=== PATIENT | male | born 1935 | race Caucasian/White ===

== ENCOUNTER 2019-12-15 10:36 | Outpatient (CLI) | payer MEDICARE, OTHER, SELFPAY ==
--- NOTE | 2019-12-18 11:32 | WPDHOLTEREM ---
Holter/Event Monitor Holter/Event Monitor Date of procedure: 12/15/19 Procedure Type: 24 hour holter monitor Indications: Bradycardia Conclusion: 1. 24 hour holter monitor on 12/15/19. 2. Underlying rhythm is sinus rhythm. HR range 74-104 bpm; average HR 86 bpm. 3. There are 25 premature supraventricular complexes. No supraventricular tachycardia. 4. There are 544 premature ventricular complexes and 2 ventricular couplets. No ventricular tachycardia. 5. No sinoatrial or atrioventricular blocks. No significant pauses greater than 2 seconds. 6. No symptoms available for correlation.
== END 2019-12-15 10:37 | disposition home or self-care (01) ==
LOC: ANHCARD 10:40
PROVIDERS: PCP Internal Medicine; Visit Provider Internal Medicine
DX: R00.1 Bradycardia, unspecified (principal)
CPT/HCPCS: 93225; 93226

== ENCOUNTER 2020-02-17 11:56 | Outpatient (CLI) | payer MEDICARE, OTHER, SELFPAY ==
[2020-02-17 12:19] LABS: Basophils Percent Auto 0.4 % (0.2-1.2); Eosinophils Absolute Auto 0.1 K/mm3 (0-0.3); Eosinophils Percent Auto 2.6 % (0-4.4); Hematocrit 31.5 % (42.0-52.0); Hemoglobin 10.4 g/dL (14.0-18.0); Immature Granulocyte Absolute 0.02 K/mm3 (0.00-0.031); Immature Granulocyte Percent A 0.4 % (0-0.5); Immature Reticulocyte Fraction 9.8 % (3.0-15.9); Lymphocytes Absolute Auto 0.79 K/mm3 (0.9-3.2); Mean Corpuscular Volume 96.9 fl (80-100); Mean Platelet Volume 9.3 fl (7.4-10.4); Monocytes Absolute Auto 0.5 K/mm3 (0.1-0.6); Monocytes Percent Auto 10.3 % (2.6-8.5); Neutrophils Absolute Auto 3.2 K/mm3 (1.3-6.7); Neutrophils Percent Auto 69.3 % (45.5-73.1); Platelet Count Result 216 k/mm3 (150-375); Red Blood Count 3.25 M/mm3 (4.6-6.20); Red Cell Distribution Width 13.3 % (11.5-14.5); Reticulocyte Hemoglobin Conten 37.8 pg (28.2-35.7); Reticulocyte Percent 1.25 % (0.7-4.3); Reticulocytes Absolute 0.04 B/L (32.2-175.7); White Blood Count 4.7 K/mm3 (4.5-10.0)
[2020-02-17 16:46] LABS: Iron 61 ug/dL (49-181)
[2020-02-17 16:49] LABS: Alanine Aminotransferase 25 U/L (4-50); Albumin Level 4.5 g/dL (3.5-5.1); Alkaline Phosphatase 76 U/L (38-126); Anion Gap 12 mmol/L (8-16); Aspartate Amino Transferase 23 U/L (17-59); Bilirubin,Total 0.4 mg/dL (0.2-1.3); Blood Urea Nitrogen 29 mg/dL (9-20); Calcium 9.5 mg/dL (8.4-10.2); Carbon Dioxide 23 mmol/L (22-30); Chloride 108 mmol/L (98-107); Estimated Glomerular Filt Rate 53; Glucose 105 mg/dL (75-110); Potassium 5.1 mmol/L (3.4-5.0); Sodium 143 mmol/L (137-145)
[2020-02-17 16:55] LABS: Percent Iron Saturation 18 % (20-50)
[2020-02-17 17:55] LABS: Folic Acid > 20.0 ng/mL (2.76->20)
[2020-02-20 09:33] LABS: Methylmalonic Acid 195 nmol/L (87-318)
[2020-02-22 16:32] LABS: Soluble Transferrin Receptor 1.16 mg/L (0.76-1.76)
== END 2020-02-17 11:57 | disposition home or self-care (01) ==
PROVIDERS: PCP Internal Medicine; Visit Provider Internal Medicine Hematology & Oncology
DX: D64.9 Anemia, unspecified (principal)
CPT/HCPCS: 36415; 80053; 82607; 82728; 82746; 83540; 83550; 83921; 84238; 85025; 85046

== ENCOUNTER 2020-06-19 08:47 | Outpatient (CLI) | payer MEDICARE, OTHER, SELFPAY ==
[2020-06-19 09:09] LABS: Basophils Percent Auto 0.6 % (0.2-1.2); Eosinophils Absolute Auto 0.1 K/mm3 (0-0.3); Eosinophils Percent Auto 2.5 % (0-4.4); Hematocrit 31.4 % (42.0-52.0); Hemoglobin 10.1 g/dL (14.0-18.0); Immature Granulocyte Absolute 0.01 K/mm3 (0.00-0.031); Immature Granulocyte Percent A 0.3 % (0-0.5); Lymphocytes Absolute Auto 0.83 K/mm3 (0.9-3.2); Lymphocytes Percent Auto 23.1 % (18.3-44.2); Mean Corpuscular HGB Conc 32.2 g/dl (32-36); Mean Corpuscular Hemoglobin 31.5 pg (26-34); Mean Corpuscular Volume 97.8 fl (80-100); Mean Platelet Volume 9.3 fl (7.4-10.4); Monocytes Absolute Auto 0.3 K/mm3 (0.1-0.6); Monocytes Percent Auto 8.4 % (2.6-8.5); Neutrophils Absolute Auto 2.3 K/mm3 (1.3-6.7); Neutrophils Percent Auto 65.1 % (45.5-73.1); Platelet Count Result 218 k/mm3 (150-375); Red Blood Count 3.21 M/mm3 (4.6-6.20); Red Cell Distribution Width 13.7 % (11.5-14.5); White Blood Count 3.6 K/mm3 (4.5-10.0)
[2020-06-19 12:39] LABS: Iron 65 ug/dL (49-181)
[2020-06-19 12:43] LABS: Anion Gap 12 mmol/L (8-16); Blood Urea Nitrogen 24 mg/dL (9-20); Calcium 9.5 mg/dL (8.4-10.2); Carbon Dioxide 22 mmol/L (22-30); Chloride 108 mmol/L (98-107); Estimated Glomerular Filt Rate > 60; Glucose 96 mg/dL (75-110); Potassium 4.8 mmol/L (3.4-5.0); Sodium 142 mmol/L (137-145)
[2020-06-19 12:49] LABS: Percent Iron Saturation 19 % (20-50)
== END 2020-06-19 08:48 | disposition home or self-care (01) ==
LOC: ANHLAB 08:51
PROVIDERS: PCP Internal Medicine; Visit Provider Internal Medicine Hematology & Oncology
DX: D64.9 Anemia, unspecified (principal)
CPT/HCPCS: 36415; 80048; 82728; 83540; 83550; 85025

== ENCOUNTER 2020-09-19 08:56 | Outpatient (CLI) | payer MEDICARE, OTHER, SELFPAY | END 2020-09-19 08:57 | disposition home or self-care (01) | LOC: ANHAUDIO 08:58 | PROVIDERS: PCP Internal Medicine; Visit Provider Nurse Practitioner | DX: H90.3 Sensorineural hearing loss, bilateral (principal) | CPT/HCPCS: 92557; 92567 ==

== ENCOUNTER 2020-10-25 09:47 | Outpatient (CLI) | payer MEDICARE, OTHER, SELFPAY ==
[2020-10-25 10:11] LABS: Basophils Percent Auto 0.3 % (0.2-1.2); Eosinophils Absolute Auto 0.1 K/mm3 (0-0.3); Hematocrit 28.8 % (42.0-52.0); Hemoglobin 9.3 g/dL (14.0-18.0); Immature Granulocyte Absolute 0.02 K/mm3 (0.00-0.031); Immature Granulocyte Percent A 0.5 % (0-0.5); Lymphocytes Absolute Auto 0.66 K/mm3 (0.9-3.2); Lymphocytes Percent Auto 17.9 % (18.3-44.2); Mean Corpuscular HGB Conc 32.3 g/dl (32-36); Mean Corpuscular Hemoglobin 31.2 pg (26-34); Mean Corpuscular Volume 96.6 fl (80-100); Mean Platelet Volume 9.2 fl (7.4-10.4); Monocytes Absolute Auto 0.4 K/mm3 (0.1-0.6); Neutrophils Absolute Auto 2.5 K/mm3 (1.3-6.7); Neutrophils Percent Auto 68.3 % (45.5-73.1); Platelet Count Result 200 k/mm3 (150-375); Red Blood Count 2.98 M/mm3 (4.6-6.20); White Blood Count 3.7 K/mm3 (4.5-10.0)
[2020-10-25 13:39] LABS: Alanine Aminotransferase 16 U/L (4-50); Albumin Level 4.2 g/dL (3.5-5.1); Alkaline Phosphatase 74 U/L (38-126); Anion Gap 10 mmol/L (8-16); Aspartate Amino Transferase 17 U/L (17-59); Bilirubin,Total 0.3 mg/dL (0.2-1.3); Blood Urea Nitrogen 23 mg/dL (9-20); Calcium 9.4 mg/dL (8.4-10.2); Carbon Dioxide 22 mmol/L (22-30); Chloride 108 mmol/L (98-107); Estimated Glomerular Filt Rate 58; Glucose 230 mg/dL (75-110); Sodium 140 mmol/L (137-145)
== END 2020-10-25 09:48 | disposition home or self-care (01) ==
LOC: ANHLAB 09:50
PROVIDERS: PCP Internal Medicine; Visit Provider Internal Medicine Hematology & Oncology
DX: D64.9 Anemia, unspecified (principal)
CPT/HCPCS: 36415; 80053; 82728; 85025

== ENCOUNTER 2020-11-08 14:30 | Outpatient (RCR) | payer MEDICARE, OTHER, SELFPAY | END 2020-11-08 23:59 | disposition home or self-care (01) | LOC: ANHAUDIO 14:30 | PROVIDERS: PCP Internal Medicine; Visit Provider Internal Medicine | DX: Z46.1 Encounter for fitting and adjustment of hearing aid (principal) | CPT/HCPCS: 99199; V5261; V5264 ==

== ENCOUNTER 2021-02-21 09:31 | Outpatient (CLI) | payer MEDICARE, OTHER, SELFPAY ==
--- NOTE | ~2021-02-21 | NM_ITS ---
EXAMINATION: NM pascual stress w perfusion DATE: 02/21/2021 12:47 INDICATION: Atherosclerotic coronary artery calcifications on prior CT. TECHNIQUE: Rest images were obtained following intravenous administration of 9 mCi Tc99m tetrofosmin (Myoview). The patient was infused intravenously with Lexiscan (Regadenoson). Then, 28.3 mCi Tc99m te trofosmin (Myoview) was administered intravenously, and stress images were obtained in supine positio n. Additional post stress images were obtained in the prone position to ameliorate diaphragmatic atte nuation artifact. Data was reconstructed into short axis and horizontal and vertical long axis SPECT images. Gated SPECT images were also obtained. COMPARISON: 10/28/2006 FINDINGS: There is no definite reversible or fixed perfusion abnormality to suggest ischemia or infar ction. There is normal left ventricular chamber size, wall motion and ejection fraction. Left ventr icular ejection fraction measures >70%. IMPRESSION: 1. Normal myocardial perfusion at rest and during stress. 2. Left ventricular ejection fraction measuring >70%. Reviewed, dictated and finalized at location A.
--- NOTE | 2021-02-21 10:23 | EST_ITS ---
Patient Info Name: Shahzad Couch Age: 86 years : 1935 Gender: Male Ht: 67 in Wt: 180 lbs BSA: 1.98 m2 HR: 68 bpm BP: 151 / 90 mmHg Heart Rhythm: Sinus Rhythm Exam Date: 02/21/2021 11:01 AM Exam Location: [facility] Stress Patient Status: Outpatient Admit Date: 02/21/2021 Staff Ordering Physician: Diogo Myers APRN Attending Provider: Diogo Myers APRN Exercise Technologist: Celia Chavez CT Exercise Physician: Fady Patel DO Exam Type: CA stress pascual w NM Study Info Indications R06.00 - Dyspnea, unspecified A regadenoson stress test was performed. Summary 1. 1. Negative lexiscan stress test for ischemic ST changes by ECG criteria. 2. 2. Stable hemodynamics throughout the test. 3. 3. Nuclear scan to follow and will be reported separately. Please correlate with it. 4. 4. Patient informed of the above results. Protocol: Lexiscan Stress ECG Details Stage: REST Duration (min): 0 min : 44 sec HR (bpm): 82 SBP (mmHg): --- DBP (mmHg): --- Stage: STAGE 1 Duration (min): 1 min : 0 sec HR (bpm): 96 SBP (mmHg): 157 DBP (mmHg): 59 Stage: RECOVERY Duration (min): 1 min : 0 sec HR (bpm): 103 SBP (mmHg): 157 DBP (mmHg): 59 Stage: RECOVERY Duration (min): 2 min : 0 sec HR (bpm): 101 SBP (mmHg): 147 DBP (mmHg): 49 Stage: RECOVERY Duration (min): 2 min : 52 sec HR (bpm): 97 SBP (mmHg): 144 DBP (mmHg): 46 Rest HR: 82 bpm Peak HR: 103 bpm Rest Sys BP: 130 mmHg Peak Sys BP: 157 mmHg Max Pred HR: 135 bpm % Max Pred HR: 76 % Target HR: 115 bpm Max RPP: 16,171 bpm*mmHg Termination Reason: Completed protocol Cardiac Symptoms: Dizziness, sob, stomach discomfort Total Time: 1 min : 0 sec Rest [place] BP: 80 mmHg Peak [place] BP: 59 mmHg Total Dose: 0.4 mg Resting ECG Sinus rhythm, RBBB. Stress ECG No ST changes. Arrhythmias None. Report Signatures
== END 2021-02-21 09:32 | disposition home or self-care (01) ==
LOC: ANHCARD 09:35
PROVIDERS: PCP Internal Medicine; Visit Provider Nurse Practitioner
DX: R06.00 Dyspnea, unspecified (principal); I10 Essential (primary) hypertension; K76.0 Fatty (change of) liver, not elsewhere classified
CPT/HCPCS: 78452; 93017; A9502; J2785

== ENCOUNTER 2021-02-27 12:36 | Outpatient (CLI) | payer MEDICARE, SELFPAY ==
--- NOTE | 2021-02-28 13:34 | WPDPFTINT ---
PFT Procedure Performed PFT Procedure Performed Plethysmography (Lung Vol) Diffusing Cap (DLCO) Flow Vol Loop Spirometry w/o Bronchodil PFT Interpretation Lung volumes were measured with the body plethysmography method. The lung volumes are unremarkable. Spirometry shows normal expiratory flow rates and a normal FEV1 to FVC ratio of 65%. There was no post bronchodilator study. Lung diffusion capacity is mildly reduced at 62% predicted. The flow volume loop is unremarkable. Impression: Spirometry lung volumes within normal range. Mild reduction in lung diffusion capacity.
== END 2021-02-27 12:37 | disposition home or self-care (01) ==
LOC: ANHPFT 12:38
PROVIDERS: PCP Internal Medicine; Visit Provider Nurse Practitioner
DX: R06.00 Dyspnea, unspecified (principal)
CPT/HCPCS: 94375; 94726; 94729

== ENCOUNTER 2021-06-21 08:00 | Outpatient (RCR) | payer MEDICARE, SELFPAY | END 2021-06-21 23:59 | disposition home or self-care (01) | LOC: ANHAUDIO 08:00 | PROVIDERS: PCP Internal Medicine; Visit Provider Internal Medicine | DX: Z46.1 Encounter for fitting and adjustment of hearing aid (principal) | CPT/HCPCS: 99199 ==

== ENCOUNTER 2021-07-09 13:17 | Outpatient (CLI) | payer MEDICARE, OTHER, SELFPAY ==
--- NOTE | ~2021-07-09 | CT_ITS ---
EXAMINATION: CT diagnostic chest wo con DATE: 07/09/2021 14:41 INDICATION: Shortness of breath unspecified TECHNIQUE: Computed tomography (CT) of the chest was performed without intravenous contrast. The dose -length product (DLP) was 347.11 mGy-cm. 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 COMPARISON: 01/01/2018 FINDINGS: There is moderate emphysema. The lungs are free of acute opacities. There is no pleural eff usion or pneumothorax. Calcified pulmonary nodules and calcified mediastinal lymph nodes are consiste nt with old granulomatous disease. The heart size is normal. A mildly enlarged right paratracheal lym ph node is likely reactive. Calcified coronary artery atherosclerosis is noted. Punctate calcificatio ns in otherwise normal appearing liver and spleen likely represent healed granulomatous disease. Ther e is mild thoracic spondylosis. IMPRESSION: 1. Moderate emphysema. Reviewed, dictated and finalized at location B. IMPRESSION: 1. Moderate emphysema.
--- NOTE | 2021-07-09 13:25 | ECHO_ITS ---
Patient Info Name: Shahzad Couch Age: 86 years : 1935 Gender: Male Ht: 68 in Wt: 182 lbs BSA: 2.01 m2 HR: 82 bpm BP: 136 / 64 mmHg Heart Rhythm: Sinus Rhythm Technical Quality: Good Exam Date: 07/09/2021 2:07 PM Exam Location: [facility] Pulmonary Patient Status: Outpatient Admit Date: 07/09/2021 Staff Ordering Physician: Aung Winslow MD [employer]: Viviana Jung RDCS Attending Provider: Aung Winslow MD Referring Physician: Nayla MATTHEWS; Exam Type: CA echo doppler color flow Study Info Indications - shortness of breath Complete two-dimensional, color flow and Doppler transthoracic echocardiogram is performed. Summary 1. Complete two-dimensional, color flow and Doppler transthoracic echocardiogram is performed. 2. Left ventricular chamber dimension is normal. 3. Left ventricular systolic function is normal, estimated at 65-70%. 4. There is mild aortic valve sclerosis. Left Ventricle Left ventricular chamber dimension is normal. Left ventricular systolic function is normal, estimated at 65-70%. The left ventricular diastolic function is grade I diastolic dysfunction. Right Ventricle Right ventricular chamber dimension is normal. Left Atria Left atrial chamber dimension is normal. Right Atria Right atrial chamber dimension is normal. Aortic Valve The aortic valve is trileaflet. There is mild aortic valve sclerosis. Pulmonic Valve The pulmonic valve is normal. Mitral Valve The mitral valve has normal leaflets. There is trace mitral valve regurgitation. Tricuspid Valve The tricuspid valve leaflets are normal. Pericardium/Pleural The pericardium appears normal. Aorta The aortic root size at the sinus of Valsalva is normal. Left Ventricular Outflow Tract Name Value Normal LVOT 2D LVOT Diameter 2.0 cm LVOT Doppler LVOT Peak Gradient 7 mmHg LVOT Mean Gradient 4 mmHg LVOT VTI 26 cm LVOT VTI/AV VTI Ratio 0.6 LVOT Stroke Volume 81 ml LVOT CO 18.2 l/min LVOT CI 9.1 l/min/m2 Pulmonic Valve Name Value Normal PV Doppler PV Peak Gradient 7 mmHg Mitral Valve Name Value Normal MV Doppler MV [place] 394 cm/s2 MV PHT 67 ms MV Area (PHT) 3.3 cm2 4.0-5.0 MV Diastolic Function
== END 2021-07-09 13:18 | disposition home or self-care (01) ==
PROVIDERS: PCP Internal Medicine; Visit Provider Internal Medicine Pulmonary Disease
DX: R06.00 Dyspnea, unspecified (principal); R06.02 Shortness of breath; J43.9 Emphysema, unspecified
CPT/HCPCS: 71250; 93306

== ENCOUNTER 2021-08-28 07:22 | Outpatient (RCR) | payer MEDICARE, OTHER, SELFPAY | END 2021-08-28 23:59 | disposition home or self-care (01) | LOC: ANHAUDIO 07:22 | PROVIDERS: PCP Internal Medicine; Visit Provider Internal Medicine | DX: Z46.1 Encounter for fitting and adjustment of hearing aid (principal) | CPT/HCPCS: 99199 ==

== ENCOUNTER 2022-10-03 13:40 | Outpatient (CLI) | payer MEDICARE, SELFPAY ==
--- NOTE | 2022-10-08 07:27 | P.PCNPFT_ITS ---
PFT Procedure Performed PFT Procedure Performed Plethysmography (Lung Vol) Diffusing Cap (DLCO) Flow Vol Loop Spirometry w/o Bronchodil PFT Interpretation DOS: 10/03/2022 REQUESTING: Tevin Velez MD REASON FOR TESTING: Dyspnea PULMONARY FUNCTION TESTS Results are reliable and reproducible. Spirometry: FEV1 is 2.12 L, 87% predicted, normal. FVC is 3.28 L, 99% predicted, normal. FEV1/FVC is 65%, within the normal limits. FEF 25-75% is 1.14L, 67% predicted, normal. No bronchodilator was administered Lung volumes: total lung capacity 6.20 L, 96%, normal. Residual volume is 2.84 L, 109% predicted, normal. RV/TLC is 46%, upper range of normal. Airway resistance is 2.08, 146%, increased. Diffusion: DLCO 11.7, 55%, decreased. DLCO /VA is 2.32, 64%, below the lower limits of normal. Flow volume loop: Normal. IMPRESSION: Normal spirometry, normal lung volumes, and moderate diffusion impairment that does not correct for alveolar volume. Main finding is isolated decrease in DLCO. This can be seen in Early interstitial lung disease, anemia, pulmonary vascular disease such as chronic pulmonary emboli, pulmonary hypertension and pulmonary vascular involvement with rheumatic diseases. There are other causes such as an increased carboxyhemoglobin due to cigarette smok ing. Compared to a prior study 02/27/2021, the values are similar and some are improved. The FEV1 measurement was 1.89 and now it is 2.12 L. Previously the 1.89 L was 110% but due to new reference ranges the current FEV1 2.12 L is 87%. The absolute amount has actually improved. This is also true for the FVC, the current FVC is 3.28 L, 99%, previously was 2.92 L, 128%. The ratio is 65%, stab le. Total lung capacity was 5.51 L, 114%, in the normal range. Now the total lung capacity is 6.20 L, 96%. The total lung capacity has actually improved. I residual volume is the same, 2.84 L compared to 2.46 L. Current DLCO is 11.7, 55%, very similar to the prior DLCO 12.4, 62%. Vicky Bautista MD
--- NOTE | 2022-10-17 09:10 | WPDPFTINT ---
PFT Interpretation DOS: 10/03/2022 REQUESTING: Tevin Velez MD REASON FOR TESTING: Dyspnea NOTE: This is a re-interpretation. The initial reading was based on incorrect normal values. The prior PFT on 02/27/2021 was also interpreted on the wrong set of normal values. This was due to incorrect gender entered in the computer for calculations. PULMONARY FUNCTION TESTS Results are reliable and reproducible. Spirometry: FEV1 is 2.12 L, 87% predicted. This is normal. FVC is 3.28 L, 99% predicted, normal. FEV1/FVC ratio is 65%, normal. No bronchodilator was administered. Lung volumes: The total lung capacity is 6.20 L, 96%, normal. Residual volume is 2.84 L, 109% predicted, normal. RV/TLC ratio is 46%, within the normal range. Diffusion: DLCO is 11.7, 55% predicted, below normal. DLCO /VA is 2.32, 64%, below normal. Flow volume loop: There is mild coving of the expiratory limb. IMPRESSION: This study shows normal spirometry, normal lung volumes, and a moderate diffusion impairment which does not correct for alveolar volume. No bronchodilator was given. In the proper clinical setting this may be consistent with emphysema. Clinical correlation recommended Compared to a prior study on 02/27/2021 now with correct normal standards, FEV1 was 1.89 L, 76%, in the normal range. FVC was 2.92 L, 87%, normal. FEV1/ FVC ratio is 65%, normal. Total lung capacity was 5.51 L, 85%, normal. Residual volume was 2.46 L, 95%, normal. RV / TLC is 45%, normal. DLCO was 12.4, 58%,. The DLCO/ VA is 2.56, 70%, in the normal range. The absolute FEV1 is now 230 mL higher, FVC is now 360 mL higher, same FEV1/FVC ratio, total lung capacity 690 mL higher, residual volume is the same, diffusion is similar. On the older study DLCO/VA corrected into the normal range. Currently corrected DLCO/VA is still below normal. Vicky Bautista MD
== END 2022-10-03 13:41 | disposition home or self-care (01) ==
PROVIDERS: PCP Family Medicine; Visit Provider Family Medicine
DX: R06.00 Dyspnea, unspecified (principal)
CPT/HCPCS: 94375; 94726; 94729

== ENCOUNTER 2023-09-16 11:03 | Outpatient (CLI) | payer MEDICARE, SELFPAY ==
--- NOTE | ~2023-09-16 | US_ITS ---
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 TECHNIQUE: Multiple grayscale and Doppler ultrasound images of the kidneys were obtained. COMPARISON: CT cap 01/01/2018 FINDINGS: The right kidney measures 12.5 x 4.9 x 3.7 cm. The left kidney measures 12.7 x 5.6 x 4.1 cm. The kidn eys demonstrate increased parenchymal echogenicity. 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 There is no hydronephrosis. The bladder is incompletely distended. Moderate bladder wall thickening. Enlarg ed prostate. IMPRESSION: Sonographic findings suggestive of medical renal disease. 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 Bladder wall thickening may be secondary to incomplete distention, cystitis, or chronic outlet obstr uction secondary to prostatomegaly. Reviewed, dictated and finalized at [facility]. IMPRESSION: Sonographic findings suggestive of medical renal disease. Collecting system dup lication on the right. Bladder wall thickening may be secondary to incomplete d istention, cystitis, or chronic outlet obstruction secondary to prostatomegaly.
== END 2023-09-16 11:04 | disposition home or self-care (01) ==
PROVIDERS: PCP Family Medicine; Visit Provider Internal Medicine Nephrology
DX: E11.22 Type 2 diabetes mellitus with diabetic chronic kidney disease (principal); I12.9 Hypertensive chronic kidney disease with stage 1 through stage 4 chronic kidney disease, or unspecified chronic kidney disease; N18.32 Chronic kidney disease, stage 3b; R94.4 Abnormal results of kidney function studies
CPT/HCPCS: 76775

== ENCOUNTER 2023-12-09 11:58 | Outpatient (CLI) | payer MEDICARE, SELFPAY ==
[2023-12-09 12:25] LABS: Eosinophils Absolute Auto 0.2 K/mm3 (0-0.3); Eosinophils Percent Auto 5.8 % (0-4.4); Hematocrit 26.6 % (42.0-52.0); Hemoglobin 8.5 g/dL (14.0-18.0); Immature Granulocyte Absolute 0.03 K/mm3 (0.00-0.031); Immature Granulocyte Percent A 0.8 % (0-0.5); Lymphocytes Absolute Auto 0.67 K/mm3 (0.9-3.2); Lymphocytes Percent Auto 17.5 % (18.3-44.2); Mean Corpuscular Hemoglobin 31.7 pg (26-34); Mean Corpuscular Volume 99.3 fl (80-100); Mean Platelet Volume 9.6 fl (7.4-10.4); Monocytes Absolute Auto 0.3 K/mm3 (0.1-0.6); Monocytes Percent Auto 7.1 % (2.6-8.5); Neutrophils Absolute Auto 2.6 K/mm3 (1.3-6.7); Neutrophils Percent Auto 68.8 % (45.5-73.1); Platelet Count Result 192 k/mm3 (150-375); Red Blood Count 2.68 M/mm3 (4.6-6.20); Red Cell Distribution Width 14.3 % (11.5-14.5); White Blood Count 3.8 K/mm3 (4.5-10.0)
[2023-12-09 14:11] LABS: Iron 49 ug/dL (49-181)
[2023-12-09 14:12] LABS: Anion Gap 12 mmol/L (4-12); Blood Urea Nitrogen 43 mg/dL (9-20); Calcium 8.6 mg/dL (8.4-10.2); Carbon Dioxide 22 mmol/L (22-30); Chloride 105 mmol/L (98-107); Estimated Glomerular Filt Rate 22; Glucose 160 mg/dL (65-110); Sodium 139 mmol/L (137-145)
[2023-12-09 14:20] LABS: Percent Iron Saturation 18 % (20-50)
== END 2023-12-09 11:59 | disposition home or self-care (01) ==
LOC: ANHLAB 12:00
PROVIDERS: Nurse Practitioner Family; PCP Family Medicine; Visit Provider Internal Medicine Hematology & Oncology
DX: D64.9 Anemia, unspecified (principal)
CPT/HCPCS: 36415; 80048; 82607; 82728; 83540; 83550; 85025

== ENCOUNTER 2024-01-22 08:08 | Outpatient (CLI) | payer MEDICARE, SELFPAY ==
--- NOTE | ~2024-01-22 | NM_ITS ---
EXAMINATION: NM pascual stress w perfusion DATE: 01/22/2024 12:00 INDICATION: Dyspnea TECHNIQUE: Rest images were obtained following intravenous administration of 11.78 mCi Tc99m tetrofos min (Myoview). The patient was infused intravenously with Lexiscan (Regadenoson). Then, 30.9 mCi Tc99 m tetrofosmin (Myoview) was administered intravenously, and stress images were obtained initially in the supine position with repeat post stress images obtained in the prone position. Data was reconstru cted into short axis and horizontal and vertical long axis SPECT images. Gated SPECT images were also obtained. COMPARISON: None. FINDINGS: There is some diaphragmatic attenuation artifact along the inferior wall on the rest and po st stress images which normalizes on the post stress images obtained in the prone position. There is no definite reversible or fixed perfusion abnormality to suggest ischemia or infarction. There is no rmal left ventricular chamber size, wall motion and ejection fraction. Left ventricular ejection fra ction measures >70%. IMPRESSION: 1. Normal myocardial perfusion at rest and during stress. 2. Left ventricular ejection fraction measuring >70%. Reviewed, dictated and finalized at location A.
--- NOTE | 2024-01-22 08:37 | EST_ITS ---
Patient Info Name: Shahzad Couch Age: 88 years : 1935 Gender: Male Ht: 67 in Wt: 175 lbs BSA: 1.95 m2 HR: 85 bpm BP: 149 / 58 mmHg Heart Rhythm: Sinus Rhythm Exam Date: 01/22/2024 10:56 AM Exam Location: Echo Lab Patient Status: Outpatient Admit Date: 01/22/2024 Staff Ordering Physician: Fady Patel DO Attending Provider: Fady Patel DO Exercise Technologist: Celia Chavez CT Exercise Physician: Fady Patel DO Exam Type: CA stress pascual w NM Study Info Indications R06.09 - Other forms of dyspnea A regadenoson stress test was performed. Summary 1. 1. Abnormal lexiscan stress test for ischemic ST changes by ECG criteria. 2. 2. Baseline hypertension. 3. 3. Nuclear scan to follow and will be reported separately. Please correlate with it. 4. 4. Patient informed of the above results. Protocol: Lexiscan Stress ECG Details Stage: REST Duration (min): 5 min : 46 sec HR (bpm): 85 SBP (mmHg): 149 DBP (mmHg): 58 Stage: STAGE 1 Duration (min): 1 min : 0 sec HR (bpm): 95 SBP (mmHg): 155 DBP (mmHg): 40 Stage: RECOVERY Duration (min): 1 min : 0 sec HR (bpm): 98 SBP (mmHg): 155 DBP (mmHg): 40 Stage: RECOVERY Duration (min): 2 min : 0 sec HR (bpm): 95 SBP (mmHg): 155 DBP (mmHg): 40 Stage: RECOVERY Duration (min): 3 min : 0 sec HR (bpm): 93 SBP (mmHg): 130 DBP (mmHg): 40 Stage: RECOVERY Duration (min): 4 min : 0 sec HR (bpm): 91 SBP (mmHg): 130 DBP (mmHg): 40 Stage: RECOVERY Duration (min): 4 min : 48 sec HR (bpm): 89 SBP (mmHg): 140 DBP (mmHg): 42 Rest HR: 85 bpm Peak HR: 98 bpm Rest Sys BP: 149 mmHg Peak Sys BP: 155 mmHg Max Pred HR: 133 bpm % Max Pred HR: 74 % Target HR: 113 bpm Max RPP: 15,190 bpm*mmHg Termination Reason: Completed protocol Cardiac Symptoms: Shortness of breath, Dizziness Total Time: 1 min : 0 sec Rest [place] BP: 58 mmHg Peak [place] BP: 40 mmHg Total Dose: 0.4 mg Aminophylline Dose: 100 mg Resting ECG Sinus rhythm. Stress ECG [address] depression in inferior leads. Due to symptom of dizziness and sob, Aminophylline 100 mg IV was given several minutes after the test. Arrhythmias None. Report Signatures
--- NOTE | 2024-01-22 08:37 | ECHO_ITS ---
Patient Info Name: Shahzad Couch Age: 88 years : 1935 Gender: Male Ht: 67 in Wt: 180 lbs BSA: 1.98 m2 HR: 95 bpm BP: 129 / 54 mmHg Technical Quality: Good Exam Date: 01/22/2024 12:03 PM Exam Location: Echo Lab Patient Status: Outpatient Admit Date: 01/22/2024 Staff Ordering Physician: Fady Patel DO [employer]ner: Marie Villareal RDCS Attending Provider: Fady Patel DO Referring Physician: Jorge SHEPARD; Exam Type: CA echo doppler color flow Study Info Indications R06.00 - Dyspnea, unspecified Complete two-dimensional, color flow and Doppler transthoracic echocardiogram is performed. Strain analysis performed. Summary 1. Complete two-dimensional, color flow and Doppler transthoracic echocardiogram is performed. 2. Left ventricular chamber dimension is normal. 3. Left ventricular systolic function is normal, estimated at 65-70%. 4. The left ventricular diastolic function is grade I diastolic dysfunction. 5. E/e' 16 is elevated. 6. Global longitudinal strain is normal at -18.0%. 7. Left atrial chamber dimension is mildly enlarged. 8. There is moderate aortic valve sclerosis. 9. There is mild aortic valve stenosis with a peak velocity of 258 cm/s, mean gradient of 16 mmHg, and aortic valve area of 1.7 cm2. 10. There is mild mitral valve regurgitation. 11. No pulmonary hypertension, estimated pulmonary arterial systolic pressure is 36 mmHg. Left Ventricle E/e' 16 is elevated. Global longitudinal strain is normal at -18.0%. Left ventricular chamber dimension is normal. Left ventricular systolic function is normal, estimated at 65-70%. The left ventricular diastolic function is grade I diastolic dysfunction. Right Ventricle Right ventricular systolic function is normal and with normal TAPSE 2.4 cm. Right ventricular chamber dimension is normal. Left Atria Left atrial chamber dimension is mildly enlarged. Right Atria Right atrial chamber dimension is normal. Aortic Valve The aortic valve is trileaflet. There is moderate aortic valve sclerosis. There is mild aortic valve stenosis with a peak velocity of 258 cm/s, mean gradient of 16 mmHg, and aortic valve area of 1.7 cm2. There is no aortic valve regurgitation. Pulmonic Valve There is no pulmonic regurgitation. Mitral Valve There is no mitral valve stenosis. There is mild mitral valve regurgitation. Tricuspid Valve There is no tricuspid valve regurgitation. No pulmonary hypertension, estimated pulmonary arterial systolic pressure is 36 mmHg. Pericardium/Pleural There is no pericardial effusion. Inferior Vena Cava Normal inferior vena cava with >50% collapse upon inspiration consistent with normal right atrial pressure, 5 mmHg. Aorta The aortic root size at the sinus of Valsalva is normal. Left Ventricular Outflow Tract Name Value Normal LVOT 2D LVOT Diameter 2.0 cm LVOT Doppler LVOT Peak Gradient 6 mmHg LVOT Mean Gradient 3 mmHg LVOT VTI 26 cm LVOT VTI/AV VTI Ratio 0.5 LVOT Stroke Volume 85 ml LVOT CO 6.1 l/min LVOT CI
== END 2024-01-22 08:09 | disposition home or self-care (01) ==
LOC: ANHCARD 08:10
PROVIDERS: PCP Family Medicine; Visit Provider Internal Medicine Cardiovascular Disease
DX: R06.00 Dyspnea, unspecified (principal); I35.0 Nonrheumatic aortic (valve) stenosis; I34.0 Nonrheumatic mitral (valve) insufficiency
CPT/HCPCS: 78452; 93017; 93306; A9502; J0280; J2785

== ENCOUNTER 2024-02-11 20:02 | Inpatient (IN) | payer MEDICARE, SELFPAY ==
--- NOTE | ~2024-02-11 | XR_ITS ---
EXAMINATION: XR chest 1V portable DATE: 02/11/2024 20:26 INDICATION: Weakness TECHNIQUE: frontal view of the chest was obtained. COMPARISON: Chest CT dated 07/09/2021 FINDINGS: Diffuse increased interstitial pattern throughout both lungs with bilateral perihilar predominant leonila undglass opacities and a few peripheral [place] B-lines at the lateral right lower lung zone consisten t with mild to moderate pulmonary edema. No pleural effusion or pneumothorax. Calcified nodule right midlung and calcified mediastinal lymph nodes consistent with old granulomatous disease. Heart size i s normal. IMPRESSION: 1. Mild to moderate pulmonary edema. Reviewed, dictated and finalized at location A.
--- NOTE | ~2024-02-11 | US_ITS ---
EXAMINATION: US renal BI DATE: 02/12/2024 10:01 INDICATION: Acute on chronic kidney disease. TECHNIQUE: Multiple ultrasound grayscale images of the kidneys were obtained. COMPARISON: CT abdomen and pelvis 02/11/2024 FINDINGS: The right kidney measures 14.0 x 5.8 x 4.9 cm. The left kidney measures 12.9 x 5.7 x 4.1 cm. The kidn eys demonstrate normal parenchymal echogenicity. There is no hydronephrosis. The bladder is decompres sed by a Jones catheter. IMPRESSION: 1. Normal kidneys. No hydronephrosis. Reviewed, dictated and finalized at location A.
--- NOTE | ~2024-02-11 | XR_ITS ---
EXAMINATION: XR chest 1V portable DATE: 02/13/2024 11:09 INDICATION: Hypoxia. TECHNIQUE: A single frontal view of the chest was obtained. COMPARISON: Chest single view 02/11/2024, chest CT 02/11/2024 FINDINGS: [place] B-lines are noted. There are lucencies in the lungs, consistent with emphysema. Ther e are airspace opacities in all lung zones bilaterally with a perihilar predominance. No pleural effu sofi or pneumothorax. The heart size is normal. Calcified mediastinal lymph nodes are consistent with old granulomatous disease. IMPRESSION: 1. Worsened diffuse lung disease, likely moderate pulmonary edema. 2. Emphysema. Reviewed, dictated and finalized at location A.
--- NOTE | ~2024-02-11 | CT_ITS ---
EXAMINATION: CT chest abdomen pelvis wo con DATE: 02/11/2024 22:02 INDICATION: Infection TECHNIQUE: Computed tomography (CT) of the chest, abdomen, and pelvis was performed without intraveno us contrast. Automated exposure control and iterative reconstruction technique were employed. The dos e-length product was 926.02 mGy-cm. COMPARISON: None FINDINGS: CHEST: Moderate emphysema with superimposed groundglass opacities with dependent and perihilar predominance relatively sparing the subpleural lung. There is also some scattered smooth septal line thickening. G iven the appearance and distribution would favor moderate pulmonary edema over pneumonia. There are v vasile small bilateral pleural effusions at the posterior sulci. Heart size is normal. Atherosclerotic c oronary artery calcifications. No pericardial effusion. Thoracic aorta is normal in caliber. Calcifie d right paratracheal lymph nodes consistent with old granulomatous disease. No pathologically enlarge d thoracic lymphadenopathy. Severe lower cervical and mild thoracic spondylosis. ABDOMEN/PELVIS: There are few small hepatic and splenic calcifications consistent with old granulomatous disease. Dec ompressed gallbladder, pancreas and bilateral adrenal glands are normal. 2 mm nonobstructing stone at a lower pole calyx of the right kidney. No other urolithiasis or hydronephrosis on either the left o r right. 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 Dani dder is normal. Prostatomegaly measuring 6.2 x 5.6 cm. Moderate-sized bilateral fat-containing inguin al hernias. There is mild scattered diverticulosis without adjacent inflammatory stranding to suggest diverticulitis. No bowel obstruction. Normal appendix. No free intraperitoneal gas or fluid. Moderat e to severe lumbar spondylosis. IMPRESSION: 1. Diffuse bilateral groundglass opacities and smooth septal line thickening and favor moderate pulmo nary edema over pneumonia with very small bilateral pleural effusions. 2. Moderate emphysema. 3. 2 mm nonobstructing right renal stone. 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 5. Mild diverticulosis without evident diverticulitis. 6. Prominent prostatomegaly. 7. Moderate-sized bilateral fat-containing inguinal hernias. Reviewed, dictated and finalized at location A. IMPRESSION: 1. Diffuse bilateral groundglass opacities and smooth septal line thickening an d favor moderate pulmonary edema over pneumonia with very small bilateral pleur al effusions. 2. Moderate emphysema. 3. 2 mm nonobstructing right renal stone. 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 5. Mild diverticulosis without evident diverticulitis. 6. Prominent prostatomegaly. 7. Moderate-sized bilateral fat-containing inguinal hernias.
--- NOTE | ~2024-02-11 | XR_ITS ---
EXAMINATION: XR chest 1V portable DATE: 02/14/2024 06:00 INDICATION: Vasculitis. Pneumonia. TECHNIQUE: A single frontal view of the chest was obtained. COMPARISON: Chest single view 02/13/2024, chest CT 02/11/2024 FINDINGS: There are lucencies in the lungs, consistent with emphysema. There is a diffuse interstitia l pattern in the lungs. There are airspace opacities in all lung zones with a perihilar and lower star g predominance. No pleural effusion or pneumothorax. The heart size is normal. Calcified mediastinal lymph nodes are consistent with old granulomatous disease. IMPRESSION: 1. Diffuse lung disease with mild improvement on the left, likely moderate pulmonary edema without or with superimposed pneumonia. 2. Emphysema. Reviewed, dictated and finalized at location A. IMPRESSION: 1. Diffuse lung disease with mild improvement on the left, likely moderate pulm onary edema without or with superimposed pneumonia. 2. Emphysema.
[2024-02-11 20:13] VITALS: BP 151/45; PULSE 88; RESP 19; TEMP 38.4; O2SAT 92
[2024-02-11 21:13] LABS: Basophils Percent Auto 0.1 % (0.2-1.2); Eosinophils Absolute Auto 0.1 K/mm3 (0-0.3); Eosinophils Percent Auto 0.9 % (0-4.4); Immature Granulocyte Absolute 0.14 K/mm3 (0.00-0.031); Immature Granulocyte Percent A 1.3 % (0-0.5); Lymphocytes Absolute Auto 0.63 K/mm3 (0.9-3.2); Mean Corpuscular HGB Conc 31.1 g/dl (32-36); Mean Corpuscular Hemoglobin 30.8 pg (26-34); Mean Corpuscular Volume 98.8 fl (80-100); Mean Platelet Volume 10.7 fl (7.4-10.4); Monocytes Absolute Auto 0.6 K/mm3 (0.1-0.6); Monocytes Percent Auto 5.8 % (2.6-8.5); Neutrophils Absolute Auto 9.1 K/mm3 (1.3-6.7); Neutrophils Percent Auto 85.9 % (45.5-73.1); Platelet Count Result 237 k/mm3 (150-375); Red Blood Count 1.69 M/mm3 (4.6-6.20); Red Cell Distribution Width 16.5 % (11.5-14.5); White Blood Count 10.6 K/mm3 (4.5-10.0)
[2024-02-11 21:23] LABS: INR 1.1; Prothrombin Time 14.7 Seconds (11.1-14.7)
[2024-02-11 21:24] LABS: Alanine Aminotransferase 23 U/L (6-50); Albumin Level 3.1 g/dL (3.5-5.1); Alkaline Phosphatase 74 U/L (38-126); Anion Gap 7 mmol/L (4-12); Aspartate Amino Transferase 18 U/L (17-59); Bilirubin,Total 0.3 mg/dL (0.2-1.3); Blood Urea Nitrogen 61 mg/dL (9-20); Calcium 8.4 mg/dL (8.4-10.2); Carbon Dioxide 21 mmol/L (22-30); Chloride 106 mmol/L (98-107); Estimated CRCL calculation 13 ml/min; Estimated Glomerular Filt Rate 17; Glucose 199 mg/dL (65-110); Magnesium 1.7 mg/dL (1.6-2.3); Partial Thromboplastin Time 37.7 Seconds (22.3-36.8); Potassium 5.7 mmol/L (3.4-5.0); Sodium 134 mmol/L (137-145)
[2024-02-11 21:25] LABS: Lactic Acid Reflex 1.5 mmol/L (0.7-2.0)
[2024-02-11] MEDS: ACETAMINOPHEN 325 MG TABLET 650 MG PO (21:27)
[2024-02-11 21:32] LABS: Hematocrit 16.7 % (42.0-52.0); Hemoglobin 5.2 g/dL (14.0-18.0)
--- NOTE | 2024-02-11 21:37 | ED.GENADULT ---
HPI - General Adult General Chief complaint: Weakness Stated complaint: Weakness Time Seen by Provider: 02/11/24 20:02 History of Present Illness HPI narrative: Patient is an 88-year-old male who presents to the emergency department this evening from home due to generalized weakness. was though info called EMS and she states that patient has been feeling generally weak home for the past few days but today he was sitting on the toilet and told her that he was too weak to get off and felt as though he was going to pass out. also states that his stools have been black and tarry for the past few days. Patient does not take any blood thinners other than aspirin. denies any recent falls or trauma. Patient is hard of hearing and a poor historian, the majority of the history of present illness is obtained from and son present at bedside. Patient is currently denying any symptoms stating that he just wants to be left alone so he can sleep. Related Data Home Medications Medication Instructions Recorded Confirmed pen needle, diabetic 32 gauge x #100 ea 03/24/19 02/04/24/ (NovoTwist) latanoprost 0.005 % eye drops 1 drop ophthalmic (eye) QPM 12/07/19 02/04/24 vit C 250 mg-E 90 mg-zinc 40 1 tablet PO ONCE 04/08/23 02/04/24 mg-copper 1 [id number] chew tablet (PreserVision AREDS-2) timolol maleate 0.5 % eye drops 1 drp EACH EYE BID 12/02/23 02/04/24 Allergies Allergy/AdvReac Type Severity Reaction Status Date / Time No Known Allergies Allergy Verified 02/11/24 20:20 Review of Systems Review of Systems: All systems are reviewed and are negative unless stated otherwise in the HPI. [facility] Past Medical History Medical History Anemia due to stage 3 chronic kidney disease Anemia, unspecified BMI 28.0-28.9,adult Essential (primary) hypertension Fatty liver Gastro-esophageal reflux disease without esophagitis Glaucoma Hearing loss Mixed hyperlipidemia Pulmonary emphysema determined by X-ray Type 2 diabetes mellitus with other diabetic kidney complication Surgical History Surgical History H/O eye surgery H/O eye surgery Hx of detached retina repair Family History Family History Mother Family history of heart disease in male family member before age 55 Heart disease Father , 96 y/o Diabetes mellitus Neuropathy Sibling Parkinson disease Social History Social History Smoking packs per day: 0.5 Smoking cigarettes per day: 10.0 Years smoked: 25 Smoking pack-years: 12.50 Smoking status: Former smoker Tobacco type: cigarettes Second hand tobacco smoke exposure: No Smoking end date: 01/29/92 Alcohol intake: never Substance use: never Substance use type: does not use Do You Feel Safe in your Home?: Yes Lack of Transportation: No Lack of Food: Never True Current Housing: I Have Housing Concerned About Future Housing: No Difficulty Paying Gas/Electric Bills: No Difficulty Paying for Meds: No Currently Unemployed: No Education: High School Diploma/GED Difficulty w/ Childcare or Family Care: No Living arrangements: with family 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 HEENT: PERRL, no rhinorrhea, no post nasal drip, oropharynx clear. Cardiovascular: Regular rate and rhythm, no murmurs, rubs or gallops, no peripheral edema. Respiratory: Clear to auscultation bilaterally, no tachypnea, no wheezing, no rhonchi, no rubs, no respiratory distress. Abdomen: Soft, nontender, nondistended, no rebound, no guarding, no peritoneal signs. Rectal: Exam performed worse presence of female nurse boom tender revealing good rectal tone, fecal occult blood test positive, stools are melanotic, black and tarry. Musculoskeletal: No joint swelling or deformity, normal muscle tone. Skin: No rashes or petechia, no signs of infection. Neurological: Alert and oriented to person, place, and time. Follows all commands. No focal deficits, speech is clear and fluent. Course Vital Signs Vital signs: Vital Signs Temperature 101.2 F H 02/11/24 20:13 Pulse Rate 88 02/11/24 20:13 Respiratory Rate 19 02/11/24 20:13 Blood Pressure 151/45 H 02/11/24 20:13 Pulse Oximetry 92 02/11/24 20:13 Oxygen Delivery Nasal Cannula 02/11/24 20:13 Oxygen Flow Rate 2 02/11/24 20:13 Temperature 101.2 F H 02/11/24 20:13 Pulse Rate 78 02/11/24 22:27 Respiratory Rate 16 02/11/24 22:27 Blood Pressure 118/74 02/11/24 22:27 Pulse Oximetry 93 02/11/24 22:27 Oxygen Delivery Nasal Cannula 02/11/24 20:13 Oxygen Flow Rate 2 02/11/24 20:13 Medical Decision Making MDM Narrative Medical decision making narrative: The patient was evaluated by myself in the emergency department. History is obtained from patient and who is an independent historian and physical exam was performed. External medical records were reviewed at this time. IV was established and pertinent tests were ordered. Patient was administered 650 mg of oral Tylenol for a fever of 101.2 degrees F. Laboratory results obtained revealing a hemoglobin of 5.2 with last documented hemoglobin from beginning of December of 8.6. At this, transfusion of 2 units of packed RBC was initiated after both verbal and written consent was obtained from the patient. Kidney function revealed a potassium of 5.7, BUN of 61, creatinine 3.5 and a GFR of 17. Patient's baseline creatinine usually ranges around 2. ProBNP 3060. Patient denies any history of CHF, patient did have a recent echocardiogram performed earlier this month revealing a good ejection fraction of 60%. Jones catheter was placed and urinalysis revealed no evidence of a UTI. Imaging studies obtained included CT chest abdomen and pelvis without IV contrast which was independently interpreted by me revealin. Diffuse bilateral groundglass opacities and smooth septal line thickening and favor moderate pulmonary edema over pneumonia with very small bilateral pleural effusions. 2. Moderate emphysema. 3. 2 mm nonobstructing right renal stone. 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 5. Mild diverticulosis without evident diverticulitis. 6. Prominent prostatomegaly. 7. Moderate-sized bilateral fat-containing inguinal hernias. At this time, patient was started on IV as a thorough mycin and Rocephin to cover him for community-acquired pneumonia. Family members were updated regarding patient's blood work and imaging results. Case was discussed with the on-call GI physician Dr. Kennedy who agreed to evaluate the patient. Nephrology consultation was also placed with patient's office machine service supervisor Dr. Washington for his acute kidney injury likely pre renal azotemia. Case was discussed with the on-call hospitalist Dr. Carlisle who accepted admission to our intermediate care unit. Differential diagnosis considerations include sepsis, UTI, pneumonia, dehydration, blood loss anemia, iron deficiency anemia. Comorbidities impacting this visit include history of iron deficiency anemia. I have evaluated and discussed social determinants of health with the patient that could potentially impact subsequent diagnosis and treatment plans. On repeat assessment of the patient, reevaluation revealed that the patient is doing well and is in no acute distress. Patient symptoms have improved since he arrived to our emergency department. Repeat vital signs were all reviewed and noted to be stable. Differential diagnosis and treatment plan were discussed with the patient at bedside. Patient agrees with discussion and after shared medical decision making agrees with admission. All questions were answered to the patient's satisfaction. Critical care time of 47 minutes, exclusive of separately performed procedures, necessary for treating or preventing eminent or life-threatening deterioration of patient's condition of acute severe anemia requiring IV transfusion of multiple units of packed RBC, focused on patient care provided personally by me and time spent during initial evaluation, physical examination, ordering and performing treatments and interventions, ordering and reviewing laboratory studies, ordering and reviewing radiographic studies, re-evaluation of the patient's condition, evaluation of the patient's response to treatment, and discussion of patient case with multiple consultants. Vital Signs Vital Signs: Vital Signs Temperature 101.2 F H 02/11/24 20:13 Pulse Rate 88 02/11/24 20:13 Respiratory Rate 19 02/11/24 20:13 Blood Pressure 151/45 H 02/11/24 20:13 Pulse Oximetry 92 02/11/24 20:13 Oxygen Delivery Nasal Cannula 02/11/24 20:13 Oxygen Flow Rate 2 02/11/24 20:13 Temperature 101.2 F H 02/11/24 20:13 Pulse Rate 78 02/11/24 22:27 Respiratory Rate 16 02/11/24 22:27 Blood Pressure 118/74 02/11/24 22:27 Pulse Oximetry 93 02/11/24 22:27 Oxygen Delivery Nasal Cannula 02/11/24 20:13 Oxygen Flow Rate 2 02/11/24 20:13 Lab Data 02/11/24 20:58 02/11/24 20:58 Labs: Lab Results 02/11/24 02/11/24 Range/Units 20:58 23:01 WBC 10.6 H (4.5-10.0) K/mm3 RBC 1.69 L (4.6-6.20) M/mm3 Hgb 5.2 L* D (14.0-18.0) g/dL Hct 16.7 L* (42.0-52.0) % MCV 98.8 (80-100) fl MCH 30.8 (26-34) pg MCHC 31.1 L (32-36) g/dl RDW 16.5 H (11.5-14.5) % Plt Count 237 (150-375) k/mm3 MPV 10.7 H (7.4-10.4) fl Immature Gran % (Auto) 1.3 H (0-0.5) % Neut % (Auto) 85.9 H (45.5-73.1) % Lymph % (Auto) 6.0 L (18.3-44.2) % Story % (Auto) 5.8 (2.6-8.5) % Eos % (Auto) 0.9 (0-4.4) % Baso % (Auto) 0.1 L (0.2-1.2) % Lymph # (Auto) 0.63 L (0.9-3.2) K/mm3 Story # (Auto) 0.6 (0.1-0.6) K/mm3 Eos # (Auto) 0.1 (0-0.3) K/mm3 Baso # (Auto) 0.0 (0.0-0.1) K/mm3 Abs Immat Gran (auto) 0.14 H (0.00-0.031) K/mm3 Absolute Neuts (auto) 9.1 H (1.3-6.7) K/mm3 Absolute Nucleated RBC 0.000 (0.0-0.012) K/mm3 Nucleated RBC % 0.0 (0.0-0.2) % PT 14.7 (11.1-14.7) Seconds INR 1.1 APTT 37.7 H (22.3-36.8) Seconds Sodium 134 L (137-145) mmol/L Potassium 5.7 H (3.4-5.0) mmol/L Chloride 106 (98-107) mmol/L Carbon Dioxide 21 L (22-30) mmol/L Anion Gap 7 (4-12) mmol/L BUN 61 H D (9-20) mg/dL Creatinine 3.50 H (0.7-1.3) mg/dL Estim Creat Clear Calc 13 ml/min Estimated GFR 17 L (59 - ) Glucose 199 H (65-110) mg/dL Lactic Acid 1.5 (0.7-2.0) mmol/L Calcium 8.4 (8.4-10.2) mg/dL Magnesium 1.7 (1.6-2.3) mg/dL Total Bilirubin 0.3 (0.2-1.3) mg/dL AST 18 (17-59) U/L ALT 23 (6-50) U/L Alkaline Phosphatase 74 (38-126) U/L NT-Pro-B Natriuret Pep 3060 H (19.9-100) pg/mL Total Protein 7.0 (6.3-8.2) g/dL Albumin 3.1 L (3.5-5.1) g/dL Urine Color Yellow (Yellow) Urine Appearance Clear (Clear) Urine pH 5.0 (5.0-9.0) Ur Specific [place] 1.015 (1.001-1.035) Urine Protein Trace (Negative) mg/dL Urine Glucose (UA) Negative (Negative) mg/dL Urine Ketones Negative (Negative) mg/dL Ur Blood (Man) Negative (Negative) Urine Nitrate Negative (Negative) Urine Bilirubin Negative (Negative) Urine Urobilinogen 0.2 (<2.0) mg/dL Add Ur Microanalysis Reviewed Leukocyte Esterase Rfl Negative (Negative) CRISTEL/UL Urine RBC 11-20 H (0-2) /hpf Urine WBC 0-5 (0-3) /hpf Ur Squamous Epith Cells None seen (Few) /hpf Urine Bacteria None seen /hpf Urine Casts 0-2 Influenza A (RT-PCR) Negative (Negative) Influenza B (RT-PCR) Negative (Negative) SARS-CoV-2 RNA (RT-PCR) Negative (Negative) Blood Type B Negative Antibody Screen Negative Crossmatch See Detail Critical Care Time Critical Care Time Total Critical Care Time: 47 (Please refer to [facility] for attestation) Discharge Plan Discharge Clinical Impression: Anemia, Sepsis, GI (gastrointestinal bleed), Pulmonary edema, Pneumonia Patient Disposition: Still a Patient Condition: Improved Prescriptions: No Action latanoprost 0.005 % drops 1 drop EACH EYE QPM (DME) NovoTwist 32 gauge x 1/5 needle See Rx Instructions .ROUTE .MEDSUPPLY Qty: 100 Rx Instructions: As directed PreserVision AREDS-2 250-90-40-1 mg tablet,chewable 1 tablet PO ONCE timolol maleate 0.5 % drops 1 drp EACH EYE BID amlodipine 2.5 mg tablet 2.5 mg PO DAILY Qty: 90 0RF Breztri Aerosphere 160-9-4.8 mcg/actuation HFA aerosol inhaler 2 inh inhalation BID Qty: 10.7 3RF albuterol sulfate 90 mcg/actuation HFA aerosol inhaler 2 inh inhalation Q4H PRN (Reason: shortness of breath or wheezing) Qty: 8.5 2RF prednisone 20 mg tablet 40 mg PO DAILY Qty: 10 0RF azithromycin 250 mg tablet See Rx Instructions PO .COMPLEX Qty: 6 0RF Rx Instructions: For 250 mg dose pack: take 500 mg today (day 1), then 250 mg for 4 days (days 2-5) PO (DME) pen needle, diabetic [BD Rita 2nd Gen Pen Needle] 32 gauge x 5/32 needle See Rx Instructions .Route Qty: 100 11RF Rx Instructions: As directed (DME) insulin syringe-needle U-100 [Advocate Syringes] 0.3 mL 31 gauge x 5/16 syringe See Rx Instructions .Route Qty: 100 3RF Rx Instructions: Use as direct with insulin (DME) blood-glucose meter [Accu-Chek Guide Glucose Meter] Misc See Rx Instructions .Route Qty: 1 0RF Rx Instructions: to check glucose 3 time daily (DME) lancets [Accu-Chek Softclix Lancets] Misc See Rx Instructions .Route Qty: 200 1RF Rx Instructions: check glucose 3 times a day doxazosin 8 mg tablet 8 mg PO DAILY Qty: 100 1RF hydralazine 100 mg tablet 100 mg PO TID Qty: 270 1RF losartan 50 mg tablet 50 mg PO DAILY Qty: 30 5RF (DME) Accu-Chek Guide test strips Strip See Rx Instructions .ROUTE .COMPLEX Qty: 100 0RF Dose Instruction: USE 1 STRIP TO CHECK GLUCOSE THREE TIMES DAILY Rx Instructions: USE 1 STRIP TO CHECK GLUCOSE THREE TIMES DAILY atorvastatin 40 mg tablet See Rx Instructions .ROUTE .COMPLEX Qty: 90 1RF Dose Instruction: TAKE 1 TABLET BY MOUTH EVERY DAY Rx Instructions: TAKE 1 TABLET BY MOUTH EVERY DAY omeprazole 40 mg capsule,delayed release(DR/EC) 40 mg PO DAILY Qty: 30 3RF Rx Instructions: take 1 capsule q.a.m. on empty stomach and wait 15 minutes to eat insulin detemir U-100 100 unit/mL solution 70 unit subcut BID Qty: 10 3RF Follow-up/Referrals: Tevin Velez MD [Primary Care Provider] - Time of Disposition: 23:41
[2024-02-11 21:49] LABS: Influenza A QL RT-PCR Negative (Negative); Influenza B QL RT-PCR Negative (Negative); SARS-CoV-2 RNA PCR Negative (Negative)
[2024-02-11 21:52] LABS: NT Pro B Type Natriuretic Pept 3060 pg/mL (19.9-100)
[2024-02-11 22:27] VITALS: BP 118/74; PULSE 78; RESP 16; O2SAT 93
--- NOTE | 2024-02-11 22:39 | PC.NURSE ---
Pt educated that MD would like a urine sample. Pt states he already urinated in his depend. Pt educated to press his call light the next time he needs to urinate.
[2024-02-11 23:21] LABS: Add Urine Microscopic? YES; Appearance Urine Clear (Clear); Bacteria Urine None Seen /hpf; Bilirubin Urine Negative (Negative); Blood Urine Negative (Negative); Color Urine Yellow (Yellow); Glucose Urine UA Negative (Negative); Ketones Urine Negative (Negative); Leukocyte Esterase Ur Negative LEU/UL (Negative); Need Manual Microscopic Reviewed; Nitrate Urine Negative (Negative); Non Pathogenic Casts 0-2; Protein Urine Trace mg/dL (Negative); Specific Grav Ur 1.015 (1.001-1.035); Squamous Epithelial Cell Urine None Seen /hpf (Few); Urobilinogen Urine 0.2 mg/dL (<2.0); WBC Urine 0-5 /hpf (0-3)
--- NOTE | 2024-02-11 23:21 | P.HP_ITS ---
H&P: HPI History of Present Illness Date/Time: 02/11/24 23:21 Chief Complaint: MELENA Narrative: THIS IS AN 88-YEAR-OLD MALE WITH PAST MEDICAL HISTORY SIGNIFICANT FOR CHRONIC KIDNEY DISEASE, ANEMIA CHRONIC DISEASE, INSULIN-DEPENDENT DIABETES MELLITUS, HYPERTENSION, GERD, COPD/EMPHYSEMA. PATIENT WAS BROUGHT TO THE EMERGENCY ROOM VIA EMS AFTER PATIENT WAS UNABLE TO GET UP FROM THE TOILET. ACCORDING TO HISTORY PATIENT HAS BEEN HAVING MELENA AT THE TIME OF MY VISIT PATIENT WAS UNABLE TO GIVE MUCH MEANINGFUL CONTRIBUTORY DETAILS TO HISTORY OF PRESENT ILLNESS. PRELIMINARY WORKUP WAS SIGNIFICANT FOR HEMOGLOBIN OF 5.2 HEMATOCRIT 16 CREATININE 3.5 BUN 60. A CHEST X-RAY SHOWED LUNG INFILTRATES. PATIENT HAS BEEN ADMITTED FOR FURTHER EVALUATION MANAGEMENT AND TREATMENT. EXAMINATION: XR chest 1V portable DATE: 02/11/2024 20:26 INDICATION: Weakness TECHNIQUE: frontal view of the chest was obtained. COMPARISON: Chest CT dated 07/09/2021 FINDINGS: Diffuse increased interstitial pattern throughout both lungs with bilateral perihilar predominant groundglass opacities and a few peripheral [place] B-lines at the lateral right lower lung zone consistent with mild to moderate pulmonary edema. No pleural effusion or pneumothorax. Calcified nodule right midlung and calcified mediastinal lymph nodes consistent with old granulomatous disease. Heart size is normal. IMPRESSION: 1. Mild to moderate pulmonary edema. EXAMINATION: CT chest abdomen pelvis wo con DATE: 02/11/2024 22:02 INDICATION: Infection TECHNIQUE: Computed tomography (CT) of the chest, abdomen, and pelvis was performed without intravenous contrast. Automated exposure control and iterative reconstruction technique were employed. The dose-length product was 926.02 mGy- cm. COMPARISON: None FINDINGS: CHEST: Moderate emphysema with superimposed groundglass opacities with dependent and perihilar predominance relatively sparing the subpleural lung. There is also some scattered smooth septal line thickening. Given the appearance and distribution would favor moderate pulmonary edema over pneumonia. There are very small bilateral pleural effusions at the posterior sulci. Heart size is normal. Atherosclerotic coronary artery calcifications. No pericardial effusion. Thoracic aorta is normal in caliber. Calcified right paratracheal lymph nodes consistent with old granulomatous disease. No pathologically enlarged thoracic lymphadenopathy. Severe lower cervical and mild thoracic spondylosis. ABDOMEN/PELVIS: There are few small hepatic and splenic calcifications consistent with old granulomatous disease. Decompressed gallbladder, pancreas and bilateral adrenal glands are normal. 2 mm nonobstructing stone at a lower pole calyx of the right kidney. No other urolithiasis or hydronephrosis on either the left or right. 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 Bladder is normal. Prostatomegaly measuring 6.2 x 5.6 cm. Moderate- sized bilateral fat-containing inguinal hernias. There is mild scattered diverticulosis without adjacent inflammatory stranding to suggest diverticulitis. No bowel obstruction. Normal appendix. No free intraperitoneal gas or fluid. Moderate to severe lumbar spondylosis. IMPRESSION: 1. Diffuse bilateral groundglass opacities and smooth septal line thickening and favor moderate pulmonary edema over pneumonia with very small bilateral pleural effusions. 2. Moderate emphysema. 3. 2 mm nonobstructing right renal stone. 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 5. Mild diverticulosis without evident diverticulitis. 6. Prominent prostatomegaly. 7. Moderate-sized bilateral fat-containing inguinal hernias. Review of Systems 2 Review of Systems: MELENA, GENERALIZED WEAKNESS PMFSH Past Medical History Medical History Anemia due to stage 3 chronic kidney disease Anemia, unspecified BMI 28.0-28.9,adult Essential (primary) hypertension Fatty liver Gastro-esophageal reflux disease without esophagitis Glaucoma Hearing loss Mixed hyperlipidemia Pulmonary emphysema determined by X-ray Type 2 diabetes mellitus with other diabetic kidney complication Surgical History Surgical History H/O eye surgery H/O eye surgery Hx of detached retina repair Family History Family History Mother Family history of heart disease in male family member before age 55 Heart disease Father , 96 y/o Diabetes mellitus Neuropathy Sibling Parkinson disease Social History Social History Smoking packs per day: 0.5 Smoking cigarettes per day: 10.0 Years smoked: 25 Smoking pack-years: 12.50 Smoking status: Former smoker Second hand tobacco smoke exposure: No Alcohol intake: never Substance use: never Substance use type: does not use Do You Feel Safe in your Home?: Yes Lack of Transportation: No Lack of Food: Never True Current Housing: I Have Housing Concerned About Future Housing: No Difficulty Paying Gas/Electric Bills: No Difficulty Paying for Meds: No Currently Unemployed: No Education: High School Diploma/GED Difficulty w/ Childcare or Family Care: No Living arrangements: with family 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 Gender identity (if verbalized by the patient): Male Spiritual care concerns: No Meds Home Medications and Allergies Home Medications Medication Instructions Recorded Confirmed Type pen needle, diabetic 32 gauge x #100 ea 03/24/19 02/12/24 History 1/ (NovoTwist) latanoprost 0.005 % eye drops 1 drop ophthalmic (eye) QPM 12/07/19 02/12/24 History pen needle, diabetic 32 gauge x #100 ea 05/02/23 02/12/24 Rx 5/32 (BD Rita 2nd Gen Pen Needle) insulin syringe-needle U-100 0.3 #100 ea 05/12/23 02/12/24 Rx mL 31 gauge x 5/16 ([facility] Syringes) blood-glucose meter (Accu-Chek #1 ea 08/07/23 02/12/24 Rx Guide Glucose Meter) lancets (Accu-Chek Softclix #200 ea 08/07/23 02/12/24 Rx Lancets) doxazosin 8 mg tablet 8 mg PO DAILY #100 tabs 08/29/23 02/12/24 Rx losartan 50 mg tablet 50 mg PO DAILY #30 tabs 10/03/23 02/12/24 Rx blood sugar diagnostic (Accu-Chek #100 ea 10/07/23 02/12/24 Rx Guide test strips) amlodipine 2.5 mg tablet 2.5 mg PO DAILY #90 tabs 12/02/23 02/12/24 Rx timolol maleate 0.5 % eye drops 1 drp EACH EYE BID 12/02/23 02/12/24 History omeprazole 40 mg capsule,delayed 40 mg PO DAILY #30 caps 12/15/23 02/12/24 Rx release albuterol sulfate 90 mcg/actuation 2 inh inhalation Q4H PRN shortness 02/04/24 02/12/24 Rx aerosol inhaler of breath or wheezing #8.5 grams atorvastatin 40 mg tablet 40 mg PO DAILY 02/12/24 02/12/24 History fluticasone 250 mcg-salmeterol 50 2 inh inhalation BID 02/12/24 02/12/24 History mcg/dose blistr powdr for inhalation (Wixela Inhub) hydralazine 100 mg tablet 100 mg PO BID 02/12/24 02/12/24 History insulin detemir U-100 100 unit/mL 70 unit subcut DAILY 02/12/24 02/12/24 History subcutaneous solution insulin detemir U-100 100 unit/mL 30 unit subcut HS 02/12/24 02/12/24 History subcutaneous solution (Levemir U-100 Insulin) Allergies Allergy/AdvReac Type Severity Reaction Status Date / Time No Known Allergies Allergy Verified 02/11/24 20:20 Vital Signs Vital Signs - 24 hr 02/11/24 20:13 02/11/24 22:27 Temperature 101.2 F H Pulse Rate 88 78 Respiratory Rate 19 16 Blood Pressure 151/45 H 118/74 Pulse Oximetry 92 93 Oxygen Delivery Nasal Cannula Oxygen Flow Rate 2 Exam Narrative: LAYING IN BED Const: General: comfortable, no acute distress, well developed, ill appearing acutely, patient obtunded and average body habitus Nutritional Appearance: average body habitus Orientation/consciousness: oriented to person, oriented to place, patient obtunded and lethargic HENMT: Head: normal to inspection, normocephalic and atraumatic Ears: hearing grossly normal bilaterally Face/Nose/Sinus: normal facial exam Face and sinus: normal facial exam Eyes: General: appearance normal, both eyes and all related structures Pupils: Equal, round and reactive pupils present EOM: EOMs intact bilaterally Neck: Neck: full ROM, no lymphadenopathy and no JVD Thyroid: thyroid normal Lymphatic: no lymphadenopathy noted Resp: Effort & Inspection: normal respiratory effort and able to speak in complete sentences Auscultation: crackles, rales and diminished lung sounds Cardio: Jugular venous distension: no JVD Rate: regular rate Rhythm: regular rhythm Heart sounds: S1 normal heart sound present and S2 normal heart sound present GI: Inspection: normal to inspection GI Palp: Yes Soft to palpation and Yes No hepatosplenomegaly present : General: Yes deferred Skin: Rashes: no rashes Wounds: no wounds Neuro: General: oriented to person, oriented to place and CN's II-XI intact bilaterally Cranial nerves: Yes CN's II-XII intact bilaterally and Yes Equal, round and reactive pupils present Cognition (Neuro): abnormal cognition ( OBTUNDATION/LETHARGY) Speech: normal speech Gait exam (Neuro): Unable to assess gait Motor exam (neuro): 5/5 motor strength present throughout Extrem: General: normal to inspection, full ROM, no joint enlargement and no pedal edema H&P: Results Labs Labs: Short CBC 02/11/24 Range/Units 20:58 WBC 10.6 H (4.5-10.0) K/mm3 Hgb 5.2 L* D (14.0-18.0) g/dL Hct 16.7 L* (42.0-52.0) % Plt Count 237 (150-375) k/mm3 BMP 02/11/24 20:58 Sodium 134 L Potassium 5.7 H Chloride 106 Carbon Dioxide 21 L BUN 61 H D Creatinine 3.50 H Glucose 199 H Calcium 8.4 Liver Function 02/11/24 Range/Units 20:58 Total Bilirubin 0.3 (0.2-1.3) mg/dL AST 18 (17-59) U/L ALT 23 (6-50) U/L Alkaline Phosphatase 74 (38-126) U/L Albumin 3.1 L (3.5-5.1) g/dL Assessment and Plan Assessment and plan (1) Acute blood loss anemia: Code(s): D62 - Acute posthemorrhagic anemia Status: Acute Assessment and Plan: ADMIT TO IMU TRANSFUSE NEEDED GI CONSULT PPI (2) Acute kidney injury superimposed on CKD: Code(s): N17.9 - Acute kidney failure, unspecified; N18.9 - Chronic kidney disease, unspecified Status: Acute Assessment and Plan: LIKELY TO BE PRE RENAL AZOTEMIA SUPERIMPOSED ON CHRONIC KIDNEY DISEASE HOLDING LOSARTAN CONTINUE TO MONITOR BUN AND CREATININE NEPHROLOGY CONSULT RENAL ULTRASOUND IN [place] (3) COPD with emphysema: Code(s): J43.9 - Emphysema, unspecified Status: Acute Assessment and Plan: BREATHING TREATMENTS (4) Lung infiltrate: Code(s): R91.8 - Other nonspecific abnormal finding of lung field Status: Acute Assessment and Plan: PATIENT STARTED ON ZITHROMAX AND ROCEPHIN CULTURES IN PROGRESS (5) Gastro-esophageal reflux disease without esophagitis: Code(s): K21.9 - Gastro-esophageal reflux disease without esophagitis Status: Acute Assessment and Plan: PPI (6) Weakness: Code(s): R53.1 - Weakness Status: Acute Assessment and Plan: LIKELY SECONDARY TO CHRONIC ILLNESS AND ACUTE BLOOD LOSS ANEMIA (7) GI (gastrointestinal bleed): Code(s): K92.2 - Gastrointestinal hemorrhage, unspecified Status: Acute Assessment and Plan: NPO PPI (8) Anemia in chronic kidney disease (CKD): Code(s): N18.9 - Chronic kidney disease, unspecified; D63.1 - Anemia in chronic kidney disease Status: Acute Assessment and Plan: DEFERRED TO NEPHROLOGY Hospitalist MIPS Advance Care Plan I have confirmed that the patient's Advanced Care Plan is present, code status is documented, or surrogate decision maker is listed in patient medical record.: Yes Medication Reconciliation I have utilized all available resources to obtain, update and review the patients current medications (includes all prescriptions, OTC, herbals, cannabis, and nutritional supplements).: Yes
[2024-02-11] MEDS: SODIUM CHLORIDE 0.9% IV 250 ML 30 ML IV CONT (23:40)
[2024-02-11] MEDS: TUBING, BLOOD PLUM PUMP TUBING 1 EACH XX (23:40)
[2024-02-11 23:47] VITALS: BP 129/51; PULSE 75; RESP 19; TEMP 36.6; O2SAT 95
[2024-02-12] VITALS (24 sets, daily range): BP systolic 116–168; BP diastolic 43–61; PULSE 70–90; RESP 16–20; TEMP 36.6–37.4; O2SAT 92–100; BMI 25.5
--- NOTE | 2024-02-12 00:15 | ADMGEN ---
This patient, Shahzad Couch, was admitted to IMU Room 204-01. Patient/family oriented to hospital policies and general routines including ID bracelet, bed and alarms, visiting hours, pain management, procedures, bathroom and other care routines, personal items, smoking policy, room service/diet, and visiting hours. Information on how to activate the Rapid Response Team has been discussed. Patient/Family are encouraged to report perceived risks to care and to ask questions if they do not understand what they are told or what they should do.
[2024-02-12 00:41] LABS: Glucose Point of Care 223 mg/dl (65-105)
[2024-02-12] MEDS: AZITHROMYCIN 500 MG/NS 250 ML 500 MG/250 ML BAG 250 MG IVPB (01:43)
[2024-02-12 03:58] LABS: Creatinine Urine 95.6 mg/dL; Total Protein Urine Random 27 mg/dL; Urea Random Urine 703 MG/DL
[2024-02-12 04:04] LABS: Sodium Urine Random 65 meq/L
[2024-02-12] MEDS: PANTOPRAZOLE SODIUM IV 40 MG VIAL IV PUSH ×3 (04:04→21:28)
[2024-02-12 04:06] LABS: Eosinophil Urine None Seen % (None Seen); Urine Eos QC 2nd Tech Confirmed
[2024-02-12 04:59] LABS: Basophils Percent Auto 0.1 % (0.2-1.2); Eosinophils Absolute Auto 0.1 K/mm3 (0-0.3); Eosinophils Percent Auto 1.3 % (0-4.4); Hematocrit 22.8 % (42.0-52.0); Hemoglobin 7.5 g/dL (14.0-18.0); Immature Granulocyte Absolute 0.11 K/mm3 (0.00-0.031); Immature Granulocyte Percent A 1.6 % (0-0.5); Lymphocytes Absolute Auto 1.18 K/mm3 (0.9-3.2); Lymphocytes Percent Auto 16.8 % (18.3-44.2); Mean Corpuscular HGB Conc 32.9 g/dl (32-36); Mean Corpuscular Hemoglobin 31.5 pg (26-34); Mean Corpuscular Volume 95.8 fl (80-100); Mean Platelet Volume 9.6 fl (7.4-10.4); Monocytes Absolute Auto 0.4 K/mm3 (0.1-0.6); Monocytes Percent Auto 5.8 % (2.6-8.5); Neutrophils Absolute Auto 5.2 K/mm3 (1.3-6.7); Neutrophils Percent Auto 74.4 % (45.5-73.1); Platelet Count Result 220 k/mm3 (150-375); Red Blood Count 2.38 M/mm3 (4.6-6.20); Red Cell Distribution Width 15.9 % (11.5-14.5)
[2024-02-12 05:01] LABS: Lactic Acid Reflex 1.3 mmol/L (0.7-2.0)
[2024-02-12 05:05] LABS: Alanine Aminotransferase 20 U/L (6-50); Alkaline Phosphatase 64 U/L (38-126); Anion Gap 7 mmol/L (4-12); Aspartate Amino Transferase 16 U/L (17-59); Bilirubin,Total 0.4 mg/dL (0.2-1.3); Blood Urea Nitrogen 58 mg/dL (9-20); Calcium 8.3 mg/dL (8.4-10.2); Carbon Dioxide 22 mmol/L (22-30); Chloride 107 mmol/L (98-107); Estimated CRCL calculation 13 ml/min; Estimated Glomerular Filt Rate 17; Glucose 190 mg/dL (65-110); Magnesium 1.8 mg/dL (1.6-2.3); Phosphorus 4.2 mg/dL (2.5-4.5); Potassium 5.7 mmol/L (3.4-5.0); Sodium 136 mmol/L (137-145)
[2024-02-12 05:14] LABS: Iron 25 ug/dL (49-181)
[2024-02-12 05:23] LABS: Percent Iron Saturation 12 % (20-50)
[2024-02-12] MEDS: FLUTICASONE/SALMETEROL 115-21 MCG INHALER 1 PUFF 2 PUFF INHALATION ×2 (07:25→20:20)
[2024-02-12 10:02] LABS: Glucose Point of Care 155 mg/dl (65-105)
--- NOTE | 2024-02-12 10:18 | PM.IMPN ---
Progress Note: A&P Assessment and Plan (1) Acute blood loss anemia: Code(s): D62 - Acute posthemorrhagic anemia Status: Acute Assessment and Plan: ADMIT TO IMU TRANSFUSED 2 units of PRDB GI CONSULT PPI (2) Acute kidney injury superimposed on CKD: Code(s): N17.9 - Acute kidney failure, unspecified; N18.9 - Chronic kidney disease, unspecified Status: Acute Assessment and Plan: LIKELY TO BE PRE RENAL AZOTEMIA SUPERIMPOSED ON CHRONIC KIDNEY DISEASE HOLDING LOSARTAN CONTINUE TO MONITOR BUN AND CREATININE NEPHROLOGY CONSULT RENAL ULTRASOUND IN [place] (3) COPD with emphysema: Code(s): J43.9 - Emphysema, unspecified Status: Acute Assessment and Plan: BREATHING TREATMENTS (4) Lung infiltrate: Code(s): R91.8 - Other nonspecific abnormal finding of lung field Status: Acute Assessment and Plan: PATIENT STARTED ON ZITHROMAX AND ROCEPHIN CULTURES IN PROGRESS (5) Gastro-esophageal reflux disease without esophagitis: Code(s): K21.9 - Gastro-esophageal reflux disease without esophagitis Status: Acute Assessment and Plan: PPI (6) Weakness: Code(s): R53.1 - Weakness Status: Acute Assessment and Plan: LIKELY SECONDARY TO CHRONIC ILLNESS AND ACUTE BLOOD LOSS ANEMIA (7) GI (gastrointestinal bleed): Code(s): K92.2 - Gastrointestinal hemorrhage, unspecified Status: Acute Assessment and Plan: diabetic diet for now, NPO at midnight 02/11 PPI (8) Anemia in chronic kidney disease (CKD): Code(s): N18.9 - Chronic kidney disease, unspecified; D63.1 - Anemia in chronic kidney disease Status: Acute Assessment and Plan: DEFERRED TO NEPHROLOGY (9) Type 2 diabetes mellitus with other diabetic kidney complication: Code(s): E11.29 - Type 2 diabetes mellitus with other diabetic kidney complication Status: Acute Assessment and Plan: - home regimen levimir 70 units am, 70 pm- but frequent hypoglycemia- so pt decrease pm dose on his own to 40- even with decreased regime-fasting BS was often in 50's - will order hga1c - stop home regimen and add 20 units of lantus and SS will need to adjust diabetic regimen - ideally start GLP1 -with a intermediate goal to decrease and stop insulin to avoid hypoglycemia (10) Hyperkalemia: Code(s): E87.5 - Hyperkalemia Status: Acute Assessment and Plan: -amp of d50, 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 PATIENT WAS BROUGHT TO THE EMERGENCY ROOM VIA EMS AFTER PATIENT WAS UNABLE TO GET UP FROM THE TOILET. ACCORDING TO HISTORY PATIENT HAS BEEN HAVING MELENA AT THE TIME OF MY VISIT PATIENT WAS UNABLE TO GIVE MUCH MEANINGFUL CONTRIBUTORY DETAILS TO HISTORY OF PRESENT ILLNESS. PRELIMINARY WORKUP WAS SIGNIFICANT FOR HEMOGLOBIN OF 5.2 HEMATOCRIT 16 CREATININE 3.5 BUN 60. A CHEST X-RAY SHOWED LUNG INFILTRATES. PATIENT HAS BEEN ADMITTED FOR FURTHER EVALUATION MANAGEMENT AND TREATMENT. 02/11- pt is seen and examined today. Receiving two units of RPBC. GI and nephrology consulted. EGD in am-02/12. Review of Systems Review of Systems: MELENA, GENERALIZED WEAKNESS Exam Narrative: resting in bed with eyes closed Const: General: comfortable, no acute distress, well developed, ill appearing acutely, lethargic, patient obtunded and average body habitus Nutritional Appearance: average body habitus Orientation/consciousness: oriented to person and oriented to place HENMT: Head: normal to inspection, normocephalic and atraumatic Ears: hearing grossly normal bilaterally Face/Nose/Sinus: normal facial exam Face and sinus: normal facial exam Eyes: General: appearance normal, both eyes and all related structures Pupils: Equal, round and reactive pupils present EOM: EOMs intact bilaterally Neck: Neck: full ROM, no lymphadenopathy and no JVD Thyroid: thyroid normal Lymphatic: no lymphadenopathy noted Resp: Effort & Inspection: normal respiratory effort and able to speak in complete sentences Cardio: Jugular venous distension: no JVD Rate: regular rate Rhythm: regular rhythm Heart sounds: S1 normal heart sound present and S2 normal heart sound present GI: Inspection: normal to inspection : General: Yes deferred Skin: Rashes: no rashes Wounds: no wounds Neuro: General: oriented to person, oriented to place, CN's II-XI intact bilaterally, patient obtunded and Unable to assess gait Cranial nerves: Yes CN's II-XII intact bilaterally and Yes Equal, round and reactive pupils present Cognition (Neuro): abnormal cognition ( OBTUNDATION/LETHARGY) Speech: normal speech Gait exam (Neuro): Unable to assess gait Motor exam (neuro): 5/5 motor strength present throughout Extrem: General: normal to inspection, full ROM, no joint enlargement and no pedal edema Objective Data Vital Signs Vital Signs: Vital Signs - 24 hr 02/11/24 20:13 02/11/24 22:27 02/11/24 23:47 Temperature 101.2 F H 97.9 F Pulse Rate 88 78 75 Respiratory Rate 19 16 19 Blood Pressure 151/45 H 118/74 129/51 L Pulse Oximetry 92 93 95 Oxygen Delivery Nasal Cannula Oxygen Flow Rate 2 02/12/24 00:02 02/12/24 00:15 02/12/24 01:01 Temperature 97.8 F 98.3 F 98.3 F Pulse Rate 74 74 72 Respiratory Rate 17 16 18 Blood Pressure 121/47 L 141/44 H 126/43 L Pulse Oximetry 95 97 96 Oxygen Delivery Oxygen Flow Rate 02/12/24 01:02 02/12/24 01:59 02/12/24 02:06 Temperature 98.3 F 98.3 F Pulse Rate 72 72 74 Respiratory Rate 18 18 Blood Pressure 126/43 L 120/58 L Pulse Oximetry 96 95 Oxygen Delivery Oxygen Flow Rate 02/12/24 02:21 02/12/24 03:21 02/12/24 03:32 Temperature 98.0 F 98.1 F 98.1 F Pulse Rate 74 72 72 Respiratory Rate 17 17 17 Blood Pressure 116/61 134/53 L 134/53 L Pulse Oximetry 97 100 100 Oxygen Delivery Oxygen Flow Rate 02/12/24 04:00 02/12/24 04:00 02/12/24 06:00 Temperature Pulse Rate 71 72 70 Respiratory Rate 18 Blood Pressure Pulse Oximetry 95 Oxygen Delivery Nasal Cannula Oxygen Flow Rate 2 02/12/24 07:25 02/12/24 08:03 Temperature 98.4 F Pulse Rate 71 Respiratory Rate 18 Blood Pressure 143/55 H Pulse Oximetry 94 93 Oxygen Delivery Nasal Cannula Oxygen Flow Rate 2 Intake/Output Intake/Output: Intake & Output 02/09/24 02/10/24 02/11/24 02/12/24 23:59 23:59 23:59 23:59 Intake Total 0 1150 Output Total 700 Balance 0 450 Meds/Results Medications: Active Medications Generic Name Dose Route Start Last Admin Trade Name Freq PRN Reason Stop Dose Admin Albuterol 2 puff 02/12/24 03:08 Albuterol Sulfate (*Sp) Aerosol 1 Puff INHALATION Q4HRT PRN shortness of breath or wheezing Doxazosin Mesylate 8 mg 02/12/24 09:00 Doxazosin Mesylate 4 Mg Tablet PO DAILY [facility] Ceftriaxone Sodium 2 gm in 100 mls @ 200 mls/hr 02/13/24 00:00 Rocephin 2 Gm/Ns 100 Ml IVPB Q24H ALEKSANDR Azithromycin 500 mg in 250 mls @ 250 mls/hr 02/13/24 02:00 Zithromax IVPB Q24H [facility] Insulin Glargine 30 units 02/12/24 21:00 Insulin Glargine (*Bkc) 100 Units/Ml SUB-Q 03/13/24 20:59 HS [facility] Insulin Glargine 70 units 02/12/24 09:00 Insulin Glargine (*Bkc) 100 Units/Ml SUB-Q 03/13/24 08:59 DAILY [facility] Latanoprost 1 drop 02/12/24 18:00 Latanoprost 0.005% Op Soln 2.5 Ml Btl EACH EYE QPM [facility] Pantoprazole Sodium 40 mg 02/12/24 09:00 02/12/24 10:11 Pantoprazole Sodium Iv 40 Mg Vial IV PUSH 40 mg Q12HR ALEKSANDR Administration Fluticasone/Salmeterol 2 puff 02/12/24 08:00 02/12/24 07:25 Fluticasone/Salmeterol 115-21 Mcg Inhaler 1 Puff INHALATION 2 puff Q12HRT [facility] Administration Timolol Maleate 1 drop 02/12/24 09:00 Timolol Maleate 0.5% Op Soln 5 Ml Bottle EACH EYE DAILY [facility] Radiology Results: ITS Impressions Chest X-Ray 02/11/24 20:35 IMPRESSION: 1. Mild to moderate pulmonary edema. Chest/Abdomen/Pelvis CT 02/11/24 22:06 IMPRESSION: 1. Diffuse bilateral groundglass opacities and smooth septal line thickening and favor moderate pulmonary edema over pneumonia with very small bilateral pleural effusions. 2. Moderate emphysema. 3. 2 mm nonobstructing right renal stone. 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 5. Mild diverticulosis without evident diverticulitis. 6. Prominent prostatomegaly. 7. Moderate-sized bilateral fat-containing inguinal hernias. Renal Ultrasound 02/12/24 10:14 IMPRESSION: 1. Normal kidneys. No hydronephrosis. Labs Labs: Laboratory Results - last 24 hr 02/11/24 02/11/24 02/12/24 20:58 23:01 00:39 WBC 10.6 H RBC 1.69 L Hgb 5.2 L* D Hct 16.7 L* MCV 98.8 MCH 30.8 MCHC 31.1 L RDW 16.5 H Plt Count 237 MPV 10.7 H Immature Gran % (Auto) 1.3 H Neut % (Auto) 85.9 H Lymph % (Auto) 6.0 L [place] % (Auto) 5.8 Eos % (Auto) 0.9 Baso % (Auto) 0.1 L Lymph # (Auto) 0.63 L [place] # (Auto) 0.6 Eos # (Auto) 0.1 Baso # (Auto) 0.0 Abs Immat Gran (auto) 0.14 H Absolute Neuts (auto) 9.1 H Absolute Nucleated RBC 0.000 Nucleated RBC % 0.0 PT 14.7 INR 1.1 APTT 37.7 H Sodium 134 L Potassium 5.7 H Chloride 106 Carbon Dioxide 21 L Anion Gap 7 BUN 61 H D Creatinine 3.50 H Estim Creat Clear Calc 13 Estimated GFR 17 L Glucose 199 H POC Capillary Glucose 223 H Lactic Acid 1.5 Calcium 8.4 Phosphorus Magnesium 1.7 Iron TIBC % Saturation Total Bilirubin 0.3 AST 18 ALT 23 Alkaline Phosphatase 74 NT-Pro-B Natriuret Pep 3060 H Total Protein 7.0 Albumin 3.1 L Vitamin B12 Urine Color Yellow Urine Appearance Clear Urine pH 5.0 Ur Specific [place] 1.015 Urine Protein Trace Urine Glucose (UA) Negative Urine Ketones Negative Ur Blood (Man) Negative Urine Nitrate Negative Urine Bilirubin Negative Urine Urobilinogen 0.2 Add Ur Microanalysis Reviewed Leukocyte Esterase Rfl Negative Urine RBC 11-20 H Urine WBC 0-5 Ur Squamous Epith Cells None seen Urine Bacteria None seen Urine Casts 0-2 Urine Eosinophils U Random Total Protein Ur Random Sodium Ur Random Urea Urine Creatinine Protein/Creat Ratio 2 Influenza A (RT-PCR) Negative Influenza B (RT-PCR) Negative SARS-CoV-2 RNA (RT-PCR) Negative Blood Type B Negative Antibody Screen Negative Crossmatch See Detail 02/12/24 02/12/24 02/12/24 03:38 03:38 03:38 WBC RBC Hgb Hct MCV MCH MCHC RDW Plt Count MPV Immature Gran % (Auto) Neut % (Auto) Lymph % (Auto) Daw[place] % (Auto) Eos % (Auto) Baso % (Auto) Lymph # (Auto) [place] # (Auto) Eos # (Auto) Baso # (Auto) Abs Immat Gran (auto) Absolute Neuts (auto) Absolute Nucleated RBC Nucleated RBC % PT INR APTT Sodium Potassium Chloride Carbon Dioxide Anion Gap BUN Creatinine Estim Creat Clear Calc Estimated GFR Glucose POC Capillary Glucose Lactic Acid Calcium Phosphorus Magnesium Iron TIBC % Saturation Total Bilirubin AST ALT Alkaline Phosphatase NT-Pro-B Natriuret Pep Total Protein Albumin Vitamin B12 Urine Color Urine Appearance Urine pH Ur Specific [place] Urine Protein Urine Glucose (UA) Urine Ketones Ur Blood (Man) Urine Nitrate Urine Bilirubin Urine Urobilinogen Add Ur Microanalysis Leukocyte Esterase Rfl Urine RBC Urine WBC Ur Squamous Epith Cells Urine Bacteria Urine Casts Urine Eosinophils None seen U Random Total Protein 27 Cancelled Ur Random Sodium 65 Ur Random Urea 703 Urine Creatinine 95.6 Cancelled Protein/Creat Ratio 2 Cancelled Influenza A (RT-PCR) Influenza B (RT-PCR) SARS-CoV-2 RNA (RT-PCR) Blood Type Antibody Screen Crossmatch 02/12/24 02/12/24 02/12/24 04:38 04:39 09:59 WBC 7.0 RBC 2.38 L Hgb 7.5 L Hct 22.8 L MCV 95.8 MCH 31.5 MCHC 32.9 RDW 15.9 H Plt Count 220 MPV 9.6 Immature Gran % (Auto) 1.6 H Neut % (Auto) 74.4 H Lymph % (Auto) 16.8 L Daw[place] % (Auto) 5.8 Eos % (Auto) 1.3 Baso % (Auto) 0.1 L Lymph # (Auto) 1.18 [place] # (Auto) 0.4 Eos # (Auto) 0.1 Baso # (Auto) 0.0 Abs Immat Gran (auto) 0.11 H Absolute Neuts (auto) 5.2 Absolute Nucleated RBC 0.000 Nucleated RBC % 0.0 PT INR APTT Sodium 136 L Potassium 5.7 H Chloride 107 Carbon Dioxide 22 Anion Gap 7 BUN 58 H Creatinine 3.50 H Estim Creat Clear Calc 13 Estimated GFR 17 L Glucose 190 H POC Capillary Glucose 155 H Lactic Acid 1.3 Calcium 8.3 L Phosphorus 4.2 Magnesium 1.8 Iron 25 L TIBC 214 L % Saturation 12 L Total Bilirubin 0.4 AST 16 L ALT 20 Alkaline Phosphatase 64 NT-Pro-B Natriuret Pep Total Protein 6.0 L Albumin 3.0 L Vitamin B12 837.0 Urine Color Urine Appearance Urine pH Ur Specific [place] Urine Protein Urine Glucose (UA) Urine Ketones Ur Blood (Man) Urine Nitrate Urine Bilirubin Urine Urobilinogen Add Ur Microanalysis Leukocyte Esterase Rfl Urine RBC Urine WBC Ur Squamous Epith Cells Urine Bacteria Urine Casts Urine Eosinophils U Random Total Protein Ur Random Sodium Ur Random Urea Urine Creatinine Protein/Creat Ratio 2 Influenza A (RT-PCR) Influenza B (RT-PCR) SARS-CoV-2 RNA (RT-PCR) Blood Type Antibody Screen Crossmatch Quality VTE Prophylaxis VTE prophylaxis: mechanical ordered
[2024-02-12] MEDS: DOXAZOSIN MESYLATE 4 MG TABLET 8 MG PO (10:31)
[2024-02-12] MEDS: TIMOLOL MALEATE 0.5% OP SOLN 5 ML BOTTLE 1 DROP EACH EYE (10:32)
[2024-02-12 11:08] LABS: Hemoglobin A1C 5.9 % (<5.7)
--- NOTE | 2024-02-12 11:22 | ECG_ITS ---
Test Date: 2024-02-12 13:04:05 Measurements Intervals [place] Rate: 84 P: 54 MD: 155 QRS: 59 QRSD: 129 T: 43 QT: 372 QTc: 441 Interpretive Statements SINUS RHYTHM WITH OCCASIONAL SUPRAVENTRICULAR PREMATURE COMPLEXES POSSIBLE RIGHT VENTRICULAR CONDUCTION DELAY [RSR (QR) IN V1/V2] MODERATE ST DEPRESSION [0.05+ mV ST DEPRESSION] No previous ECG available for comparison Electronically Signed On 02-12-2024 15:31:25 CDT by Josefa Heath M.D.
[2024-02-12 11:37] LABS: Glucose Point of Care 153 mg/dl (65-105)
[2024-02-12] MEDS: INSULIN HUMAN REGULAR (*BKC) 100 UNITS/ML 10 UNITS IV PUSH (11:55)
[2024-02-12] MEDS: DEXTROSE 50% 25 GM/50 ML SYRINGE IV PUSH (11:55)
--- NOTE | 2024-02-12 13:56 | P.CONNP_ITS ---
Assessment and Plan Assessment and plan (1) SANGITA (acute kidney injury): Code(s): N17.9 - Acute kidney failure, unspecified Status: Acute Assessment and Plan: * as noted by admission labs * several issues likely playing a role: * severe anemia * losartan use * possible pneumonia/infection * element of disease progression(?) * holding losartan * follow volume status given need for PRBC transfusions * check urine studies and renal ultrasound * follow repeat labs and UOP (2) Stage 3b chronic kidney disease: Code(s): N18.32 - Chronic kidney disease, stage 3b Status: Chronic Assessment and Plan: * baseline creatinine was running 1.5 - 2.0mg/dl * however, in November/December 2023, creatinine was up to 2.3 - 2.7mg/dl * outpatient evaluation noted: * normal renal ultrasound * minimal proteinuria (165mg) * positive BRANDON with normal complements and indeterminate dsDNA-Ab * positive P-ANCA (suggestive of vasculitis, specifically microscopic polyangiitis) * abnormal SPEP [ oorly defined band (possible M-spike) migrating in the gamma region] and * serum immunofixation with IgG kappa monoclonal band present * urine immunofixation negative * UA without blood * renal biopsy was a consideration at that time but decision was to recheck serologies again since kidney function was stable at that time (3) Melena: Code(s): K92.1 - Melena Status: Acute Assessment and Plan: * GI consulted * on IV PPI * PRBC transfusion per protocol * follow trend of H/H (4) Acute on chronic anemia: Code(s): D64.9 - Anemia, unspecified Status: Acute Assessment and Plan: * chronic issues at baseline * follows with Hem/Onc as an outpatient * complicated by #3 * follow H/H (5) Essential (primary) hypertension: Code(s): I10 - Essential (primary) hypertension Status: Chronic Assessment and Plan: * reasonable control at this time * follow trend of hemodynamics (6) Type 2 diabetes mellitus with other diabetic kidney complication: Code(s): E11.29 - Type 2 diabetes mellitus with other diabetic kidney complication Status: Chronic Assessment and Plan: * follow accu-cheks * glycemic control per hospitalists Long extensive discussion (greater than 20 minutes) with the patient as well as his and son at bedside regarding his worsening renal dysfunction/ failure likely in the context of severe anemia and the need for packed blood cell transfusion as well as likely further intervention by gastroenterology to determine the etiology of his suspected GI blood loss. The hope is that with stabilization and improvement in his anemia his renal function should hopefully improve. I will continue to follow the patient with you while he remains hospitalized and make further recommendations as deemed necessary. Thank you for allowing me to participate in the care of this patient. History of Present Illness Reason for Consult Consult date: 02/12/24 Reason for consult: acute renal failure (on chronic kidney disease) Chief Complaint Chief complaint: Anemia, Possible GI bleed, SANGITA, Pulm edema History of Present Illness Narrative: The patient is an 88-year-old male with a past medical history as outlined below who presented to [facility] Emergency Room yesterday evening for further evaluation of generalized weakness. Apparently, the patient has been getting more weaker and fatigued and the past several days although he reports he has chronic fatigue even at baseline. Apparently, on the day of admission, he was seen on the toilet and informed his that he was just too weak to even get off and felt as though he was going to pass out. Furthermore, on further questioning, the patient states that his stools have been very black and tarry for the past few days as well. He denies any blood thinners other than aspirin at this time. His reports no recent falls or trauma. Unfortunately, while the patient was in the ER, it was very difficult to get a full and complete history from him as he just want to be left alone so he could sleep and a great majority of the information that was obtained is from review of the electronic medical record as well as the patient's . Given these constellation of symptoms as mentioned, the presented to the emergency room for further assessment. Workup and evaluation emergency room demonstrated the patient to be hemodynamically stable but febrile with a temperature of 101.2? routine blood tests were significant for severe anemia with a hemoglobin of 5.2 and a chemistry that demonstrated evidence of acute kidney injury/ acute renal failure on top of his baseline chronic kidney disease with a BUN of 61 and a creatinine of 3.5 mg/dL in association with mild hyperkalemia with a potassium of 5.7. His proBNP was also elevated but he denies a history of congestive heart failure. Urinalysis did not demonstrate any evidence of urinary tract infection. Given his severe anemia and constellation with his acute kidney injury, he subsequent underwent a CT scan of the chest abdomen pelvis which demonstrated diffuse bilateral ground-glass opacities which favor moderate pulmonary edema over p neumonia with very small bilateral pleural effusions, moderate emphysema, a nonobstructing right kidney stone, mild diverticulosis, prominent prostatomegaly, and moderate-sized bilateral fat containing inguinal hernias. He was subsequently found to be hemoccult positive by ER physician. He was typ ed and crossed for a packed red cell transfusion and after appropriate cultures were obtained, was given antibiotics for his presumed pneumonia as well. He was subsequently admitted to the hospital for further evaluation and therapy. Since his admission, he tolerated his packed red blood cell transfusions with an appropriate increase mentation in his hemoglobin and hematocrit but his renal function has not really significantly improved since his admission. He is noted to have mild hyperkalemia and has already status post medical management for this issue. He has been seen by Gastroenterology with the tentative plan for an EGD tomorrow. Renal consultation was requested due to his acute kidney injury/ acute renal failure on top of his baseline chronic kidney disease. The patient is somewhat familiar to me as he recently established care with me in the office for management of his chronic kidney disease. Outpatient evaluation of his renal insufficiency demonstrated a normal renal ultrasound, mild proteinuria, and a serological profile that was significant for positive BRANDON (with normal complements and indeterminate dsDNA-Ab) along with a positive P-ANCA (suggestive of vasculitis, specifically microscopic polyangiitis) along with an abnormal SPEP [ poorly defined band (possible M-spike) migrating in the gamma region]. Other risk factor for his CKD include diabetes, hypertension, vascular disease and age. His creatinine at that time was running ~ 1.5 - 2.0mg/dl in the last year or so. Given these abnormal serologies, I had discussed with the patient the possibility of doing a kidney biopsy but since he did not any microscopic or gross hematuria or significant proteinuria, as well as the fact the patient was not keen on this procedure, the tentative plan was to repeat blood work including the serologies and to assess the trend of his kidney function prior to making a final determination if a renal biopsy should be done. As noted by labs on admission, his kidney function has deteriorated in comparison to labs 3 months ago but the presumption of a possible GI bleed and severe anemia may be more to blame for this rise in his creatinine than some other pathological disease. In spite of his worsening renal dysfunction, he continues to make reasonable urine output and his volume status appears to be relatively stable although recent imaging does show evidence of moderate pulmonary edema and small bilateral pleural effusions arguing a degree of volume overload. Currently, at the time my evaluation, he does not appear to be any acute distress. Review of Systems Review of Systems: As per HPI. [facility] Past Medical History Medical History (Updated 02/13/24 @ 15:59 by Caity Washington MD) Acute on chronic anemia Anemia due to stage 3 chronic kidney disease Anemia, unspecified BMI 28.0-28.9,adult Essential (primary) hypertension Fatty liver Gastro-esophageal reflux disease without esophagitis Glaucoma Hearing loss Melena Mixed hyperlipidemia Pulmonary emphysema determined by X-ray Type 2 diabetes mellitus with other diabetic kidney complication Surgical History Surgical History H/O eye surgery H/O eye surgery Hx of detached retina repair Family History Family History Mother Family history of heart disease in male family member before age 55 Heart disease Father , 96 y/o Diabetes mellitus Neuropathy Sibling Parkinson disease Social History Social History Smoking packs per day: 0.5 Smoking cigarettes per day: 10.0 Years smoked: 25 Smoking pack-years: 12.50 Smoking status: Former smoker Second hand tobacco smoke exposure: No Alcohol intake: never Substance use: never Substance use type: does not use Do You Feel Safe in your Home?: Yes Lack of Transportation: No Lack of Food: Never True Current Housing: I Have Housing Concerned About Future Housing: No Difficulty Paying Gas/Electric Bills: No Difficulty Paying for Meds: No Currently Unemployed: No Education: High School Diploma/GED Difficulty w/ Childcare or Family Care: No Living arrangements: with family 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 Gender identity (if verbalized by the patient): Male Spiritual care concerns: No Meds Home Medications and Allergies Home Medications Medication Instructions Recorded Confirmed Type pen needle, diabetic 32 gauge x #100 ea 03/24/19 02/12/24 History 1/5 (NovoTwist) latanoprost 0.005 % eye drops 1 drop ophthalmic (eye) QPM 12/07/19 02/12/24 History pen needle, diabetic 32 gauge x #100 ea 05/02/23 02/12/24 Rx 5/32 (BD Rita 2nd Gen Pen Needle) insulin syringe-needle U-100 0.3 #100 ea 05/12/23 02/12/24 Rx mL 31 gauge x 5/16 (Advocate Syringes) blood-glucose meter (Accu-Chek #1 ea 08/07/23 02/12/24 Rx Guide Glucose Meter) lancets (Accu-Chek Softclix #200 ea 08/07/23 02/12/24 Rx Lancets) doxazosin 8 mg tablet 8 mg PO DAILY #100 tabs 08/29/23 02/12/24 Rx losartan 50 mg tablet 50 mg PO DAILY #30 tabs 10/03/23 02/12/24 Rx blood sugar diagnostic (Accu-Chek #100 ea 10/07/23 02/12/24 Rx Guide test strips) amlodipine 2.5 mg tablet 2.5 mg PO DAILY #90 tabs 12/02/23 02/12/24 Rx timolol maleate 0.5 % eye drops 1 drp EACH EYE QAM 12/02/23 02/12/24 History omeprazole 40 mg capsule,delayed 40 mg PO DAILY #30 caps 12/15/23 02/12/24 Rx release albuterol sulfate 90 mcg/actuation 2 inh inhalation Q4H PRN shortness 02/04/24 02/12/24 Rx aerosol inhaler of breath or wheezing #8.5 grams atorvastatin 40 mg tablet 40 mg PO DAILY 02/12/24 02/12/24 History fluticasone 250 mcg-salmeterol 50 2 inh inhalation BID 02/12/24 02/12/24 History mcg/dose blistr powdr for inhalation (Wixela Inhub) hydralazine 100 mg tablet 100 mg PO BID 02/12/24 02/12/24 History insulin detemir U-100 100 unit/mL 70 unit subcut DAILY 02/12/24 02/12/24 History subcutaneous solution insulin detemir U-100 100 unit/mL 30 unit subcut HS 02/12/24 02/12/24 History subcutaneous solution (Levemir U-100 Insulin) Allergies Allergy/AdvReac Type Severity Reaction Status Date / Time No Known Allergies Allergy Verified 02/11/24 20:20 Vital Signs Vital Signs Temp Pulse Resp BP Pulse Ox O2 Del Method O2 Flow Rate 02/12/24 12:00 90 02/12/24 11:27 98.5 F 83 20 157/53 H 95 02/12/24 08:03 98.4 F 71 18 143/55 H 93 02/12/24 07:25 94 Nasal Cannula 2 02/12/24 06:00 70 02/12/24 04:00 72 02/12/24 04:00 71 18 95 Nasal Cannula 2 02/12/24 03:32 98.1 F 72 17 134/53 L 100 02/12/24 03:21 98.1 F 72 17 134/53 L 100 02/12/24 02:21 98.0 F 74 17 116/61 97 02/12/24 02:06 98.3 F 74 18 120/58 L 95 02/12/24 01:59 72 02/12/24 01:02 98.3 F 72 18 126/43 L 96 02/12/24 01:01 98.3 F 72 18 126/43 L 96 02/12/24 00:15 98.3 F 74 16 141/44 H 97 02/12/24 00:02 97.8 F 74 17 121/47 L 95 02/11/24 23:47 97.9 F 75 19 129/51 L 95 02/11/24 22:27 78 16 118/74 93 02/11/24 20:13 101.2 F H 88 19 151/45 H 92 Nasal Cannula 2 Exam Narrative: GENERAL APPEARANCE: well developed well nourished male in no acute distress HEENT: normocephalic, atraumatic, normal conjunctiva and sclera, nares patient NECK: no lymphadenopathy, thyromegaly, or JVD MOUTH: normal lips, teeth, and gums CARDIOVASCULAR: RRR, normal S1 and S2, no rub RESPIRATORY: clear to auscultation bilaterally ABDOMEN: soft, nontender, nondistended, positive bowel sounds present EXTREMITIES: no evidence of cyanosis, clubbing, or edema NEUROLOGICAL: alert and oriented x 3; CN II - XII intact bilaterally; no focal deficits noted Results Lab Results 02/13/24 04:34 02/13/24 10:18 Lab results: Most recent lab results Calcium 8.3 mg/dL (8.4-10.2) L 02/12/24 04:38 Phosphorus 4.2 mg/dL (2.5-4.5) 02/12/24 04:38 Magnesium 1.8 mg/dL (1.6-2.3) 02/12/24 04:38 Urine Creatinine 95.6 mg/dL 02/12/24 03:38 Urine Creatinine Cancelled 02/12/24 03:38
--- NOTE | 2024-02-12 14:05 | P.CONGI_ITS ---
Assessment and Plan Assessment and plan (1) Melena: Code(s): K92.1 - Melena Status: Acute Assessment and Plan: iv protonix monitor for more signs of bleeding egd in am (2) Acute on chronic anemia: Code(s): D64.9 - Anemia, unspecified Status: Acute Assessment and Plan: s/p transfusion he is seeing hem-onc as outpatient keep hgb >7 iv protonix ? 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 seeing radiological metallurgist (4) Type 2 diabetes mellitus with other diabetic kidney complication: Code(s): E11.29 - Type 2 diabetes mellitus with other diabetic kidney complication Status: Acute (5) Essential (primary) hypertension: Code(s): I10 - Essential (primary) hypertension Status: Acute (6) GI (gastrointestinal bleed): Code(s): K92.2 - Gastrointestinal hemorrhage, unspecified Status: Acute GI Consult Note Consult date/time: 02/12/24 14:05 Reason for consult: melena HPI: Shahzad Couch is a 88 year old male with h/o CKD stage IV creatinine 2.3, chronic anemia hgb 10 but 2 months ago 8.5 (he is seeing preassembler and inspector), DM, HTN. He is not best historian. He came here after generalized weakness, also noted dark tarry stool. Hgb here down to 5.2, creat 3.5. He was given blood transfusion, started on iv protonix. He is hemodynamically stable. He does not remember recent EGD, no use of nsaid's Review of Systems Constitutional: Constitutional: Reports fatigue and Reports lethargy Eyes: Eyes: Denies blurry vision ENT: Comments: hard of hearing Cardiovascular: Cardiovascular: Denies chest pain Respiratory: Respiratory: Reports dyspnea on exertion Gastrointestinal: Gastrointestinal: Reports melena Genitourinary: Genitourinary: Denies flank pain Musculoskeletal: Musculoskeletal: Denies neck pain Integumentary/Breasts: Skin/Breast: Denies rash Neurologic: Denies Abnormal speech present Psychiatric: Psychiatric: Denies behavioral changes [facility] Past Medical History Medical History (Updated 02/12/24 @ 14:13 by Isrrael Alejo MD) Acute on chronic anemia Anemia due to stage 3 chronic kidney disease Anemia, unspecified BMI 28.0-28.9,adult Essential (primary) hypertension Fatty liver Gastro-esophageal reflux disease without esophagitis Glaucoma Hearing loss Melena Mixed hyperlipidemia Pulmonary emphysema determined by X-ray Type 2 diabetes mellitus with other diabetic kidney complication Surgical History Surgical History H/O eye surgery H/O eye surgery Hx of detached retina repair Family History Family History Mother Family history of heart disease in male family member before age 55 Heart disease Father , 96 y/o Diabetes mellitus Neuropathy Sibling Parkinson disease Social History Social History Smoking packs per day: 0.5 Smoking cigarettes per day: 10.0 Years smoked: 25 Smoking pack-years: 12.50 Smoking status: Former smoker Second hand tobacco smoke exposure: No Alcohol intake: never Substance use: never Substance use type: does not use Do You Feel Safe in your Home?: Yes Lack of Transportation: No Lack of Food: Never True Current Housing: I Have Housing Concerned About Future Housing: No Difficulty Paying Gas/Electric Bills: No Difficulty Paying for Meds: No Currently Unemployed: No Education: High School Diploma/GED Difficulty w/ Childcare or Family Care: No Living arrangements: with family 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 Gender identity (if verbalized by the patient): Male Spiritual care concerns: No Meds Home Medications and Allergies Home Medications Medication Instructions Recorded Confirmed Type pen needle, diabetic 32 gauge x #100 ea 03/24/19 02/12/24 History 1/5 (NovoTwist) latanoprost 0.005 % eye drops 1 drop ophthalmic (eye) QPM 12/07/19 02/12/24 History pen needle, diabetic 32 gauge x #100 ea 05/02/23 02/12/24 Rx /32 (BD Rita 2nd Gen Pen Needle) insulin syringe-needle U-100 0.3 #100 ea 05/12/23 02/12/24 Rx mL 31 gauge x 5/16 (Advocate Syringes) blood-glucose meter (Accu-Chek #1 ea 08/07/23 02/12/24 Rx Guide Glucose Meter) lancets (Accu-Chek Softclix #200 ea 08/07/23 02/12/24 Rx Lancets) doxazosin 8 mg tablet 8 mg PO DAILY #100 tabs 08/29/23 02/12/24 Rx losartan 50 mg tablet 50 mg PO DAILY #30 tabs 10/03/23 02/12/24 Rx blood sugar diagnostic (Accu-Chek #100 ea 10/07/23 02/12/24 Rx Guide test strips) amlodipine 2.5 mg tablet 2.5 mg PO DAILY #90 tabs 12/02/23 02/12/24 Rx timolol maleate 0.5 % eye drops 1 drp EACH EYE QAM 12/02/23 02/12/24 History omeprazole 40 mg capsule,delayed 40 mg PO DAILY #30 caps 12/15/23 02/12/24 Rx release albuterol sulfate 90 mcg/actuation 2 inh inhalation Q4H PRN shortness 02/04/24 02/12/24 Rx aerosol inhaler of breath or wheezing #8.5 grams atorvastatin 40 mg tablet 40 mg PO DAILY 02/12/24 02/12/24 History fluticasone 250 mcg-salmeterol 50 2 inh inhalation BID 02/12/24 02/12/24 History mcg/dose blistr powdr for inhalation (Wixela Inhub) hydralazine 100 mg tablet 100 mg PO BID 02/12/24 02/12/24 History insulin detemir U-100 100 unit/mL 70 unit subcut DAILY 02/12/24 02/12/24 History subcutaneous solution insulin detemir U-100 100 unit/mL 30 unit subcut HS 02/12/24 02/12/24 History subcutaneous solution (Levemir U-100 Insulin) Allergies Allergy/AdvReac Type Severity Reaction Status Date / Time No Known Allergies Allergy Verified 02/11/24 20:20 Vital Signs Vital Signs - 24 hr 02/11/24 20:13 02/11/24 22:27 02/11/24 23:47 Temperature 101.2 F H 97.9 F Pulse Rate 88 78 75 Respiratory Rate 19 16 19 Blood Pressure 151/45 H 118/74 129/51 L Pulse Oximetry 92 93 95 Oxygen Delivery Nasal Cannula Oxygen Flow Rate 2 02/12/24 00:02 02/12/24 00:15 02/12/24 01:01 Temperature 97.8 F 98.3 F 98.3 F Pulse Rate 74 74 72 Respiratory Rate 17 16 18 Blood Pressure 121/47 L 141/44 H 126/43 L Pulse Oximetry 95 97 96 Oxygen Delivery Oxygen Flow Rate 02/12/24 01:02 02/12/24 01:59 02/12/24 02:06 Temperature 98.3 F 98.3 F Pulse Rate 72 72 74 Respiratory Rate 18 18 Blood Pressure 126/43 L 120/58 L Pulse Oximetry 96 95 Oxygen Delivery Oxygen Flow Rate 02/12/24 02:21 02/12/24 03:21 02/12/24 03:32 Temperature 98.0 F 98.1 F 98.1 F Pulse Rate 74 72 72 Respiratory Rate 17 17 17 Blood Pressure 116/61 134/53 L 134/53 L Pulse Oximetry 97 100 100 Oxygen Delivery Oxygen Flow Rate 02/12/24 04:00 02/12/24 04:00 02/12/24 06:00 Temperature Pulse Rate 71 72 70 Respiratory Rate 18 Blood Pressure Pulse Oximetry 95 Oxygen Delivery Nasal Cannula Oxygen Flow Rate 2 02/12/24 07:25 02/12/24 08:03 02/12/24 11:27 Temperature 98.4 F 98.5 F Pulse Rate 71 83 Respiratory Rate 18 20 Blood Pressure 143/55 H 157/53 H Pulse Oximetry 94 93 95 Oxygen Delivery Nasal Cannula Oxygen Flow Rate 2 Exam Const: General: comfortable and no acute distress HENMT: Face/Nose/Sinus: Normal nares present Eyes: General: appearance normal, both eyes and all related structures Neck: Neck: no JVD Resp: Auscultation: clear to auscultation bilaterally Cardio: Rate: regular rate Rhythm: regular rhythm GI: Inspection: non-distended GI Palp: Yes Soft to palpation and No Tende rness to palpation present (GI) Auscultation: normal bowel sounds Skin: General skin exam: normal color Neuro: General: gait normal Speech: normal speech Extrem: General: normal to inspection Psych: Mental Status: mental status grossly normal Results Labs 02/12/24 04:38 02/12/24 04:38 Labs: Short CBC 02/11/24 02/12/24 Range/Units 20:58 04:38 WBC 10.6 H 7.0 (4.5-10.0) K/mm3 Hgb 5.2 L* D 7.5 L (14.0-18.0) g/dL Hct 16.7 L* 22.8 L (42.0-52.0) % Plt Count 237 220 (150-375) k/mm3 BMP 02/11/24 02/12/24 20:58 04:38 Sodium 134 L 136 L Potassium 5.7 H 5.7 H Chloride 106 107 Carbon Dioxide 21 L 22 BUN 61 H D 58 H Creatinine 3.50 H 3.50 H Glucose 199 H 190 H Calcium 8.4 8.3 L Liver Function 02/11/24 02/12/24 Range/Units 20:58 04:38 Total Bilirubin 0.3 0.4 (0.2-1.3) mg/dL AST 18 16 L (17-59) U/L ALT 23 20 (6-50) U/L Alkaline Phosphatase 74 64 (38-126) U/L Albumin 3.1 L 3.0 L (3.5-5.1) g/dL Urine 02/11/24 Range/Units 23:01 Urine Color Yellow (Yellow) Urine Appearance Clear (Clear) Urine pH 5.0 (5.0-9.0) Ur Specific Lynn 1.015 (1.001-1.035) Urine Protein Trace (Negative) mg/dL Urine Glucose (UA) Negative (Negative) mg/dL
[2024-02-12] MEDS: LACTATED RINGERS 1,000 ML 150 ML IV CONT (15:19)
[2024-02-12 15:57] LABS: Hematocrit 24.5 % (42.0-52.0); Hemoglobin 8.1 g/dL (14.0-18.0)
[2024-02-12 16:29] LABS: Glucose Point of Care 142 mg/dl (65-105)
[2024-02-12] MEDS: LATANOPROST 0.005% OP SOLN 2.5 ML BTL 1 DROP EACH EYE (18:26)
[2024-02-12 19:58] LABS: Glucose Point of Care 157 mg/dl (65-105)
[2024-02-12] MEDS: ALBUTEROL SULFATE (*SP) AEROSOL 1 PUFF 2 PUFF INHALATION (21:54)
[2024-02-13] VITALS (27 sets, daily range): BP systolic 131–153; BP diastolic 46–56; PULSE 74–87; RESP 18–24; TEMP 36.3–38; O2SAT 91–96
[2024-02-13] MEDS: cefTRIAXone 2 GM/NS 100 ML 2 GM/100 ML BAG IVPB (00:14)
[2024-02-13] MEDS: AZITHROMYCIN 500 MG/NS 250 ML 500 MG/250 ML BAG 250 MG IVPB (01:14)
[2024-02-13 05:05] LABS: Hematocrit 22.6 % (42.0-52.0); Hemoglobin 7.4 g/dL (14.0-18.0); Mean Corpuscular HGB Conc 32.7 g/dl (32-36); Mean Corpuscular Hemoglobin 31.9 pg (26-34); Mean Corpuscular Volume 97.4 fl (80-100); Mean Platelet Volume 9.4 fl (7.4-10.4); Platelet Count Result 217 k/mm3 (150-375); Red Blood Count 2.32 M/mm3 (4.6-6.20); Red Cell Distribution Width 15.9 % (11.5-14.5); White Blood Count 8.1 K/mm3 (4.5-10.0)
[2024-02-13 05:20] LABS: Anion Gap 9 mmol/L (4-12); Blood Urea Nitrogen 50 mg/dL (9-20); Calcium 8.2 mg/dL (8.4-10.2); Carbon Dioxide 22 mmol/L (22-30); Chloride 106 mmol/L (98-107); Estimated CRCL calculation 13 ml/min; Estimated Glomerular Filt Rate 18; Glucose 129 mg/dL (65-110); Potassium 5.7 mmol/L (3.4-5.0); Sodium 137 mmol/L (137-145)
[2024-02-13] MEDS: ALBUTEROL SULFATE NEB 2.5 MG/3 ML INH INHALATION (06:29)
[2024-02-13] MEDS: DEXTROSE 50% 25 GM/50 ML SYRINGE IV PUSH (06:40)
[2024-02-13] MEDS: INSULIN HUMAN REGULAR (*BKC) 100 UNITS/ML 10 UNITS IV PUSH (06:43)
[2024-02-13 06:53] LABS: Glucose Point of Care 134 mg/dl (65-105)
[2024-02-13] MEDS: FLUTICASONE/SALMETEROL 115-21 MCG INHALER 1 PUFF 2 PUFF INHALATION (06:59)
[2024-02-13 08:11] LABS: Glucose Point of Care 156 mg/dl (65-105)
--- NOTE | 2024-02-13 08:28 | PC.NURSE ---
Spoke with Pastora,bellows charger assembler nurse in GI lab, [place] to give kayexalate before EGD procedure at 1130
[2024-02-13] MEDS: DOXAZOSIN MESYLATE 4 MG TABLET 8 MG PO (08:31)
[2024-02-13] MEDS: PANTOPRAZOLE SODIUM IV 40 MG VIAL IV PUSH ×2 (08:31→20:16)
[2024-02-13] MEDS: SODIUM POLYSTYRENE SULFONONATE 15 GM/60 ML BTL PO (08:31)
[2024-02-13] MEDS: TIMOLOL MALEATE 0.5% OP SOLN 5 ML BOTTLE 1 DROP EACH EYE (08:32)
--- NOTE | 2024-02-13 08:33 | P.PNIM_ITS ---
Progress Note: A&P Assessment and Plan (1) Acute blood loss anemia: Code(s): D62 - Acute posthemorrhagic anemia Status: Acute Assessment and Plan: ADMIT TO IMU TRANSFUSED 2 units of PRDB-02/11 GI CONSULT PPI -02/12 egd postponed due to increased oxygen requirements -on 5 l now - monitor labs, monitor for any signs of bleeding (2) Acute kidney injury superimposed on CKD: Code(s): N17.9 - Acute kidney failure, unspecified; N18.9 - Chronic kidney disease, unspecified Status: Acute Assessment and Plan: LIKELY TO BE PRE RENAL AZOTEMIA SUPERIMPOSED ON CHRONIC KIDNEY DISEASE HOLDING LOSARTAN CONTINUE TO MONITOR BUN AND CREATININE NEPHROLOGY CONSULT RENAL [place]ASOUND [place] - nephrology consulted- appreciate recommendations (3) COPD with emphysema: Code(s): J43.9 - Emphysema, unspecified Status: Acute Assessment and Plan: BREATHING TREATMENTS (4) Lung infiltrate: Code(s): R91.8 - Other nonspecific abnormal finding of lung field Status: Acute Assessment and Plan: PATIENT STARTED ON ZITHROMAX AND ROCEPHIN CULTURES IN PROGRESS 02/12 increased oxygen requirements-5l per nc- colonoscopy is postponed will repeat chest xray will discuss with nephrology if lasix would be prudent vs consulting pulm. (5) Gastro-esophageal reflux disease without esophagitis: Code(s): K21.9 - Gastro-esophageal reflux disease without esophagitis Status: Acute Assessment and Plan: PPI (6) Weakness: Code(s): R53.1 - Weakness Status: Acute Assessment and Plan: LIKELY SECONDARY TO CHRONIC ILLNESS AND ACUTE BLOOD LOSS ANEMIA (7) GI (gastrointestinal bleed): Code(s): K92.2 - Gastrointestinal hemorrhage, unspecified Status: Acute Assessment and Plan: diabetic diet for now, NPO at midnight 02/11 PPI (8) Anemia in chronic kidney disease (CKD): Code(s): N18.9 - Chronic kidney disease, unspecified; D63.1 - Anemia in chronic kidney d isease Status: Acute Assessment and Plan: DEFERRED TO NEPHROLOGY (9) Type 2 diabetes mellitus with other diabetic kidney complication: Code(s): E11.29 - Type 2 diabetes mellitus with other diabetic kidney complication Status: Acute Assessment and Plan: - home regimen levimir 70 units am, 70 pm- but frequent hypoglycemia- so pt decrease pm dose on his own to 40- even with decreased regime-fasting BS was often in 50's - will order hga1c - stop home regimen and add 20 units of lantus and SS will need to adjust diabetic regimen - ideally start GLP1 -with a rat exterminator goal to decrease and stop insulin to avoid hypoglycemia (10) Hyperkalemia: Code(s): E87.5 - Hyperkalemia Status: Acute Assessment and Plan: -amp of d50, followed 10 units of regular insulin phototypesetting equipment monitor -nephrology consulted- appreciate recommendations - 02/12 K still mildly elevated- will add kayexelate -repeat k level- colonoscopy postpone for now-so ok to give PO Subjective Date/time seen: 02/13/24 08:33 Interval history: MELENA Narrative retrieved from H/P: THIS IS AN 88-YEAR-OLD MALE WITH PAST MEDICAL HISTORY SIGNIFICANT FOR CHRONIC KIDNEY DISEASE, ANEMIA CHRONIC DISEASE, INSULIN-DEPENDENT DIABETES MELLITUS, HYPERTENSION, GERD, COPD/EMPHYSEMA. PATIENT WAS BROUGHT TO THE EMERGENCY ROOM VIA EMS AFTER PATIENT WAS UNABLE TO GET UP FROM THE TOILET. ACCORDING TO HISTORY PATIENT HAS BEEN HAVING MELENA AT THE TIME OF MY VISIT PATIENT WAS UNABLE TO GIVE MUCH MEANINGFUL CONTRIBUTORY DETAILS TO HISTORY OF PRESENT ILLNESS. PRELIMINARY WORKUP WAS SIGNIFICANT FOR HEMOGLOBIN OF 5.2 HEMATOCRIT 16 CREATININE 3.5 BUN 60. A CHEST X-RAY SHOWED LUNG INFILTRATES. PATIENT HAS BEEN ADMITTED FOR FURTHER EVALUATION MANAGEMENT AND TREATMENT. 02/11 - pt is seen and examined today. Receiving two units of RPBC. GI and nephrology consulted. EGD in am-02/12. 02/12 - egd today. no acute events overnight. hg 7.4 this am. Vs reviewed- stable. Review of Systems Review of Systems: MELENA, GENERALIZED WEAKNESS Exam Narrative: resting in bed with eyes closed Const: General: comfortable, no acute distress, well developed, ill appearing acutely, lethargic, patient obtunded and average body habitus Nutritional [place]: average body habitus Orientation/consciousness: oriented to person, oriented to place, patient obtunded and lethargic HENMT: Head: normal to inspection, normocephalic and atraumatic Ears: hearing grossly normal bilaterally Face/Nose/Sinus: normal facial exam Face and sinus: normal facial exam Eyes: General: appearance normal, both eyes and all related structures Pupils: Equal, round and reactive pupils present EOM: EOMs intact bilaterally Neck: Neck: full ROM, no lymphadenopathy and no JVD Thyroid: thyroid normal Lymphatic: no lymphadenopathy noted Resp: Effort & Inspection: normal respiratory effort and able to speak in complete sentences Auscultation: crackles, rales and diminished lung sounds Cardio: Jugular venous distension: no JVD Rate: regular rate Rhythm: regular rhythm Heart sounds: S1 normal heart sound present and S2 normal heart sound present GI: Inspection: normal to inspection : General: Yes deferred Skin: Rashes: no rashes Wounds: no wounds Neuro: General: oriented to person, oriented to place, CN's II-XI intact bilaterally, patient obtunded and Unable to assess gait Cranial nerves: Yes CN's II-XII intact bilaterally and Yes Equal, round and reactive pupils present Cognition (Neuro): abnormal cognition ( OBTUNDATION/LETHARGY) Speech: normal speech Gait exam (Neuro): Unable to assess gait Motor exam (neuro): 5/5 motor strength present throughout Extrem: General: normal to inspection, full ROM, no joint enlargement and no pedal edema Objective Data Vital Signs Vital Signs: Vital Signs - 24 hr 02/12/24 11:27 02/12/24 10:00 02/12/24 12:00 Temperature 98.5 F Pulse Rate 83 75 90 Respiratory Rate 20 Blood Pressure 157/53 H Pulse Oximetry 95 Oxygen Delivery Oxygen Flow Rate 02/12/24 14:00 02/12/24 16:03 02/12/24 16:00 Temperature 99.3 F Pulse Rate 89 86 88 Respiratory Rate 20 Blood Pressure 168/49 H Pulse Oximetry 95 Oxygen Delivery Oxygen Flow Rate 02/12/24 18:00 02/12/24 20:22 02/12/24 20:00 Temperature Pulse Rate 87 Respiratory Rate Blood Pressure Pulse Oximetry 94 92 Oxygen Delivery Nasal Cannula Nasal Cannula Oxygen Flow Rate 2 4 02/12/24 20:00 02/13/24 00:08 02/13/24 00:00 Temperature 99.1 F 100.4 F H Pulse Rate 82 75 Respiratory Rate 20 20 Blood Pressure 153/47 H 131/48 L Pulse Oximetry 92 93 93 Oxygen Delivery Nasal Cannula Oxygen Flow Rate 4 02/12/24 20:00 02/12/24 22:00 02/13/24 00:00 Temperature Pulse Rate 77 74 74 Respiratory Rate Blood Pressure Pulse Oximetry Oxygen Delivery Oxygen Flow Rate 02/13/24 02:00 02/13/24 04:25 02/13/24 04:00 Temperature 98.2 F Pulse Rate 85 78 74 Respiratory Rate 20 Blood Pressure 146/49 H Pulse Oximetry 94 Oxygen Delivery Oxygen Flow Rate 02/13/24 04:00 02/13/24 06:00 02/13/24 06:38 Temperature Pulse Rate 74 79 Respiratory Rate 18 Blood Pressure Pulse Oximetry 94 Oxygen Delivery Nasal Cannula Oxygen Flow Rate 4 02/13/24 07:01 02/13/24 07:01 02/13/24 07:46 Temperature 98.5 F Pulse Rate 82 82 81 Respiratory Rate 18 18 20 Blood Pressure 139/46 L Pulse Oximetry 92 92 Oxygen Delivery Nasal Cannula Oxygen Flow Rate 4 Intake/Output Intake/Output: Intake & Output 02/10/24 02/11/24 02/12/24 02/13/24 23:59 23:59 23:59 23:59 Intake Total 0 2362.5 350 Output Total 1850 2075 Balance 0 512.5 -1725 Meds/Results Medications: Active Medications Generic Name Dose Route Start Last Admin Trade Name Freq PRN Reason Stop Dose Admin Albuterol 2 puff 02/12/24 03:08 02/12/24 21:54 Albuterol Sulfate (*Sp) Aerosol 1 Puff INHALATION 2 puff Q4HRT PRN Administration shortness of breath or wheezing Dextrose 12.5 gm 02/12/24 10:46 Dextrose 50% 25 Gm/50 Ml Syringe IV PUSH PRN PRN Hypoglycemia Protocol Doxazosin Mesylate 8 mg 02/12/24 09:00 02/13/24 08:31 Doxazosin Mesylate 4 Mg Tablet PO 8 mg DAILY ALEKSANDR Administration Glucagon 1 mg 02/12/24 10:46 Glucagon For Inj 1 Mg Vial IM PRN PRN Hypoglycemia Protocol Glucose 15 gm 02/12/24 10:46 Glucose Oral Gel 15 Gm Of Glucse In 37.5 Gm Tube PO PRN PRN Hypoglycemia Protocol Ceftriaxone Sodium 2 gm in 100 mls @ 200 mls/hr 02/13/24 00:00 02/13/24 00:44 Rocephin 2 Gm/Ns 100 Ml IVPB Infused Q24H ALEKSANDR Infusion Azithromycin 500 mg in 250 mls @ 250 mls/hr 02/13/24 02:00 02/13/24 02:14 Zithromax IVPB Infused Q24H ALEKSANDR Infusion Dextrose 1,000 mls @ 100 mls/hr 02/12/24 10:46 Dextrose 5% 1,000 Ml IVPB PRN PRN Hypoglycemia Protocol Lactated Ringer's 1,000 mls @ 150 mls/hr 02/12/24 14:55 02/13/24 08:11 Lr - Lactated Ringers Iv IV CONT Not Given .Q6H40M [facility] Insulin Aspart 4 - 8 units 02/12/24 12:00 02/13/24 08:03 Insulin Aspart (*Bkc) 100 Units/Ml SUB-Q Not Given TIDWM [facility] Protocol Insulin Aspart 2 - 4 units 02/12/24 21:00 02/12/24 20:59 Insulin Aspart (*Bkc) 100 Units/Ml SUB-Q Not Given HS [facility] Protocol Insulin Glargine 20 units 02/12/24 21:00 02/12/24 20:59 Insulin Glargine (*Bkc) 100 Units/Ml SUB-Q Not Given HS [facility] Latanoprost 1 drop 02/12/24 18:00 02/12/24 18:26 Latanoprost 0.005% Op Soln 2.5 Ml Btl EACH EYE 1 drop QPM ALEKSANDR Administration Pantoprazole Sodium 40 mg 02/12/24 09:00 02/13/24 08:31 Pantoprazole Sodium Iv 40 Mg Vial IV PUSH 40 mg Q12HR ALEKSANDR Administration Fluticasone/Salmeterol 2 puff 02/12/24 08:00 02/13/24 06:59 Fluticasone/Salmeterol 115-21 Mcg Inhaler 1 Puff INHALATION 2 puff Q12HRT ALEKSANDR Administration Timolol Maleate 1 drop 02/12/24 09:00 02/13/24 08:32 Timolol Maleate 0.5% Op Soln 5 Ml Bottle EACH EYE 1 drop DAILY ALEKSANDR Administration Radiology Results: ITS Impressions Chest X-Ray 02/11/24 20:35 IMPRESSION: 1. Mild to moderate pulmonary edema. Chest/Abdomen/Pelvis CT 02/11/24 22:06 IMPRESSION: 1. Diffuse bilateral groundglass opacities and smooth septal line thickening and favor moderate pulmonary edema over pneumonia with very small bilateral pleural effusions. 2. Moderate emphysema. 3. 2 mm nonobstructing right renal stone. 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 5. Mild diverticulosis without evident diverticulitis. 6. Prominent prostatomegaly. 7. Moderate-sized bilateral fat-containing inguinal hernias. Renal Ultrasound 02/12/24 10:14 IMPRESSION: 1. Normal kidneys. No hydronephrosis. Labs Labs: Laboratory Results - last 24 hr 02/12/24 02/12/24 02/12/24 04:33 09:59 11:28 WBC RBC Hgb Hct MCV MCH MCHC RDW Plt Count MPV Sodium Potassium Chloride Carbon Dioxide Anion Gap BUN Creatinine Estim Creat Clear Calc Estimated GFR Glucose POC Capillary Glucose 155 H 153 H Hemoglobin A1c 5.9 H Calcium 02/12/24 02/12/24 02/12/24 15:52 16:01 19:56 WBC RBC Hgb 8.1 L Hct 24.5 L MCV MCH MCHC RDW Plt Count MPV Sodium Potassium Chloride Carbon Dioxide Anion Gap BUN Creatinine Estim Creat Clear Calc Estimated GFR Glucose POC Capillary Glucose 142 H 157 H Hemoglobin A1c Calcium 02/13/24 02/13/24 02/13/24 04:34 06:42 07:45 WBC 8.1 RBC 2.32 L Hgb 7.4 L Hct 22.6 L MCV 97.4 MCH 31.9 MCHC 32.7 RDW 15.9 H Plt Count 217 MPV 9.4 Sodium 137 Potassium 5.7 H Chloride 106 Carbon Dioxide 22 Anion Gap 9 BUN 50 H Creatinine 3.30 H Estim Creat Clear Calc 13 Estimated GFR 18 L Glucose 129 H POC Capillary Glucose 134 H 156 H Hemoglobin A1c Calcium 8.2 L Quality VTE Prophylaxis VTE prophylaxis: mechanical ordered
--- NOTE | 2024-02-13 10:19 | P.PNNP_ITS ---
Progress Note: A&P Assessment and Plan (1) SANGITA (acute kidney injury): Code(s): N17.9 - Acute kidney failure, unspecified Status: Acute Assessment and Plan: * as noted by admission labs * no real significant change noted * several issues likely playing a role: * severe anemia * losartan use * possible pneumonia/infection * pulmonary vasculitis(?) * element of disease progression(?) * holding losartan * follow volume status given need for PRBC transfusions * noted increase in oxygen requirements * evaluation to date noted: * normal renal ultrasound * UA with some RBC * urine eosinophils negative * urine electrolytes non-prerenal * 282mg of proteinuria * given previous serological data (see #2) and hemoptysis, will repeat testing * consider pulse dose steroids?? (however, unclear if infection is completely ruled out) * may need to consider renal biopsy - see #2 (but I doubt he is stable for this type of procedure at the current time) * follow repeat labs and UOP (2) Stage 3b chronic kidney disease: Code(s): N18.32 - Chronic kidney disease, stage 3b Status: Chronic Assessment and Plan: * baseline creatinine was running 1.5 - 2.0mg/dl * however, in November/December 2023, creatinine was up to 2.3 - 2.7mg/dl * outpatient evaluation noted: * normal renal ultrasound * minimal proteinuria (165mg) * positive BRANDON with normal complements and indeterminate dsDNA-Ab * positive P-ANCA (suggestive of vasculitis, specifically microscopic polyangiitis) * abnormal SPEP [ poorly defined band (possible M-spike) migrating in the gamma region] * serum immunofixation with IgG kappa monoclonal band present * urine immunofixation negative * UA without blood * his hemoptysis in the context of previous above testing results is concerning .... * renal biopsy was a consideration at that time but decision was to recheck serologies again since kidney function was stable (and patient was not keen on this procedure) * may have to reconsider this intervention if/when his condition stabilizes * will recheck serologies * check inflammatory markers (3) Melena: Code(s): K92.1 - Melena Status: Acute Assessment and Plan: * GI recommendations noted * possible EGD today * on IV PPI * PRBC transfusion per protocol * follow trend of H/H (4) Hyperkalemia: Code(s): E87.5 - Hyperkalemia Status: Acute Assessment and Plan: * possibly due to ARB use prior to admission * possible hemolysis of blood in stomach/gut * SANGITA/ARF likely playing a role as well * medical management as needed (5) Hypoxia: Code(s): R09.02 - Hypoxemia Status: Acute Assessment and Plan: * increasing oxygen requirement noted since this AM * previous imaging with evidence of pulmonary edema. small effusions, and emphysema * check CXR * consider IV diuresis (6) Acute on chronic anemia: Code(s): D64.9 - Anemia, unspecified Status: Acute Assessment and Plan: * chronic issues at baseline * follows with Hem/Onc as an outpatient * complicated by #3 * start LEONEL while hospitalized * follow H/H (7) Essential (primary) hypertension: Code(s): I10 - Essential (primary) hypertension Status: Chronic Assessment and Plan: * reasonable control at this time * follow trend of hemodynamics (8) Type 2 diabetes mellitus with other diabetic kidney complication: Code(s): E11.29 - Type 2 diabetes mellitus with other diabetic kidney complication Status: Chronic Assessment and Plan: * follow accu-cheks * glycemic control per hospitalists Will continue to follow. Subjective Date/time seen: 02/13/24 10:19 Interval history: Follow-up for acute kidney injury/acute renal failure on chronic kidney disease. H/H better s/p PRBC transfusion yesterday; tentatively on schedule for EGD later this morning; renal function/creatinine about the same since admission but with good urine output noted but K+ was mildly elevated this AM but s/p medical management; increased oxygen requirement noted this morning as well what seems like hemoptysis. Exam Narrative: General: mildly ill appearing Caucaisan male in NAD Heart: normal S1 and S2; no rub Lungs: Coarse breath sounds; decreased at bases Abdomen: soft, nontender, nondistended, positive bowel sounds Extremities: no cyanosis or clubbing; trace edema Skin: warm and dry Objective Data Vital Signs Vital Signs: Vital Signs Temp Pulse Resp BP Pulse Ox O2 Del Method O2 Flow Rate 02/13/24 10:00 87 02/13/24 09:02 79 92 Nasal Cannula 5 02/13/24 08:00 76 02/13/24 07:46 98.5 F 81 20 139/46 L 92 02/13/24 07:01 82 18 02/13/24 07:01 82 18 92 Nasal Cannula 4 02/13/24 06:38 79 18 02/13/24 06:00 74 02/13/24 04:00 94 Nasal Cannula 4 02/13/24 04:00 74 02/13/24 04:25 98.2 F 78 20 146/49 H 94 02/13/24 02:00 85 02/13/24 00:00 74 02/12/24 22:00 74 02/12/24 20:00 77 02/13/24 00:00 93 Nasal Cannula 4 02/13/24 00:08 100.4 F H 75 20 131/48 L 93 02/12/24 20:00 99.1 F 82 20 153/47 H 92 02/12/24 20:00 92 Nasal Cannula 4 02/12/24 20:22 94 Nasal Cannula 2 02/12/24 18:00 87 02/12/24 16:00 88 02/12/24 16:03 99.3 F 86 20 168/49 H 95 02/12/24 14:00 89 02/12/24 12:00 90 Intake/Output Intake/Output: Intake & Output 02/10/24 02/11/24 02/12/24 02/13/24 23:59 23:59 23:59 23:59 Intake Total 0 2362.5 350 Output Total 1850 2075 Balance 0 512.5 -1725 Meds/Results Medications: Active Medications Generic Name Dose Route Start Last Admin Trade Name Freq PRN Reason Stop Dose Admin Albuterol 2 puff 02/12/24 03:08 02/12/24 21:54 Albuterol Sulfate (*Sp) Aerosol 1 Puff INHALATION 2 puff Q4HRT PRN Administration shortness of breath or wheezing Bumetanide 1.5 mg 02/13/24 11:51 Bumetanide Inj 1 Mg/4 Ml Vial IV PUSH 02/13/24 11:52 ONCE ONE Dextrose 12.5 gm 02/12/24 10:46 Dextrose 50% 25 Gm/50 Ml Syringe IV PUSH PRN PRN Hypoglycemia Protocol Doxazosin Mesylate 8 mg 02/12/24 09:00 02/13/24 08:31 Doxazosin Mesylate 4 Mg Tablet PO 8 mg DAILY ALEKSANDR Administration Glucagon 1 mg 02/12/24 10:46 Glucagon For Inj 1 Mg Vial IM PRN PRN Hypoglycemia Protocol Glucose 15 gm 02/12/24 10:46 Glucose Oral Gel 15 Gm Of Glucse In 37.5 Gm Tube PO PRN PRN Hypoglycemia Protocol Ceftriaxone Sodium 2 gm in 100 mls @ 200 mls/hr 02/13/24 00:00 02/13/24 00:44 Rocephin 2 Gm/Ns 100 Ml IVPB Infused Q24H ALEKSANDR Infusion Azithromycin 500 mg in 250 mls @ 250 mls/hr 02/13/24 02:00 02/13/24 02:14 Zithromax IVPB Infused Q24H ALEKSANDR Infusion Dextrose 1,000 mls @ 100 mls/hr 02/12/24 10:46 Dextrose 5% 1,000 Ml IVPB PRN PRN Hypoglycemia Protocol Insulin Aspart 4 - 8 units 02/12/24 12:00 02/13/24 11:31 Insulin Aspart (*Bkc) 100 Units/Ml SUB-Q Not Given TIDWM ALEKSANDR Protocol Insulin Aspart 2 - 4 units 02/12/24 21:00 02/12/24 20:59 Insulin Aspart (*Bkc) 100 Units/Ml SUB-Q Not Given HS ALEKSANDR Protocol Insulin Glargine 20 units 02/12/24 21:00 02/12/24 20:59 Insulin Glargine (*Bkc) 100 Units/Ml SUB-Q Not Given HS ALEKSANDR Latanoprost 1 drop 02/12/24 18:00 02/12/24 18:26 Latanoprost 0.005% Op Soln 2.5 Ml Btl EACH EYE 1 drop QPM ALEKSANDR Administration Pantoprazole Sodium 40 mg 02/12/24 09:00 02/13/24 08:31 Pantoprazole Sodium Iv 40 Mg Vial IV PUSH 40 mg Q12HR ALEKSANDR Administration Fluticasone/Salmeterol 2 puff 02/12/24 08:00 02/13/24 06:59 Fluticasone/Salmeterol 115-21 Mcg Inhaler 1 Puff INHALATION 2 puff Q12HRT ALEKSANDR Administration Timolol Maleate 1 drop 02/12/24 09:00 02/13/24 08:32 Timolol Maleate 0.5% Op Soln 5 Ml Bottle EACH EYE 1 drop DAILY ALEKSANDR Administration Radiology Results: ITS Impressions Chest/Abdomen/Pelvis CT 02/11/24 22:06 IMPRESSION: 1. Diffuse bilateral groundglass opacities and smooth septal line thickening and favor moderate pulmonary edema over pneumonia with very small bilateral pleural effusions. 2. Moderate emphysema. 3. 2 mm nonobstructing right renal stone. 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 5. Mild diverticulosis without evident diverticulitis. 6. Prominent prostatomegaly. 7. Moderate-sized bilateral fat-containing inguinal hernias. Renal Ultrasound 02/12/24 10:14 IMPRESSION: 1. Normal kidneys. No hydronephrosis. Labs Labs: Laboratory Tests 02/13/24 04:34 02/13/24 10:18 02/13/24 04:34 Sodium 137 Potassium 5.7 H Chloride 106 Carbon Dioxide 22 Anion Gap 9 BUN 50 H Creatinine 3.30 H Estim Creat Clear Calc 13 Estimated GFR 18 L Glucose 129 H Calcium 8.2 L Microbiology 02/11/24 20:58 Blood Blood Culture - Preliminary 02/11/24 20:58 Blood Blood Culture - Preliminary
[2024-02-13 10:30] LABS: Potassium 4.9 mmol/L (3.4-5.0)
[2024-02-13 11:32] LABS: Glucose Point of Care 146 mg/dl (65-105)
[2024-02-13] MEDS: BUMETANIDE INJ 1 MG/4 ML VIAL 1.5 MG IV PUSH (12:08)
--- NOTE | 2024-02-13 14:19 | WPDGIPROGNO ---
Progress Note: A&P Assessment and Plan (1) Melena: Code(s): K92.1 - Melena Status: Acute Assessment and Plan: no more episodes but required blood transfusion iv protonix egd was postponed by anesthesiology because requiring more oxygen, probably Friday unless more bleeding again during the weekend ok to eat (2) Acute on chronic anemia: Code(s): D64.9 - Anemia, unspecified Status: Acute Assessment and Plan: he has anemia of renal disease but down in admission probably from ugib (3) Anemia in chronic kidney disease (CKD): Code(s): N18.9 - Chronic kidney disease, unspecified; D63.1 - Anemia in chronic kidney disease Status: Acute (4) Pulmonary edema: Code(s): J81.1 - Chronic pulmonary edema Status: Acute Assessment and Plan: treated by primary and nephrology (5) Acute kidney injury superimposed on CKD: Code(s): N17.9 - Acute kidney failure, unspecified; N18.9 - Chronic kidney disease, unspecified Status: Acute Subjective Date/time seen: 02/13/24 14:19 Interval history: he required more oxygen today up to 5 liters no more melena, in fact last BM greenish color after kayaxelate (k was treated) he is hemodynamically stable Review of Systems Review of Systems: All systems reviewed & are unremarkable except as noted in HPI and below Exam Const: General: comfortable and no acute distress HENMT: Face/Nose/Sinus: Normal nares present Eyes: General: appearance normal, both eyes and all related structures Neck: Neck: supple Resp: Other: coarse BS Cardio: Rate: regular rate Rhythm: regular rhythm GI: Inspection: non-distended GI Palp: Yes Soft to palpation and No Tenderness to palpation present (GI) Auscultation: normal bowel sounds Skin: General skin exam: normal color Neuro: Speech: normal speech Motor exam (neuro): 5/5 motor strength present throughout Extrem: General: normal to inspection Psych: Mental Status: mental status grossly normal Objective Data Vital Signs Vital Signs: Vital Signs - 24 hr 02/12/24 16:03 02/12/24 16:00 02/12/24 18:00 Temperature 99.3 F Pulse Rate 86 88 87 Respiratory Rate 20 Blood Pressure 168/49 H Pulse Oximetry 95 Oxygen Delivery Oxygen Flow Rate 02/12/24 20:22 02/12/24 20:00 02/12/24 20:00 Temperature 99.1 F Pulse Rate 82 Respiratory Rate 20 Blood Pressure 153/47 H Pulse Oximetry 94 92 92 Oxygen Delivery Nasal Cannula Nasal Cannula Oxygen Flow Rate 2 4 02/13/24 00:08 02/13/24 00:00 02/12/24 20:00 Temperature 100.4 F H Pulse Rate 75 77 Respiratory Rate 20 Blood Pressure 131/48 L Pulse Oximetry 93 93 Oxygen Delivery Nasal Cannula Oxygen Flow Rate 4 02/12/24 22:00 02/13/24 00:00 02/13/24 02:00 Temperature Pulse Rate 74 74 85 Respiratory Rate Blood Pressure Pulse Oximetry Oxygen Delivery Oxygen Flow Rate 02/13/24 04:25 02/13/24 04:00 02/13/24 04:00 Temperature 98.2 F Pulse Rate 78 74 Respiratory Rate 20 Blood Pressure 146/49 H Pulse Oximetry 94 94 Oxygen Delivery Nasal Cannula Oxygen Flow Rate 4 02/13/24 06:00 02/13/24 06:38 02/13/24 07:01 Temperature Pulse Rate 74 79 82 Respiratory Rate 18 18 Blood Pressure Pulse Oximetry 92 Oxygen Delivery Nasal Cannula Oxygen Flow Rate 4 02/13/24 07:01 02/13/24 07:46 02/13/24 08:00 Temperature 98.5 F Pulse Rate 82 81 76 Respiratory Rate 18 20 Blood Pressure 139/46 L Pulse Oximetry 92 Oxygen Delivery Oxygen Flow Rate 02/13/24 09:02 02/13/24 10:00 02/13/24 11:53 Temperature 97.4 F L Pulse Rate 79 87 83 Respiratory Rate 24 H Blood Pressure 152/53 H Pulse Oximetry 92 93 Oxygen Delivery Nasal Cannula Oxygen Flow Rate 5 02/13/24 12:00 02/13/24 12:00 Temperature Pulse Rate 83 Respiratory Rate Blood Pressure Pulse Oximetry 96 Oxygen Delivery Nasal Cannula Oxygen Flow Rate 5 Intake/Output Intake/Output: Intake & Output 02/10/24 02/11/24 02/12/24 02/13/24 23:59 23:59 23:59 23:59 Intake Total 0 2362.5 590 Output Total 1850 2075 Balance 0 512.5 -1485 Meds/Results Medications: Active Medications Generic Name Dose Route Start Last Admin Trade Name Freq PRN Reason Stop Dose Admin Albuterol 2 puff 02/12/24 03:08 02/12/24 21:54 Albuterol Sulfate (*Sp) Aerosol 1 Puff INHALATION 2 puff Q4HRT PRN Administration shortness of breath or wheezing Dextrose 12.5 gm 02/12/24 10:46 Dextrose 50% 25 Gm/50 Ml Syringe IV PUSH PRN PRN Hypoglycemia Protocol Doxazosin Mesylate 8 mg 02/12/24 09:00 02/13/24 08:31 Doxazosin Mesylate 4 Mg Tablet PO 8 mg DAILY ALEKSANDR Administration Glucagon 1 mg 02/12/24 10:46 Glucagon For Inj 1 Mg Vial IM PRN PRN Hypoglycemia Protocol Glucose 15 gm 02/12/24 10:46 Glucose Oral Gel 15 Gm Of Glucse In 37.5 Gm Tube PO PRN PRN Hypoglycemia Protocol Ceftriaxone Sodium 2 gm in 100 mls @ 200 mls/hr 02/13/24 00:00 02/13/24 00:44 Rocephin 2 Gm/Ns 100 Ml IVPB Infused Q24H ALEKSANDR Infusion Azithromycin 500 mg in 250 mls @ 250 mls/hr 02/13/24 02:00 02/13/24 02:14 Zithromax IVPB Infused Q24H ALEKSANDR Infusion Dextrose 1,000 mls @ 100 mls/hr 02/12/24 10:46 Dextrose 5% 1,000 Ml IVPB PRN PRN Hypoglycemia Protocol Insulin Aspart 4 - 8 units 02/12/24 12:00 02/13/24 11:31 Insulin Aspart (*Bkc) 100 Units/Ml SUB-Q Not Given TIDWM ALEKSANDR Protocol Insulin Aspart 2 - 4 units 02/12/24 21:00 02/12/24 20:59 Insulin Aspart (*Bkc) 100 Units/Ml SUB-Q Not Given HS ALEKSANDR Protocol Insulin Glargine 20 units 02/12/24 21:00 02/12/24 20:59 Insulin Glargine (*Bkc) 100 Units/Ml SUB-Q Not Given HS ALEKSANDR Latanoprost 1 drop 02/12/24 18:00 02/12/24 18:26 Latanoprost 0.005% Op Soln 2.5 Ml Btl EACH EYE 1 drop QPM ALEKSANDR Administration Pantoprazole Sodium 40 mg 02/12/24 09:00 02/13/24 08:31 Pantoprazole Sodium Iv 40 Mg Vial IV PUSH 40 mg Q12HR ALEKSANDR Administration Fluticasone/Salmeterol 2 puff 02/12/24 08:00 02/13/24 06:59 Fluticasone/Salmeterol 115-21 Mcg Inhaler 1 Puff INHALATION 2 puff Q12HRT ALEKSANDR Administration Timolol Maleate 1 drop 02/12/24 09:00 02/13/24 08:32 Timolol Maleate 0.5% Op Soln 5 Ml Bottle EACH EYE 1 drop DAILY ALEKSANDR Administration Radiology Results: ITS Impressions Chest/Abdomen/Pelvis CT 02/11/24 22:06 IMPRESSION: 1. Diffuse bilateral groundglass opacities and smooth septal line thickening and favor moderate pulmonary edema over pneumonia with very small bilateral pleural effusions. 2. Moderate emphysema. 3. 2 mm nonobstructing right renal stone. 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 5. Mild diverticulosis without evident diverticulitis. 6. Prominent prostatomegaly. 7. Moderate-sized bilateral fat-containing inguinal hernias. Renal Ultrasound 02/12/24 10:14 IMPRESSION: 1. Normal kidneys. No hydronephrosis. Chest X-Ray 02/13/24 11:11 IMPRESSION: 1. Worsened diffuse lung disease, likely moderate pulmonary edema. 2. Emphysema. Labs Labs: Laboratory Results - last 24 hr 02/12/24 02/12/24 02/12/24 15:52 16:01 19:56 WBC RBC Hgb 8.1 L Hct 24.5 L MCV MCH MCHC RDW Plt Count MPV Sodium Potassium Chloride Carbon Dioxide Anion Gap BUN Creatinine Estim Creat Clear Calc Estimated GFR Glucose POC Capillary Glucose 142 H 157 H Calcium 02/13/24 02/13/24 02/13/24 04:34 06:42 07:45 WBC 8.1 RBC 2.32 L Hgb 7.4 L Hct 22.6 L MCV 97.4 MCH 31.9 MCHC 32.7 RDW 15.9 H Plt Count 217 MPV 9.4 Sodium 137 Potassium 5.7 H Chloride 106 Carbon Dioxide 22 Anion Gap 9 BUN 50 H Creatinine 3.30 H Estim Creat Clear Calc 13 Estimated GFR 18 L Glucose 129 H POC Capillary Glucose 134 H 156 H Calcium 8.2 L 02/13/24 02/13/24 10:18 11:30 WBC RBC Hgb Hct MCV MCH MCHC RDW Plt Count MPV Sodium Potassium 4.9 Chloride Carbon Dioxide Anion Gap BUN Creatinine Estim Creat Clear Calc Estimated GFR Glucose POC Capillary Glucose 146 H Calcium
--- NOTE | 2024-02-13 15:22 | P.CONPL_ITS ---
Assessment and Plan Assessment and plan (1) Hemoptysis: Code(s): R04.2 - Hemoptysis Status: Acute Assessment and Plan: Patient with chronic renal insufficiency, positive BRANDON at 1:1280 with positive p-ANCA at 1:160 and positive anti DNA antibody on 10/15/2023. Repeat on 12/23/2023 was a positive BRANDON at 1:1280 and the repeat p-ANCA was not performed as possible interferring substance, and positive anti DNA antibody at 5. patient presents 02/10 with weakness, anemia, acute on chronic renal insufficiency and an initial chest x-ray with diffuse interstitial alveolar infiltrates requiring 2 L nasal cannula oxygen. He received 2 units of packed blood cells and clinically felt better. On 02/12/2024 he developed hemoptysis which continues today. ABG today on 5 L 7.50/. Etiology of hemoptysis includes vasculitis, pulmonary edema (fluid overload, possible transfusion related acute lung injury and/or transfusion associated circulatory overload), and or infection (bacterial or viral). Plan: Recommend transfer to higher level of care facility for further management including rheumatology consultation, possible bronchoscopy with BAL and or biopsy (to high risk for me to perform bronchoscopy at [place]), possible renal biopsy and initiation of systemic immunosuppressants if needed. Repeat serologies and complement levels have been ordered by Nephrology. Agree with as aggressive diuresis as tolerated by his cardiac and renal systems per Nephrology and hospitalist teams. I will send a repeat COVID, influenza and RSV RT PCR. I will send him nasal MRSA swab. I will send the extended respiratory pathogen panel to [facility]. I will send urine Legionella, urine pneumococcal and says mycoplasma IgM. The patient has centrilobular emphysema on his CT scan and I will broaden his antibiotics to vancomycin, cefepime and change his azithromycin to Levaquin. I will discontinue ceftriaxone at this time. Discussed with Consuelo Mosqueda, left voice message with Dr. Washington. Attempted to talk to the the in the room but she has gone so I left a voice message with her. will follow with you. (2) COPD with emphysema: Code(s): J43.9 - Emphysema, unspecified Status: Acute Assessment and Plan: Patient has 16 pack year tobacco use, quit age 51, moderate apical predominant centrilobular emphysema on his CT scan and PFTs with no fixed obstructive abnormality. Patient has been maintained on Wixela at home although he says that this does not provide him much benefit. currently he has no wheezing and no evidence of a COPD exacerbation. He has no evidence of hypercarbic respiratory failure with an ABG of 7.50/32/62 on 5 L nasal cannula. Plan: At this time I will place him on DuoNebs q.6 hours. Goal saturation 90- 94% and will adjust oxygen accordingly. History of Present Illness History of Present Illness Consult date: 02/13/24 Chief complaint: Anemia, Possible GI bleed, SANGITA, Pulm edema Narrative: 02/13/2024: This is a Pulmonary consult for worsened diffuse lung disease, moderate pulmonary edema and emphysema. Patient was previously followed in the Pulmonary Clinic in last seen on 07/10/2021: This is the note: Details: this 86-year-old man is seen in pulmonary clinic in follow-up. The patient was recently evaluated for intermittent exertional dyspnea. He has got history of diabetes, chronic kidney disease hypertension anemia on erythropoietin injections. On his last CBC his hemoglobin was around 10. He had no evidence of cardiac ischemia on recent Lexiscan test. The patient has undergone a chest CT and echocardiogram. Since previous office visit he has had no new respiratory symptoms. He continues to have intermittent shortness of breath with activities only. Chest CT showed no evidence of interstitial lung disease. He has got mild to moderate emphysematous changes. Echocardiogram showed grade 1 diastolic dysfunction, normal EF. Of note, pulmonary function testing had showed normal lung volumes and essentially normal spirometry and only mild reduction in lung diffusion capacity. Patient used to smoke less than half a pack per day for approximately 30 years but quit long time ago. assessment and plan: 86-year-old man with a history of chronic kidney disease anemia mild emphysema changes on recent chest CT no evidence of significant cardiac disease on recent echocardiogram has had intermittent shortness of breath only with strenuous activities. Patient has some crackles on auscultation at left base but chest CT showed no evidence of interstitial lung disease. Discussed findings of chest CT and echocardiogram with patient and his . Encouraged patient to stay active as he has no underlying respiratory disease that would limit his exercise performance. As stated he has mild to moderate emphysematous changes on recent chest CT but there was no evidence of obstructive airway disease on recent pulmonary function testing. The patient will return to Pulmonary Clinic on a p.r.n. basis. 02/04/2024: PCP office note says worsening shortness of breath over several months. Cardiac workup including a stress test and echo revealed mild diastolic dysfunction mild aortic valve stenosis. COPD confirmed by CT scan 2021 with normal spirometry with moderate diffusion impairment. Currently using Wixela but finds an ineffective. Patient also experience persistent symptoms including dizziness and lightheadedness with minimal physical exertion. Room air saturations 99%. Lungs were clear to auscultation treated for possible COPD exacerbation. Prescribed breasts tree twice a day, 5 day course of prednisone a Z-Reggie. 02/11/2024: Patient presented to the emergency department with generalized weakness. He was too weak to get off the commode. Stools have been black and tarry. He just wanted to be left alone so he could sleep. Blood pressure 151/45 heart rate 88, respiratory rate 19, temperature 101.2?, 2 L nasal cannula saturation 92%. White blood cell count 10.6, hemoglobin 5.2, creatinine 3.5, serum bicarbonate 21, potassium 5.7, eosinophils 0.9%. BNP 3060. Influenza a and COVID RT PCR negative. 2 units of blood transfused. CT chest abdomen and pelvis with diffuse bilateral ground-glass opacities a smooth septal line thickening very small bilateral pleural effusions favoring pulmonary edema. Moderate emphysema. Started on erythromycin and Rocephin for possible community-acquired pneumonia. PPI started. 02/12/2024 remained on 2 L nasal cannula, hemoglobin 7.5 creatinine 3.5. Repeat hemoglobin in the afternoon 8.1. I/Os +512 mL. patient started coughing up blood. renal consult: Renal consultation was requested due to his acute kidney injury/ acute renal failure on top of his baseline chronic kidney disease. The patient is somewhat familiar to me as he recently established care with me in the office for management of his chronic kidney disease. Outpatient evaluation of his renal insufficiency demonstrated a normal renal ultrasound, mild proteinuria, and a serological profile that was significant for positive BRANDON (with normal complements and indeterminate dsDNA-Ab) along with a positive P-ANCA (suggestive of vasculitis, specifically microscopic polyangiitis) along with an abnormal SPEP [ poorly defined band (possible M-spike) migrating in the gamma region]. Other risk factor for his CKD include diabetes, hypertension, vascular disease and age. His creatinine at that time was running ~ 1.5 - 2.0mg/dl in the last year or so. Given these abnormal serologies, I had discussed with the patient the possibility of doing a kidney biopsy but since he did not any microscopic or gross hematuria or significant proteinuria, as well as the fact the patient was not keen on this procedure, the tentative plan was to repeat blood work including the serologies and to assess the trend of his kidney function prior to making a final determination if a renal biopsy should be done. As noted by labs on admission, his kidney function has deteriorated in comparison to labs 3 months ago but the presumption of a possible GI bleed and severe anemia may be more to blame for this rise in his creatinine than some other pathological disease. In spite of his worsening renal dysfunction, he continues to make reasonable urine output and his volume status appears to be relatively stable although recent imaging does show evidence of moderate pulmonary edema and small bilateral pleural effusions arguing a degree of volume overload. 02/13/24: oxygen up to 5 L. No more melena. temperature 38.0? at 00:08. Hemoglobin 7.4. creatinine 3.3. Chest x-ray worsening diffuse interstitial alveolar infiltrates compared to 02/11/2024. weight 77 kilos with an admission weight of 82.5 kilos in for 4 hours later weight was 74.1 kilos. I/Os -1.4 L. EGD canceled because patient required more oxygen. Currently the patient denies fever although he was febrile last night and is currently 37.9, states he continues to cough up bright red blood mixed with sputum and I witnessed this in a tissue at the side of his bed. He says he is breathing normal. Coughing does cause abdominal pain. Repeat BNP is 3970. p rocalcitonin is 0.2. currently is on 5 L nasal cannula saturations 94% when I decreased him to 4 L his saturations went to 90. DATA: 02/11/24: EXAMINATION: CT chest abdomen pelvis wo con DATE: 02/11/2024 22:02 INDICATION: Infection TECHNIQUE: Computed tomography (CT) of the chest, abdomen, and pelvis was performed without intravenous contrast. Automated exposure control and iterative reconstruction technique were employed. The dose-length product was 926.02 mGy- cm. COMPARISON: None FINDINGS: CHEST: Moderate emphysema with superimposed groundglass opacities with dependent and perihilar predominance relatively sparing the subpleural lung. There is also max e scattered smooth septal line thickening. Given the appearance and distribution would favor moderate pulmonary edema over pneumonia. There are very small bilateral pleural effusions at the posterior sulci. Heart size is normal. Atherosclerotic coronary artery calcifications. No pericardial effusion. Thoracic aorta is normal in caliber. Calcified right paratracheal lymph nodes consistent with old granulomatous disease. No pathologically enlarged thoracic lymphadenopathy. Severe lower cervical and mild thoracic spondylosis. ABDOMEN/PELVIS: There are few small hepatic and splenic calcifications consistent with old granulomatous disease. Decompressed gallbladder, pancreas and bilateral adrenal glands are normal. 2 mm nonobstructing stone at a lower pole calyx of the right kidney. No other urolithiasis or hydronephrosis on either the left or right. 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 Bladder is normal. Prostatomegaly measuring 6.2 x 5.6 cm. Moderate- sized bilateral fat-containing inguinal hernias. There is mild scattered diverticulosis without adjacent inflammatory stranding to suggest diverticulitis. No bowel obstruction. Normal appendix. No free intraperitoneal gas or fluid. Moderate to severe lumbar spondylosis. IMPRESSION: 1. Diffuse bilateral groundglass opacities and smooth septal line thickening and favor moderate pulmonary edema over pneumonia with very small bilateral pleural effusions. 2. Moderate emphysema. 3. 2 mm nonobstructing right renal stone. 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 5. Mild diverticulosis without evident diverticulitis. 6. Prominent prostatomegaly. 7. Moderate-sized bilateral fat-containing inguinal hernias. 01/22/2024: Echo Summary 1. Complete two-dimensional, color flow and Doppler transthoracic echocardiogram is performed. 2. Left ventricular chamber dimension is normal. 3. Left ventricular systolic function is normal, estimated at 65-70%. 4. The left ventricular diastolic function is grade I diastolic dysfunction. 5. E/e' 16 is elevated. 6. Global longitudinal strain is normal at -18.0%. 7. Left atrial chamber dimension is mildly enlarged. 8. There is moderate aortic valve sclerosis. 9. There is mild aortic valve stenosis with a peak velocity of 258 cm/s, mean gradient of 16 mmHg, and aortic valve area of 1.7 cm2. 10. There is mild mitral valve regurgitation. 11. No pulmonary hypertension, estimated pulmonary arterial systolic pressure is 36 mmHg. Right Ventricle Right ventricular systolic function is normal and with normal TAPSE 2.4 cm. Right ventricular chamber dimension is normal. Right Atria Right atrial chamber dimension is normal. 10/03/2022 PFTs without bronchodilators This is a pulmonary function test with spirometry, plethysmography and diffusing capacity. The test was performed and results interpreted in accordance with the 2019 and 2005 ATS/ERS Task Force guidelines respectively using the Global Lung Function Initiative-2012 reference equations. Patient demonstrated good effort and cooperation. Reproducibility criteria were met. The quality of the spirometry maneuver was Grade A. Findings: Spirometry: There is decreased maximal expiratory airflow at low lung volumes with concave expiratory flow tracing. The contour the inspiratory flow tracing is normal. The FVC is 3.28 L, 99% predicted. The FEV1 is 2.12 L, 87% predicted. The FEV1: FVC ratio 65%. Plethysmography: The total lung capacity is 6.20 L, 96% predicted. The functional residual capacity is 3.79 L, 108% predicted. The residual volume is 2.84 L, 109% predicted. Diffusing capacity: The diffusing capacity unadjusted for hemoglobin and carboxyhemoglobin is 11.7, 55% predicted. The diffusing capacity adjusted for alveolar volume is 2.34, 64% predicted. In comparison to 02/27/2021 the FVC was unchanged from 2.92 L to 3.28 L. The FEV1 was unchanged from 1.89 L to 2.12 L. The total lung capacity increased from 5.51 L to 6.20 L. The functional residual capacity increased from 3.19 L to 3.79 L. The residual volume increased from 2.46 L to 2.84 L. the diffusing capacity unadjusted for hemoglobin and carboxyhemoglobin was unchanged from 12.4 to 11.7. The diffusing capacity adjusted for alveolar volume was unchanged from 2.56 to 2.34. Impression: The spirometry is normal without evidence of an obstructive abnormality. The lung volumes are normal. The diffusing capacity unadjusted for hemoglobin and carboxyhemoglobin is moderately decreased and remains midly decreased when adjusted for alveolar volume. In comparison to previous pulmonary function testing on 02/27/2021 there has been a greater than anticipated time dependent increase in the total lung capacity, functional residual capacity and residual volume with no significant change in the FVC, FEV1 or diffusing capacity. Review of Systems Constitutional: Constitutional: Reports no additional constitutional complai nts Eyes: Eyes: Reports no additional eye complaints ENT: Reports system reviewed and no additional complaints, except as documented Cardiovascular: Cardiovascular: Reports no additional cardiovascular complaints Respiratory: Respiratory: Reports no additional respiratory complaints Gastrointestinal: Gastrointestinal: Reports no additional gastrointestinal complaints Musculoskeletal: Musculoskeletal: Reports no additional musculoskeletal complaints Neurologic: Reports system reviewed and no additional complaints, except as documented Psychiatric: Psychiatric: Reports no additional psychiatric complaints Endocrine: Endocrine: Reports no additional endocrine complaints Hematologic/Lymphatic: Hematologic/Lymphatic: Reports no additional hematologic/lymphatic complaints Allergic/Immunologic: Allergic/Immunologic: Reports no additional allergic/im munologic complaints [facility] Past Medical History Medical History (Updated 02/13/24 @ 17:18 by Leonides Johnson MD) Acute on chronic anemia Anemia due to stage 3 chronic kidney disease Anemia, unspecified BMI 28.0-28.9,adult Essential (primary) hypertension Fatty liver Gastro-esophageal reflux disease without esophagitis Glaucoma Hearing loss Melena Mixed hyperlipidemia Pulmonary emphysema determined by X-ray Type 2 diabetes mellitus with other diabetic kidney complication Surgical History Surgical History H/O eye surgery H/O eye surgery Hx of detached retina repair Family History Family History Mother Family history of heart disease in male family member before age 55 Heart disease Father , 96 y/o Diabetes mellitus Neuropathy Sibling Parkinson disease Social History Social History Smoking packs per day: 0.5 Smoking cigarettes per day: 10.0 Years smoked: 25 Smoking pack-years: 12.50 Smoking status: Former smoker Second hand tobacco smoke exposure: No Alcohol intake: never Substance use: never Substance use type: does not use Do You Feel Safe in your Home?: Yes Lack of Transportation: No Lack of Food: Never True Current Housing: I Have Housing Concerned About Future Housing: No Difficulty Paying Gas/Electric Bills: No Difficulty Paying for Meds: No Currently Unemployed: No Education: High School Diploma/GED Difficulty w/ Childcare or Family Care: No Living arrangements: with family 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 Gender identity (if verbalized by the patient): Male Spiritual care concerns: No Meds Home Medications and Allergies Home Medications Medication Instructions Recorded Confirmed Type pen needle, diabetic 32 gauge x #100 ea 03/24/19 02/12/24 History 1/5 (NovoTwist) latanoprost 0.005 % eye drops 1 drop ophthalmic (eye) QPM 12/07/19 02/12/24 History pen needle, diabetic 32 gauge x #100 ea 05/02/23 02/12/24 Rx 5/32 (BD Rita 2nd Gen Pen Needle) insulin syringe-needle U-100 0.3 #100 ea 05/12/23 02/12/24 Rx mL 31 gauge x 5/16 ([facility]ocate Syringes) blood-glucose meter (Accu-Chek #1 ea 08/07/23 02/12/24 Rx Guide Glucose Meter) lancets (Accu-Chek Softclix #200 ea 08/07/23 02/12/24 Rx Lancets) doxazosin 8 mg tablet 8 mg PO DAILY #100 tabs 08/29/23 02/12/24 Rx losartan 50 mg tablet 50 mg PO DAILY #30 tabs 10/03/23 02/12/24 Rx blood sugar diagnostic (Accu-Chek #100 ea 10/07/23 02/12/24 Rx Guide test strips) amlodipine 2.5 mg tablet 2.5 mg PO DAILY #90 tabs 12/02/23 02/12/24 Rx timolol maleate 0.5 % eye drops 1 drp EACH EYE QAM 12/02/23 02/12/24 History omeprazole 40 mg capsule,delayed 40 mg PO DAILY #30 caps 12/15/23 02/12/24 Rx release albuterol sulfate 90 mcg/actuation 2 inh inhalation Q4H PRN shortness 02/04/24 02/12/24 Rx aerosol inhaler of breath or wheezing #8.5 grams atorvastatin 40 mg tablet 40 mg PO DAILY 02/12/24 02/12/24 History fluticasone 250 mcg-salmeterol 50 2 inh inhalation BID 02/12/24 02/12/24 History mcg/dose blistr powdr for inhalation (Wixela Inhub) hydralazine 100 mg tablet 100 mg PO BID 02/12/24 02/12/24 History insulin detemir U-100 100 unit/mL 70 unit subcut DAILY 02/12/24 02/12/24 History subcutaneous solution insulin detemir U-100 100 unit/mL 30 unit subcut HS 02/12/24 02/12/24 History subcutaneous solution (Levemir U-100 Insulin) Allergies Allergy/AdvReac Type Severity Reaction Status Date / Time No Known Allergies Allergy Verified 02/11/24 20:20 Vital Signs Vital Signs - 24 hr 02/12/24 16:03 02/12/24 16:00 02/12/24 18:00 Temperature 37.4 C Pulse Rate 86 88 87 Respiratory Rate 20 Blood Pressure 168/49 H Pulse Oximetry 95 Oxygen Delivery Oxygen Flow Rate 02/12/24 20:22 02/12/24 20:00 02/12/24 20:00 Temperature 37.3 C Pulse Rate 82 Respiratory Rate 20 Blood Pressure 153/47 H Pulse Oximetry 94 92 92 Oxygen Delivery Nasal Cannula Nasal Cannula Oxygen Flow Rate 2 4 02/13/24 00:08 02/13/24 00:00 02/12/24 20:00 Temperature 38.0 C H Pulse Rate 75 77 Respiratory Rate 20 Blood Pressure 131/48 L Pulse Oximetry 93 93 Oxygen Delivery Nasal Cannula Oxygen Flow Rate 4 02/12/24 22:00 02/13/24 00:00 02/13/24 02:00 Temperature Pulse Rate 74 74 85 Respiratory Rate Blood Pressure Pulse Oximetry Oxygen Delivery Oxygen Flow Rate 02/13/24 04:25 02/13/24 04:00 02/13/24 04:00 Temperature 36.8 C Pulse Rate 78 74 Respiratory Rate 20 Blood Pressure 146/49 H Pulse Oximetry 94 94 Oxygen Delivery Nasal Cannula Oxygen Flow Rate 4 02/13/24 06:00 02/13/24 06:38 02/13/24 07:01 Temperature Pulse Rate 74 79 82 Respiratory Rate 18 18 Blood Pressure Pulse Oximetry 92 Oxygen Delivery Nasal Cannula Oxygen Flow Rate 4 02/13/24 07:01 02/13/24 07:46 02/13/24 08:00 Temperature 36.9 C Pulse Rate 82 81 76 Respiratory Rate 18 20 Blood Pressure 139/46 L Pulse Oximetry 92 Oxygen Delivery Oxygen Flow Rate 02/13/24 09:02 02/13/24 10:00 02/13/24 11:53 Temperature 36.3 C L Pulse Rate 79 87 83 Respiratory Rate 24 H Blood Pressure 152/53 H Pulse Oximetry 92 93 Oxygen Delivery Nasal Cannula Oxygen Flow Rate 5 02/13/24 12:00 02/13/24 12:00 02/13/24 14:00 Temperature Pulse Rate 83 81 Respiratory Rate Blood Pressure Pulse Oximetry 96 Oxygen Delivery Nasal Cannula Oxygen Flow Rate 5 Exam Const: General: cooperative, healthy appearing and comfortable Orientation/consciousness: oriented to person, oriented to place and oriented to time HENMT: Head: normal to inspection Ears: hearing grossly normal bilaterally Eyes: General: appearance normal, both eyes and all related structures Neck: Neck: normal visual inspection Chest: Chest palpation & inspection: normal inspection of the chest Resp: Effort & Inspection: normal respiratory effort and able to speak in complete sentences Auscultation: crackles, no rales, no rhonchi, no wheezes and lung sounds not diminished Other: Few inspiratory and Expiratory crackles throughout worse at the bases. Cardio: Jugular venous distension: no JVD GI: Inspection: normal to inspection GI Palp: No abdominal tenderness Skin: General skin exam: normal color Neuro: General: oriented to person, oriented to place and oriented to time Extrem: General: normal to inspection Psych: Appearance: grossly normal Results Laboratory Findings 02/13/24 04:34 02/13/24 10:18 ABG, PT/INR, D-dimer: PT/INR, D-dimer PT 14.7 Seconds (11.1-14.7) 02/11/24 20:58 INR 1.1 02/11/24 20:58 Abnormal lab findings: Abnormal Labs 02/11/24 02/11/24 02/12/24 20:58 23:01 00:39 WBC 10.6 H RBC 1.69 L Hgb 5.2 L* D Hct 16.7 L* MCHC 31.1 L RDW 16.5 H MPV 10.7 H Immature Gran % (Auto) 1.3 H Neut % (Auto) 85.9 H Lymph % (Auto) 6.0 L Baso % (Auto) 0.1 L Lymph # (Auto) 0.63 L Abs Immat Gran (auto) 0.14 H Absolute Neuts (auto) 9.1 H APTT 37.7 H Sodium 134 L Potassium 5.7 H Carbon Dioxide 21 L BUN 61 H D Creatinine 3.50 H Estimated GFR 17 L Glucose 199 H POC Capillary Glucose 223 H Hemoglobin A1c Calcium Iron TIBC % Saturation AST NT-Pro-B Natriuret Pep 3060 H Total Protein Albumin 3.1 L Urine RBC 11-20 H Crossmatch See Detail 02/12/24 02/12/24 02/12/24 04:33 04:38 09:59 WBC RBC 2.38 L Hgb 7.5 L Hct 22.8 L MCHC RDW 15.9 H MPV Immature Gran % (Auto) 1.6 H Neut % (Auto) 74.4 H Lymph % (Auto) 16.8 L Baso % (Auto) 0.1 L Lymph # (Auto) Abs Immat Gran (auto) 0.11 H Absolute Neuts (auto) APTT Sodium 136 L Potassium 5.7 H Carbon Dioxide BUN 58 H Creatinine 3.50 H Estimated GFR 17 L Glucose 190 H POC Capillary Glucose 155 H Hemoglobin A1c 5.9 H Calcium 8.3 L Iron 25 L TIBC 214 L % Saturation 12 L AST 16 L NT-Pro-B Natriuret Pep Total Protein 6.0 L Albumin 3.0 L Urine RBC Crossmatch 02/12/24 02/12/24 02/12/24 11:28 15:52 16:01 WBC RBC Hgb 8.1 L Hct 24.5 L MCHC RDW MPV Immature Gran % (Auto) Neut % (Auto) Lymph % (Auto) Baso % (Auto) Lymph # (Auto) Abs Immat Gran (auto) Absolute Neuts (auto) APTT Sodium Potassium Carbon Dioxide BUN Creatinine Estimated GFR Glucose POC Capillary Glucose 153 H 142 H Hemoglobin A1c Calcium Iron TIBC % Saturation AST NT-Pro-B Natriuret Pep Total Protein Albumin Urine RBC Crossmatch 02/12/24 02/13/24 02/13/24 19:56 04:34 06:42 WBC RBC 2.32 L Hgb 7.4 L Hct 22.6 L MCHC RDW 15.9 H MPV Immature Gran % (Auto) Neut % (Auto) Lymph % (Auto) Baso % (Auto) Lymph # (Auto) Abs Immat Gran (auto) Absolute Neuts (auto) APTT Sodium Potassium 5.7 H Carbon Dioxide BUN 50 H Creatinine 3.30 H Estimated GFR 18 L Glucose 129 H POC Capillary Glucose 157 H 134 H Hemoglobin A1c Calcium 8.2 L Iron TIBC % Saturation AST NT-Pro-B Natriuret Pep Total Protein Albumin Urine RBC Crossmatch 02/13/24 02/13/24 07:45 11:30 WBC RBC Hgb Hct MCHC RDW MPV Immature Gran % (Auto) Neut % (Auto) Lymph % (Auto) Baso % (Auto) Lymph # (Auto) Abs Immat Gran (auto) Absolute Neuts (auto) APTT Sodium Potassium Carbon Dioxide BUN Creatinine Estimated GFR Glucose POC Capillary Glucose 156 H 146 H Hemoglobin A1c Calcium Iron TIBC % Saturation AST NT-Pro-B Natriuret Pep Total Protein Albumin Urine RBC Crossmatch Diagnostic Findings Additional studies: ITS Impressions Chest X-Ray 02/11/24 20:35 IMPRESSION: 1. Mild to moderate pulmonary edema. Chest/Abdomen/Pelvis CT 02/11/24 22:06 IMPRESSION: 1. Diffuse bilateral groundglass opacities and smooth septal line thickening and favor moderate pulmonary edema over pneumonia with very small bilateral pleural effusions. 2. Moderate emphysema. 3. 2 mm nonobstructing right renal stone. 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 5. Mild diverticulosis without evident diverticulitis. 6. Prominent prostatomegaly. 7. Moderate-sized bilateral fat-containing inguinal hernias. Renal Ultrasound 02/12/24 10:14 IMPRESSION: 1. Normal kidneys. No hydronephrosis. Chest X-Ray 02/13/24 11:11 IMPRESSION: 1. Worsened diffuse lung disease, likely moderate pulmonary edema. 2. Emphysema.
[2024-02-13 16:17] LABS: Base Excess ABG 1.3 mEq/l (+/-2.0); Fractional Inspired Oxygen 40 %; HCO3 ABG 24.3 mEq/l (22.0-26.0); Oxygen Content ABG 9.5 %vol (16.0-22.0); Oxygen Saturation ABG 93.9 % (95.0-100.0); Oxyhemoglobin 90.9 % THb (90.0-100.0); PCO2 ABG 31.6 mmHg (35.0-45.0); PO2 ABG 61.9 mmHg (80.0-100.0); PO2 FiO2 Ratio Arterial Blood 1.55 %
[2024-02-13 16:18] LABS: pH ABG 7.504 (7.350-7.450)
[2024-02-13 16:19] LABS: Device NASAL CANNULA; Modified Allen's Test Pass; Site Drawn RIGHT RADIAL; Total Hemoglobin 7.4 g/dL (12.0-18.0)
[2024-02-13] MEDS: ACETAMINOPHEN 325 MG TABLET 650 MG PO (16:23)
[2024-02-13 16:26] LABS: Glucose Point of Care 142 mg/dl (65-105)
[2024-02-13 16:30] LABS: NT Pro B Type Natriuretic Pept 3970 pg/mL (19.9-100)
[2024-02-13 16:38] LABS: Procalcitonin 0.2 ng/mL
[2024-02-13 17:19] LABS: Free T4 Free Thyroxine 1.07 ng/mL (0.78-2.19)
[2024-02-13] MEDS: LATANOPROST 0.005% OP SOLN 2.5 ML BTL 1 DROP EACH EYE (17:55)
[2024-02-13] MEDS: levoFLOXacin 750 MG/D5W 150 ML 750 MG/150 ML BAG 100 MG IVPB (18:41)
[2024-02-13 18:56] LABS: Influenza A QL RT-PCR Negative (Negative); Influenza B QL RT-PCR Negative (Negative); RSV RNA, RT-PCR Negative (Negative); SARS-CoV-2 RNA PCR Negative (Negative)
[2024-02-13 19:31] LABS: MRSA (PCR) NOT DETECTED (NOT DETECTE)
[2024-02-13 19:38] LABS: Red Blood Cell Folate 1081 ng/mL RBC (>280)
[2024-02-13] MEDS: CEFEPIME 0.5 GM in DEXTROSE 5% IN WATER 50 ML IVPB (20:15)
[2024-02-13 20:29] LABS: Glucose Point of Care 151 mg/dl (65-105)
[2024-02-13] MEDS: IPRATROPIUM 0.5 MG/ALBUTEROL SULFATE 2.5 MG AMPUL.NEB 3 ML INHALATION (20:40)
[2024-02-13] MEDS: INSULIN GLARGINE (*BKC) 100 UNITS/ML 20 UNITS SUB-Q (20:45)
[2024-02-13] MEDS: VANCOMYCIN 1,250 MG/NS 250 ML 1,250 MG/250 ML BAG 166.67 MG IVPB (20:47)
[2024-02-14] VITALS (18 sets, daily range): BP systolic 139–168; BP diastolic 47–58; PULSE 71–92; RESP 18–24; TEMP 36.5–37; O2SAT 83–100
[2024-02-14] MEDS: BUMETANIDE INJ 1 MG/4 ML VIAL 1.5 MG IV PUSH ×2 (00:08→08:35)
[2024-02-14] MEDS: IPRATROPIUM 0.5 MG/ALBUTEROL SULFATE 2.5 MG AMPUL.NEB 3 ML INHALATION ×2 (02:23→07:30)
[2024-02-14 04:55] LABS: Alanine Aminotransferase 22 U/L (6-50); Albumin Level 3.1 g/dL (3.5-5.1); Alkaline Phosphatase 63 U/L (38-126); Anion Gap 12 mmol/L (4-12); Aspartate Amino Transferase 25 U/L (17-59); Bilirubin,Total 0.6 mg/dL (0.2-1.3); Blood Urea Nitrogen 49 mg/dL (9-20); Calcium 8.2 mg/dL (8.4-10.2); Carbon Dioxide 23 mmol/L (22-30); Chloride 104 mmol/L (98-107); Creatine Kinase 60 U/L (55-170); Estimated CRCL calculation 13 ml/min; Estimated Glomerular Filt Rate 17; Glucose 137 mg/dL (65-110); Magnesium 1.4 mg/dL (1.6-2.3); Phosphorus 4.2 mg/dL (2.5-4.5); Potassium 4.4 mmol/L (3.4-5.0); Sodium 139 mmol/L (137-145)
[2024-02-14 05:07] LABS: CRP 14.1 mg/dL (<1.0)
[2024-02-14 05:10] LABS: Complement C3 68 mg/dL (88-165)
[2024-02-14 05:21] LABS: Procalcitonin 0.3 ng/mL
[2024-02-14 05:54] LABS: Mean Corpuscular HGB Conc 32.7 g/dl (32-36); Mean Corpuscular Hemoglobin 31.4 pg (26-34); Mean Corpuscular Volume 96.1 fl (80-100); Platelet Count Result 170 k/mm3 (150-375); Red Blood Count 2.07 M/mm3 (4.6-6.20); Red Cell Distribution Width 15.3 % (11.5-14.5); White Blood Count 6.5 K/mm3 (4.5-10.0)
[2024-02-14 05:59] LABS: Hematocrit 19.9 % (42.0-52.0); Hemoglobin 6.5 g/dL (14.0-18.0)
[2024-02-14 07:31] LABS: Erythrocyte Sedimentation Rate > 140 mm/hr (0-20)
[2024-02-14 08:05] LABS: Glucose Point of Care 155 mg/dl (65-105)
[2024-02-14] MEDS: DOXAZOSIN MESYLATE 4 MG TABLET 8 MG PO (08:30)
[2024-02-14] MEDS: PANTOPRAZOLE SODIUM IV 40 MG VIAL IV PUSH (08:31)
[2024-02-14] MEDS: EPOETIN ALFA-EPBX 20,000 UNITS/ML VIAL 20000 UNITS SUB-Q (08:31)
[2024-02-14] MEDS: TIMOLOL MALEATE 0.5% OP SOLN 5 ML BOTTLE 1 DROP EACH EYE (08:31)
--- NOTE | 2024-02-14 08:56 | P.PNIM_ITS ---
Progress Note: A&P Assessment and Plan (1) Acute blood loss anemia: Code(s): D62 - Acute posthemorrhagic anemia Status: Acute Assessment and Plan: ADMIT TO IMU TRANSFUSED 2 units of PRBC-02/11, 1 U 02/13 due to Hgb 6.5 PPI -02/12 egd postponed due to increased oxygen requirements -on 5 l now - monitor labs, no further signs of bleeding (2) Acute kidney injury superimposed on CKD: Code(s): N17.9 - Acute kidney failure, unspecified; N18.9 - Chronic kidney disease, unspecified Status: Acute Assessment and Plan: Holding Losartan Vasculitis suspected 02/13 Creatinine stable at 3.4 02/13 [facility] contacted for transfer to higher level of care (3) COPD with emphysema: Code(s): J43.9 - Emphysema, unspecified Status: Acute Assessment and Plan: Superimposed infiltrates and hemoptysis likely due to vasculitis (4) Lung infiltrate: Code(s): R91.8 - Other nonspecific abnormal finding of lung field Status: Acute Assessment and Plan: As above (5) Gastro-esophageal reflux disease without esophagitis: Code(s): K21.9 - Gastro-esophageal reflux disease without esophagitis Status: Acute Assessment and Plan: PPI (6) Weakness: Code(s): R53.1 - Weakness Status: Acute Assessment and Plan: Multifactoral: Anemia, SANGITA, hypoxia, AID (7) GI (gastrointestinal bleed): Code(s): K92.2 - Gastrointestinal hemorrhage, unspecified Status: Acute Assessment and Plan: Continue PPI (8) Anemia in chronic kidney disease (CKD): Code(s): N18.9 - Chronic kidney disease, unspecified; D63.1 - Anemia in chronic kidney disease Status: Acute Assessment and Plan: Transfusion prn for Hgb <7 (9) Type 2 diabetes mellitus with other diabetic kidney complication: Code(s): E11.29 - Type 2 diabetes mellitus with other diabetic kidney complication Status: Chronic Assessment and Plan: Continue basal Lantus and SSI 02/13 FBS 137 (10) Hyperkalemia: Code(s): E87.5 - Hyperkalemia Status: Acute Assessment and Plan: Resolved (11) Hypoxia: Code(s): R09.02 - Hypoxemia Status: Acute Assessment and Plan: Currently requiring 6 L oxygen by [place] Subjective Date/time seen: 02/14/24 08:56 Interval history: States he feels good. Ate a full breakfast. No hemoptysis. No blood in stool. Had a bowel movement last night. Denied chest pain abdominal pain. Denied shortness of breath at rest while wearing oxygen. Required assist to get up to commode. Review of Systems Review of Systems: All systems reviewed & are unremarkable except as noted in HPI and below Exam Narrative: HEENT: PERRL, sclerae nonicteric, pharyngeal mucosa pink and intact NECK: No JVD, adenopathy, or thyromegaly CHEST: Few fine bibasilar crackles left worse than right. Mild tachypnea. HEART: NL S1/S2, regular, soft apical systolic murmur. ABDOMEN: BS+, soft, nontender, no mass, no bruits EXTREMITIES: No cyanosis, edema, or clubbing NEUROLOGIC: CN intact and symmetric to inspection. MUSCULOSKELETAL: Tone and strength symmetric. PSYCH: Alert. Oriented to person, place, and time. Objective Data Vital Signs Vital Signs: Vital Signs - 24 hr 02/13/24 09:02 02/13/24 10:00 02/13/24 11:53 Temperature 97.4 F L Pulse Rate 79 87 83 Respiratory Rate 24 H Blood Pressure 152/53 H Pulse Oximetry 92 93 Oxygen Delivery Nasal Cannula Oxygen Flow Rate 5 02/13/24 12:00 02/13/24 12:00 02/13/24 14:00 Temperature Pulse Rate 83 81 Respiratory Rate Blood Pressure Pulse Oximetry 96 Oxygen Delivery Nasal Cannula Oxygen Flow Rate 5 02/13/24 16:00 02/13/24 16:00 02/13/24 16:23 Temperature 100.3 F H 100.3 F H Pulse Rate 81 80 Respiratory Rate 24 H Blood Pressure 153/50 H Pulse Oximetry 95 Oxygen Delivery Oxygen Flow Rate 02/13/24 16:00 02/13/24 17:59 02/13/24 18:00 Temperature 98.4 F Pulse Rate 81 Respiratory Rate Blood Pressure Pulse Oximetry 92 Oxygen Delivery Nasal Cannula Oxygen Flow Rate 5 02/13/24 20:18 02/13/24 20:45 02/13/24 20:55 Temperature 98.7 F Pulse Rate 74 74 75 Respiratory Rate 24 H 18 18 Blood Pressure 141/56 H Pulse Oximetry 94 Oxygen Delivery Oxygen Flow Rate 02/13/24 20:55 02/13/24 23:24 02/13/24 20:15 Temperature 97.7 F Pulse Rate 74 77 74 Respiratory Rate 24 H 24 H Blood Pressure 132/51 L Pulse Oximetry 94 91 94 Oxygen Delivery Nasal Cannula Nasal Cannula Oxygen Flow Rate 5 5 02/13/24 20:50 02/14/24 00:00 02/13/24 20:00 Temperature Pulse Rate 80 77 75 Respiratory Rate 22 H 24 H Blood Pressure Pulse Oximetry 95 91 Oxygen Delivery Nasal Cannula Nasal Cannula Oxygen Flow Rate 5 5 02/13/24 22:00 02/14/24 00:00 02/14/24 02:23 Temperature Pulse Rate 80 87 75 Respiratory Rate 18 Blood Pressure Pulse Oximetry Oxygen Delivery Oxygen Flow Rate 02/14/24 02:33 02/14/24 02:00 02/14/24 02:20 Temperature Pulse Rate 75 76 73 Respiratory Rate 18 18 Blood Pressure Pulse Oximetry 83 L Oxygen Delivery Nasal Cannula Oxygen Flow Rate 5 02/14/24 02:50 02/14/24 04:42 02/14/24 04:00 Temperature 97.7 F Pulse Rate 79 73 73 Respiratory Rate 18 24 H 24 H Blood Pressure 154/54 H Pulse Oximetry 92 100 100 Oxygen Delivery High Flow Nasal Cannula High Flow Nasal Cannula Oxygen Flow Rate 6 6 02/14/24 04:00 02/14/24 05:11 02/14/24 07:30 Temperature Pulse Rate 75 75 Respiratory Rate Blood Pressure Pulse Oximetry 96 Oxygen Delivery Nasal Cannula Oxygen Flow Rate 6 02/14/24 07:30 02/14/24 07:37 02/14/24 08:00 Temperature Pulse Rate 77 75 92 Respiratory Rate 18 18 Blood Pressure Pulse Oximetry Oxygen Delivery Oxygen Flow Rate 02/14/24 08:00 Temperature 98.6 F Pulse Rate 80 Respiratory Rate 20 Blood Pressure 146/58 H Pulse Oximetry 94 Oxygen Delivery Oxygen Flow Rate Intake/Output Intake/Output: Intake & Output 02/11/24 02/12/24 02/13/24 02/14/24 23:59 23:59 23:59 23:59 Intake Total 0 2362.5 1780 Output Total 1850 3625 1400 Balance 0 512.5 -1845 -1400 Meds/Results Medications: Active Medications Generic Name Dose Route Start Last Admin Trade Name Freq PRN Reason Stop Dose Admin Acetaminophen 650 mg 02/13/24 16:14 02/13/24 16:23 Acetaminophen 325 Mg Tablet PO 650 mg Q4H PRN Administration Mild Pain (1-3) or Fever Albuterol 2 puff 02/12/24 03:08 02/12/24 21:54 Albuterol Sulfate (*Sp) Aerosol 1 Puff INHALATION 2 puff Q4HRT PRN Administration shortness of breath or wheezing Albuterol/Ipratropium 3 ml 02/13/24 20:00 02/14/24 07:30 Ipratropium 0.5 Mg/Albuterol Sulfate 2.5 Mg Ampul.Neb 3 Ml INHALATION 3 ml Q6HRT ALEKSANDR Administration Bumetanide 1.5 mg 02/14/24 09:00 02/14/24 08:35 Bumetanide Inj 1 Mg/4 Ml Vial IV PUSH 02/14/24 09:01 1.5 mg ONCE ONE Administration Dextrose 12.5 gm 02/12/24 10:46 Dextrose 50% 25 Gm/50 Ml Syringe IV PUSH PRN PRN Hypoglycemia Protocol Doxazosin Mesylate 8 mg 02/12/24 09:00 02/14/24 08:30 Doxazosin Mesylate 4 Mg Tablet PO 8 mg DAILY ALEKSANDR Administration Epoetin Jose Antonio-epbx 20,000 units 02/14/24 09:00 02/14/24 08:31 Epoetin Jose Antonio-Epbx 20,000 Units/Ml Vial SUB-Q 02/14/24 09:01 20,000 units ONCE ONE Administration Epoetin Jose Antonio-epbx 10,000 units 02/16/24 09:00 Epoetin Jose Antonio-Epbx 10,000 Units/Ml Vial SUB-Q MOWEFR@09 ALEKSANDR Glucagon 1 mg 02/12/24 10:46 Glucagon For Inj 1 Mg Vial IM PRN PRN Hypoglycemia Protocol Glucose 15 gm 02/12/24 10:46 Glucose Oral Gel 15 Gm Of Glucse In 37.5 Gm Tube PO PRN PRN Hypoglycemia Protocol Dextrose 1,000 mls @ 100 mls/hr 02/12/24 10:46 Dextrose 5% 1,000 Ml IVPB PRN PRN Hypoglycemia Protocol Cefepime HCl 0.5 gm/ Dextrose 50 mls @ 100 mls/hr 02/13/24 19:00 02/13/24 20:46 IVPB Infused Q24H ALEKSANDR Infusion Levofloxacin/Dextrose 500 mg in 100 mls @ 100 mls/hr 02/15/24 18:00 Levaquin 500 Mg/D5w 100 Ml IVPB Q24H ALEKSANDR Sodium Chloride 250 mls @ 30 mls/hr 02/14/24 06:41 Normal Saline Iv IV CONT 02/14/24 15:00 .Q8H20M STA Insulin Aspart 4 - 8 units 02/12/24 12:00 02/14/24 08:20 Insulin Aspart (*Bkc) 100 Units/Ml SUB-Q Not Given TIDWM [facility] Protocol Insulin Aspart 2 - 4 units 02/12/24 21:00 02/13/24 20:35 Insulin Aspart (*Bkc) 100 Units/Ml SUB-Q Not Given HS [facility] Protocol Insulin Glargine 20 units 02/12/24 21:00 02/13/24 20:45 Insulin Glargine (*Bkc) 100 Units/Ml SUB-Q 20 units HS ALEKSANDR Administration Latanoprost 1 drop 02/12/24 18:00 02/13/24 17:55 Latanoprost 0.005% Op Soln 2.5 Ml Btl EACH EYE 1 drop QPM ALEKSANDR Administration Pantoprazole Sodium 40 mg 02/12/24 09:00 02/14/24 08:31 Pantoprazole Sodium Iv 40 Mg Vial IV PUSH 40 mg Q12HR ALEKSANDR Administration Timolol Maleate 1 drop 02/12/24 09:00 02/14/24 08:31 Timolol Maleate 0.5% Op Soln 5 Ml Bottle EACH EYE 1 drop DAILY ALEKSANDR Administration Vancomycin HCl 1 each 02/13/24 17:47 Vancomycin For Acute Kidney Injury IVPB PRN PRN Vancomycin Protocol Radiology Results: ITS Impressions Chest/Abdomen/Pelvis CT 02/11/24 22:06 IMPRESSION: 1. Diffuse bilateral groundglass opacities and smooth septal line thickening and favor moderate pulmonary edema over pneumonia with very small bilateral pleural effusions. 2. Moderate emphysema. 3. 2 mm nonobstructing right renal stone. 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 5. Mild diverticulosis without evident diverticulitis. 6. Prominent prostatomegaly. 7. Moderate-sized bilateral fat-containing inguinal hernias. Renal Ultrasound 02/12/24 10:14 IMPRESSION: 1. Normal kidneys. No hydronephrosis. Chest X-Ray 02/14/24 06:15 IMPRESSION: 1. Diffuse lung disease with mild improvement on the left, likely moderate pulmonary edema without or with superimposed pneumonia. 2. Emphysema. Labs Labs: Laboratory Results - last 24 hr 02/11/24 02/12/24 02/13/24 20:58 04:38 10:15 WBC RBC Hgb Hct MCV MCH MCHC RDW Plt Count MPV ESR Puncture Site ABG pH ABG pCO2 ABG pO2 ABG PO2/FiO2 Ratio ABG HCO3 ABG O2 Saturation ABG O2 Content ABG Base Excess A-a Gradient Oxyhemoglobin Total Hemoglobin O2 Delivery Device O2 Liters/Min FiO2 Sodium Potassium Chloride Carbon Dioxide Anion Gap BUN Creatinine Estim Creat Clear Calc Estimated GFR Glucose POC Capillary Glucose Calcium Phosphorus Magnesium Total Bilirubin AST ALT Alkaline Phosphatase Total Creatine Kinase C-Reactive Protein NT-Pro-B Natriuret Pep 3970 H Total Protein Albumin RBC Folate 1081 Procalcitonin 0.2 TSH 1.100 Free T4 1.07 Nasal MRSA (PCR) Complement C3 Complement C4 Influenza A (RT-PCR) Influenza B (RT-PCR) RSV (RT-PCR) SARS-CoV-2 RNA (RT-PCR) Blood Type B Negative Antibody Screen Negative Crossmatch See Detail 02/13/24 02/13/24 02/13/24 10:18 11:30 16:08 WBC RBC Hgb Hct MCV MCH MCHC RDW Plt Count MPV ESR Puncture Site ABG pH ABG pCO2 ABG pO2 ABG PO2/FiO2 Ratio ABG HCO3 ABG O2 Saturation ABG O2 Content ABG Base Excess A-a Gradient Oxyhemoglobin Total Hemoglobin O2 Delivery Device O2 Liters/Min FiO2 Sodium Potassium 4.9 Chloride Carbon Dioxide Anion Gap BUN Creatinine Estim Creat Clear Calc Estimated GFR Glucose POC Capillary Glucose 146 H 142 H Calcium Phosphorus Magnesium Total Bilirubin AST ALT Alkaline Phosphatase Total Creatine Kinase C-Reactive Protein NT-Pro-B Natriuret Pep Total Protein Albumin RBC Folate Procalcitonin TSH Free T4 Nasal MRSA (PCR) Complement C3 Complement C4 Influenza A (RT-PCR) Influenza B (RT-PCR) RSV (RT-PCR) SARS-CoV-2 RNA (RT-PCR) Blood Type Antibody Screen Crossmatch 02/13/24 02/13/24 02/13/24 16:10 17:52 19:59 WBC RBC Hgb Hct MCV MCH MCHC RDW Plt Count MPV ESR Puncture Site Right radial ABG pH 7.504 H* ABG pCO2 31.6 L ABG pO2 61.9 L ABG PO2/FiO2 Ratio 1.55 ABG HCO3 24.3 ABG O2 Saturation 93.9 L ABG O2 Content 9.5 L ABG Base Excess 1.3 A-a Gradient 187.0 Oxyhemoglobin 90.9 Total Hemoglobin 7.4 L* O2 Delivery Device Nasal cannula O2 Liters/Min 5.0 FiO2 40 Sodium Potassium Chloride Carbon Dioxide Anion Gap BUN Creatinine Estim Creat Clear Calc Estimated GFR Glucose POC Capillary Glucose 151 H Calcium Phosphorus Magnesium Total Bilirubin AST ALT Alkaline Phosphatase Total Creatine Kinase C-Reactive Protein NT-Pro-B Natriuret Pep Total Protein Albumin RBC Folate Procalcitonin TSH Free T4 Nasal MRSA (PCR) Not detected Complement C3 Complement C4 Influenza A (RT-PCR) Negative Influenza B (RT-PCR) Negative RSV (RT-PCR) Negative SARS-CoV-2 RNA (RT-PCR) Negative Blood Type Antibody Screen Crossmatch 02/14/24 02/14/24 02/14/24 04:23 04:24 05:48 WBC 6.5 RBC 2.07 L Hgb 6.5 L* Hct 19.9 L* MCV 96.1 MCH 31.4 MCHC 32.7 RDW 15.3 H Plt Count 170 MPV 9.0 ESR > 140 H Puncture Site ABG pH ABG pCO2 ABG pO2 ABG PO2/FiO2 Ratio ABG HCO3 ABG O2 Saturation ABG O2 Content ABG Base Excess A-a Gradient Oxyhemoglobin Total Hemoglobin O2 Delivery Device O2 Liters/Min FiO2 Sodium 139 Potassium 4.4 Chloride 104 Carbon Dioxide 23 Anion Gap 12 BUN 49 H Creatinine 3.40 H Estim Creat Clear Calc 13 Estimated GFR 17 L Glucose 137 H POC Capillary Glucose Calcium 8.2 L Phosphorus 4.2 Magnesium 1.4 L Total Bilirubin 0.6 AST 25 ALT 22 Alkaline Phosphatase 63 Total Creatine Kinase 60 C-Reactive Protein 14.1 H NT-Pro-B Natriuret Pep Total Protein 6.0 L Albumin 3.1 L RBC Folate Procalcitonin 0.3 TSH Free T4 Nasal MRSA (PCR) Complement C3 68 L Complement C4 10.9 L Influenza A (RT-PCR) Influenza B (RT-PCR) RSV (RT-PCR) SARS-CoV-2 RNA (RT-PCR) Blood Type Antibody Screen Crossmatch 02/14/24 07:50 WBC RBC Hgb Hct MCV MCH MCHC RDW Plt Count MPV ESR Puncture Site ABG pH ABG pCO2 ABG pO2 ABG PO2/FiO2 Ratio ABG HCO3 ABG O2 Saturation ABG O2 Content ABG Base Excess A-a Gradient Oxyhemoglobin Total Hemoglobin O2 Delivery Device O2 Liters/Min FiO2 Sodium Potassium Chloride Carbon Dioxide Anion Gap BUN Creatinine Estim Creat Clear Calc Estimated GFR Glucose POC Capillary Glucose 155 H Calcium Phosphorus Magnesium Total Bilirubin AST ALT Alkaline Phosphatase Total Creatine Kinase C-Reactive Protein NT-Pro-B Natriuret Pep Total Protein Albumin RBC Folate Procalcitonin TSH Free T4 Nasal MRSA (PCR) Complement C3 Complement C4 Influenza A (RT-PCR) Influenza B (RT-PCR) RSV (RT-PCR) SARS-CoV-2 RNA (RT-PCR) Blood Type Antibody Screen Crossmatch
--- NOTE | 2024-02-14 09:07 | PM.PNPUL ---
Progress Note: A&P Assessment and Plan (1) Hemoptysis: Code(s): R04.2 - Hemoptysis Status: Acute Assessment and Plan: Patient with chronic renal insufficiency, positive BRANDON at 1:1280 with positive p-ANCA at 1:160 and positive anti DNA antibody on 10/15/2023. Repeat on 12/23/2023 was a positive BRANDON at 1:1280 and the repeat p-ANCA was not performed as possible interferring substance, and positive anti DNA antibody at 5. patient presents 02/10 with weakness, anemia, acute on chronic renal insufficiency and an initial chest x-ray with diffuse interstitial alveolar infiltrates requiring 2 L nasal cannula oxygen. He received 2 units of packed blood cells and clinically felt better. On 02/12/2024 he developed hemoptysis which continues today. ABG today on 5 L 7.50/. Etiology of hemoptysis includes vasculitis, pulmonary edema (fluid overload, possible transfusion related acute lung injury and/or transfusion associated circulatory overload), and or infection (bacterial or viral). Plan: Recommend transfer to higher level of care facility for further management including rheumatology consultation, possible bronchoscopy with BAL and or biopsy (to high risk for me to perform bronchoscopy at [facility]), possible renal biopsy and initiation of systemic immunosuppressants if needed. Repeat serologies and complement levels have been ordered by Nephrology. Agree with as aggressive diuresis as tolerated by his cardiac and renal systems per Nephrology and hospitalist teams. I will send a repeat COVID, influenza and RSV RT PCR. I will send him nasal MRSA swab. I will send the extended respiratory pathogen panel to [facility]. I will send urine Legionella, urine pneumococcal and says mycoplasma IgM. The patient has centrilobular emphysema on his CT scan and I will broaden his antibiotics to vancomycin, cefepime and change his azithromycin to Levaquin. I will discontinue ceftriaxone at this time. Discussed with Consuelo Mosqueda, left voice message with Dr. Washington. Attempted to talk to the the in the room but she has gone so I left a voice message with her. 02/14/24: patient tells me he is feeling great . states he ate breakfast with no problems. He denies fever. Although he had a temperature of 37.9? at 4:00 p.m. yesterday. He states he is having minimal cough and that it is clear now and has no hemoptysis. He denies any melena or bright red blood per rectum. Hemoglobin has decreased from 8.1 to 6.5. White blood cell count is 6.5, ESR is greater than 140. procalcitonin is 0.3. Creatinine is 3.40. repeat COVID, influenza and RSV RT PCR negative. patient's oxygen is increased to 6 L and saturations are 95%. Chest x-ray shows diffuse interstitial alveolar infiltrates with mild improvement in the left lung. weight is 77 kg, he was -1.8 L yesterday and cumulative diuresis since admission is 2.7 L. Plan: discussed case with Nephrology and hospitalist and agree with transfer to higher level of facility as patient may have a vasculitis requiring rheumatology input, and possible bronchoscopy and EGD which cannot be performed at [facility] given his high risk. If this transfer can happen quickly will defer treatment however if there is a delay will initiate pulse dose steroids with possible renal biopsy on Friday02/16/2024. Clinically the patient feels remarkably well. His oxygenation is mildly worse with an increased from 5 L nasal cannula 6 L nasal cannula, His hemoglobin has dropped again today and his chest x-ray is mildly improved on the left lung. Continue treatment for possible bacterial pneumonia status post ceftriaxone and azithromycin from 02/10 to 02/12 which were switched to vancomycin cefepime and Levaquin all started 02/12. patient is receiving aggressive diuresis with IV Bumex per Renal. Creatinine is 3.4. blood cultures no growth x2. urine Legionella, urine pneumococcal, mycoplasma IgM, sputum culture and extended respiratory pathogen panel pending. Discussed with doctors Mahesh Mercedes and patient's and on speaker phone with niece who is a physician. All questions answered. Will follow with you. (2) COPD with emphysema: Code(s): J43.9 - Emphysema, unspecified Status: Acute Assessment and Plan: Patient has 16 pack year tobacco use, quit age 51, moderate apical predominant centrilobular emphysema on his CT scan and PFTs with no fixed obstructive abnormality. Patient has been maintained on Wixela at home although he says that this does not provide him much benefit. currently he has no wheezing and no evidence of a COPD exacerbation. He has no evidence of hypercarbic respiratory failure with an ABG of 7.50/32/62 on 5 L nasal cannula. Plan: At this time I will place him on DuoNebs q.6 hours. Goal saturation 90-94% and will adjust oxygen accordingly. 02/14/24: no evidence of COPD exacerbation at this time. Plan: Continue DuoNebs q.4 hours. Currently requiring 6 L nasal cannula saturations 95%. Goal saturation 90-94%. Subjective Date/time seen: 02/14/24 09:07 Interval history: 02/13/2024: This is a Pulmonary consult for worsened diffuse lung disease, moderate pulmonary edema and emphysema. Patient was previously followed in the Pulmonary Clinic in last seen on 07/10/2021: This is the note: Details: this 86-year-old man is seen in pulmonary clinic in follow-up. The patient was recently evaluated for intermittent exertional dyspnea. He has got history of diabetes, chronic kidney disease hypertension anemia on erythropoietin injections. On his last CBC his hemoglobin was around 10. He had no evidence of cardiac ischemia on recent Lexiscan test. The patient has undergone a chest CT and echocardiogram. Since previous office visit he has had no new respiratory symptoms. He continues to have intermittent shortness of breath with activities only. Chest CT showed no evidence of interstitial lung disease. He has got mild to moderate emphysematous changes. Echocardiogram showed grade 1 diastolic dysfunction, normal EF. Of note, pulmonary function testing had showed normal lung volumes and essentially normal spirometry and only mild reduction in lung diffusion capacity. Patient used to smoke less than half a pack per day for approximately 30 years but quit long time ago. assessment and plan: 86-year-old man with a history of chronic kidney disease anemia mild emphysema changes on recent chest CT no evidence of significant cardiac disease on recent echocardiogram has had intermittent shortness of breath only with strenuous activities. Patient has some crackles on auscultation at left base but chest CT showed no evidence of interstitial lung disease. Discussed findings of chest CT and echocardiogram with patient and his . Encouraged patient to stay active as he has no underlying respiratory disease that would limit his exercise performance. As stated he has mild to moderate emphysematous changes on recent chest CT but there was no evidence of obstructive airway disease on recent pulmonary function testing. The patient will return to Pulmonary Clinic on a p.r.n. basis. 02/04/2024: PCP office note says worsening shortness of breath over several months. Cardiac workup including a stress test and echo revealed mild diastolic dysfunction mild aortic valve stenosis. COPD confirmed by CT scan 2021 with normal spirometry with moderate diffusion impairment. Currently using Wixela but finds an ineffective. Patient also experience persistent symptoms including dizziness and lightheadedness with minimal physical exertion. Room air saturations 99%. Lungs were clear to auscultation treated for possible COPD exacerbation. Prescribed breasts tree twice a day, 5 day course of prednisone a Z-Reggie. 02/11/2024: Patient presented to the emergency department with generalized weakness. He was too weak to get off the commode. Stools have been black and tarry. He just wanted to be left alone so he could sleep. Blood pressure 151/45 heart rate 88, respiratory rate 19, temperature 101.2?, 2 L nasal cannula saturation 92%. White blood cell count 10.6, hemoglobin 5.2, creatinine 3.5, serum bicarbonate 21, potassium 5.7, eosinophils 0.9%. BNP 3060. Influenza a and COVID RT PCR negative. 2 units of blood transfused. CT chest abdomen and pelvis with diffuse bilateral ground-glass opacities a smooth septal line thickening very small bilateral pleural effusions favoring pulmonary edema. Moderate emphysema. Started on erythromycin and Rocephin for possible community-acquired pneumonia. PPI started. 02/12/2024 remained on 2 L nasal cannula, hemoglobin 7.5 creatinine 3.5. Repeat hemoglobin in the afternoon 8.1. I/Os +512 mL. patient started coughing up blood. renal consult: Renal consultation was requested due to his acute kidney injury/ acute renal failure on top of his baseline chronic kidney disease. The patient is somewhat familiar to me as he recently established care with me in the office for management of his chronic kidney disease. Outpatient evaluation of his renal insufficiency demonstrated a normal renal ultrasound, mild proteinuria, and a serological profile that was significant for positive BRANDON (with normal complements and indeterminate dsDNA-Ab) along with a positive P-ANCA (suggestive of vasculitis, specifically microscopic polyangiitis) along with an abnormal SPEP [ poorly defined band (possible M-spike) migrating in the gamma region]. Other risk factor for his CKD include diabetes, hypertension, vascular disease and age. His creatinine at that time was running ~ 1.5 - 2.0mg/dl in the last year or so. Given these abnormal serologies, I had discussed with the patient the possibility of doing a kidney biopsy but since he did not any microscopic or gross hematuria or significant proteinuria, as well as the fact the patient was not keen on this procedure, the tentative plan was to repeat blood work including the serologies and to assess the trend of his kidney function prior to making a final determination if a renal biopsy should be done. As noted by labs on admission, his kidney function has deteriorated in comparison to labs 3 months ago but the presumption of a possible GI bleed and severe anemia may be more to blame for this rise in his creatinine than some other pathological disease. In spite of his worsening renal dysfunction, he continues to make reasonable urine output and his volume status appears to be relatively stable although recent imaging does show evidence of moderate pulmonary edema and small bilateral pleural effusions arguing a degree of volume overload. 02/13/24: oxygen up to 5 L. No more melena. temperature 38.0? at 00:08. Hemoglobin 7.4. creatinine 3.3. Chest x-ray worsening diffuse interstitial alveolar infiltrates compared to 02/11/2024. weight 77 kilos with an admission weight of 82.5 kilos in for 4 hours later weight was 74.1 kilos. I/Os -1.4 L. EGD canceled because patient required more oxygen. Currently the patient denies fever although he was febrile last night and is currently 37.9, states he continues to cough up bright red blood mixed with sputum and I witnessed this in a tissue at the side of his bed. He says he is breathing normal. Coughing does cause abdominal pain. Repeat BNP is 3970. procalcitonin is 0.2. currently is on 5 L nasal cannula saturations 94% when I decreased him to 4 L his saturations went to 90. 02/14/24: patient tells me he is feeling great . states he ate breakfast with no problems. He denies fever. Although he had a temperature of 37.9? at 4:00 p.m. yesterday. He states he is having minimal cough and that it is clear now and has no hemoptysis. He denies any melena or bright red blood per rectum. Hemoglobin has decreased from 8.1 to 6.5. White blood cell count is 6.5, ESR is greater than 140. procalcitonin is 0.3. Creatinine is 3.40. repeat COVID, influenza and RSV RT PCR negative. patient's oxygen is increased to 6 L and saturations are 95%. Chest x-ray shows diffuse interstitial alveolar infiltrates with mild improvement in the left lung. weight is 77 kg, he was -1.8 L yesterday and cumulative diuresis since admission is 2.7 L. DATA: 02/11/24: EXAMINATION: CT chest abdomen pelvis wo con DATE: 02/11/2024 22:02 INDICATION: Infection TECHNIQUE: Computed tomography (CT) of the chest, abdomen, and pelvis was performed without intravenous contrast. Automated exposure control and iterative reconstruction technique were employed. The dose-length product was 926.02 mGy-cm. COMPARISON: None FINDINGS: CHEST: Moderate emphysema with superimposed groundglass opacities with dependent and perihilar predominance relatively sparing the subpleural lung. There is also some scattered smooth septal line thickening. Given the appearance and distribution would favor moderate pulmonary edema over pneumonia. There are very small bilateral pleural effusions at the posterior sulci. Heart size is normal. Atherosclerotic coronary artery calcifications. No pericardial effusion. Thoracic aorta is normal in caliber. Calcified right paratracheal lymph nodes consistent with old granulomatous disease. No pathologically enlarged thoracic lymphadenopathy. Severe lower cervical and mild thoracic spondylosis. ABDOMEN/PELVIS: There are few small hepatic and splenic calcifications consistent with old granulomatous disease. Decompressed gallbladder, pancreas and bilateral adrenal glands are normal. 2 mm nonobstructing stone at a lower pole calyx of the right kidney. No other urolithiasis or hydronephrosis on either the left or right. 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 Bladder is normal. Prostatomegaly measuring 6.2 x 5.6 cm. Moderate-sized bilateral fat-containing inguinal hernias. There is mild scattered diverticulosis without adjacent inflammatory stranding to suggest diverticulitis. No bowel obstruction. Normal appendix. No free intraperitoneal gas or fluid. Moderate to severe lumbar spondylosis. IMPRESSION: 1. Diffuse bilateral groundglass opacities and smooth septal line thickening and favor moderate pulmonary edema over pneumonia with very small bilateral pleural effusions. 2. Moderate emphysema. 3. 2 mm nonobstructing right renal stone. 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 5. Mild diverticulosis without evident diverticulitis. 6. Prominent prostatomegaly. 7. Moderate-sized bilateral fat-containing inguinal hernias. 01/22/2024: Echo Summary 1. Complete two-dimensional, color flow and Doppler transthoracic echocardiogram is performed. 2. Left ventricular chamber dimension is normal. 3. Left ventricular systolic function is normal, estimated at 65-70%. 4. The left ventricular diastolic function is grade I diastolic dysfunction. 5. E/e' 16 is elevated. 6. Global longitudinal strain is normal at -18.0%. 7. Left atrial chamber dimension is mildly enlarged. 8. There is moderate aortic valve sclerosis. 9. There is mild aortic valve stenosis with a peak velocity of 258 cm/s, mean gradient of 16 mmHg, and aortic valve area of 1.7 cm2. 10. There is mild mitral valve regurgitation. 11. No pulmonary hypertension, estimated pulmonary arterial systolic pressure is 36 mmHg. Right Ventricle Right ventricular systolic function is normal and with normal TAPSE 2.4 cm. Right ventricular chamber dimension is normal. Right Atria Right atrial chamber dimension is normal. 10/03/2022 PFTs without bronchodilators This is a pulmonary function test with spirometry, plethysmography and diffusing capacity. The test was performed and results interpreted in accordance with the 2019 and 2005 ATS/ERS Task Force guidelines respectively using the Global Lung Function Initiative-2012 reference equations. Patient demonstrated good effort and cooperation. Reproducibility criteria were met. The quality of the spirometry maneuver was Grade A. Findings: Spirometry: There is decreased maximal expiratory airflow at low lung volumes with concave expiratory flow tracing. The contour the inspiratory flow tracing is normal. The FVC is 3.28 L, 99% predicted. The FEV1 is 2.12 L, 87% predicted. The FEV1: FVC ratio 65%. Plethysmography: The total lung capacity is 6.20 L, 96% predicted. The functional residual capacity is 3.79 L, 108% predicted. The residual volume is 2.84 L, 109% predicted. Diffusing capacity: The diffusing capacity unadjusted for hemoglobin and carboxyhemoglobin is 11.7, 55% predicted. The diffusing capacity adjusted for alveolar volume is 2.34, 64% predicted. In comparison to 02/27/2021 the FVC was unchanged from 2.92 L to 3.28 L. The FEV1 was unchanged from 1.89 L to 2.12 L. The total lung capacity increased from 5.51 L to 6.20 L. The functional residual capacity increased from 3.19 L to 3.79 L. The residual volume increased from 2.46 L to 2.84 L. the diffusing capacity unadjusted for hemoglobin and carboxyhemoglobin was unchanged from 12.4 to 11.7. The diffusing capacity adjusted for alveolar volume was unchanged from 2.56 to 2.34. Impression: The spirometry is normal without evidence of an obstructive abnormality. The lung volumes are normal. The diffusing capacity unadjusted for hemoglobin and carboxyhemoglobin is moderately decreased and remains midly decreased when adjusted for alveolar volume. In comparison to previous pulmonary function testing on 02/27/2021 there has been a greater than anticipated time dependent increase in the total lung capacity, functional residual capacity and residual volume with no significant change in the FVC, FEV1 or diffusing capacity. Review of Systems Constitutional: Constitutional: Reports no additional constitutional complaints Eyes: Eyes: Reports no additional eye complaints ENT: Reports system reviewed and no additional complaints, except as documented Cardiovascular: Cardiovascular: Reports no additional cardiovascular complaints Respiratory: Respiratory: Reports no additional respiratory complaints Gastrointestinal: Gastrointestinal: Reports no additional gastrointestinal complaints Musculoskeletal: Musculoskeletal: Reports no additional musculoskeletal complaints Neurologic: Reports system reviewed and no additional complaints, except as documented Psychiatric: Psychiatric: Reports no additional psychiatric complaints Endocrine: Endocrine: Reports no additional endocrine complaints Hematologic/Lymphatic: Hematologic/Lymphatic: Reports no additional hematologic/lymphatic complaints Allergic/Immunologic: Allergic/Immunologic: Reports no additional allergic/immunologic complaints Exam Const: General: cooperative, healthy appearing and comfortable Orientation/consciousness: oriented to person, oriented to place and oriented to time HENMT: Head: normal to inspection Ears: hearing grossly normal bilaterally Eyes: General: appearance normal, both eyes and all related structures Neck: Neck: normal visual inspection Chest: Chest palpation & inspection: normal inspection of the chest Resp: Effort & Inspection: normal respiratory effort and able to speak in complete sentences Auscultation: crackles, no rales, no rhonchi, no wheezes and lung sounds not diminished Other: 02/12 Few inspiratory and Expiratory crackles throughout worse at the bases. 02/13 few inspiratory crackles at the bases. No wheezes Cardio: Jugular venous distension: no JVD GI: Inspection: normal to inspection Skin: General skin exam: normal color Neuro: General: oriented to person, oriented to place and oriented to time Extrem: General: normal to inspection Psych: Appearance: grossly normal Objective Data Vital Signs Vital Signs: Vital Signs - 24 hr 02/13/24 10:00 02/13/24 11:53 02/13/24 12:00 Temperature 36.3 C L Pulse Rate 87 83 Respiratory Rate 24 H Blood Pressure 152/53 H Pulse Oximetry 93 96 Oxygen Delivery Nasal Cannula Oxygen Flow Rate 5 02/13/24 12:00 02/13/24 14:00 02/13/24 16:00 Temperature 37.9 C H Pulse Rate 83 81 81 Respiratory Rate 24 H Blood Pressure 153/50 H Pulse Oximetry 95 Oxygen Delivery Oxygen Flow Rate 02/13/24 16:00 02/13/24 16:23 02/13/24 16:00 Temperature 37.9 C H Pulse Rate 80 Respiratory Rate Blood Pressure Pulse Oximetry 92 Oxygen Delivery Nasal Cannula Oxygen Flow Rate 5 02/13/24 17:59 02/13/24 18:00 02/13/24 20:18 Temperature 36.9 C 37.1 C Pulse Rate 81 74 Respiratory Rate 24 H Blood Pressure 141/56 H Pulse Oximetry 94 Oxygen Delivery Oxygen Flow Rate 02/13/24 20:45 02/13/24 20:55 02/13/24 20:55 Temperature Pulse Rate 74 75 74 Respiratory Rate 18 18 Blood Pressure Pulse Oximetry 94 Oxygen Delivery Nasal Cannula Oxygen Flow Rate 5 02/13/24 23:24 02/13/24 20:15 02/13/24 20:50 Temperature 36.5 C Pulse Rate 77 74 80 Respiratory Rate 24 H 24 H 22 H Blood Pressure 132/51 L Pulse Oximetry 91 94 95 Oxygen Delivery Nasal Cannula Nasal Cannula Oxygen Flow Rate 5 5 02/14/24 00:00 02/13/24 20:00 02/13/24 22:00 Temperature Pulse Rate 77 75 80 Respiratory Rate 24 H Blood Pressure Pulse Oximetry 91 Oxygen Delivery Nasal Cannula Oxygen Flow Rate 5 02/14/24 00:00 02/14/24 02:23 02/14/24 02:33 Temperature Pulse Rate 87 75 75 Respiratory Rate 18 18 Blood Pressure Pulse Oximetry Oxygen Delivery Oxygen Flow Rate 02/14/24 02:00 02/14/24 02:20 02/14/24 02:50 Temperature Pulse Rate 76 73 79 Respiratory Rate 18 18 Blood Pressure Pulse Oximetry 83 L 92 Oxygen Delivery Nasal Cannula High Flow Nasal Cannula Oxygen Flow Rate 5 6 02/14/24 04:42 02/14/24 04:00 02/14/24 04:00 Temperature 36.5 C Pulse Rate 73 73 75 Respiratory Rate 24 H 24 H Blood Pressure 154/54 H Pulse Oximetry 100 100 Oxygen Delivery High Flow Nasal Cannula Oxygen Flow Rate 6 02/14/24 05:11 02/14/24 07:30 02/14/24 07:30 Temperature Pulse Rate 75 77 Respiratory Rate 18 Blood Pressure Pulse Oximetry 96 Oxygen Delivery Nasal Cannula Oxygen Flow Rate 6 02/14/24 07:37 02/14/24 08:00 02/14/24 08:00 Temperature 37.0 C Pulse Rate 75 92 80 Respiratory Rate 18 20 Blood Pressure 146/58 H Pulse Oximetry 94 Oxygen Delivery Oxygen Flow Rate Intake/Output Intake/Output: Intake & Output 02/11/24 02/12/24 02/13/24 02/14/24 23:59 23:59 23:59 23:59 Intake Total 0 2362.5 1780 Output Total 1850 3625 1400 Balance 0 512.5 -1845 -1400 Meds/Results Medications: Active Medications Generic Name Dose Route Start Last Admin Trade Name Freq PRN Reason Stop Dose Admin Acetaminophen 650 mg 02/13/24 16:14 02/13/24 16:23 Acetaminophen 325 Mg Tablet PO 650 mg Q4H PRN Administration Mild Pain (1-3) or Fever Albuterol 2 puff 02/12/24 03:08 02/12/24 21:54 Albuterol Sulfate (*Sp) Aerosol 1 Puff INHALATION 2 puff Q4HRT PRN Administration shortness of breath or wheezing Albuterol/Ipratropium 3 ml 02/13/24 20:00 02/14/24 07:30 Ipratropium 0.5 Mg/Albuterol Sulfate 2.5 Mg Ampul.Neb 3 Ml INHALATION 3 ml Q6HRT ALEKSANDR Administration Dextrose 12.5 gm 02/12/24 10:46 Dextrose 50% 25 Gm/50 Ml Syringe IV PUSH PRN PRN Hypoglycemia Protocol Doxazosin Mesylate 8 mg 02/12/24 09:00 02/14/24 08:30 Doxazosin Mesylate 4 Mg Tablet PO 8 mg DAILY ALEKSANDR Administration Epoetin Jose Antonio-epbx 10,000 units 02/16/24 09:00 Epoetin Jose Antonio-Epbx 10,000 Units/Ml Vial SUB-Q [id number]@09 ALEKSANDR Glucagon 1 mg 02/12/24 10:46 Glucagon For Inj 1 Mg Vial IM PRN PRN Hypoglycemia Protocol Glucose 15 gm 02/12/24 10:46 Glucose Oral Gel 15 Gm Of Glucse In 37.5 Gm Tube PO PRN PRN Hypoglycemia Protocol Dextrose 1,000 mls @ 100 mls/hr 02/12/24 10:46 Dextrose 5% 1,000 Ml IVPB PRN PRN Hypoglycemia Protocol Cefepime HCl 0.5 gm/ Dextrose 50 mls @ 100 mls/hr 02/13/24 19:00 02/13/24 20:46 IVPB Infused Q24H ALEKSANDR Infusion Levofloxacin/Dextrose 500 mg in 100 mls @ 100 mls/hr 02/15/24 18:00 Levaquin 500 Mg/D5w 100 Ml IVPB Q24H ALEKSANDR Sodium Chloride 250 mls @ 30 mls/hr 02/14/24 06:41 Normal Saline Iv IV CONT 02/14/24 15:00 .Q8H20M STA Insulin Aspart 4 - 8 units 02/12/24 12:00 02/14/24 08:20 Insulin Aspart (*Bkc) 100 Units/Ml SUB-Q Not Given TIDWM [facility] Protocol Insulin Aspart 2 - 4 units 02/12/24 21:00 02/13/24 20:35 Insulin Aspart (*Bkc) 100 Units/Ml SUB-Q Not Given HS [facility] Protocol Insulin Glargine 20 units 02/12/24 21:00 02/13/24 20:45 Insulin Glargine (*Bkc) 100 Units/Ml SUB-Q 20 units HS ALEKSANDR Administration Latanoprost 1 drop 02/12/24 18:00 02/13/24 17:55 Latanoprost 0.005% Op Soln 2.5 Ml Btl EACH EYE 1 drop QPM ALEKSANDR Administration Pantoprazole Sodium 40 mg 02/12/24 09:00 02/14/24 08:31 Pantoprazole Sodium Iv 40 Mg Vial IV PUSH 40 mg Q12HR ALEKSANDR Administration Timolol Maleate 1 drop 02/12/24 09:00 02/14/24 08:31 Timolol Maleate 0.5% Op Soln 5 Ml Bottle EACH EYE 1 drop DAILY ALEKSANDR Administration Vancomycin HCl 1 each 02/13/24 17:47 Vancomycin For Acute Kidney Injury IVPB PRN PRN Vancomycin Protocol Radiology Results: ITS Impressions Chest/Abdomen/Pelvis CT 02/11/24 22:06 IMPRESSION: 1. Diffuse bilateral groundglass opacities and smooth septal line thickening and favor moderate pulmonary edema over pneumonia with very small bilateral pleural effusions. 2. Moderate emphysema. 3. 2 mm nonobstructing right renal stone. 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 5. Mild diverticulosis without evident diverticulitis. 6. Prominent prostatomegaly. 7. Moderate-sized bilateral fat-containing inguinal hernias. Renal Ultrasound 02/12/24 10:14 IMPRESSION: 1. Normal kidneys. No hydronephrosis. Chest X-Ray 02/14/24 06:15 IMPRESSION: 1. Diffuse lung disease with mild improvement on the left, likely moderate pulmonary edema without or with superimposed pneumonia. 2. Emphysema. Labs Labs: Laboratory Results - last 24 hr 02/11/24 02/12/24 02/13/24 20:58 04:38 10:15 WBC RBC Hgb Hct MCV MCH MCHC RDW Plt Count MPV ESR Puncture Site ABG pH ABG pCO2 ABG pO2 ABG PO2/FiO2 Ratio ABG HCO3 ABG O2 Saturation ABG O2 Content ABG Base Excess A-a Gradient Oxyhemoglobin Total Hemoglobin O2 Delivery Device O2 Liters/Min FiO2 Sodium Potassium Chloride Carbon Dioxide Anion Gap BUN Creatinine Estim Creat Clear Calc Estimated GFR Glucose POC Capillary Glucose Calcium Phosphorus Magnesium Total Bilirubin AST ALT Alkaline Phosphatase Total Creatine Kinase C-Reactive Protein NT-Pro-B Natriuret Pep 3970 H Total Protein Albumin RBC Folate 1081 Procalcitonin 0.2 TSH 1.100 Free T4 1.07 Nasal MRSA (PCR) Complement C3 Complement C4 Influenza A (RT-PCR) Influenza B (RT-PCR) RSV (RT-PCR) SARS-CoV-2 RNA (RT-PCR) Blood Type B Negative Antibody Screen Negative Crossmatch See Detail 02/13/24 02/13/24 02/13/24 10:18 11:30 16:08 WBC RBC Hgb Hct MCV MCH MCHC RDW Plt Count MPV ESR Puncture Site ABG pH ABG pCO2 ABG pO2 ABG PO2/FiO2 Ratio ABG HCO3 ABG O2 Saturation ABG O2 Content ABG Base Excess A-a Gradient Oxyhemoglobin Total Hemoglobin O2 Delivery Device O2 Liters/Min FiO2 Sodium Potassium 4.9 Chloride Carbon Dioxide Anion Gap BUN Creatinine Estim Creat Clear Calc Estimated GFR Glucose POC Capillary Glucose 146 H 142 H Calcium Phosphorus Magnesium Total Bilirubin AST ALT Alkaline Phosphatase Total Creatine Kinase C-Reactive Protein NT-Pro-B Natriuret Pep Total Protein Albumin RBC Folate Procalcitonin TSH Free T4 Nasal MRSA (PCR) Complement C3 Complement C4 Influenza A (RT-PCR) Influenza B (RT-PCR) RSV (RT-PCR) SARS-CoV-2 RNA (RT-PCR) Blood Type Antibody Screen Crossmatch 02/13/24 02/13/24 02/13/24 16:10 17:52 19:59 WBC RBC Hgb Hct MCV MCH MCHC RDW Plt Count MPV ESR Puncture Site Right radial ABG pH 7.504 H* ABG pCO2 31.6 L ABG pO2 61.9 L ABG PO2/FiO2 Ratio 1.55 ABG HCO3 24.3 ABG O2 Saturation 93.9 L ABG O2 Content 9.5 L ABG Base Excess 1.3 A-a Gradient 187.0 Oxyhemoglobin 90.9 Total Hemoglobin 7.4 L* O2 Delivery Device Nasal cannula O2 Liters/Min 5.0 FiO2 40 Sodium Potassium Chloride Carbon Dioxide Anion Gap BUN Creatinine Estim Creat Clear Calc Estimated GFR Glucose POC Capillary Glucose 151 H Calcium Phosphorus Magnesium Total Bilirubin AST ALT Alkaline Phosphatase Total Creatine Kinase C-Reactive Protein NT-Pro-B Natriuret Pep Total Protein Albumin RBC Folate Procalcitonin TSH Free T4 Nasal MRSA (PCR) Not detected Complement C3 Complement C4 Influenza A (RT-PCR) Negative Influenza B (RT-PCR) Negative RSV (RT-PCR) Negative SARS-CoV-2 RNA (RT-PCR) Negative Blood Type Antibody Screen Crossmatch 02/14/24 02/14/24 02/14/24 04:23 04:24 05:48 WBC 6.5 RBC 2.07 L Hgb 6.5 L* Hct 19.9 L* MCV 96.1 MCH 31.4 MCHC 32.7 RDW 15.3 H Plt Count 170 MPV 9.0 ESR > 140 H Puncture Site ABG pH ABG pCO2 ABG pO2 ABG PO2/FiO2 Ratio ABG HCO3 ABG O2 Saturation ABG O2 Content ABG Base Excess A-a Gradient Oxyhemoglobin Total Hemoglobin O2 Delivery Device O2 Liters/Min FiO2 Sodium 139 Potassium 4.4 Chloride 104 Carbon Dioxide 23 Anion Gap 12 BUN 49 H Creatinine 3.40 H Estim Creat Clear Calc 13 Estimated GFR 17 L Glucose 137 H POC Capillary Glucose Calcium 8.2 L Phosphorus 4.2 Magnesium 1.4 L Total Bilirubin 0.6 AST 25 ALT 22 Alkaline Phosphatase 63 Total Creatine Kinase 60 C-Reactive Protein 14.1 H NT-Pro-B Natriuret Pep Total Protein 6.0 L Albumin 3.1 L RBC Folate Procalcitonin 0.3 TSH Free T4 Nasal MRSA (PCR) Complement C3 68 L Complement C4 10.9 L Influenza A (RT-PCR) Influenza B (RT-PCR) RSV (RT-PCR) SARS-CoV-2 RNA (RT-PCR) Blood Type Antibody Screen Crossmatch 02/14/24 07:50 WBC RBC Hgb Hct MCV MCH MCHC RDW Plt Count MPV ESR Puncture Site ABG pH ABG pCO2 ABG pO2 ABG PO2/FiO2 Ratio ABG HCO3 ABG O2 Saturation ABG O2 Content ABG Base Excess A-a Gradient Oxyhemoglobin Total Hemoglobin O2 Delivery Device O2 Liters/Min FiO2 Sodium Potassium Chloride Carbon Dioxide Anion Gap BUN Creatinine Estim Creat Clear Calc Estimated GFR Glucose POC Capillary Glucose 155 H Calcium Phosphorus Magnesium Total Bilirubin AST ALT Alkaline Phosphatase Total Creatine Kinase C-Reactive Protein NT-Pro-B Natriuret Pep Total Protein Albumin RBC Folate Procalcitonin TSH Free T4 Nasal MRSA (PCR) Complement C3 Complement C4 Influenza A (RT-PCR) Influenza B (RT-PCR) RSV (RT-PCR) SARS-CoV-2 RNA (RT-PCR) Blood Type Antibody Screen Crossmatch
--- NOTE | 2024-02-14 09:24 | P.PNNP_ITS ---
Progress Note: A&P Assessment and Plan (1) SANGITA (acute kidney injury): Code(s): N17.9 - Acute kidney failure, unspecified Status: Acute Assessment and Plan: * The patient has acute kidney injury. * His baseline creatinine was between 2 and 2.5. Now it is ranging between 3 and 3.5. * evaluation to date noted: * normal renal ultrasound * UA with some RBC * urine eosinophils negative * urine electrolytes non-prerenal * 282mg of proteinuria * Positive ANCA, BRANDON, and low complements. * several issues likely playing a role: * severe anemia * losartan use * possible pneumonia/infection * Long discussion with Dr. Johnson and also with Dr. Aragon. A pulmonary renal syndrome certainly is a possibility. * The patient had hemoptysis earlier in the hospital stay as well. Dr. Johnson says that we could do a lung biopsy or a bronchoscopy however with his borderline pulmonary situation it would be very risky. * The patient is going to be transferred to a higher level of care. We do not know when this is going to happen. If he does not go today then I think the best course of action would be to give him pulse dose steroid and proceed with a renal biopsy on Friday. * Dr. Aragon is working on the transfer. He will let me know the timing so we can decide on pulse steroids. (2) Melena: Code(s): K92.1 - Melena Status: Acute Assessment and Plan: * GI recommendations noted * Because of the pulmonary situation they are holding off on EGD. * on IV PPI * PRBC transfusion per protocol Per hospitalists. (3) Hyperkalemia: Code(s): E87.5 - Hyperkalemia Status: Acute Assessment and Plan: * possibly due to ARB use prior to admission * possible hemolysis of blood in stomach/gut * SANGITA/ARF likely playing a role as well * The potassium has been fine lately. (4) Hypoxia: Code(s): R09.02 - Hypoxemia Status: Acute Assessment and Plan: * increasing oxygen requirement noted since this AM * previous imaging with evidence of pulmonary edema. small effusions, and emphysema * Discussed with Dr. 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 He is much less weak than he was on admission. He is still coughing. This began just on admission. No fevers or chills. Exam Narrative: General: mildly ill appearing Caucaisan male in NAD Heart: normal S1 and S2; no rub Lungs: Coarse breath sounds; decreased at bases Abdomen: soft, nontender, nondistended, positive bowel sounds Extremities: no cyanosis or clubbing; trace edema Skin: warm and dry Objective Data Vital Signs Vital Signs: Vital Signs - 24 hr 02/13/24 10:00 02/13/24 11:53 02/13/24 12:00 Temperature 97.4 F L Pulse Rate 87 83 Respiratory Rate 24 H Blood Pressure 152/53 H Pulse Oximetry 93 96 Oxygen Delivery Nasal Cannula Oxygen Flow Rate 5 02/13/24 12:00 02/13/24 14:00 02/13/24 16:00 Temperature 100.3 F H Pulse Rate 83 81 81 Respiratory Rate 24 H Blood Pressure 153/50 H Pulse Oximetry 95 Oxygen Delivery Oxygen Flow Rate 02/13/24 16:00 02/13/24 16:23 02/13/24 16:00 Temperature 100.3 F H Pulse Rate 80 Respiratory Rate Blood Pressure Pulse Oximetry 92 Oxygen Delivery Nasal Cannula Oxygen Flow Rate 5 02/13/24 17:59 02/13/24 18:00 02/13/24 20:18 Temperature 98.4 F 98.7 F Pulse Rate 81 74 Respiratory Rate 24 H Blood Pressure 141/56 H Pulse Oximetry 94 Oxygen Delivery Oxygen Flow Rate 02/13/24 20:45 02/13/24 20:55 02/13/24 20:55 Temperature Pulse Rate 74 75 74 Respiratory Rate 18 18 Blood Pressure Pulse Oximetry 94 Oxygen Delivery Nasal Cannula Oxygen Flow Rate 5 02/13/24 23:24 02/13/24 20:15 02/13/24 20:50 Temperature 97.7 F Pulse Rate 77 74 80 Respiratory Rate 24 H 24 H 22 H Blood Pressure 132/51 L Pulse Oximetry 91 94 95 Oxygen Delivery Nasal Cannula Nasal Cannula Oxygen Flow Rate 5 5 02/14/24 00:00 02/13/24 20:00 02/13/24 22:00 Temperature Pulse Rate 77 75 80 Respiratory Rate 24 H Blood Pressure Pulse Oximetry 91 Oxygen Delivery Nasal Cannula Oxygen Flow Rate 5 02/14/24 00:00 02/14/24 02:23 02/14/24 02:33 Temperature Pulse Rate 87 75 75 Respiratory Rate 18 18 Blood Pressure Pulse Oximetry Oxygen Delivery Oxygen Flow Rate 02/14/24 02:00 02/14/24 02:20 02/14/24 02:50 Temperature Pulse Rate 76 73 79 Respiratory Rate 18 18 Blood Pressure Pulse Oximetry 83 L 92 Oxygen Delivery Nasal Cannula High Flow Nasal Cannula Oxygen Flow Rate 5 6 02/14/24 04:42 02/14/24 04:00 02/14/24 04:00 Temperature 97.7 F Pulse Rate 73 73 75 Respiratory Rate 24 H 24 H Blood Pressure 154/54 H Pulse Oximetry 100 100 Oxygen Delivery High Flow Nasal Cannula Oxygen Flow Rate 6 02/14/24 05:11 02/14/24 07:30 02/14/24 07:30 Temperature Pulse Rate 75 77 Respiratory Rate 18 Blood Pressure Pulse Oximetry 96 Oxygen Delivery Nasal Cannula Oxygen Flow Rate 6 02/14/24 07:37 02/14/24 08:00 02/14/24 08:00 Temperature 98.6 F Pulse Rate 75 92 80 Respiratory Rate 18 20 Blood Pressure 146/58 H Pulse Oximetry 94 Oxygen Delivery Oxygen Flow Rate Intake/Output Intake/Output: Intake & Output 02/11/24 02/12/24 02/13/24 02/14/24 23:59 23:59 23:59 23:59 Intake Total 0 2362.5 1780 Output Total 1850 3625 1400 Balance 0 512.5 -1845 -1400 Meds/Results Medications: Active Medications Generic Name Dose Route Start Last Admin Trade Name Freq PRN Reason Stop Dose Admin Acetaminophen 650 mg 02/13/24 16:14 02/13/24 16:23 Acetaminophen 325 Mg Tablet PO 650 mg Q4H PRN Administration Mild Pain (1-3) or Fever Albuterol 2 puff 02/12/24 03:08 02/12/24 21:54 Albuterol Sulfate (*Sp) Aerosol 1 Puff INHALATION 2 puff Q4HRT PRN Administration shortness of breath or wheezing Albuterol/Ipratropium 3 ml 02/13/24 20:00 02/14/24 07:30 Ipratropium 0.5 Mg/Albuterol Sulfate 2.5 Mg Ampul.Neb 3 Ml INHALATION 3 ml Q6HRT ALEKSANDR Administration Dextrose 12.5 gm 02/12/24 10:46 Dextrose 50% 25 Gm/50 Ml Syringe IV PUSH PRN PRN Hypoglycemia Protocol Doxazosin Mesylate 8 mg 02/12/24 09:00 02/14/24 08:30 Doxazosin Mesylate 4 Mg Tablet PO 8 mg DAILY ALEKSANDR Administration Epoetin Jose Antonio-epbx 10,000 units 02/16/24 09:00 Epoetin Jose Antonio-Epbx 10,000 Units/Ml Vial SUB-Q [id number]@09 ALEKSANDR Glucagon 1 mg 02/12/24 10:46 Glucagon For Inj 1 Mg Vial IM PRN PRN Hypoglycemia Protocol Glucose 15 gm 02/12/24 10:46 Glucose Oral Gel 15 Gm Of Glucse In 37.5 Gm Tube PO PRN PRN Hypoglycemia Protocol Dextrose 1,000 mls @ 100 mls/hr 02/12/24 10:46 Dextrose 5% 1,000 Ml IVPB PRN PRN Hypoglycemia Protocol Cefepime HCl 0.5 gm/ Dextrose 50 mls @ 100 mls/hr 02/13/24 19:00 02/13/24 20:46 IVPB Infused Q24H ALEKSANDR Infusion Levofloxacin/Dextrose 500 mg in 100 mls @ 100 mls/hr 02/15/24 18:00 Levaquin 500 Mg/D5w 100 Ml IVPB Q24H ALEKSANDR Sodium Chloride 250 mls @ 30 mls/hr 02/14/24 06:41 Normal Saline Iv IV CONT 02/14/24 15:00 .Q8H20M STA Insulin Aspart 4 - 8 units 02/12/24 12:00 02/14/24 08:20 Insulin Aspart (*Bkc) 100 Units/Ml SUB-Q Not Given TIDWM [facility] Protocol Insulin Aspart 2 - 4 units 02/12/24 21:00 02/13/24 20:35 Insulin Aspart (*Bkc) 100 Units/Ml SUB-Q Not Given HS ALEKSANDR Protocol Insulin Glargine 20 units 02/12/24 21:00 02/13/24 20:45 Insulin Glargine (*Bkc) 100 Units/Ml SUB-Q 20 units HS ALEKSANDR Administration Latanoprost 1 drop 02/12/24 18:00 02/13/24 17:55 Latanoprost 0.005% Op Soln 2.5 Ml Btl EACH EYE 1 drop QPM ALEKSANDR Administration Pantoprazole Sodium 40 mg 02/12/24 09:00 02/14/24 08:31 Pantoprazole Sodium Iv 40 Mg Vial IV PUSH 40 mg Q12HR ALEKSANDR Administration Timolol Maleate 1 drop 02/12/24 09:00 02/14/24 08:31 Timolol Maleate 0.5% Op Soln 5 Ml Bottle EACH EYE 1 drop DAILY ALEKSANDR Administration Vancomycin HCl 1 each 02/13/24 17:47 Vancomycin For Acute Kidney Injury IVPB PRN PRN Vancomycin Protocol Radiology Results: ITS Impressions Chest/Abdomen/Pelvis CT 02/11/24 22:06 IMPRESSION: 1. Diffuse bilateral groundglass opacities and smooth septal line thickening and favor moderate pulmonary edema over pneumonia with very small bilateral pleural effusions. 2. Moderate emphysema. 3. 2 mm nonobstructing right renal stone. 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 5. Mild diverticulosis without evident diverticulitis. 6. Prominent prostatomegaly. 7. Moderate-sized bilateral fat-containing inguinal hernias. Renal Ultrasound 02/12/24 10:14 IMPRESSION: 1. Normal kidneys. No hydronephrosis. Chest X-Ray 02/14/24 06:15 IMPRESSION: 1. Diffuse lung disease with mild improvement on the left, likely moderate pulmonary edema without or with superimposed pneumonia. 2. Emphysema. Labs Labs: Laboratory Results - last 24 hr 02/11/24 02/12/24 02/13/24 20:58 04:38 10:15 WBC RBC Hgb Hct MCV MCH MCHC RDW Plt Count MPV ESR Puncture Site ABG pH ABG pCO2 ABG pO2 ABG PO2/FiO2 Ratio ABG HCO3 ABG O2 Saturation ABG O2 Content ABG Base Excess A-a Gradient Oxyhemoglobin Total Hemoglobin O2 Delivery Device O2 Liters/Min FiO2 Sodium Potassium Chloride Carbon Dioxide Anion Gap BUN Creatinine Estim Creat Clear Calc Estimated GFR Glucose POC Capillary Glucose Calcium Phosphorus Magnesium Total Bilirubin AST ALT Alkaline Phosphatase Total Creatine Kinase C-Reactive Protein NT-Pro-B Natriuret Pep 3970 H Total Protein Albumin RBC Folate 1081 Procalcitonin 0.2 TSH 1.100 Free T4 1.07 Nasal MRSA (PCR) Complement C3 Complement C4 Influenza A (RT-PCR) Influenza B (RT-PCR) RSV (RT-PCR) SARS-CoV-2 RNA (RT-PCR) Blood Type B Negative Antibody Screen Negative Crossmatch See Detail 02/13/24 02/13/24 02/13/24 10:18 11:30 16:08 WBC RBC Hgb Hct MCV MCH MCHC RDW Plt Count MPV ESR Puncture Site ABG pH ABG pCO2 ABG pO2 ABG PO2/FiO2 Ratio ABG HCO3 ABG O2 Saturation ABG O2 Content ABG Base Excess A-a Gradient Oxyhemoglobin Total Hemoglobin O2 Delivery Device O2 Liters/Min FiO2 Sodium Potassium 4.9 Chloride Carbon Dioxide Anion Gap BUN Creatinine Estim Creat Clear Calc Estimated GFR Glucose POC Capillary Glucose 146 H 142 H Calcium Phosphorus Magnesium Total Bilirubin AST ALT Alkaline Phosphatase Total Creatine Kinase C-Reactive Protein NT-Pro-B Natriuret Pep Total Protein Albumin RBC Folate Procalcitonin TSH Free T4 Nasal MRSA (PCR) Complement C3 Complement C4 Influenza A (RT-PCR) Influenza B (RT-PCR) RSV (RT-PCR) SARS-CoV-2 RNA (RT-PCR) Blood Type Antibody Screen Crossmatch 02/13/24 02/13/24 02/13/24 16:10 17:52 19:59 WBC RBC Hgb Hct MCV MCH MCHC RDW Plt Count MPV ESR Puncture Site Right radial ABG pH 7.504 H* ABG pCO2 31.6 L ABG pO2 61.9 L ABG PO2/FiO2 Ratio 1.55 ABG HCO3 24.3 ABG O2 Saturation 93.9 L ABG O2 Content 9.5 L ABG Base Excess 1.3 A-a Gradient 187.0 Oxyhemoglobin 90.9 Total Hemoglobin 7.4 L* O2 Delivery Device Nasal cannula O2 Liters/Min 5.0 FiO2 40 Sodium Potassium Chloride Carbon Dioxide Anion Gap BUN Creatinine Estim Creat Clear Calc Estimated GFR Glucose POC Capillary Glucose 151 H Calcium Phosphorus Magnesium Total Bilirubin AST ALT Alkaline Phosphatase Total Creatine Kinase C-Reactive Protein NT-Pro-B Natriuret Pep Total Protein Albumin RBC Folate Procalcitonin TSH Free T4 Nasal MRSA (PCR) Not detected Complement C3 Complement C4 Influenza A (RT-PCR) Negative Influenza B (RT-PCR) Negative RSV (RT-PCR) Negative SARS-CoV-2 RNA (RT-PCR) Negative Blood Type Antibody Screen Crossmatch 02/14/24 02/14/24 02/14/24 04:23 04:24 05:48 WBC 6.5 RBC 2.07 L Hgb 6.5 L* Hct 19.9 L* MCV 96.1 MCH 31.4 MCHC 32.7 RDW 15.3 H Plt Count 170 MPV 9.0 ESR > 140 H Puncture Site ABG pH ABG pCO2 ABG pO2 ABG PO2/FiO2 Ratio ABG HCO3 ABG O2 Saturation ABG O2 Content ABG Base Excess A-a Gradient Oxyhemoglobin Total Hemoglobin O2 Delivery Device O2 Liters/Min FiO2 Sodium 139 Potassium 4.4 Chloride 104 Carbon Dioxide 23 Anion Gap 12 BUN 49 H Creatinine 3.40 H Estim Creat Clear Calc 13 Estimated GFR 17 L Glucose 137 H POC Capillary Glucose Calcium 8.2 L Phosphorus 4.2 Magnesium 1.4 L Total Bilirubin 0.6 AST 25 ALT 22 Alkaline Phosphatase 63 Total Creatine Kinase 60 C-Reactive Protein 14.1 H NT-Pro-B Natriuret Pep Total Protein 6.0 L Albumin 3.1 L RBC Folate Procalcitonin 0.3 TSH Free T4 Nasal MRSA (PCR) Complement C3 68 L Complement C4 10.9 L Influenza A (RT-PCR) Influenza B (RT-PCR) RSV (RT-PCR) SARS-CoV-2 RNA (RT-PCR) Blood Type Antibody Screen Crossmatch 02/14/24 07:50 WBC RBC Hgb Hct MCV MCH MCHC RDW Plt Count MPV ESR Puncture Site ABG pH ABG pCO2 ABG pO2 ABG PO2/FiO2 Ratio ABG HCO3 ABG O2 Saturation ABG O2 Content ABG Base Excess A-a Gradient Oxyhemoglobin Total Hemoglobin O2 Delivery Device O2 Liters/Min FiO2 Sodium Potassium Chloride Carbon Dioxide Anion Gap BUN Creatinine Estim Creat Clear Calc Estimated GFR Glucose POC Capillary Glucose 155 H Calcium Phosphorus Magnesium Total Bilirubin AST ALT Alkaline Phosphatase Total Creatine Kinase C-Reactive Protein NT-Pro-B Natriuret Pep Total Protein Albumin RBC Folate Procalcitonin TSH Free T4 Nasal MRSA (PCR) Complement C3 Complement C4 Influenza A (RT-PCR) Influenza B (RT-PCR) RSV (RT-PCR) SARS-CoV-2 RNA (RT-PCR) Blood Type Antibody Screen Crossmatch
--- NOTE | 2024-02-14 10:31 | PM.TDS ---
Transfer Discharge Sum: Prov Provider Date of admission: 02/11/24 23:28 Primary care physician: Tevin Velez MD Admitting clinician: Manueal Carlisle MD Consults: 02/11/24 Consult to Physician Routine Comment: Consulting Provider: Caity Washington Reason for consultation: SANGITA Has provider been notified: Yes Consult to Physician Routine Comment: Consulting Provider: Isrrael Alejo Reason for consultation: GI Bleed Has provider been notified: Yes 02/13/24 Consult to Physician Routine Comment: called Dr. Johnson with consult information Consulting Provider: Leonides Johnson clinical pharmacy specialist/MD group to consult: pulmonology Reason for consultation: Worsened diffuse lung disease, moderate pulmonary edema.Emphysema Has provider been notified: Yes Receiving physician/facility: Dr. Hoyt at [facility] DS: Admitting Diagnosis Discharge Date 02/14/2024 Admitting Diagnosis Severe acute blood loss anemia DS: Discharge Diagnosis Discharge Diagnosis (1) Acute blood loss anemia: Code(s): D62 - Acute posthemorrhagic anemia Status: Acute Assessment and Plan: ADMIT TO IMU TRANSFUSED 2 units of PRBC-02/11, 1 U 02/13 due to Hgb 6.5 PPI -02/12 egd postponed due to increased oxygen requirements -on 5 l now - monitor labs, no further signs of bleeding (2) Acute kidney injury superimposed on CKD: Code(s): N17.9 - Acute kidney failure, unspecified; N18.9 - Chronic kidney disease, unspecified Status: Acute Assessment and Plan: Holding Losartan Vasculitis suspected 02/13 Creatinine stable at 3.4 02/13 [facility] contacted for transfer to higher level of care (3) COPD with emphysema: Code(s): J43.9 - Emphysema, unspecified Status: Acute Assessment and Plan: Superimposed infiltrates and hemoptysis likely due to vasculitis (4) Lung infiltrate: Code(s): R91.8 - Other nonspecific abnormal finding of lung field Status: Acute Assessment and Plan: As above (5) Gastro-esophageal reflux disease without esophagitis: Code(s): K21.9 - Gastro-esophageal reflux disease without esophagitis Status: Acute Assessment and Plan: PPI (6) Weakness: Code(s): R53.1 - Weakness Status: Acute Assessment and Plan: Multifactoral: Anemia, SANGITA, hypoxia, AID (7) GI (gastrointestinal bleed): Code(s): K92.2 - Gastrointestinal hemorrhage, unspecified Status: Acute Assessment and Plan: Continue PPI (8) Anemia in chronic kidney disease (CKD): Code(s): N18.9 - Chronic kidney disease, unspecified; D63.1 - Anemia in chronic kidney disease Status: Acute Assessment and Plan: Transfusion prn for Hgb <7 (9) Type 2 diabetes mellitus with other diabetic kidney complication: Code(s): E11.29 - Type 2 diabetes mellitus with other diabetic kidney complication Status: Chronic Assessment and Plan: Continue basal Lantus and SSI 02/13 FBS 137 (10) Hyperkalemia: Code(s): E87.5 - Hyperkalemia Status: Acute Assessment and Plan: Resolved (11) Hypoxia: Code(s): R09.02 - Hypoxemia Status: Acute Assessment and Plan: Currently requiring 6 L oxygen by NC Transfer Discharge Sum: Med Medications Active and Home Medications: Home Medications pen needle, diabetic 32 gauge x 1/5 (NovoTwist) #100 ea 03/24/19 [History Confirmed 02/12/24] latanoprost 0.005 % eye drops 1 drop ophthalmic (eye) QPM 12/07/19 [History Confirmed 02/12/24] pen needle, diabetic 32 gauge x 5/32 (BD Rita 2nd Gen Pen Needle) #100 ea 05/02/23 [Rx Confirmed 02/12/24] insulin syringe-needle U-100 0.3 mL 31 gauge x 5/16 (Advocate Syringes) #100 ea 05/12/23 [Rx Confirmed 02/12/24] blood-glucose meter (Accu-Chek Guide Glucose Meter) #1 ea 08/07/23 [Rx Confirmed 02/12/24] lancets (Accu-Chek Softclix Lancets) #200 ea 08/07/23 [Rx Confirmed 02/12/24] doxazosin 8 mg tablet 8 mg PO DAILY #100 tabs 08/29/23 [Rx Confirmed 02/12/24] losartan 50 mg tablet 50 mg PO DAILY #30 tabs 10/03/23 [Rx Confirmed 02/12/24] blood sugar diagnostic (Accu-Chek Guide test strips) #100 ea 10/07/23 [Rx Confirmed 02/12/24] amlodipine 2.5 mg tablet 2.5 mg PO DAILY #90 tabs 12/02/23 [Rx Confirmed 02/12/24] timolol maleate 0.5 % eye drops 1 drp EACH EYE QAM 12/02/23 [History Confirmed 02/12/24] omeprazole 40 mg capsule,delayed release 40 mg PO DAILY #30 caps 12/15/23 [Rx Confirmed 02/12/24] albuterol sulfate 90 mcg/actuation aerosol inhaler 2 inh inhalation Q4H PRN shortness of breath or wheezing #8.5 grams 02/04/24 [Rx Confirmed 02/12/24] atorvastatin 40 mg tablet 40 mg PO DAILY 02/12/24 [History Confirmed 02/12/24] fluticasone 250 mcg-salmeterol 50 mcg/dose blistr powdr for inhalation (Wixela Inhub) 2 inh inhalation BID 02/12/24 [History Confirmed 02/12/24] hydralazine 100 mg tablet 100 mg PO BID 02/12/24 [History Confirmed 02/12/24] insulin detemir U-100 100 unit/mL subcutaneous solution 70 unit subcut DAILY 02/12/24 [History Confirmed 02/12/24] insulin detemir U-100 100 unit/mL subcutaneous solution (Levemir U-100 Insulin) 30 unit subcut HS 02/12/24 [History Confirmed 02/12/24] Active Medications Acetaminophen (Acetaminophen 325 Mg Tablet) 650 mg PO Q4H PRN PRN Reason: Mild Pain (1-3) or Fever Last Admin: 02/13/24 16:23 Dose: 650 mg Albuterol (Albuterol Sulfate (*Sp) Aerosol 1 Puff) 2 puff INHALATION Q4HRT PRN PRN Reason: shortness of breath or wheezing Last Admin: 02/12/24 21:54 Dose: 2 puff Albuterol/Ipratropium (Ipratropium 0.5 Mg/Albuterol Sulfate 2.5 Mg Ampul.Neb 3 Ml) 3 ml INHALATION Q6HRT ALEKSANDR Last Admin: 02/14/24 07:30 Dose: 3 ml Bumetanide (Bumetanide Inj 1 Mg/4 Ml Vial) 1 mg IV PUSH BID [facility] Dextrose (Dextrose 50% 25 Gm/50 Ml Syringe) 12.5 gm IV PUSH PRN PRN; Protocol PRN Reason: Hypoglycemia Doxazosin Mesylate (Doxazosin Mesylate 4 Mg Tablet) 8 mg PO DAILY [facility] Last Admin: 02/14/24 08:30 Dose: 8 mg Epoetin Jose Antonio-epbx (Epoetin Jose Antonio-Epbx 10,000 Units/Ml Vial) 10,000 units SUB-Q MOWEFR@09 ALEKSANDR Glucagon (Glucagon For Inj 1 Mg Vial) 1 mg IM PRN PRN; Protocol PRN Reason: Hypoglycemia Glucose (Glucose Oral Gel 15 Gm Of Glucse In 37.5 Gm Tube) 15 gm PO PRN PRN; Protocol PRN Reason: Hypoglycemia Dextrose (Dextrose 5% 1,000 Ml) 1,000 mls @ 100 mls/hr IVPB PRN PRN; Protocol PRN Reason: Hypoglycemia Cefepime HCl 0.5 gm/ Dextrose 50 mls @ 100 mls/hr IVPB Q24H ALEKSANDR Last Infusion: 02/13/24 20:46 Dose: Infused Levofloxacin/Dextrose (Levaquin 500 Mg/D5w 100 Ml) 500 mg in 100 mls @ 100 mls/hr IVPB Q24H [facility] Sodium Chloride (Normal Saline Iv) 250 mls @ 30 mls/hr IV CONT .Q8H20M STA Stop: 02/14/24 15:00 Insulin Aspart (Insulin Aspart (*Bkc) 100 Units/Ml) 4 - 8 units SUB-Q TIDWM ALEKSANDR; Protocol Last Admin: 02/14/24 08:20 Dose: Not Given Insulin Aspart (Insulin Aspart (*Bkc) 100 Units/Ml) 2 - 4 units SUB-Q HS ALEKSANDR; Protocol Last Admin: 02/13/24 20:35 Dose: Not Given Insulin Glargine (Insulin Glargine (*Bkc) 100 Units/Ml) 20 units SUB-Q HS ALEKSANDR Last Admin: 02/13/24 20:45 Dose: 20 units Latanoprost (Latanoprost 0.005% Op Soln 2.5 Ml Btl) 1 drop EACH EYE QPM ALEKSANDR Last Admin: 02/13/24 17:55 Dose: 1 drop Pantoprazole Sodium (Pantoprazole Sodium Iv 40 Mg Vial) 40 mg IV PUSH Q12HR ALEKSANDR Last Admin: 02/14/24 08:31 Dose: 40 mg Timolol Maleate (Timolol Maleate 0.5% Op Soln 5 Ml Bottle) 1 drop EACH EYE DAILY ALEKSANDR Last Admin: 02/14/24 08:31 Dose: 1 drop Vancomycin HCl (Vancomycin For Acute Kidney Injury) 1 each IVPB PRN PRN PRN Reason: Vancomycin Protocol Transfer Discharge Sum: Hosp Hospital Course Hospital course: Shahzad Couch is a 89 year old male admitted for melena and weakness on February 10. Hemoglobin was 5.2. He received 2 units of packed cells. Creatinine was 3.5 which is above his baseline. He was treated initially with ceftriaxone due to diffuse pulmonary infiltrates seen on imaging. Was seen by Nephrology and pulmonology and Gastroenterology. Quantitative Strategy Analyst changed antibiotic regimen to Levaquin and vancomycin. EGD was planned for February 12. However this was canceled due to increasing oxygen requirements up to 6 L. he was treated with PPI and have no further evidence of bleeding except did have bright red blood hemoptysis last episode 02/11. Says he required 1 additional unit of blood on day of transfer 02/13 due to hemoglobin drifting down to 6.5 without evidence of active bleeding. Due to diffuse pulmonary infiltrates worsened renal function microscopic hematuria positive BRANDON at 1-1280 positive double-stranded DNA antibody and positive ANCA elevated ESR and CRP he was transferred to [facility] in [place] for further evaluation and treatment. Time Spent with Patient Time attestation: Total time spent providing and/or coordinating transfer services: Exam Narrative: HEENT: PERRL, sclerae nonicteric, pharyngeal mucosa pink and intact NECK: No JVD, adenopathy, or thyromegaly CHEST: Few fine bibasilar crackles left worse than right. Mild tachypnea. HEART: NL S1/S2, regular, soft apical systolic murmur. ABDOMEN: BS+, soft, nontender, no mass, no bruits EXTREMITIES: No cyanosis, edema, or clubbing NEUROLOGIC: CN intact and symmetric to inspection. MUSCULOSKELETAL: Tone and strength symmetric. PSYCH: Alert. Oriented to person, place, and time. DS: Data Data Completed and Pending Labs on day of discharge: Labs from last 24 hours 02/14/24 02/14/24 02/14/24 07:50 05:48 04:24 WBC 6.5 RBC 2.07 L Hgb 6.5 L* Hct 19.9 L* MCV 96.1 MCH 31.4 MCHC 32.7 RDW 15.3 H Plt Count 170 MPV 9.0 ESR > 140 H Puncture Site ABG pH ABG pCO2 ABG pO2 ABG PO2/FiO2 Ratio ABG HCO3 ABG O2 Saturation ABG O2 Content ABG Base Excess A-a Gradient Oxyhemoglobin Total Hemoglobin O2 Delivery Device O2 Liters/Min FiO2 Sodium Potassium Chloride Carbon Dioxide Anion Gap BUN Creatinine Estim Creat Clear Calc Estimated GFR Glucose POC Capillary Glucose 155 H Calcium Phosphorus Magnesium Total Bilirubin AST ALT Alkaline Phosphatase Total Creatine Kinase C-Reactive Protein NT-Pro-B Natriuret Pep Total Protein Albumin Alpha-1-AT Phenotype Pending RBC Folate Procalcitonin 0.3 TSH Free T4 Nasal MRSA (PCR) Nasal RSV Type A (PCR) Nasal RSV Type B (PCR) BRANDON Scrn Qualitative Pending BRANDON [place] Interp Pending Anti-Proteinase 3 FEIA c/o 1.9 Pending Anti-Myeloperoxidase Pending Complement C3 Complement C4 Chlamy pneumoniae PCR Adenovirus DNA Human Bocavirus (DENIZ) Coronavirus Type OC43 Coronavirus Type HKU1 Coronavirus Type 229E Coronavirus Type NL63 Human Metapneumovir PCR Influenza A (RT-PCR) Influenza A (PCR) Influenza A (H1) RNA Influenza A (H3) PCR Influenza B (RT-PCR) Ur L.pneumophila Ag Mycoplasma pneumon IgM Pending M. pneumoniae DNA Parainfluenza PCR Parainfluenza 2 (PCR) Parainfluenza 3 RNA (PCR) Parainfluenza 4 (PCR) RSV (RT-PCR) Rhino/Enterovirus (DENIZ) SARS-CoV-2 RNA (RT-PCR) Urine Pneumococcal Ag Influenza Type B (PCR) Misc Test Comment Blood Type Antibody Screen Crossmatch 02/14/24 02/13/24 02/13/24 04:23 23:40 19:59 WBC RBC Hgb Hct MCV MCH MCHC RDW Plt Count MPV ESR Puncture Site ABG pH ABG pCO2 ABG pO2 ABG PO2/FiO2 Ratio ABG HCO3 ABG O2 Saturation ABG O2 Content ABG Base Excess A-a Gradient Oxyhemoglobin Total Hemoglobin O2 Delivery Device O2 Liters/Min FiO2 Sodium 139 Potassium 4.4 Chloride 104 Carbon Dioxide 23 Anion Gap 12 BUN 49 H Creatinine 3.40 H Estim Creat Clear Calc 13 Estimated GFR 17 L Glucose 137 H POC Capillary Glucose 151 H Calcium 8.2 L Phosphorus 4.2 Magnesium 1.4 L Total Bilirubin 0.6 AST 25 ALT 22 Alkaline Phosphatase 63 Total Creatine Kinase 60 C-Reactive Protein 14.1 H NT-Pro-B Natriuret Pep Total Protein 6.0 L Albumin 3.1 L Alpha-1-AT Phenotype RBC Folate Procalcitonin TSH Free T4 Nasal MRSA (PCR) Nasal RSV Type A (PCR) Nasal RSV Type B (PCR) BRANDON Scrn Qualitative BRANDON [place] Interp Anti-Proteinase 3 FEIA c/o 1.9 Anti-Myeloperoxidase Complement C3 68 L Complement C4 10.9 L Chlamy pneumoniae PCR Adenovirus DNA Human Bocavirus (DENIZ) Coronavirus Type OC43 Coronavirus Type HKU1 Coronavirus Type 229E Coronavirus Type NL63 Human Metapneumovir PCR Influenza A (RT-PCR) Influenza A (PCR) Influenza A (H1) RNA Influenza A (H3) PCR Influenza B (RT-PCR) Ur L.pneumophila Ag Pending Mycoplasma pneumon IgM M. pneumoniae DNA Parainfluenza PCR Parainfluenza 2 (PCR) Parainfluenza 3 RNA (PCR) Parainfluenza 4 (PCR) RSV (RT-PCR) Rhino/Enterovirus (DENIZ) SARS-CoV-2 RNA (RT-PCR) Urine Pneumococcal Ag Pending Influenza Type B (PCR) Misc Test Comment Blood Type Antibody Screen Crossmatch 02/13/24 02/13/24 02/13/24 17:52 16:24 16:10 WBC RBC Hgb Hct MCV MCH MCHC RDW Plt Count MPV ESR Puncture Site Right radial ABG pH 7.504 H* ABG pCO2 31.6 L ABG pO2 61.9 L ABG PO2/FiO2 Ratio 1.55 ABG HCO3 24.3 ABG O2 Saturation 93.9 L ABG O2 Content 9.5 L ABG Base Excess 1.3 A-a Gradient 187.0 Oxyhemoglobin 90.9 Total Hemoglobin 7.4 L* O2 Delivery Device Nasal cannula O2 Liters/Min 5.0 FiO2 40 Sodium Potassium Chloride Carbon Dioxide Anion Gap BUN Creatinine Estim Creat Clear Calc Estimated GFR Glucose POC Capillary Glucose Calcium Phosphorus Magnesium Total Bilirubin AST ALT Alkaline Phosphatase Total Creatine Kinase C-Reactive Protein NT-Pro-B Natriuret Pep Total Protein Albumin Alpha-1-AT Phenotype RBC Folate Procalcitonin TSH Free T4 Nasal MRSA (PCR) Not detected Nasal RSV Type A (PCR) Pending Nasal RSV Type B (PCR) Pending BRANDON Scrn Qualitative BRANDON [place] Interp Anti-Proteinase 3 FEIA c/o 1.9 Anti-Myeloperoxidase Complement C3 Complement C4 Chlamy pneumoniae PCR Pending Adenovirus DNA Pending Human Bocavirus (DENIZ) Pending Coronavirus Type OC43 Pending Coronavirus Type HKU1 Pending Coronavirus Type 229E Pending Coronavirus Type NL63 Pending Human Metapneumovir PCR Pending Influenza A (RT-PCR) Negative Influenza A (PCR) Pending Influenza A (H1) RNA Pending Influenza A (H3) PCR Pending Influenza B (RT-PCR) Negative Ur L.pneumophila Ag Mycoplasma pneumon IgM M. pneumoniae DNA Pending Parainfluenza PCR Pending Parainfluenza 2 (PCR) Pending Parainfluenza 3 RNA (PCR) Pending Parainfluenza 4 (PCR) Pending RSV (RT-PCR) Negative Rhino/Enterovirus (DENIZ) Pending SARS-CoV-2 RNA (RT-PCR) Negative Pending Urine Pneumococcal Ag Influenza Type B (PCR) Pending Misc Test Comment Pending Blood Type Antibody Screen Crossmatch 02/13/24 02/13/24 02/13/24 16:08 11:30 10:15 WBC RBC Hgb Hct MCV MCH MCHC RDW Plt Count MPV ESR Puncture Site ABG pH ABG pCO2 ABG pO2 ABG PO2/FiO2 Ratio ABG HCO3 ABG O2 Saturation ABG O2 Content ABG Base Excess A-a Gradient Oxyhemoglobin Total Hemoglobin O2 Delivery Device O2 Liters/Min FiO2 Sodium Potassium Chloride Carbon Dioxide Anion Gap BUN Creatinine Estim Creat Clear Calc Estimated GFR Glucose POC Capillary Glucose 142 H 146 H Calcium Phosphorus Magnesium Total Bilirubin AST ALT Alkaline Phosphatase Total Creatine Kinase C-Reactive Protein NT-Pro-B Natriuret Pep 3970 H Total Protein Albumin Alpha-1-AT Phenotype RBC Folate Procalcitonin 0.2 TSH 1.100 Free T4 1.07 Nasal MRSA (PCR) Nasal RSV Type A (PCR) Nasal RSV Type B (PCR) BRANDON Scrn Qualitative BRANDON [place] Interp Anti-Proteinase 3 FEIA c/o 1.9 Anti-Myeloperoxidase Complement C3 Complement C4 Chlamy pneumoniae PCR Adenovirus DNA Human Bocavirus (DENIZ) Coronavirus Type OC43 Coronavirus Type HKU1 Coronavirus Type 229E Coronavirus Type NL63 Human Metapneumovir PCR Influenza A (RT-PCR) Influenza A (PCR) Influenza A (H1) RNA Influenza A (H3) PCR Influenza B (RT-PCR) Ur L.pneumophila Ag Mycoplasma pneumon IgM M. pneumoniae DNA Parainfluenza PCR Parainfluenza 2 (PCR) Parainfluenza 3 RNA (PCR) Parainfluenza 4 (PCR) RSV (RT-PCR) Rhino/Enterovirus (DENIZ) SARS-CoV-2 RNA (RT-PCR) Urine Pneumococcal Ag Influenza Type B (PCR) Misc Test Comment Blood Type Antibody Screen Crossmatch 02/12/24 02/11/24 04:38 20:58 WBC RBC Hgb Hct MCV MCH MCHC RDW Plt Count MPV ESR Puncture Site ABG pH ABG pCO2 ABG pO2 ABG PO2/FiO2 Ratio ABG HCO3 ABG O2 Saturation ABG O2 Content ABG Base Excess A-a Gradient Oxyhemoglobin Total Hemoglobin O2 Delivery Device O2 Liters/Min FiO2 Sodium Potassium Chloride Carbon Dioxide Anion Gap BUN Creatinine Estim Creat Clear Calc Estimated GFR Glucose POC Capillary Glucose Calcium Phosphorus Magnesium Total Bilirubin AST ALT Alkaline Phosphatase Total Creatine Kinase C-Reactive Protein NT-Pro-B Natriuret Pep Total Protein Albumin Alpha-1-AT Phenotype RBC Folate 1081 Procalcitonin TSH Free T4 Nasal MRSA (PCR) Nasal RSV Type A (PCR) Nasal RSV Type B (PCR) BRANDON Scrn Qualitative BRANDON [place] Interp Anti-Proteinase 3 FEIA c/o 1.9 Anti-Myeloperoxidase Complement C3 Complement C4 Chlamy pneumoniae PCR Adenovirus DNA Human Bocavirus (DENIZ) Coronavirus Type OC43 Coronavirus Type HKU1 Coronavirus Type 229E Coronavirus Type NL63 Human Metapneumovir PCR Influenza A (RT-PCR) Influenza A (PCR) Influenza A (H1) RNA Influenza A (H3) PCR Influenza B (RT-PCR) Ur L.pneumophila Ag Mycoplasma pneumon IgM M. pneumoniae DNA Parainfluenza PCR Parainfluenza 2 (PCR) Parainfluenza 3 RNA (PCR) Parainfluenza 4 (PCR) RSV (RT-PCR) Rhino/Enterovirus (DENIZ) SARS-CoV-2 RNA (RT-PCR) Urine Pneumococcal Ag Influenza Type B (PCR) Misc Test Comment Blood Type B Negative Antibody Screen Negative Crossmatch See Detail Preliminary micro results at discharge 02/11/24 20:58 Blood Culture - Preliminary Blood 02/11/24 20:58 Blood Culture - Preliminary Blood
--- NOTE | 2024-02-14 11:00 | PC.NURSE ---
This RN called [facility] and gave report to the receiving RN, Abigail. Contact phone number was and the pt's room was [id number].
[2024-02-14] MEDS: TUBING, BLOOD PLUM PUMP TUBING 1 EACH XX (11:03)
[2024-02-14] MEDS: SODIUM CHLORIDE 0.9% IV 250 ML 30 ML IV CONT (11:03)
--- NOTE | 2024-02-14 11:16 | P.PNGI_ITS ---
Progress Note: A&P Assessment and Plan (1) Hemoptysis: Code(s): R04.2 - Hemoptysis Status: Acute (2) Anemia, unspecified: Qualifiers: Anemia type: unspecified type Qualified Code(s): D64.9 - Anemia, unspecified Code(s): D64.9 - Anemia, unspecified Status: Acute Plan The patient was originally seen for melena and a severe decrease in hematocrit. However, during hospitalization he has developed hemoptysis and pulmonary infiltrates, raising the suspicion of pulmonary vasculitis. EGD was canceled due to worsening respiratory status, now requiring more oxygen despite not feeling shortness of breath. He is on his way to being transferred to [facility] in [place] for the investigation of this predominant pulmonary problem. Subjective Date/time seen: 02/14/24 11:16 Objective Data Vital Signs Vital Signs: Vital Signs - 24 hr 02/13/24 11:53 02/13/24 12:00 02/13/24 12:00 Temperature 97.4 F L Pulse Rate 83 83 Respiratory Rate 24 H Blood Pressure 152/53 H Pulse Oximetry 93 96 Oxygen Delivery Nasal Cannula Oxygen Flow Rate 5 02/13/24 14:00 02/13/24 16:00 02/13/24 16:00 Temperature 100.3 F H Pulse Rate 81 81 80 Respiratory Rate 24 H Blood Pressure 153/50 H Pulse Oximetry 95 Oxygen Delivery Oxygen Flow Rate 02/13/24 16:23 02/13/24 16:00 02/13/24 17:59 Temperature 100.3 F H 98.4 F Pulse Rate Respiratory Rate Blood Pressure Pulse Oximetry 92 Oxygen Delivery Nasal Cannula Oxygen Flow Rate 5 02/13/24 18:00 02/13/24 20:18 02/13/24 20:45 Temperature 98.7 F Pulse Rate 81 74 74 Respiratory Rate 24 H 18 Blood Pressure 141/56 H Pulse Oximetry 94 Oxygen Delivery Oxygen Flow Rate 02/13/24 20:55 02/13/24 20:55 02/13/24 23:24 Temperature 97.7 F Pulse Rate 75 74 77 Respiratory Rate 18 24 H Blood Pressure 132/51 L Pulse Oximetry 94 91 Oxygen Delivery Nasal Cannula Oxygen Flow Rate 5 02/13/24 20:15 02/13/24 20:50 02/14/24 00:00 Temperature Pulse Rate 74 80 77 Respiratory Rate 24 H 22 H 24 H Blood Pressure Pulse Oximetry 94 95 91 Oxygen Delivery Nasal Cannula Nasal Cannula Nasal Cannula Oxygen Flow Rate 5 5 5 02/13/24 20:00 02/13/24 22:00 02/14/24 00:00 Temperature Pulse Rate 75 80 87 Respiratory Rate Blood Pressure Pulse Oximetry Oxygen Delivery Oxygen Flow Rate 02/14/24 02:23 02/14/24 02:33 02/14/24 02:00 Temperature Pulse Rate 75 75 76 Respiratory Rate 18 18 Blood Pressure Pulse Oximetry Oxygen Delivery Oxygen Flow Rate 02/14/24 02:20 02/14/24 02:50 02/14/24 04:42 Temperature 97.7 F Pulse Rate 73 79 73 Respiratory Rate 18 18 24 H Blood Pressure 154/54 H Pulse Oximetry 83 L 92 100 Oxygen Delivery Nasal Cannula High Flow Nasal Cannula Oxygen Flow Rate 5 6 02/14/24 04:00 02/14/24 04:00 02/14/24 05:11 Temperature Pulse Rate 73 75 75 Respiratory Rate 24 H Blood Pressure Pulse Oximetry 100 Oxygen Delivery High Flow Nasal Cannula Oxygen Flow Rate 6 02/14/24 07:30 02/14/24 07:30 02/14/24 07:37 Temperature Pulse Rate 77 75 Respiratory Rate 18 18 Blood Pressure Pulse Oximetry 96 Oxygen Delivery Nasal Cannula Oxygen Flow Rate 6 02/14/24 08:00 02/14/24 08:00 02/14/24 08:00 Temperature 98.6 F Pulse Rate 92 80 Respiratory Rate 20 Blood Pressure 146/58 H Pulse Oximetry 94 94 Oxygen Delivery Nasal Cannula Oxygen Flow Rate 6 02/14/24 10:59 Temperature 98.6 F Pulse Rate 76 Respiratory Rate 20 Blood Pressure 145/48 H Pulse Oximetry 95 Oxygen Delivery Oxygen Flow Rate Intake/Output Intake/Output: Intake & Output 02/11/24 02/12/24 02/13/24 02/14/24 23:59 23:59 23:59 23:59 Intake Total 0 2362.5 1780 350 Output Total 1850 3625 1400 Balance 0 512.5 -3657 -1050 Meds/Results Medications: Active Medications Generic Name Dose Route Start Last Admin Trade Name Freq PRN Reason Stop Dose Admin Acetaminophen 650 mg 02/13/24 16:14 02/13/24 16:23 Acetaminophen 325 Mg Tablet PO 650 mg Q4H PRN Administration Mild Pain (1-3) or Fever Albuterol 2 puff 02/12/24 03:08 02/12/24 21:54 Albuterol Sulfate (*Sp) Aerosol 1 Puff INHALATION 2 puff Q4HRT PRN Administration shortness of breath or wheezing Albuterol/Ipratropium 3 ml 02/13/24 20:00 02/14/24 07:30 Ipratropium 0.5 Mg/Albuterol Sulfate 2.5 Mg Ampul.Neb 3 Ml INHALATION 3 ml Q6HRT ALEKSANDR Administration Bumetanide 1 mg 02/14/24 17:00 Bumetanide Inj 1 Mg/4 Ml Vial IV PUSH BID ALEKSANDR Dextrose 12.5 gm 02/12/24 10:46 Dextrose 50% 25 Gm/50 Ml Syringe IV PUSH PRN PRN Hypoglycemia Protocol Doxazosin Mesylate 8 mg 02/12/24 09:00 02/14/24 08:30 Doxazosin Mesylate 4 Mg Tablet PO 8 mg DAILY ALEKSANDR Administration Epoetin Jose Antonio-epbx 10,000 units 02/16/24 09:00 Epoetin Jose Antonio-Epbx 10,000 Units/Ml Vial SUB-Q MOWEFR@09 ALEKSANDR Glucagon 1 mg 02/12/24 10:46 Glucagon For Inj 1 Mg Vial IM PRN PRN Hypoglycemia Protocol Glucose 15 gm 02/12/24 10:46 Glucose Oral Gel 15 Gm Of Glucse In 37.5 Gm Tube PO PRN PRN Hypoglycemia Protocol Dextrose 1,000 mls @ 100 mls/hr 02/12/24 10:46 Dextrose 5% 1,000 Ml IVPB PRN PRN Hypoglycemia Protocol Cefepime HCl 0.5 gm/ Dextrose 50 mls @ 100 mls/hr 02/13/24 19:00 02/13/24 20:46 IVPB Infused Q24H ALEKSANDR Infusion Levofloxacin/Dextrose 500 mg in 100 mls @ 100 mls/hr 02/15/24 18:00 Levaquin 500 Mg/D5w 100 Ml IVPB Q24H ALEKSANDR Sodium Chloride 250 mls @ 30 mls/hr 02/14/24 06:41 02/14/24 11:03 Normal Saline Iv IV CONT 02/14/24 15:00 30 mls/hr .Q8H20M STA Administration Insulin Aspart 4 - 8 units 02/12/24 12:00 02/14/24 08:20 Insulin Aspart (*Bkc) 100 Units/Ml SUB-Q Not Given TIDWM [facility] Protocol Insulin Aspart 2 - 4 units 02/12/24 21:00 02/13/24 20:35 Insulin Aspart (*Bkc) 100 Units/Ml SUB-Q Not Given HS [facility] Protocol Insulin Glargine 20 units 02/12/24 21:00 02/13/24 20:45 Insulin Glargine (*Bkc) 100 Units/Ml SUB-Q 20 units HS ALEKSANDR Administration Latanoprost 1 drop 02/12/24 18:00 02/13/24 17:55 Latanoprost 0.005% Op Soln 2.5 Ml Btl EACH EYE 1 drop QPM ALEKSANDR Administration Pantoprazole Sodium 40 mg 02/12/24 09:00 02/14/24 08:31 Pantoprazole Sodium Iv 40 Mg Vial IV PUSH 40 mg Q12HR ALEKSANDR Administration Timolol Maleate 1 drop 02/12/24 09:00 02/14/24 08:31 Timolol Maleate 0.5% Op Soln 5 Ml Bottle EACH EYE 1 drop DAILY ALEKSANDR Administration Vancomycin HCl 1 each 02/13/24 17:47 Vancomycin For Acute Kidney Injury IVPB PRN PRN Vancomycin Protocol Radiology Results: ITS Impressions Chest/Abdomen/Pelvis CT 02/11/24 22:06 IMPRESSION: 1. Diffuse bilateral groundglass opacities and smooth septal line thickening and favor moderate pulmonary edema over pneumonia with very small bilateral pleural effusions. 2. Moderate emphysema. 3. 2 mm nonobstructing right renal stone. 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 5. Mild diverticulosis without evident diverticulitis. 6. Prominent prostatomegaly. 7. Moderate-sized bilateral fat-containing inguinal hernias. Renal Ultrasound 02/12/24 10:14 IMPRESSION: 1. Normal kidneys. No hydronephrosis. Chest X-Ray 02/14/24 06:15 IMPRESSION: 1. Diffuse lung disease with mild improvement on the left, likely moderate pulmonary edema without or with superimposed pneumonia. 2. Emphysema. Labs Labs: Laboratory Results - last 24 hr 02/11/24 02/12/24 02/13/24 20:58 04:38 10:15 WBC RBC Hgb Hct MCV MCH MCHC RDW Plt Count MPV ESR Puncture Site ABG pH ABG pCO2 ABG pO2 ABG PO2/FiO2 Ratio ABG HCO3 ABG O2 Saturation ABG O2 Content ABG Base Excess A-a Gradient Oxyhemoglobin Total Hemoglobin O2 Delivery Device O2 Liters/Min FiO2 Sodium Potassium Chloride Carbon Dioxide Anion Gap BUN Creatinine Estim Creat Clear Calc Estimated GFR Glucose POC Capillary Glucose Calcium Phosphorus Magnesium Total Bilirubin AST ALT Alkaline Phosphatase Total Creatine Kinase C-Reactive Protein NT-Pro-B Natriuret Pep 3970 H Total Protein Albumin RBC Folate 1081 Procalcitonin 0.2 TSH 1.100 Free T4 1.07 Nasal MRSA (PCR) Complement C3 Complement C4 Influenza A (RT-PCR) Influenza B (RT-PCR) RSV (RT-PCR) SARS-CoV-2 RNA (RT-PCR) Blood Type B Negative Antibody Screen Negative Crossmatch See Detail 02/13/24 02/13/24 02/13/24 11:30 16:08 16:10 WBC RBC Hgb Hct MCV MCH MCHC RDW Plt Count MPV ESR Puncture Site Right radial ABG pH 7.504 H* ABG pCO2 31.6 L ABG pO2 61.9 L ABG PO2/FiO2 Ratio 1.55 ABG HCO3 24.3 ABG O2 Saturation 93.9 L ABG O2 Content 9.5 L ABG Base Excess 1.3 A-a Gradient 187.0 Oxyhemoglobin 90.9 Total Hemoglobin 7.4 L* O2 Delivery Device Nasal cannula O2 Liters/Min 5.0 FiO2 40 Sodium Potassium Chloride Carbon Dioxide Anion Gap BUN Creatinine Estim Creat Clear Calc Estimated GFR Glucose POC Capillary Glucose 146 H 142 H Calcium Phosphorus Magnesium Total Bilirubin AST ALT Alkaline Phosphatase Total Creatine Kinase C-Reactive Protein NT-Pro-B Natriuret Pep Total Protein Albumin RBC Folate Procalcitonin TSH Free T4 Nasal MRSA (PCR) Complement C3 Complement C4 Influenza A (RT-PCR) Influenza B (RT-PCR) RSV (RT-PCR) SARS-CoV-2 RNA (RT-PCR) Blood Type Antibody Screen Crossmatch 02/13/24 02/13/24 02/14/24 17:52 19:59 04:23 WBC RBC Hgb Hct MCV MCH MCHC RDW Plt Count MPV ESR Puncture Site ABG pH ABG pCO2 ABG pO2 ABG PO2/FiO2 Ratio ABG HCO3 ABG O2 Saturation ABG O2 Content ABG Base Excess A-a Gradient Oxyhemoglobin Total Hemoglobin O2 Delivery Device O2 Liters/Min FiO2 Sodium 139 Potassium 4.4 Chloride 104 Carbon Dioxide 23 Anion Gap 12 BUN 49 H Creatinine 3.40 H Estim Creat Clear Calc 13 Estimated GFR 17 L Glucose 137 H POC Capillary Glucose 151 H Calcium 8.2 L Phosphorus 4.2 Magnesium 1.4 L Total Bilirubin 0.6 AST 25 ALT 22 Alkaline Phosphatase 63 Total Creatine Kinase 60 C-Reactive Protein 14.1 H NT-Pro-B Natriuret Pep Total Protein 6.0 L Albumin 3.1 L RBC Folate Procalcitonin TSH Free T4 Nasal MRSA (PCR) Not detected Complement C3 68 L Complement C4 10.9 L Influenza A (RT-PCR) Negative Influenza B (RT-PCR) Negative RSV (RT-PCR) Negative SARS-CoV-2 RNA (RT-PCR) Negative Blood Type Antibody Screen Crossmatch 02/14/24 02/14/24 02/14/24 04:24 05:48 07:50 WBC 6.5 RBC 2.07 L Hgb 6.5 L* Hct 19.9 L* MCV 96.1 MCH 31.4 MCHC 32.7 RDW 15.3 H Plt Count 170 MPV 9.0 ESR > 140 H Puncture Site ABG pH ABG pCO2 ABG pO2 ABG PO2/FiO2 Ratio ABG HCO3 ABG O2 Saturation ABG O2 Content ABG Base Excess A-a Gradient Oxyhemoglobin Total Hemoglobin O2 Delivery Device O2 Liters/Min FiO2 Sodium Potassium Chloride Carbon Dioxide Anion Gap BUN Creatinine Estim Creat Clear Calc Estimated GFR Glucose POC Capillary Glucose 155 H Calcium Phosphorus Magnesium Total Bilirubin AST ALT Alkaline Phosphatase Total Creatine Kinase C-Reactive Protein NT-Pro-B Natriuret Pep Total Protein Albumin RBC Folate Procalcitonin 0.3 TSH Free T4 Nasal MRSA (PCR) Complement C3 Complement C4 Influenza A (RT-PCR) Influenza B (RT-PCR) RSV (RT-PCR) SARS-CoV-2 RNA (RT-PCR) Blood Type Antibody Screen Crossmatch
[2024-02-14 11:53] LABS: Glucose Point of Care 160 mg/dl (65-105)
--- NOTE | 2024-02-14 12:57 | PCPTNOTE ---
Patient has HgB of 6.5 and is in process of being transferred to [facility], will check on patient if still here tomorrow.
--- NOTE | 2024-02-14 13:06 | PC.NURSE ---
Blood was still transfusing when EMS transported pt to [facility].
[2024-02-16 18:27] LABS: ANA Cascade Screen POSITIVE (NEGATIVE); Chromatin (Nucleosomal) Ab 6.2 POS AI (<1.0 NEG); Chromatin Antibody Charge YES; DNA (ds) Antibody Charge YES; RNP Antibody <1.0 NEG AI (<1.0 NEG); RNP Antibody Charge YES; Sm Antibody <1.0 NEG AI (<1.0 NEG); Sm Antibody Charge YES; Sm/RNP Antibody <1.0 NEG AI (<1.0 NEG); Sm/RNP Antibody Charge YES
[2024-02-18 11:23] LABS: Adenovirus DNA Not Detected (Not Detected); Chlamydophila pneumoniae Not Detected (Not Detected); Coronavirus 229E Not Detected (Not Detected); Coronavirus HKU1 Not Detected (Not Detected); Coronavirus NL63 Not Detected (Not Detected); Coronavirus OC43 Not Detected (Not Detected); Human Metapneumovirus Not Detected (Not Detected); Human Parainfluenza Virus 1 Not Detected (Not Detected); Human Parainfluenza Virus 2 Not Detected (Not Detected); Human Parainfluenza Virus 3 Not Detected (Not Detected); Human Parainfluenza Virus 4 Not Detected (Not Detected); Human RSV B Not Detected (Not Detected); Influenza A Not Detected (Not Detected); Influenza B Not Detected (Not Detected); Mycoplasma pneumoniae Not Detected (Not Detected); Rhinovirus/Enterovirus Not Detected (Not Detected)
[2024-02-18 18:58] LABS: Pneumococcal Antigen Urine NOT DETECTED
== END 2024-02-14 13:06 | disposition short-term general hospital (02) | DRG 811 ==
LOC: ANHED 23:42 → ANHIMU 02-12 00:27
PROVIDERS: Internal Medicine Nephrology; Internal Medicine Pulmonary Disease; Nurse Practitioner; Admitting Provider Internal Medicine; Emergency Provider Emergency Medicine; PCP Family Medicine; Visit Provider Internal Medicine
DX: D62 Acute posthemorrhagic anemia (principal); J18.9 Pneumonia, unspecified organism; N17.9 Acute kidney failure, unspecified; K92.1 Melena; R04.2 Hemoptysis; N18.32 Chronic kidney disease, stage 3b; I12.9 Hypertensive chronic kidney disease with stage 1 through stage 4 chronic kidney disease, or unspecified chronic kidney disease; D63.1 Anemia in chronic kidney disease; E87.5 Hyperkalemia; E11.22 Type 2 diabetes mellitus with diabetic chronic kidney disease; I77.6 Arteritis, unspecified; J43.2 Centrilobular emphysema; E78.2 Mixed hyperlipidemia; K21.9 Gastro-esophageal reflux disease without esophagitis; K76.0 Fatty (change of) liver, not elsewhere classified; H40.9 Unspecified glaucoma; Z87.891 Personal history of nicotine dependence; Z79.4 Long term (current) use of insulin
CPT/HCPCS: 36415; 36430; 36600; 71045; 71250; 74176; 76775; 80048; 80053; 81001; 81050; 82104; 82550; 82570; 82607; 82747; 82805; 82948; 83036; 83540; 83550; 83605; 83735; 83880; 84100; 84132; 84145; 84156; 84300; 84439; 84443; 84540; 85014; 85018; 85025; 85027; 85610; 85652; 85730; 85999; 86036; 86038; 86140; 86160; 86225; 86235; 86364; 86738; 86850; 86900; 86901; 86923; 87040; 87449; 87633; 87636; 87637; 87641; 87899; 93005; 94640; A9270; J0456; J0692; J0696; J1815; J1939; J1956; J2470; J3370; J7050; J7120; P9016; Q5105

== ENCOUNTER 2024-03-10 09:04 | Inpatient (IN) | payer MEDICARE, SELFPAY ==
[2024-03-10] VITALS (37 sets, daily range): BP systolic 136–191; BP diastolic 54–79; PULSE 82–108; RESP 12–26; TEMP 36.4–36.6; O2SAT 86–100; BMI 29.8
--- NOTE | ~2024-03-10 | XR_ITS ---
EXAMINATION: XR chest 1V portable DATE: 03/15/2024 06:26 INDICATION: Hypoxia. TECHNIQUE: A single frontal view of the chest was obtained. COMPARISON: Chest single view 03/14/2024, chest CT 03/10/2024 FINDINGS: There are airspace opacities at left lung base. No pleural effusion or pneumothorax. The he art size is normal. Calcified mediastinal lymph nodes are consistent with old granulomatous disease. IMPRESSION: 1. Worsened airspace opacities at left lung base, consistent with atelectasis versus pneumonia. Reviewed, dictated and finalized at location A. OO DESIGNER IMPRESSION: 1. Worsened airspace opacities at left lung base, consistent with atelectasis v ersus pneumonia.
--- NOTE | ~2024-03-10 | CT_ITS ---
EXAMINATION: CT chest abdomen pelvis wo con DATE: 03/10/2024 13:25 INDICATION: Pneumonia. Infected stones. TECHNIQUE: Computed tomography (CT) of the chest, abdomen, and pelvis was performed with 100 mL Omnip aque-350 intravenous contrast. Automated exposure control and iterative reconstruction technique were employed. The dose-length product was 1402.12 mGy-cm. COMPARISON: CT studies dated 02/11/2024 and 07/09/2021 FINDINGS: CHEST CT: Moderate emphysema. Small bilateral posterior layering pleural effusions with dependent atelectasis i n the bilateral lower lobes. There are additional patchy groundglass opacities in the bilateral lower lobes and dependent right middle lobe which could represent mild pulmonary edema or pneumonia. Calci fied nodules in the right middle and and upper lobes and calcified right peritracheal lymph nodes con sistent with old granulomatous disease. Heart size is normal. Decreased attenuation the blood pool re lative to myocardium consistent with anemia. Atherosclerotic coronary artery calcific location. Aorti c valve calcification. Thoracic aorta is normal in caliber. No pathologically enlarged thoracic lymph adenopathy. Mild thoracic spondylosis. ABDOMEN/PELVIS CT: A few tiny hepatic and splenic calcification is consistent with old granulomatous disease. Minimal am ount of perihepatic, perisplenic and pericholecystic ascites. Gallbladder is otherwise unremarkable. Pancreas and right adrenal gland are normal. 1.5 cm less than fluid attenuation left adrenal adenoma. There is bilateral perinephric stranding. The previously seen 2 mm right renal stone is no longer vi sualized. No evident urolithiasis at either kidney or ureter. Again seen are bilateral at least parti ally degraded renal collecting systems. There is mild hydronephrosis of both the upper and lower pole collecting systems at the left kidney. Bladder is normal. Prostatomegaly measuring 5.9 x 5.3 cm. Mod erate-sized bilateral fat-containing inguinal hernias. Mild scattered colonic diverticulosis without adjacent inflammatory stranding to suggest diverticulitis. Small bowel and appendix are normal. No pa thologically enlarged abdominal or pelvic lymphadenopathy. Moderate to severe lumbar spondylosis. IMPRESSION: 1. Moderate emphysema with patchy groundglass opacities in the bilateral lower lobes and right middle lobe which could represent mild pulmonary edema versus pneumonia which has improved since the prior study. 2. 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 2 mm stone previously seen i n the right kidney is no longer visualized. 3. Minimal perihepatic, perisplenic and pericholecystic ascites. 4. Prostatomegaly. 5. Moderate-sized bilateral fat-containing inguinal hernias. Reviewed, dictated and finalized at location B. NT FINGERPRINT EXAMINER IMPRESSION: 1. Moderate emphysema with patchy groundglass opacities in the bilateral lower lobes and right middle lobe which could represent mild pulmonary edema versus p neumonia which has improved since the prior study. 2. 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 2 mm stone previously seen in the right kidney is no longer vis ualized. 3. Minimal perihepatic, perisplenic and pericholecystic ascites. 4. Prostatomegaly. 5. Moderate-sized bilateral fat-containing inguinal hernias.
--- NOTE | ~2024-03-10 | XR_ITS ---
XR chest 2V Ordering provider: Jose Juan Robb MD History: 89 years Male with . DECREASED LOC. HYPOGLYCEMIA . Comparison: None. FINDINGS: MEDIASTINUM: The cardiac silhouette is not enlarged. Congestive pepe. LUNGS: No effusions or pneumothorax. Opacification in the right lung base suggestive of pneumonia. Mi nimal opacification the left lung base. Bilateral interstitial changes which may indicate pneumonitis . OTHER: No free air under the diaphragm. IMPRESSION: Bibasilar pneumonia more on the right side. Reviewed, dictated and finalized at location A. ENTS TRANSPORTER
--- NOTE | ~2024-03-10 | XR_ITS ---
EXAMINATION: XR chest 1V portable DATE: 03/14/2024 05:58 INDICATION: Hypoxia TECHNIQUE: frontal view of the chest was obtained. COMPARISON: Chest radiograph dated 03/13/2024 FINDINGS: Persistent streaky opacities at the right lung base which could represent atelectasis or pneumonia. N ear complete resolution of the prior pulmonary edema. No pleural effusion or pneumothorax. The cardio mediastinal silhouette is normal. Calcified right paratracheal lymph nodes consistent with old granul omatous disease. IMPRESSION: 1. Near complete resolution of prior pulmonary edema. 2. Streaky opacities at the right lower lung zone and favor atelectasis over pneumonia. Reviewed, dictated and finalized at location A. P FITNESS ASSISTANT DEPARTMENT HEAD IMPRESSION: 1. Near complete resolution of prior pulmonary edema. 2. Streaky opacities at the right lower lung zone and favor atelectasis over pn eumonia.
--- NOTE | ~2024-03-10 | CT_ITS ---
CT cervical spine wo con Ordering provider: Jose Juan Robb MD History: . Fall . Comparison: None. Technique: CT of the cervical spine was performed without contrast. Sagittal and coronal reformatted images were also obtained and reviewed. Automated exposure control and iterative reconstruction ricco hnique were employed. The dose-length product was 495.26 mGy-cm. FINDINGS: VERTEBRAE: No subluxation or acute fracture. The occipital condyles are intact. DISC SPACES: Disc C5-C6 and C6-C7. Multilevel facet joint disease. Multilevel uncovertebral joint ost eoarthritic changes. Bilateral narrowing of the foramina at the level of C5-C6 and C6-C7. PARASPINOUS SOFT TISSUES: Normal. IMPRESSION: No acute osseous abnormality cervical spine. Multilevel degenerative disc disease. Reviewed, dictated and finalized at location A. APY DIRECTOR
--- NOTE | ~2024-03-10 | XR_ITS ---
Portable chest x-ray Comparison: 03/11/2024 Clinical History: Hypoxia Findings: There is chronic interstitial disease and/or COPD. There is improving hazy right basilar a irspace disease. Cardiomediastinal silhouette is stable. Bones and soft tissues are unremarkable. Impression: Significantly improved hazy right basilar airspace disease. Underlying COPD and/or chronic interstitial disease. Reviewed, dictated and finalized at location . BUFFER Impression: Significantly improved hazy right basilar airspace disease. Underlying COPD and/or chronic interstitial disease.
--- NOTE | ~2024-03-10 | XR_ITS ---
EXAMINATION: XR chest 1V portable DATE: 03/13/2024 05:46 INDICATION: Hypoxia TECHNIQUE: frontal view of the chest was obtained. COMPARISON: Chest radiograph dated 03/12/2024 FINDINGS: Persistent increased interstitial pattern in the bilateral mid and lower lung zones consistent with m ild pulmonary edema. No pleural effusion or pneumothorax. Heart size is normal. Calcified mediastinal lymph nodes consistent with old granulomatous disease. IMPRESSION: 1. Unchanged mild pulmonary edema Reviewed, dictated and finalized at location A. OR IT SPECIALIST
--- NOTE | ~2024-03-10 | CT_ITS ---
CT brain wo con Ordering provider: Jose Juan Robb MD History: 89 years Male with . AMS/FAll/Hypoglycemia . Comparison: None. Technique: CT of the head without contrast. Radiation reduction technique utilized.The dose-length product was 681 mGy-cm. FINDINGS: BRAIN PARENCHYMA AND CSF SPACES: Severe leukoaraiosis and diffuse cortical atrophy. Severe atheromato us disease. No midline shift, mass effect or hemorrhage. The brain parenchyma and CSF spaces are oth erwise normal. VISUALIZED PARANASAL SINUSES: Well aerated. MASTOIDS: Well aerated. BONES: The bones appear intact. SOFT TISSUES: Visualized nasopharynx is normal. Superficial soft tissues are normal. IMPRESSION: No acute intracranial findings. Reviewed, dictated and finalized at location A. E WAREHOUSE ASSOCIATE
--- NOTE | ~2024-03-10 | XR_ITS ---
Portable chest x-ray Comparison: 03/10/2024 Clinical History: Hypoxia Findings: Right basilar consolidation is again present. Possible minimal haziness left lung base. C ardiomediastinal silhouette is stable. Bones and soft tissues are unremarkable. Impression: Stable right basilar consolidation and possible minimal haziness left lung base. Correlate for asymme tric pulmonary edema versus pneumonia. Reviewed, dictated and finalized at location . LRY BENCH MOLDER Impression: Stable right basilar consolidation and possible minimal haziness left lung base . Correlate for asymmetric pulmonary edema versus pneumonia.
--- NOTE | ~2024-03-10 | XR_ITS ---
EXAMINATION: XR chest 1V portable DATE: 03/12/2024 18:06 INDICATION: Congestive heart failure. TECHNIQUE: A single frontal view of the chest was obtained. COMPARISON: Chest single view 03/12/2024 at 5:27 AM, chest CT 03/10/2024 FINDINGS: There is a diffuse interstitial pattern with a lower lung predominance, consistent with mil d pulmonary edema. No pleural effusion or pneumothorax. The heart size is normal. IMPRESSION: 1. Mild pulmonary edema. Reviewed, dictated and finalized at location A. TY AND SECURITY MANAGER IMPRESSION: 1. Mild pulmonary edema.
[2024-03-10 09:21] LABS: Glucose Point of Care 97 mg/dl (65-105)
--- NOTE | 2024-03-10 09:23 | ECG_ITS ---
Test Date: 2024-03-10 09:23:26 Measurements Intervals [place] Rate: 103 P: 65 DE: 157 QRS: 68 QRSD: 122 T: -10 QT: 345 QTc: 454 Interpretive Statements SINUS TACHYCARDIA RIGHT BUNDLE BRANCH BLOCK ST-T WAVE ABNORMALITY IN INF/LAT LEADS- CONSIDER ISCHEMIA BASELINE ARTIFACT- I, II, III, AVR, AVL, AVF, V1-V2, V4-V6 ABNORMAL ECG Compared to ECG 02/12/2024 13:04:05 HEART RATE HAS INCREASED Electronically Signed On 03-10-2024 11:34:40 [employer] by Fady Patel D.O.
[2024-03-10 10:03] LABS: Hematocrit 22.3 % (42.0-52.0); Hemoglobin 7.1 g/dL (14.0-18.0); Immature Granulocyte Absolute 0.13 K/mm3 (0.00-0.031); Immature Granulocyte Percent A 1.4 % (0-0.5); Immature Platelet Fraction Pct 1.7 % (0.9-11.2); Lymphocytes Absolute Auto 0.33 K/mm3 (0.9-3.2); Lymphocytes Percent Auto 3.5 % (18.3-44.2); Mean Corpuscular HGB Conc 31.8 g/dl (32-36); Mean Corpuscular Hemoglobin 31.3 pg (26-34); Mean Corpuscular Volume 98.2 fl (80-100); Mean Platelet Volume 9.6 fl (7.4-10.4); Monocytes Absolute Auto 0.5 K/mm3 (0.1-0.6); Monocytes Percent Auto 5.4 % (2.6-8.5); Neutrophils Absolute Auto 8.5 K/mm3 (1.3-6.7); Neutrophils Percent Auto 89.7 % (45.5-73.1); Platelet Count Result 100 k/mm3 (150-375); Red Blood Count 2.27 M/mm3 (4.6-6.20); Red Cell Distribution Width 17.7 % (11.5-14.5); White Blood Count 9.5 K/mm3 (4.5-10.0)
[2024-03-10 10:09] LABS: Anion Gap 7 mmol/L (4-12); Blood Urea Nitrogen 89 mg/dL (9-20); Calcium 7.3 mg/dL (8.4-10.2); Carbon Dioxide 23 mmol/L (22-30); Chloride 108 mmol/L (98-107); Estimated Glomerular Filt Rate 11; Glucose 63 mg/dL (65-110); Potassium 4.5 mmol/L (3.4-5.0); Sodium 138 mmol/L (137-145)
--- NOTE | 2024-03-10 10:10 | PC.NURSE ---
PT ADAMENTLY REFUSING TO BE STRAIGHT CATHED FOR URINE. PT WAS INCONTINENT OF LARGE AMOUNT OF DARK,TARRY STOOL. PT WAS CLEANED UP THROUGHLY AND LINENS CHANGED. ATTEMPTED TO HELP PT WITH THE URINAL AND HE SAID IF YOU PLAY WITH IT IT WOULD WORK BETTER PT WAS REDIRECTED REGARDING HIS WORDS AND URINAL WAS HELD UNTIL PT URINATED.
[2024-03-10] MEDS: DEXTROSE 50% 25 GM/50 ML SYRINGE IV PUSH ×2 (10:30→12:34)
[2024-03-10 10:33] LABS: Glucose Point of Care 43 mg/dl (65-105)
[2024-03-10] MEDS: SODIUM CHLORIDE 0.9% IV 1,000 ML 999 ML IV CONT (10:36)
--- NOTE | 2024-03-10 10:40 | PC.NURSE ---
BLOOD SUGAR NOTED. PT AWAKE AND ALERT. DR MORALES AWARE. PROTOCOL D50 GIVEN. FOOD TRAY ORDERED AND SNACKS PROVIDED. CONT TO MONITOR
--- NOTE | 2024-03-10 10:43 | ED.GENADULT ---
HPI - General Adult General Chief complaint: Recheck/Abnormal Lab/Rx Stated complaint: unconscious but breathing Time Seen by Provider: 03/10/24 09:45 History of Present Illness HPI narrative: This is an 89-year-old male presenting ED with chief complaint of altered mental status. Patient was found by his at 7:30 a.m. on the sofa unresponsive. EMS was called. He was found have a blood sugar of 45. He received D10 250 cc with improvement in mental status. Patient takes insulin for diabetes. His is unsure if he ate anything this morning or last night bed. 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 None go with rituximab and steroids. At this time the patient is regaining his mental status. He has no physical complaints. Related Data Home Medications Medication Instructions Recorded Confirmed pen needle, diabetic 32 gauge x #100 ea 03/24/19 03/08/2404/25 (NovoTwist) latanoprost 0.005 % eye drops 1 drop ophthalmic (eye) QPM 12/07/19 03/08/24 timolol maleate 0.5 % eye drops 1 drp EACH EYE QAM 12/02/23 03/08/24 atorvastatin 40 mg tablet 40 mg PO DAILY 02/12/24 03/08/24 insulin detemir U-100 100 unit/mL 70 unit subcut DAILY 02/12/24 03/08/24 subcutaneous solution insulin detemir U-100 100 unit/mL 30 unit subcut HS 02/12/24 03/08/24 subcutaneous solution (Levemir U-100 Insulin) aspirin 81 mg tablet,delayed 81 mg PO DAILY 02/26/24 03/08/24 release (Adult Low Dose Aspirin) cyanocobalamin (vitamin B-12) 2,500 mcg PO DAILY 02/26/24 03/08/24 2,500 mcg tablet ergocalciferol (vitamin D2) 50,000 unit PO 02/26/24 03/08/24 unit tablet ferrous sulfate 325 mg (65 mg 325 mg PO DAILY 02/26/24 03/08/24 iron) tablet (Iron (ferrous sulfate)) sodium bicarbonate 325 mg tablet 325 mg PO DAILY 02/26/24 03/08/24 Allergies Allergy/AdvReac Type Severity Reaction Status Date / Time No Known Allergies Allergy Verified 03/08/24 13:37 [facility] Past Medical History Medical History Acute on chronic anemia Anemia due to stage 3 chronic kidney disease Anemia, unspecified BMI 27.0-27.9,adult BMI 28.0-28.9,adult Essential (primary) hypertension Fatty liver Gastro-esophageal reflux disease without esophagitis Glaucoma Hearing loss Melena Mixed hyperlipidemia Pulmonary emphysema determined by X-ray 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 Surgical History Surgical History H/O eye surgery H/O eye surgery Hx of detached retina repair Family History Family History Mother Family history of heart disease in male family member before age 55 Heart disease Father , 96 y/o Diabetes mellitus Neuropathy Sibling Parkinson disease Social History Social History Smoking packs per day: 0.5 Smoking cigarettes per day: 10.0 Years smoked: 25 Smoking pack-years: 12.50 Smoking status: Former smoker Second hand tobacco smoke exposure: No Alcohol intake: never Substance use: never Substance use type: does not use Do You Feel Safe in your Home?: Yes Lack of Transportation: No Lack of Food: Never True Current Housing: I Have Housing Concerned About Future Housing: No Difficulty Paying Gas/Electric Bills: No Difficulty Paying for Meds: No Currently Unemployed: No Education: High School Diploma/GED Difficulty w/ Childcare or Family Care: No Living arrangements: with family 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 EYES: EOMI, NOSE: Atraumatic NECK: Trachea midline RESPIRATORY: No increased rate of breathing clear to auscultation CARDIOVASCULAR: RRR, ABDOMINAL: Non-distended, soft nontender MUSCULOSKELETAl: No obvious deformities NEURO: Alert. Moving 4/4 extremities SKIN:: Warm, dry. Normal color PSYCHIATRIC: Normal affect Course Vital Signs Vital signs: Vital Signs Temperature 98 F 03/10/24 09:06 Pulse Rate 108 H 03/10/24 09:06 Respiratory Rate 18 03/10/24 09:06 Blood Pressure 167/79 H 03/10/24 09:06 Pulse Oximetry 90 03/10/24 09:06 Oxygen Delivery Room Air 03/10/24 09:06 Temperature 98 F 03/10/24 09:06 Pulse Rate 108 H 03/10/24 09:06 Respiratory Rate 18 03/10/24 09:06 Blood Pressure 167/79 H 03/10/24 09:06 Pulse Oximetry 90 03/10/24 09:06 Oxygen Delivery Room Air 03/10/24 09:06 Medical Decision Making MDM Narrative Medical decision making narrative: -Course: 89-year-old male presenting with altered mental status. Found to be hypoglycemic. Likely multifactorial from insulin use without eating,worsening kidney function, and concurrent UTI/PNA. Patient given multiple dextrose boluses/feeding for his recurrent hypoglycemia and was eventually started on a D10 drip. patient is hypoxic onroom air placed and 2L NC. Patient was initially started on ceftriaxone and azithromycin for his pneumonia and UTI, however as he's immunocompromised he has been switched to cefepime and vancomycin. Azithromycin was switched to doxycycline to prolonged QTC. Patient will be admitted the ICU further management of his infections and persistent hypoglycemia. 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 Vital Signs Vital Signs: Vital Signs Temperature 98 F 03/10/24 09:06 Pulse Rate 108 H 03/10/24 09:06 Respiratory Rate 18 03/10/24 09:06 Blood Pressure 167/79 H 03/10/24 09:06 Pulse Oximetry 90 03/10/24 09:06 Oxygen Delivery Room Air 03/10/24 09:06 Temperature 98 F 03/10/24 09:06 Pulse Rate 108 H 03/10/24 09:06 Respiratory Rate 18 03/10/24 09:06 Blood Pressure 167/79 H 03/10/24 09:06 Pulse Oximetry 90 03/10/24 09:06 Oxygen Delivery Room Air 03/10/24 09:06 Lab Data 03/10/24 09:53 03/10/24 09:53 Labs: Lab Results 03/10/24 03/10/24 03/10/24 Range/Units 09:19 09:53 10:24 WBC 9.5 (4.5-10.0) K/mm3 RBC 2.27 L (4.6-6.20) M/mm3 Hgb 7.1 L (14.0-18.0) g/dL Hct 22.3 L (42.0-52.0) % MCV 98.2 (80-100) fl MCH 31.3 (26-34) pg MCHC 31.8 L (32-36) g/dl RDW 17.7 H (11.5-14.5) % Plt Count 100 L (150-375) k/mm3 MPV 9.6 (7.4-10.4) fl Immature Gran % (Auto) 1.4 H (0-0.5) % Neut % (Auto) 89.7 H (45.5-73.1) % Lymph % (Auto) 3.5 L (18.3-44.2) % [place] % (Auto) 5.4 (2.6-8.5) % Eos % (Auto) 0.0 (0-4.4) % Baso % (Auto) 0.0 L (0.2-1.2) % Lymph # (Auto) 0.33 L (0.9-3.2) K/mm3 Randolph # (Auto) 0.5 (0.1-0.6) K/mm3 Eos # (Auto) 0.0 (0-0.3) K/mm3 Baso # (Auto) 0.0 (0.0-0.1) K/mm3 Abs Immat Gran (auto) 0.13 H (0.00-0.031) K/mm3 Absolute Neuts (auto) 8.5 H (1.3-6.7) K/mm3 Absolute Nucleated RBC 0.000 (0.0-0.012) K/mm3 Nucleated RBC % 0.0 (0.0-0.2) % % Immature Plt Fraction 1.7 (0.9-11.2) % Sodium 138 (137-145) mmol/L Potassium 4.5 (3.4-5.0) mmol/L Chloride 108 H (98-107) mmol/L Carbon Dioxide 23 (22-30) mmol/L Anion Gap 7 (4-12) mmol/L BUN 89 H D (9-20) mg/dL Creatinine 5.10 H (0.7-1.3) mg/dL Estim Creat Clear Calc Not Reportable Estimated GFR 11 L (59 - ) Glucose 63 L (65-110) mg/dL POC Capillary Glucose 97 (65-105) mg/dl Calcium 7.3 L (8.4-10.2) mg/dL Urine Color Pending Urine Appearance Pending Urine pH Pending Ur Specific [place] Pending Urine Protein Pending Urine Glucose (UA) Pending Urine Ketones Pending Ur Blood (Man) Pending Urine Nitrate Pending Urine Bilirubin Pending Urine Urobilinogen Pending Leukocyte Esterase Rfl Pending 03/10/24 Range/Units 10:31 WBC (4.5-10.0) K/mm3 RBC (4.6-6.20) M/mm3 Hgb (14.0-18.0) g/dL Hct (42.0-52.0) % MCV (80-100) fl MCH (26-34) pg MCHC (32-36) g/dl RDW (11.5-14.5) % Plt Count (150-375) k/mm3 MPV (7.4-10.4) fl Immature Gran % (Auto) (0-0.5) % Neut % (Auto) (45.5-73.1) % Lymph % (Auto) (18.3-44.2) % Randolph % (Auto) (2.6-8.5) % Eos % (Auto) (0-4.4) % Baso % (Auto) (0.2-1.2) % Lymph # (Auto) (0.9-3.2) K/mm3 Randolph # (Auto) (0.1-0.6) K/mm3 Eos # (Auto) (0-0.3) K/mm3 Baso # (Auto) (0.0-0.1) K/mm3 Abs Immat Gran (auto) (0.00-0.031) K/mm3 Absolute Neuts (auto) (1.3-6.7) K/mm3 Absolute Nucleated RBC (0.0-0.012) K/mm3 Nucleated RBC % (0.0-0.2) % % Immature Plt Fraction (0.9-11.2) % Sodium (137-145) mmol/L Potassium (3.4-5.0) mmol/L Chloride (98-107) mmol/L Carbon Dioxide (22-30) mmol/L Anion Gap (4-12) mmol/L BUN (9-20) mg/dL Creatinine (0.7-1.3) mg/dL Estim Creat Clear Calc Estimated GFR (59 - ) Glucose (65-110) mg/dL POC Capillary Glucose 43 L* (65-105) mg/dl Calcium (8.4-10.2) mg/dL Urine Color Urine Appearance Urine pH Ur Specific [place] Urine Protein Urine Glucose (UA) Urine Ketones Ur Blood (Man) Urine Nitrate Urine Bilirubin Urine Urobilinogen Leukocyte Esterase Rfl Discharge Plan Discharge Clinical Impression: CKD (chronic kidney disease), PNA (pneumonia), Acute UTI, Respiratory failure, Vasculitis, Immunocompromised Patient Disposition: Still a Patient Condition: Serious Prescriptions: No Action latanoprost 0.005 % drops 1 drop EACH EYE QPM (DME) NovoTwist 32 gauge x 1/5 needle See Rx Instructions .ROUTE .MEDSUPPLY Qty: 100 Rx Instructions: As directed timolol maleate 0.5 % drops 1 drp EACH EYE QAM amlodipine 2.5 mg tablet 2.5 mg PO DAILY Qty: 90 0RF albuterol sulfate 90 mcg/actuation HFA aerosol inhaler 2 inh inhalation Q4H PRN (Reason: shortness of breath or wheezing) Qty: 8.5 2RF sodium bicarbonate 325 mg tablet 325 mg PO DAILY aspirin [Adult Low Dose Aspirin] 81 mg tablet,delayed release (DR/EC) 81 mg PO DAILY cyanocobalamin (vitamin B-12) 2,500 mcg tablet 2,500 mcg PO DAILY ergocalciferol (vitamin D2) 50,000 unit tablet PO ferrous sulfate [Iron (ferrous sulfate)] 325 mg (65 mg iron) tablet 325 mg PO DAILY pantoprazole 40 mg tablet,delayed release (DR/EC) 40 mg PO QAM Qty: 90 0RF prednisone 50 mg tablet 75 mg PO DAILY Qty: 30 0RF Levemir U-100 Insulin 100 unit/mL solution 30 unit SUBCUT HS atorvastatin 40 mg tablet 40 mg PO DAILY insulin detemir U-100 100 unit/mL solution 70 unit subcut DAILY (DME) pen needle, diabetic [BD Rita 2nd Gen Pen Needle] 32 gauge x 5/32 needle See Rx Instructions .Route Qty: 100 11RF Rx Instructions: As directed (DME) insulin syringe-needle U-100 [Advocate Syringes] 0.3 mL 31 gauge x 5/16 syringe See Rx Instructions .Route Qty: 100 3RF Rx Instructions: Use as direct with insulin (DME) lancets [Accu-Chek Softclix Lancets] Misc See Rx Instructions .Route Qty: 200 1RF Rx Instructions: check glucose 3 times a day doxazosin 8 mg tablet 8 mg PO DAILY Qty: 100 1RF fluticasone propion-salmeterol [Wixela Inhub] 250-50 mcg/dose blister with device See Rx Instructions .ROUTE .COMPLEX Qty: 60 1RF Dose Instruction: TAKE 1 PUFF BY MOUTH TWICE A DAY Rx Instructions: TAKE 1 PUFF BY MOUTH TWICE A DAY (DME) blood-glucose meter [Accu-Chek Guide Glucose Meter] [facility] Rx Instructions .ROUTE .COMPLEX Qty: 1 0RF Dose Instruction: USE TO CHECK GLUCOSE THREE TIMES DAILY Rx Instructions: USE TO CHECK GLUCOSE THREE TIMES DAILY (DME) Accu-Chek Guide test strips Strip See Rx Instructions .ROUTE .COMPLEX Qty: 100 2RF Dose Instruction: USE 1 STRIP TO CHECK GLUCOSE THREE TIMES DAILY Rx Instructions: USE 1 STRIP TO CHECK GLUCOSE THREE TIMES DAILY Follow-up/Referrals: Miguelito Ontiveros, [Primary Care Provider] -
[2024-03-10 10:51] LABS: Add Urine Microscopic? YES; Appearance Urine Cloudy (Clear); Bacteria Urine None Seen /hpf; Bilirubin Urine Negative (Negative); Blood Urine 3+ (Negative); Color Urine Yellow (Yellow); Glucose Urine UA Negative (Negative); Ketones Urine Negative (Negative); Leukocyte Esterase Ur 2+ LEU/UL (Negative); Nitrate Urine Negative (Negative); Non Pathogenic Casts 0-2; Protein Urine 2+ mg/dL (Negative); RBC Urine >100 /hpf (0-2); Specific Grav Ur 1.014 (1.001-1.035); Squamous Epithelial Cell Urine Occasional /hpf (Few); Urobilinogen Urine 0.2 mg/dL (<2.0); WBC Urine 51-100 /hpf (0-3); pH Urine 5.5 (5.0-9.0)
[2024-03-10 11:06] LABS: Glucose Point of Care 111 mg/dl (65-105)
[2024-03-10 11:36] LABS: Influenza A QL RT-PCR Negative (Negative); Influenza B QL RT-PCR Negative (Negative); RSV RNA, RT-PCR Negative (Negative); SARS-CoV-2 RNA PCR Negative (Negative)
[2024-03-10 12:10] LABS: Glucose Point of Care 55 mg/dl (65-105)
[2024-03-10] MEDS: GLUCOSE ORAL GEL 15 GM OF GLUCSE IN 37.5 GM TUBE PO (12:14)
--- NOTE | 2024-03-10 12:16 | PC.NURSE ---
pt blood sugar 55- per protocol 15 g dextrose gel was given as patient is alert, oriented, and able to swallow
[2024-03-10 12:33] LABS: Glucose Point of Care 55 mg/dl (65-105)
[2024-03-10] MEDS: DEXTROSE 10% 1,000 ML 100 ML IV CONT (12:44)
[2024-03-10 13:29] LABS: Glucose Point of Care 145 mg/dl (65-105)
[2024-03-10 14:19] LABS: Glucose Point of Care 131 mg/dl (65-105)
--- NOTE | 2024-03-10 14:56 | PC.NURSE ---
multiple attempts to obtain blood cultures. one set finished, still working on getting the second set.
--- NOTE | 2024-03-10 15:17 | WPDCNINT ---
Assessment and Plan Assessment and plan (1) Hypoglycemia: Code(s): E16.2 - Hypoglycemia, unspecified Status: Acute Assessment and Plan: Patient presented with hypoglycemia likely secondary to worsening renal function leading to decreased requirement of insulin that patient is on. Patient takes 70 units of Levemir in the morning and 45 units in the evening. His blood sugar chart shows gradual trend of decreasing blood sugar over last 3-4 days. His last insulin dose was yesterday evening. He received glucagon and multiple the pushes of dextrose in the ER Continue D10 at this time and titrate down to minimum rate required to maintain his blood sugar to avoid volume overload Continue q.1 hour Accu-Cheks at this time (2) Hypoxia: Code(s): R09.02 - Hypoxemia Status: Acute Assessment and Plan: Patient was saturating in mid 80s on room air but saturating adequately on [address] chest showed Moderate emphysema with patchy groundglass opacities in the bilateral lower lobes and right middle lobe which could represent mild pulmonary edema versus pneumonia which has improved since the prior study. Although appears to be COPD with some volume overload patient may have pneumonia and he has immuno suppressed Bronchodilators for COPD Patient is already on steroids we continued Antibiotics as below Lasix for pulmonary edema (3) Sepsis: Code(s): A41.9 - Sepsis, unspecified organism Status: Acute Assessment and Plan: Sepsis secondary to UTI and possible pneumonia Patient is immunosuppressed Empiric vancomycin cefepime and doxycycline Urine and blood cultures Check procalcitonin level Blood pressure is adequate at this time He is not a candidate for liberal IV fluids due to him being overall volume overloaded and getting dextrose infusion for hypoglycemia (4) Acute kidney injury superimposed on CKD: Code(s): N17.9 - Acute kidney failure, unspecified; N18.9 - Chronic kidney disease, unspecified Status: Acute Assessment and Plan: Patient has chronic kidney disease with creatinine around 3.5. He was recently diagnosed with vasculitis and had kidney biopsy done. Now he presented with worsening of kidney function at 5.1. His electrolytes acceptable. He does have mild volume overload He is getting D10 for hypoglycemia. I will also given Lasix 80 mg IV x1 Will consult nephrology He may need DAIRY DEPARTMENT MANAGER Monitor electrolytes urine output and creatinine Place Jones catheter for accurate I&Os (5) Anasarca: Code(s): R60.1 - Generalized edema Status: Acute Assessment and Plan: Patient has bilateral pitting edema and CT shows ascites. This is likely secondary to worsening renal function. He does have grade 1 diastolic dysfunction on his echo and mild aortic stenosis Accurate I&Os with Jones Lasix IV for 80 mg x 1 Consult nephrology May need DAIRY DEPARTMENT MANAGER (6) Type 2 diabetes mellitus with other diabetic kidney complication: Code(s): E11.29 - Type 2 diabetes mellitus with other diabetic kidney complication Status: Chronic Assessment and Plan: Patient is on insulin Levemir 70 in the morning and 45 units in the evening Currently on hold due to hypoglycemia (7) Gastro-esophageal reflux disease without esophagitis: Code(s): K21.9 - Gastro-esophageal reflux disease without esophagitis Status: Acute Assessment and Plan: Continue Protonix (8) Essential (primary) hypertension: Code(s): I10 - Essential (primary) hypertension Status: Chronic Assessment and Plan: Continue amlodipine. Will give IV Lasix (9) COPD with emphysema: Code(s): J43.9 - Emphysema, unspecified Status: Acute Assessment and Plan: See above (10) Anemia: Code(s): D64.9 - Anemia, unspecified Status: Acute Assessment and Plan: Patient has anemia of chronic kidney disease and iron deficiency Monitor hemoglobin and transfuse if needed Will discuss with Nephrology regarding starting EPO and maybe are infusion (11) Pneumonia: Code(s): J18.9 - Pneumonia, unspecified organism Status: Acute Assessment and Plan: See above (12) Acute UTI: Code(s): N39.0 - Urinary tract infection, site not specified Status: Acute Assessment and Plan: UA suggestive of UTI see above (13) Vasculitis: Code(s): I77.6 - Arteritis, unspecified Status: Acute Assessment and Plan: Recently diagnosed with vasculitis at [facility]. He has completed his treatment with rituximab. He is currently on prednisone and I will continue at this time. Will give him 1 dose of methylprednisolone today and start prednisone for tomorrow morning (14) Immunocompromised: Code(s): D84.9 - Immunodeficiency, unspecified Status: Acute Assessment and Plan: Patient received rituximab yesterday and is on prednisone. He is now going to be on broad-spectrum antibiotics including doxycycline Plan DVT prophylaxis -SCD as patient is anemic and thrombocytopenic Stress ulcer prophylaxis -continue home PPI Nutrition -renal diet Code Status - Full Code Spoke to patient, patient's and son at bedside and updated them with patient's current status and current treatment plan. I answered all their questions. Total Critical Care Time - 50 minutes Due to a high probability of clinically significant, life threatening deterioration, the patient required my highest level of preparedness to intervene emergently and I personally spent this critical care time directly and personally managing the patient. This critical care time included obtaining a history; examining the patient; pulse oximetry; ordering and review of studies; arranging urgent treatment with development of a management plan; evaluation of patient's response to treatment; frequent reassessment; and discussions with other providers. It was exclusive of separately billable procedures and treating other patients and teaching time. Please see Assessment and Plan section and the rest of the note for further information on patient assessment and treatment Herb[employer] Service Sales Representative Consult Note Consult date: 03/10/24 Time Seen: 14:50 Reason for consult: Hypoglycemia HPI: Shahzad Couch is a 89 year old male with a past medical history of chronic kidney disease stage 4 who was recently diagnosed with vasculitis and started on treatment with rituximab and prednisone [facility] was brought in with loss of consciousness and hyperglycemia. 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 Patient was given 1 treatment of rituximab and started on prednisone and discharged. Patient had a 2nd dose of rituximab yesterday. He also saw dental chairside assistant as an outpatient. He takes 70 units of Levemir in the morning and 45 units of Levemir in the evening. I reviewed his blood sugar log and it has shown slight and continues decreased of blood sugars over last few days meanwhile patient continue to take his insulin added regular dose. Last night patient was feeling fine at baseline with no new symptoms. Patient denied any fever chest pain shortness a breath abdominal pain nausea vomiting dysuria hematuria. Patient does have chronic diarrhea but denies any hematochezia or melena. Patient's states the patient always breathes is little heavy but is not on oxygen and does have history of COPD. During his last evaluation his creatinine was in mid 3 s. today patient was laying on bed and then his found him laying on the floor. She does not know what have but patient was unresponsive. She called EMS and when EMS arrived his blood sugar was only in 40s. Patient did not have any seizure that was witnessed. Patient was given dextrose and brought to ER where he received multiple additional doses of dextrose push. Patient was started on D10 and now patient is alert oriented x3 and denies any new complaints. He does not remember what happened. He states that he has not had any fever. He has dry cough which is chronic and has not changed. Denies any chest pain or any significant change in the girth of his abdomen All other systems were reviewed and were negative . Workup in the ER showed patient to be hypoglycemic requiring multiple pushes of D50 and later initiation of D10. His white count was normal hemoglobin 7.1 platelet 100K. Creatinine was 5.1 BUN 89 potassium was in normal range UA was suggestive of UTI CT findings as mentioned below EKG showed sinus tachycardia with right bundle branch block with nonspecific ST T-wave changes Review of Systems Review of Systems: All systems reviewed & are unremarkable except as noted in HPI and below (HPI) [facility] Past Medical History Medical History Acute on chronic anemia Anemia due to stage 3 chronic kidney disease Anemia, unspecified BMI 27.0-27.9,adult BMI 28.0-28.9,adult Essential (primary) hypertension Fatty liver Gastro-esophageal reflux disease without esophagitis Glaucoma Hearing loss Melena Mixed hyperlipidemia Pulmonary emphysema determined by X-ray 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 Surgical History Surgical History H/O eye surgery H/O eye surgery Hx of detached retina repair Family History Family History Mother Family history of heart disease in male family member before age 55 Heart disease Father , 96 y/o Diabetes mellitus Neuropathy Sibling Parkinson disease Social History Social History Smoking packs per day: 0.5 Smoking cigarettes per day: 10.0 Years smoked: 25 Smoking pack-years: 12.50 Smoking status: Former smoker Second hand tobacco smoke exposure: No Alcohol intake: never Substance use: never Substance use type: does not use Do You Feel Safe in your Home?: Yes Lack of Transportation: No Lack of Food: Never True Current Housing: I Have Housing Concerned About Future Housing: No Difficulty Paying Gas/Electric Bills: No Difficulty Paying for Meds: No Currently Unemployed: No Education: High School Diploma/GED Difficulty w/ Childcare or Family Care: No Living arrangements: with family 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 Gender identity (if verbalized by the patient): Male Spiritual care concerns: No Meds Home Medications and Allergies Home Medications Medication Instructions Recorded Confirmed Type pen needle, diabetic 32 gauge x #100 ea 03/24/19 03/08/24 History 1/5 (NovoTwist) latanoprost 0.005 % eye drops 1 drop ophthalmic (eye) QPM 12/07/19 03/08/24 History pen needle, diabetic 32 gauge x #100 ea 05/02/23 03/08/24 Rx (BD Rita 2nd Gen Pen Needle) insulin syringe-needle U-100 0.3 #100 ea 05/12/23 03/08/24 Rx mL 31 gauge x 5/16 ([facility] Syringes) lancets (Accu-Chek Softclix #200 ea 08/07/23 03/08/24 Rx Lancets) doxazosin 8 mg tablet 8 mg PO DAILY #100 tabs 08/29/23 03/08/24 Rx amlodipine 2.5 mg tablet 2.5 mg PO DAILY #90 tabs 12/02/23 03/08/24 Rx timolol maleate 0.5 % eye drops 1 drp EACH EYE QAM 12/02/23 03/08/24 History albuterol sulfate 90 mcg/actuation 2 inh inhalation Q4H PRN shortness 02/04/24 03/08/24 Rx aerosol inhaler of breath or wheezing #8.5 grams atorvastatin 40 mg tablet 40 mg PO DAILY 02/12/24 03/08/24 History insulin detemir U-100 100 unit/mL 70 unit subcut DAILY 02/12/24 03/08/24 History subcutaneous solution insulin detemir U-100 100 unit/mL 30 unit subcut HS 02/12/24 03/08/24 History subcutaneous solution (Levemir U-100 Insulin) aspirin 81 mg tablet,delayed 81 mg PO DAILY 02/26/24 03/08/24 History release (Adult Low Dose Aspirin) cyanocobalamin (vitamin B-12) 2,500 mcg PO DAILY 02/26/24 03/08/24 History 2,500 mcg tablet ergocalciferol (vitamin D2) 50,000 unit PO 02/26/24 03/08/24 History unit tablet ferrous sulfate 325 mg (65 mg 325 mg PO DAILY 02/26/24 03/08/24 History iron) tablet (Iron (ferrous sulfate)) pantoprazole 40 mg tablet,delayed 40 mg PO QAM #90 tabs 02/26/24 03/08/24 Rx release prednisone 50 mg tablet 75 mg PO DAILY #30 tabs 02/26/24 03/08/24 Rx sodium bicarbonate 325 mg tablet 325 mg PO DAILY 02/26/24 03/08/24 History blood sugar diagnostic (Accu-Chek #100 ea 03/01/24 03/08/24 Rx Guide test strips) blood-glucose meter (Accu-Chek #1 ea 03/01/24 03/08/24 Rx Guide Glucose Meter) fluticasone 250 mcg-salmeterol 50 See Rx Instructions .Route 03/01/24 03/08/24 Rx mcg/dose blistr powdr for .COMPLEX #60 ea inhalation (Wixela Inhub) Allergies Allergy/AdvReac Type Severity Reaction Status Date / Time No Known Allergies Allergy Verified 03/08/24 13:37 Vital Signs Vital Signs - 24 hr 03/10/24 09:06 03/10/24 10:50 03/10/24 09:45 Temperature 36.6 C Pulse Rate 108 H 101 H 100 Respiratory Rate 18 18 16 Blood Pressure 167/79 H 172/67 H 149/62 H Pulse Oximetry 90 96 94 Oxygen Delivery Room Air Oxygen Flow Rate 03/10/24 10:04 03/10/24 10:31 03/10/24 14:42 Temperature Pulse Rate 98 85 92 Respiratory Rate 18 16 19 Blood Pressure 164/59 H 146/65 H 191/70 H Pulse Oximetry 99 98 94 Oxygen Delivery Nasal Cannula Oxygen Flow Rate 2 03/10/24 10:32 03/10/24 11:23 03/10/24 11:24 Temperature Pulse Rate 87 103 H 100 Respiratory Rate 19 18 Blood Pressure 185/71 H Pulse Oximetry 97 97 97 Oxygen Delivery Oxygen Flow Rate 03/10/24 11:30 03/10/24 11:31 03/10/24 11:45 Temperature Pulse Rate 95 95 95 Respiratory Rate 14 14 15 Blood Pressure 169/61 H Pulse Oximetry 97 98 98 Oxygen Delivery Oxygen Flow Rate 03/10/24 12:00 03/10/24 12:01 03/10/24 12:17 Temperature Pulse Rate 95 93 101 H Respiratory Rate 13 12 23 H Blood Pressure 171/54 H Pulse Oximetry 98 98 99 Oxygen Delivery Oxygen Flow Rate 03/10/24 12:30 03/10/24 12:31 03/10/24 13:27 Temperature Pulse Rate 101 H 101 H 103 H Respiratory Rate 23 H 20 22 H Blood Pressure 178/67 H Pulse Oximetry 99 98 96 Oxygen Delivery Oxygen Flow Rate 03/10/24 13:37 03/10/24 13:45 03/10/24 13:46 Temperature Pulse Rate 102 H 96 94 Respiratory Rate 26 H 16 16 Blood Pressure 176/69 H Pulse Oximetry 97 96 Oxygen Delivery Oxygen Flow Rate 03/10/24 14:00 03/10/24 14:01 03/10/24 14:15 Temperature Pulse Rate 88 87 103 H Respiratory Rate 16 14 22 H Blood Pressure 136/67 Pulse Oximetry 97 96 Oxygen Delivery Oxygen Flow Rate 03/10/24 14:16 03/10/24 14:30 03/10/24 14:45 Temperature Pulse Rate 102 H 99 97 Respiratory Rate 26 H 21 H 25 H Blood Pressure 191/70 H Pulse Oximetry Oxygen Delivery Oxygen Flow Rate 03/10/24 14:46 03/10/24 15:01 03/10/24 15:01 Temperature Pulse Rate 96 Respiratory Rate 19 Blood Pressure 161/67 H Pulse Oximetry 86 L 99 Oxygen Delivery Room Air Nasal Cannula Oxygen Flow Rate 2 03/10/24 14:47 03/10/24 15:00 Temperature Pulse Rate 94 102 H Respiratory Rate 17 20 Blood Pressure Pulse Oximetry 100 Oxygen Delivery Oxygen Flow Rate Exam Narrative: General: Pt is alert awake and in NAD, hearing impairment Lungs/Chest: Trachea central Clear BS B/L, occasional bibasilar crackles Cardiac: RRR. Normal S1 S2. No murmurs Circulation: Feet are warm Abdomen: Normal bowel sounds. Morbidly obese. Soft. NT. Distended but not tender Extremities: No clubbing, cyanosis bilateral pitting edema present : Diaper in place Neurologic: Follows commands. Moves all 4 extremities PERRL AO x3 Skin: No Rash Results Labs 03/10/24 09:53 03/10/24 09:53 Labs: Short CBC 03/10/24 Range/Units 09:53 WBC 9.5 (4.5-10.0) K/mm3 Hgb 7.1 L (14.0-18.0) g/dL Hct 22.3 L (42.0-52.0) % Plt Count 100 L (150-375) k/mm3 BMP 03/10/24 09:53 Sodium 138 Potassium 4.5 Chloride 108 H Carbon Dioxide 23 BUN 89 H D Creatinine 5.10 H Glucose 63 L Calcium 7.3 L Urine 03/10/24 Range/Units 10:24 Urine Color Yellow (Yellow) Urine Appearance Cloudy H (Clear) Urine pH 5.5 (5.0-9.0) Ur Specific [place] 1.014 (1.001-1.035) Urine Protein 2+ H (Negative) mg/dL Urine Glucose (UA) Negative (Negative) mg/dL Quality VTE Prophylaxis VTE prophylaxis: mechanical ordered Hospitalist MIPS Advance Care Plan I have confirmed that the patient's Advanced Care Plan is present, code status is documented, or surrogate decision maker is listed in patient medical record.: Yes Medication Reconciliation I have utilized all available resources to obtain, update and review the patients current medications (includes all prescriptions, OTC, herbals, cannabis, and nutritional supplements).: Yes
[2024-03-10 15:22] LABS: Glucose Point of Care 126 mg/dl (65-105)
--- NOTE | 2024-03-10 15:35 | P.HP_ITS ---
H&P: HPI History of Present Illness Date/Time: 03/10/24 15:35 Chief Complaint: AMS hypoglycemia Narrative: This is an 89-year-old male with a significant past medical history of anemia, hypertension, hepatic steatosis, GERD, hyperlipidemia, type 2 diabetes mellitus, former smoker who presents to the hospital for evaluation of altered mental status. patient is not a good historian and most of the history of presenting illness was obtained from his over the phone. She states that she found him around 730 in the morning unresponsive on the floor near the sofa. She thinks that he was on the sofa and fell off the sofa the way he was positioned. She immediately called EMS. When EMS got there they found that his blood sugar was 45. He was given 250 ml of D10 with improvement in his mental status. He is a known diabetic and takes insulin however he does not remember if he ate anything that morning or last night according to EMS report. of note patient was seen at [facility] for treatment of his ANCA vasculitis and was given a second dose of Rituximab yesterday which is known to suppress the immune system for upward of 6-9 months. Patient denies any fever, chills, nausea, vomiting, diarrhea, abdominal pain, chest pain, shortness a breath. He states that he overall feels fine. Workup in the hospital included a head CT which was negative for any acute intracranial finding. Chest x-ray showed bibasilar pneumonia more on the right side. Cervical spine CT was negative for any acute osseous abnormality of the cervical spine, shown multilevel degenerative disc disease. CT of the chest abdomen and pelvis showed moderate emphysema with patchy ground-glass opacities in bilateral lower lobes and right middle lobe which could represent mild pulmonary edema versus pneumonia, mild hydronephrosis of the upper and lower poles of the left kidney without evidence of obstructing stone, 2 mm stone previously seen in the right kidney is no longer visualized, minimal perihepatic, perisplenic, and alessio cholecystic ascites, prostatomegaly, moderate size bilateral fat containing inguinal hernias seen. Initial labs showed a normal white blood cell count of 9.5, RBC 2.27, hemoglobin 7.1, platelet count 100, creatinine 5.10, EGFR 11, initial glucose 63 on lab, blood glucose 111 on point of care, calcium 7.3. UA was obtained which showed cloudy urine appearance, 2+ urine protein, 3+ urine blood, 2+ leukocyte, greater than 100 urine RBC, 51-100 urine WBC. Respiratory panel was negative for influenza a and B, RSV, COVID. Blood and urine cultures were obtained and pending. Last echocardiogram from 01/22/2024 was reviewed which showed normal LV systolic function with an estimated EF of 65-70%, grade 1 diastolic dysfunction, moderate aortic valve sclerosis and mild stenosis. EKG today showed sinus tachycardia with a rate of 103, QTC 454 with a right bundle branch block. Patient was given 1 L of normal saline, amp of D50, started on D10 infusion, given azithromycin, cefepime, doxycycline, 80 of Lasix, 60 mg IV push Solu-Medrol while in the ED. He is being admitted to ICU for q.1 hour Accu- Cheks and closer monitoring. Review of Systems Review of Systems: All systems reviewed & are unremarkable except as noted in HPI and below Constitutional: Constitutional: Reports as per HPI and Reports no additional constitutional complaints Eyes: Eyes: Reports as per HPI and Reports no additional eye complaints ENT: Reports system reviewed and no additional complaints, except as documented and Reports as per HPI Cardiovascular: Cardiovascular: Reports as per HPI and Reports no additional cardiovascular complaints Respiratory: Respiratory: Reports as per HPI and Reports no additional respiratory complaints Gastrointestinal: Gastrointestinal: Reports as per HPI and Reports no additional gastrointestinal complaints Genitourinary: Genitourinary: Reports no additional male genitourinary complaints and Reports as per HPI Musculoskeletal: Musculoskeletal: Reports no additional musculoskeletal complaints and Reports as per HPI Integumentary/Breasts: Skin/Breast: Reports system reviewed and no additional complaints, except as docu and Reports as per HPI Neurologic: Reports system reviewed and no additional complaints, except as documented and Reports as per HPI Psychiatric: Psychiatric: Reports no additional psychiatric complaints and Reports as per HPI [facility]LY [facility] Past Medical History Medical History Acute on chronic anemia Anemia due to stage 3 chronic kidney disease Anemia, unspecified BMI 27.0-27.9,adult BMI 28.0-28.9,adult Essential (primary) hypertension Fatty liver Gastro-esophageal reflux disease without esophagitis Glaucoma Hearing loss Melena Mixed hyperlipidemia Pulmonary emphysema determined by X-ray 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 Surgical History Surgical History H/O eye surgery H/O eye surgery Hx of detached retina repair Family History Family History Mother Family history of heart disease in male family member before age 55 Heart disease Father , 96 y/o Diabetes mellitus Neuropathy Sibling Parkinson disease Social History Social History Smoking packs per day: 0.75 Smoking cigarettes per day: 15.0 Years smoked: 20 Smoking pack-years: 15.00 Smoking status: Former smoker Tobacco type: cigarettes Second hand tobacco smoke exposure: No Alcohol intake: never Substance use: never Substance use type: does not use Do You Feel Safe in your Home?: Yes Lack of Transportation: No Lack of Food: Never True Current Housing: I Have Housing Concerned About Future Housing: No Difficulty Paying Gas/Electric Bills: No Difficulty Paying for Meds: No Currently Unemployed: No Education: High School Diploma/GED Difficulty w/ Childcare or Family Care: No Living arrangements: with family 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 Gender identity (if verbalized by the patient): Male Spiritual care concerns: No Meds Home Medications and Allergies Home Medications Medication Instructions Recorded Confirmed Type latanoprost 0.005 % eye drops 1 drop ophthalmic (eye) QPM 12/07/19 03/10/24 History doxazosin 8 mg tablet 8 mg PO DAILY #100 tabs 08/29/23 03/10/24 Rx amlodipine 2.5 mg tablet 2.5 mg PO DAILY #90 tabs 12/02/23 03/10/24 Rx timolol maleate 0.5 % eye drops 1 drp EACH EYE QAM 12/02/23 03/10/24 History albuterol sulfate 90 mcg/actuation 2 inh inhalation Q4H PRN shortness 02/04/24 03/10/24 Rx aerosol inhaler of breath or wheezing #8.5 grams atorvastatin 40 mg tablet 40 mg PO DAILY 02/12/24 03/10/24 History insulin detemir U-100 100 unit/mL 70 unit subcut DAILY 02/12/24 03/10/24 History subcutaneous solution insulin detemir U-100 100 unit/mL 30 unit subcut HS 02/12/24 03/10/24 History subcutaneous solution (Levemir U-100 Insulin) aspirin 81 mg tablet,delayed 81 mg PO DAILY 02/26/24 03/10/24 History release (Adult Low Dose Aspirin) cyanocobalamin (vitamin B-12) 2,500 mcg PO DAILY 02/26/24 03/10/24 History 2,500 mcg tablet ergocalciferol (vitamin D2) 50,000 50,000 unit PO DAILY 02/26/24 03/10/24 History unit tablet ferrous sulfate 325 mg (65 mg 325 mg PO DAILY 02/26/24 03/10/24 History iron) tablet (Iron (ferrous sulfate)) pantoprazole 40 mg tablet,delayed 40 mg PO QAM #90 tabs 02/26/24 03/10/24 Rx release prednisone 50 mg tablet 75 mg PO DAILY #30 tabs 02/26/24 03/10/24 Rx sodium bicarbonate 325 mg tablet 325 mg PO DAILY 02/26/24 03/10/24 History blood sugar diagnostic (Accu-Chek 03/10/24 03/10/24 History Guide test strips) blood-glucose meter (Accu-Chek 03/10/24 03/10/24 History Guide Glucose Meter) fluticasone 250 mcg-salmeterol 50 1 inh inhalation DAILY 03/10/24 03/10/24 History mcg/dose blistr powdr for inhalation (Wixela Inhub) insulin syringe-needle U-100 1 mL 03/10/24 03/10/24 History 31 gauge x 5/16 (Advocate Syringes) lancets (Accu-Chek Softclix 03/10/24 03/10/24 History Lancets) Allergies Allergy/AdvReac Type Severity Reaction Status Date / Time No Known Allergies Allergy Verified 03/08/24 13:37 Vital Signs Vital Signs - 24 hr 03/10/24 09:06 03/10/24 10:50 03/10/24 09:45 Temperature 98 F Pulse Rate 108 H 101 H 100 Respiratory Rate 18 18 16 Blood Pressure 167/79 H 172/67 H 149/62 H Pulse Oximetry 90 96 94 Oxygen Delivery Room Air Oxygen Flow Rate 03/10/24 10:04 03/10/24 10:31 03/10/24 14:42 Temperature Pulse Rate 98 85 92 Respiratory Rate 18 16 19 Blood Pressure 164/59 H 146/65 H 191/70 H Pulse Oximetry 99 98 94 Oxygen Delivery Nasal Cannula Oxygen Flow Rate 2 03/10/24 10:32 03/10/24 11:23 03/10/24 11:24 Temperature Pulse Rate 87 103 H 100 Respiratory Rate 19 18 Blood Pressure 185/71 H Pulse Oximetry 97 97 97 Oxygen Delivery Oxygen Flow Rate 03/10/24 11:30 03/10/24 11:31 03/10/24 11:45 Temperature Pulse Rate 95 95 95 Respiratory Rate 14 14 15 Blood Pressure 169/61 H Pulse Oximetry 97 98 98 Oxygen Delivery Oxygen Flow Rate 03/10/24 12:00 03/10/24 12:01 03/10/24 12:17 Temperature Pulse Rate 95 93 101 H Respiratory Rate 13 12 23 H Blood Pressure 171/54 H Pulse Oximetry 98 98 99 Oxygen Delivery Oxygen Flow Rate 03/10/24 12:30 03/10/24 12:31 03/10/24 13:27 Temperature Pulse Rate 101 H 101 H 103 H Respiratory Rate 23 H 20 22 H Blood Pressure 178/67 H Pulse Oximetry 99 98 96 Oxygen Delivery Oxygen Flow Rate 03/10/24 13:37 03/10/24 13:45 03/10/24 13:46 Temperature Pulse Rate 102 H 96 94 Respiratory Rate 26 H 16 16 Blood Pressure 176/69 H Pulse Oximetry 97 96 Oxygen Delivery Oxygen Flow Rate 03/10/24 14:00 03/10/24 14:01 03/10/24 14:15 Temperature Pulse Rate 88 87 103 H Respiratory Rate 16 14 22 H Blood Pressure 136/67 Pulse Oximetry 97 96 Oxygen Delivery Oxygen Flow Rate 03/10/24 14:16 03/10/24 14:30 03/10/24 14:45 Temperature Pulse Rate 102 H 99 97 Respiratory Rate 26 H 21 H 25 H Blood Pressure 191/70 H Pulse Oximetry Oxygen Delivery Oxygen Flow Rate 03/10/24 14:46 03/10/24 15:01 03/10/24 15:01 Temperature Pulse Rate 96 Respiratory Rate 19 Blood Pressure 161/67 H Pulse Oximetry 86 L 99 Oxygen Delivery Room Air Nasal Cannula Oxygen Flow Rate 2 03/10/24 14:47 03/10/24 15:00 Temperature Pulse Rate 94 102 H Respiratory Rate 17 20 Blood Pressure Pulse Oximetry 100 Oxygen Delivery Oxygen Flow Rate Exam Narrative: General: In no acute distress, well nourished Head: atraumatic, no encephalopathy Eyes: EOMI, PERRLA, sclera clear ENT: moist mucous membranes, nasal passages clear, YUHAAVIATAM Left ear> Right ear Neck: supple, no JVD, no adenopathy, trachea midline Cardiac: Normal S1 and S2. No murmur, gallops or friction rubs, peripheral pulses intact. Respiratory: Lungs clear to auscultation, no adventitious lung sounds, currently on 1.5L NC Gastrointestinal: soft, non-distended, non-tender, normoactive bowel sounds. : Jones catheter in place draining clear/yellow urine Extremities: moves all extremities well, no edema Skin: clean, dry, intact. No wounds or lesions. Neuro: Alert and oriented x3, cranial nerves intact, no neuro deficits. Psych: normal mood, normal affect, interactive H&P: Results Labs Labs: Short CBC 03/10/24 Range/Units 09:53 WBC 9.5 (4.5-10.0) K/mm3 Hgb 7.1 L (14.0-18.0) g/dL Hct 22.3 L (42.0-52.0) % Plt Count 100 L (150-375) k/mm3 BMP 03/10/24 09:53 Sodium 138 Potassium 4.5 Chloride 108 H Carbon Dioxide 23 BUN 89 H D Creatinine 5.10 H Glucose 63 L Calcium 7.3 L Urine 03/10/24 Range/Units 10:24 Urine Color Yellow (Yellow) Urine Appearance Cloudy H (Clear) Urine pH 5.5 (5.0-9.0) Ur Specific [place] 1.014 (1.001-1.035) Urine Protein 2+ H (Negative) mg/dL Urine Glucose (UA) Negative (Negative) mg/dL Imaging CT scan - head: Radiologist's impression: CT brain wo con Ordering provider: Jose Juan Robb MD History: 89 years Male with . AMS/FAll/Hypoglycemia . Comparison: None. Technique: CT of the head without contrast. Radiation reduction technique utilized.The dose-length product was 681 mGy-cm. FINDINGS: BRAIN PARENCHYMA AND CSF SPACES: Severe leukoaraiosis and diffuse cortical atrophy. Severe atheromatous disease. No midline shift, mass effect or hemorrhage. The brain parenchyma and CSF spaces are otherwise normal. VISUALIZED PARANASAL SINUSES: Well aerated. MASTOIDS: Well aerated. BONES: The bones appear intact. SOFT TISSUES: Visualized nasopharynx is normal. Superficial soft tissues are normal. IMPRESSION: No acute intracranial findings. Reviewed, dictated and finalized at location A. IAC SPECIALIST Chest x-ray: Radiologist's impression: XR chest 2V Ordering provider: Jose Juan Robb MD History: 89 years Male with . DECREASED LOC. HYPOGLYCEMIA . Comparison: None. FINDINGS: MEDIASTINUM: The cardiac silhouette is not enlarged. Congestive pepe. LUNGS: No effusions or pneumothorax. Opacification in the right lung base suggestive of pneumonia. Minimal opacification the left lung base. Bilateral interstitial changes which may indicate pneumonitis. OTHER: No free air under the diaphragm. IMPRESSION: Bibasilar pneumonia more on the right side. Reviewed, dictated and finalized at location A. IAC SPECIALIST cervical spine CT: Radiologist's impression: CT cervical spine wo con Ordering provider: Jose Juan Robb MD History: . Fall . Comparison: None. Technique: CT of the cervical spine was performed without contrast. Sagittal and coronal reformatted images were also obtained and reviewed. Automated exposure control and iterative reconstruction technique were employed. The dose- length product was 495.26 mGy-cm. FINDINGS: VERTEBRAE: No subluxation or acute fracture. The occipital condyles are intact. DISC SPACES: Disc C5-C6 and C6-C7. Multilevel facet joint disease. Multilevel uncovertebral joint osteoarthritic changes. Bilateral narrowing of the foramina at the level of C5-C6 and C6-C7. PARASPINOUS SOFT TISSUES: Normal. IMPRESSION: No acute osseous abnormality cervical spine. Multilevel degenerative disc disease. Reviewed, dictated and finalized at location A. IAC SPECIALIST chest/abdomen/ pelvis CT: Radiologist's impression: EXAMINATION: CT chest abdomen pelvis wo con DATE: 03/10/2024 13:25 INDICATION: Pneumonia. Infected stones. TECHNIQUE: Computed tomography (CT) of the chest, abdomen, and pelvis was performed with 100 mL Omnipaque-350 intravenous contrast. Automated exposure control and iterative reconstruction technique were employed. The dose-length product was 1402.12 mGy-cm. COMPARISON: CT studies dated 02/11/2024 and 07/09/2021 FINDINGS: CHEST CT: Moderate emphysema. Small bilateral posterior layering pleural effusions with dependent atelectasis in the bilateral lower lobes. There are additional patchy groundglass opacities in the bilateral lower lobes and dependent right middle lobe which could represent mild pulmonary edema or pneumonia. Calcified nodules in the right middle and and upper lobes and calcified right peritracheal lymph nodes consistent with old granulomatous disease. Heart size is normal. Decreased attenuation the blood pool relative to myocardium consistent with anemia. Atherosclerotic coronary artery calcific location. Aortic valve calcification. Thoracic aorta is normal in caliber. No pathologically enlarged thoracic lymphadenopathy. Mild thoracic spondylosis. ABDOMEN/PELVIS CT: A few tiny hepatic and splenic calcification is consistent with old granulomatous disease. Minimal amount of perihepatic, perisplenic and pericholecystic ascites. Gallbladder is otherwise unremarkable. Pancreas and right adrenal gland are normal. 1.5 cm less than fluid attenuation left adrenal adenoma. There is bilateral perinephric stranding. The previously seen 2 mm right renal stone is no longer visualized. No evident urolithiasis at either kidney or ureter. Again seen are bilateral at least partially degraded renal collecting systems. There is mild hydronephrosis of both the upper and lower pole collecting systems at the left kidney. Bladder is normal. Prostatomegaly measuring 5.9 x 5.3 cm. Moderate-sized bilateral fat-containing inguinal hernias. Mild scattered colonic diverticulosis without adjacent inflammatory stranding to suggest diverticulitis. Small bowel and appendix are normal. No pathologically enlarged abdominal or pelvic lymphadenopathy. Moderate to severe lumbar spondylosis. IMPRESSION: 1. Moderate emphysema with patchy groundglass opacities in the bilateral lower lobes and right middle lobe which could represent mild pulmonary edema versus pneumonia which has improved since the prior study. 2. 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 2 mm stone previously seen in the right kidney is no longer visualized. 3. Minimal perihepatic, perisplenic and pericholecystic ascites. 4. Prostatomegaly. 5. Moderate-sized bilateral fat-containing inguinal hernias. Reviewed, dictated and finalized at location B. IAC SPECIALIST Assessment and Plan Assessment and plan (1) Altered mental status: Code(s): R41.82 - Altered mental status, unspecified Status: Acute Assessment and Plan: likely secondary to hypoglycemia see problem #2 * head CT was negative for any acute intracranial findings. * Cervical spine CT was negative for any acute osseous abnormality, showed multilevel degenerative disc disease (2) Hypoglycemia: Code(s): E16.2 - Hypoglycemia, unspecified Status: Acute Assessment and Plan: Was found unresponsive on the couch by his at home around 730 this morning. EMS was called. EMS found patient to a blood sugar of 46 and was given an amp of D50 and route with improvement in his mental status. He is a type 2 diabetic and is insulin dependent. initial blood sugar on labs was 63. He continue to drop requiring another amp of D50 while in the ED and started on D10 infusion. * Admit to ICU * q.1 hour Accu-Cheks * continue D10 infusion * hold home insulin for now (3) Pneumonia: Code(s): J18.9 - Pneumonia, unspecified organism Status: Acute Assessment and Plan: community-acquired pneumonia versus aspiration pneumonia * chest x-ray showed bibasilar pneumonia more on the right side * chest abdomen pelvis CT showed moderate emphysema with patchy ground-glass opacities in bilateral lower lobes and right middle lobe concerning for pulmonary edema versus pneumonia * patient has history of immunocompromise due to * he was given 60 mg IV push Solu-Medrol in the ED and then started on prednisone * he was given 80 mg IV push of Lasix while in the ED * continue DuoNebs q.6 hour p.r.n. * continue cefepime, azithromycin, vancomycin * Will check MRSA * will also check urine strep, urine Legionella, mycoplasma * procalcitonin ordered * chest x-ray ordered for in the morning * blood cultures obtained and are pending (4) Acute UTI: Code(s): N39.0 - Urinary tract infection, site not specified Status: Acute Assessment and Plan: * UA showing cloudy urine appearance, 2+ urine protein, 3+ urine blood, 2+ leukocyte, greater than 100 urine RBC, 51-100 urine WBC. * Urine and blood cultures obtained and are pending * continue cefepime (5) Acute kidney injury superimposed on CKD: Code(s): N17.9 - Acute kidney failure, unspecified; N18.9 - Chronic kidney disease, unspecified Status: Acute Assessment and Plan: * initial creatinine 5.10, EGFR 11 * baseline creatinine appears to be between 3.29-3.5 * patient seen outpatient by Dr. 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 Washington (7) Thrombocytopenia: Code(s): D69.6 - Thrombocytopenia, unspecified Status: Acute Assessment and Plan: * platelet count 100 today * appears to be new * last platelet count was 163 on 02/26/2024 * continue to trend * will check vitamin B12 and folic acid * SCD's for DVT prophylaxis for now (8) Anemia: Code(s): D64.9 - Anemia, unspecified Status: Acute Assessment and Plan: * has history of iron deficiency anemia * continue ferrous sulfate * will check vitamin B12 and folate considering his acute thrombocytopenia * will also check iron studies and TSH * hemoglobin today was 7.1 * continue to trend (9) Type 2 diabetes mellitus with other diabetic kidney complication: Code(s): E11.29 - Type 2 diabetes mellitus with other diabetic kidney complication Status: Chronic Assessment and Plan: * currently hypoglycemic and on D10 % infusion * Hgb A1C 5.9 * Accu checks q.1 hour * holding SSI ordered * hypoglycemic protocol in place * renal dialysis diet ordered per science tutor (10) Essential (primary) hypertension: Code(s): I10 - Essential (primary) hypertension Status: Chronic Assessment and Plan: * blood pressure ranging 136/67 to 191/70 * amlodipine 2.5 mg ordered (11) Mixed hyperlipidemia: Code(s): E78.2 - Mixed hyperlipidemia Status: Chronic Assessment and Plan: * continue aspirin and atorvastatin (12) Gastro-esophageal reflux disease without esophagitis: Code(s): K21.9 - Gastro-esophageal reflux disease without esophagitis Status: Chronic Assessment and Plan: * Protonix ordered Quality VTE Prophylaxis VTE prophylaxis: mechanical ordered Hospitalist MIPS Advance Care Plan I have confirmed that the patient's Advanced Care Plan is present, code status is documented, or surrogate decision maker is listed in patient medical record.: Yes Medication Reconciliation I have utilized all available resources to obtain, update and review the patients current medications (includes all prescriptions, OTC, herbals, cannabis, and nutritional supplements).: Yes
[2024-03-10 16:51] LABS: Glucose Point of Care 153 mg/dl (65-105)
[2024-03-10 16:59] LABS: NT Pro B Type Natriuretic Pept 4500 pg/mL (19.9-100)
[2024-03-10] MEDS: AZITHROMYCIN 500 MG/NS 250 ML 500 MG/250 ML BAG 250 MG IVPB (17:06)
[2024-03-10] MEDS: FUROSEMIDE INJ 100 MG/10 ML VIAL 80 MG IV PUSH (17:11)
[2024-03-10] MEDS: VANCOMYCIN 1,250 MG/NS 250 ML 1,250 MG/250 ML BAG 166.67 MG IVPB (17:12)
[2024-03-10 17:55] LABS: Procalcitonin 0.2 ng/mL
[2024-03-10 18:07] LABS: Glucose Point of Care 144 mg/dl (65-105)
[2024-03-10 18:25] LABS: Iron 43 ug/dL (49-181)
[2024-03-10 18:35] LABS: Percent Iron Saturation 23 % (20-50); TOTAL IRON BINDING CAPACITY 190 ug/dL (265-497)
[2024-03-10] MEDS: methylPREDNISolone SOD SUCC 125 MG VIAL 60 MG IV PUSH (18:37)
[2024-03-10] MEDS: CEFEPIME 1 GM/NS 50 ML 1 GM/50 ML BAG IVPB (18:43)
[2024-03-10 19:01] LABS: Thyroid Stimulating Hormone Reflex 0.312 uIU/mL (0.465-4.68)
[2024-03-10 19:06] LABS: Glucose Point of Care 114 mg/dl (65-105)
[2024-03-10 19:40] LABS: Folic Acid > 20.0 ng/mL (2.76->20); Vitamin B12 > 1000.0 pg/mL (239-931)
--- NOTE | 2024-03-10 20:03 | ADMGEN ---
This patient, Shahzad Couch, was admitted to Intensive Care Unit-9 at 1633. Patient/family oriented to hospital policies and general routines including ID bracelet, bed and alarms, visiting hours, pain management, procedures, bathroom and other care routines, personal items, smoking policy, room service/diet, and visiting hours. Information on how to activate the Rapid Response Team has been discussed. Patient/Family are encouraged to report perceived risks to care and to ask questions if they do not understand what they are told or what they should do.
[2024-03-10 20:20] LABS: Glucose Point of Care 110 mg/dl (65-105)
[2024-03-10] MEDS: FLUTICASONE/SALMETEROL 115-21 MCG INHALER 1 PUFF 2 PUFF INHALATION (20:26)
[2024-03-10 20:48] LABS: Free T4 Free Thyroxine Reflex 0.69 ng/dL (0.78-2.19)
[2024-03-10 21:23] LABS: Glucose Point of Care 121 mg/dl (65-105)
[2024-03-10 22:10] LABS: Glucose Point of Care 138 mg/dl (65-105)
[2024-03-10 22:37] LABS: MRSA (PCR) NOT DETECTED (NOT DETECTE)
[2024-03-11] VITALS (20 sets, daily range): BP systolic 124–175; BP diastolic 44–90; PULSE 75–100; RESP 15–28; TEMP 36.6–37.7; O2SAT 93–97
[2024-03-11 00:44] LABS: Creatinine Urine 35.5 mg/dL; Total Protein Urine Random 49 mg/dL; Ur Ttl Prot Creatinine Ratio 1.38 mg/mg (0-0.20)
[2024-03-11 00:45] LABS: Glucose Point of Care 187 mg/dl (65-105)
[2024-03-11 00:46] LABS: Creatinine Urine 35.3 mg/dL; Total Protein Urine Random 50 mg/dL; Urea Random Urine 329 MG/DL
[2024-03-11 00:51] LABS: Sodium Urine Random 102 meq/L
[2024-03-11 01:26] LABS: Eosinophil Urine None Seen % (None Seen); Urine Eos QC 2nd Tech Confirmed
[2024-03-11 01:30] LABS: Glucose Point of Care 223 mg/dl (65-105)
[2024-03-11 02:25] LABS: Glucose Point of Care 225 mg/dl (65-105)
[2024-03-11 04:00] LABS: Immature Granulocyte Absolute 0.06 K/mm3 (0.00-0.031); Immature Granulocyte Percent A 1.6 % (0-0.5); Immature Platelet Fraction Pct 1.7 % (0.9-11.2); Lymphocytes Absolute Auto 0.36 K/mm3 (0.9-3.2); Lymphocytes Percent Auto 9.5 % (18.3-44.2); Mean Corpuscular Hemoglobin 31.7 pg (26-34); Mean Corpuscular Volume 96.2 fl (80-100); Mean Platelet Volume 9.9 fl (7.4-10.4); Monocytes Absolute Auto 0.1 K/mm3 (0.1-0.6); Monocytes Percent Auto 2.4 % (2.6-8.5); Neutrophils Absolute Auto 3.3 K/mm3 (1.3-6.7); Neutrophils Percent Auto 86.5 % (45.5-73.1); Platelet Count Result 87 k/mm3 (150-375); Red Blood Count 2.08 M/mm3 (4.6-6.20); White Blood Count 3.8 K/mm3 (4.5-10.0)
[2024-03-11 04:09] LABS: Alanine Aminotransferase 24 U/L (6-50); Albumin Level 2.5 g/dL (3.5-5.1); Alkaline Phosphatase 62 U/L (38-126); Anion Gap 6 mmol/L (4-12); Aspartate Amino Transferase 24 U/L (17-59); Bilirubin,Total 0.7 mg/dL (0.2-1.3); Blood Urea Nitrogen 87 mg/dL (9-20); Calcium 7.2 mg/dL (8.4-10.2); Carbon Dioxide 23 mmol/L (22-30); Chloride 106 mmol/L (98-107); Creatine Kinase 28 U/L (55-170); Estimated CRCL calculation 10 ml/min; Estimated Glomerular Filt Rate 11; Glucose 235 mg/dL (65-110); Magnesium 1.2 mg/dL (1.6-2.3); Phosphorus 5.1 mg/dL (2.5-4.5); Potassium 5.4 mmol/L (3.4-5.0); Sodium 135 mmol/L (137-145)
[2024-03-11 04:12] LABS: Glucose Point of Care 230 mg/dl (65-105)
[2024-03-11 04:49] LABS: Hemoglobin 6.6 g/dL (14.0-18.0)
[2024-03-11 04:55] LABS: Hepatitis B Surface Antigen Negative (Negative)
[2024-03-11 05:12] LABS: Hepatitis B Surface Anti Res Negative
[2024-03-11 05:59] LABS: Glucose Point of Care 243 mg/dl (65-105)
[2024-03-11] MEDS: INSULIN ASPART (*BKC) 100 UNITS/ML SUB-Q ×5 (06:23→19:53)
[2024-03-11] MEDS: FLUTICASONE/SALMETEROL 115-21 MCG INHALER 1 PUFF 2 PUFF INHALATION ×2 (08:37→20:05)
--- NOTE | 2024-03-11 08:41 | WPDINTPN ---
Progress Note: A&P Assessment and Plan (1) Hypoglycemia: Code(s): E16.2 - Hypoglycemia, unspecified Status: Acute Assessment and Plan: Patient presented with hypoglycemia likely secondary to worsening renal function leading to decreased requirement of insulin that patient is on. Patient takes 70 units of Levemir in the morning and 45 units in the evening. His blood sugar chart shows gradual trend of decreasing blood sugar over last 3-4 days. His last insulin dose was yesterday evening. He received glucagon and multiple the pushes of dextrose in the ER He was started on D10 at this time and titrate down to minimum rate required to maintain his blood sugar to avoid volume overload Continue q.1 hour Accu-Cheks at this time 03/11 blood sugars are now elevated. Patient is off of dextrose infusion. I will start him back on sliding scale and low-dose Lantus. He is going to be eating. Monitor (2) Hypoxia: Code(s): R09.02 - Hypoxemia Status: Acute Assessment and Plan: Patient was saturating in mid 80s on room air on arrival but saturating adequately on [address] chest showed Moderate emphysema with patchy groundglass opacities in the bilateral lower lobes and right middle lobe which could represent mild pulmonary edema versus pneumonia which has improved since the prior study. Although appears to be COPD with some volume overload patient. There was also concern of pneumonia and he has immuno suppressed Bronchodilators for COPD Continue steroid Antibiotics as below Lasix for pulmonary edema to be continued (3) Sepsis: Code(s): A41.9 - Sepsis, unspecified organism Status: Acute Assessment and Plan: Sepsis secondary to UTI and ? pneumonia Patient is on immunosuppressant medication Patient was started on vancomycin cefepime and doxycycline. His MRSA screen is negative our discontinue vancomycin in light of kidney failure. Continue cefepime and doxycycline Urine and blood cultures have been ordered and pending procalcitonin level is low Blood pressure is adequate at this time He is not a candidate for liberal IV fluids due to him being overall volume overloaded and getting dextrose infusion for hypoglycemia (4) Acute kidney injury superimposed on CKD: Code(s): N17.9 - Acute kidney failure, unspecified; N18.9 - Chronic kidney disease, unspecified Status: Acute Assessment and Plan: Patient has chronic kidney disease with creatinine around 3.5. He was recently diagnosed with vasculitis and had kidney biopsy done. Now he presented with worsening of kidney function at 5.1. His electrolytes acceptable. He does have mild volume overload He received Lasix yesterday and will be continued today Nephrology consulted He may need [employer]IAN Continue p.o. bicarb Start p.o. PhosLo P.o. Lokelma Monitor electrolytes urine output and creatinine Place Jones catheter for accurate I&Os. He has good urine output (5) Anasarca: Code(s): R60.1 - Generalized edema Status: Acute Assessment and Plan: Patient has bilateral pitting edema and CT shows ascites. This is likely secondary to worsening renal function. He does have grade 1 diastolic dysfunction on his echo and mild aortic stenosis Accurate I&Os with Jones Lasix IV will be continued Consult nephrology May need [employer] TECHNICIAN but as of now he has good urine output (6) Type 2 diabetes mellitus with other diabetic kidney complication: Code(s): E11.29 - Type 2 diabetes mellitus with other diabetic kidney complication Status: Chronic Assessment and Plan: Continue sliding scale start Lantus at a lower dose (7) Gastro-esophageal reflux disease without esophagitis: Code(s): K21.9 - Gastro-esophageal reflux disease without esophagitis Status: Chronic Assessment and Plan: Continue Protonix (8) Essential (primary) hypertension: Code(s): I10 - Essential (primary) hypertension Status: Chronic Assessment and Plan: Continue amlodipine. Will give IV Lasix (9) COPD with emphysema: Code(s): J43.9 - Emphysema, unspecified Status: Acute Assessment and Plan: See above (10) Anemia: Code(s): D64.9 - Anemia, unspecified Status: Acute Assessment and Plan: Patient has anemia of chronic kidney disease and iron deficiency His hemoglobin is 6.6 today. Will order 1 unit of PRBC transfusion. No evidence of bleeding anywhere. Monitor hemoglobin and transfuse additional if needed Will discuss with Nephrology regarding starting EPO and maybe iron infusion (11) Pneumonia: Code(s): J18.9 - Pneumonia, unspecified organism Status: Acute Assessment and Plan: Patient CT scan of the chest was abnormal. Patient has baseline COPD changes and infiltrates suggestive mostly of pulmonary edema but pneumonia could not be ruled out. Patient was started on empiric antibiotics. His procalcitonin level was low. He is now on room air. He does not have any symptoms suggestive of pneumonia. He has chronic cough which is dry. He is afebrile. MRSA screen was negative I will hold vancomycin to minimize further worsening of his renal function. Continue cefepime and doxycycline (12) Acute UTI: Code(s): N39.0 - Urinary tract infection, site not specified Status: Acute Assessment and Plan: UA suggestive of UTI see above (13) Vasculitis: Code(s): I77.6 - Arteritis, unspecified Status: Acute Assessment and Plan: Recently diagnosed with vasculitis at [facility]. He has completed his treatment with rituximab. He is currently on prednisone which will be continued (14) Immunocompromised: Code(s): D84.9 - Immunodeficiency, unspecified Status: Acute Assessment and Plan: Patient received rituximab yesterday and is on prednisone. He is now going to be on broad-spectrum antibiotics Plan DVT prophylaxis -SCD as patient is anemic and thrombocytopenic Stress ulcer prophylaxis -continue home PPI Nutrition -renal diet Code Status - Full Code Transfer out of ICU today Incentive spirometry Subjective Date/time seen: 03/11/24 Patient states that he had a good night and feels great. He is hungry and would like to eat some food. He does not know why he is in the hospital and why everyone is bothering him. Patient denies fever, chest pain, shortness of breath, nausea vomiting, abdominal pain,, diarrhea, headache or constipation. He has cough which is dry and chronic and has not changed in any significant way or form. Overnight he was weaned off of dextrose infusion as his sugars became elevated.. His vitals have been stable and he is on room air. He has been afebrile. All other systems were reviewed and were negative Review of Systems Review of Systems: All systems reviewed & are unremarkable except as noted in HPI and below (HPI) Exam Narrative: General: Pt is alert awake and in NAD, hearing impairment Lungs/Chest: Trachea central Clear BS B/L, occasional bibasilar crackles Cardiac: RRR. Normal S1 S2. No murmurs Circulation: Feet are warm Abdomen: Normal bowel sounds. Morbidly obese. Soft. NT. Distended but not tender Extremities: No clubbing, cyanosis bilateral pitting edema present : Diaper in place Neurologic: Follows commands. Moves all 4 extremities PERRL AO x3 Skin: No Rash Objective Data Vital Signs Vital Signs: Vital Signs - 24 hr 03/10/24 09:06 03/10/24 10:50 03/10/24 09:45 Temperature 36.6 C Pulse Rate 108 H 101 H 100 Respiratory Rate 18 18 16 Blood Pressure 167/79 H 172/67 H 149/62 H Pulse Oximetry 90 96 94 Oxygen Delivery Room Air Oxygen Flow Rate 03/10/24 10:04 03/10/24 10:31 03/10/24 14:42 Temperature Pulse Rate 98 85 92 Respiratory Rate 18 16 19 Blood Pressure 164/59 H 146/65 H 191/70 H Pulse Oximetry 99 98 94 Oxygen Delivery Nasal Cannula Oxygen Flow Rate 2 03/10/24 10:32 03/10/24 11:23 03/10/24 11:24 Temperature Pulse Rate 87 103 H 100 Respiratory Rate 19 18 Blood Pressure 185/71 H Pulse Oximetry 97 97 97 Oxygen Delivery Oxygen Flow Rate 03/10/24 11:30 03/10/24 11:31 03/10/24 11:45 Temperature Pulse Rate 95 95 95 Respiratory Rate 14 14 15 Blood Pressure 169/61 H Pulse Oximetry 97 98 98 Oxygen Delivery Oxygen Flow Rate 03/10/24 12:00 03/10/24 12:01 03/10/24 12:17 Temperature Pulse Rate 95 93 101 H Respiratory Rate 13 12 23 H Blood Pressure 171/54 H Pulse Oximetry 98 98 99 Oxygen Delivery Oxygen Flow Rate 03/10/24 12:30 03/10/24 12:31 03/10/24 13:27 Temperature Pulse Rate 101 H 101 H 103 H Respiratory Rate 23 H 20 22 H Blood Pressure 178/67 H Pulse Oximetry 99 98 96 Oxygen Delivery Oxygen Flow Rate 03/10/24 13:37 03/10/24 13:45 03/10/24 13:46 Temperature Pulse Rate 102 H 96 94 Respiratory Rate 26 H 16 16 Blood Pressure 176/69 H Pulse Oximetry 97 96 Oxygen Delivery Oxygen Flow Rate 03/10/24 14:00 03/10/24 14:01 03/10/24 14:15 Temperature Pulse Rate 88 87 103 H Respiratory Rate 16 14 22 H Blood Pressure 136/67 Pulse Oximetry 97 96 Oxygen Delivery Oxygen Flow Rate 03/10/24 14:16 03/10/24 14:30 03/10/24 14:45 Temperature Pulse Rate 102 H 99 97 Respiratory Rate 26 H 21 H 25 H Blood Pressure 191/70 H Pulse Oximetry Oxygen Delivery Oxygen Flow Rate 03/10/24 14:46 03/10/24 15:01 03/10/24 15:01 Temperature Pulse Rate 96 Respiratory Rate 19 Blood Pressure 161/67 H Pulse Oximetry 86 L 99 Oxygen Delivery Room Air Nasal Cannula Oxygen Flow Rate 2 03/10/24 14:47 03/10/24 15:00 03/10/24 16:00 Temperature Pulse Rate 94 102 H 89 Respiratory Rate 17 20 18 Blood Pressure 164/56 H Pulse Oximetry 100 99 Oxygen Delivery Oxygen Flow Rate 03/10/24 18:00 03/10/24 16:00 03/10/24 18:00 Temperature Pulse Rate 89 90 88 Respiratory Rate 23 H Blood Pressure 166/62 H Pulse Oximetry 99 Oxygen Delivery Oxygen Flow Rate 03/10/24 16:00 03/10/24 20:27 03/10/24 20:30 Temperature Pulse Rate 89 89 Respiratory Rate 20 20 Blood Pressure Pulse Oximetry 99 99 Oxygen Delivery Nasal Cannula Nasal Cannula Oxygen Flow Rate 2 1.5 03/10/24 20:00 03/10/24 20:00 03/10/24 20:00 Temperature 36.4 C Pulse Rate 86 92 Respiratory Rate 15 Blood Pressure 141/64 H Pulse Oximetry 99 99 Oxygen Delivery Nasal Cannula Oxygen Flow Rate 2 03/10/24 22:00 03/10/24 22:00 03/11/24 00:00 Temperature 37.7 C H Pulse Rate 82 82 86 Respiratory Rate 21 H 15 Blood Pressure 158/57 H 158/56 H Pulse Oximetry 92 94 Oxygen Delivery Oxygen Flow Rate 03/11/24 00:00 03/11/24 00:00 03/11/24 02:00 Temperature Pulse Rate 82 85 Respiratory Rate 18 Blood Pressure 153/52 H Pulse Oximetry 94 Oxygen Delivery Room Air Oxygen Flow Rate 03/11/24 02:00 03/11/24 04:00 03/11/24 04:00 Temperature Pulse Rate 85 94 Respiratory Rate Blood Pressure Pulse Oximetry Oxygen Delivery Room Air Oxygen Flow Rate 03/11/24 04:00 03/11/24 04:42 03/11/24 06:00 Temperature 37.5 C Pulse Rate 96 85 88 Respiratory Rate 22 H 22 H 19 Blood Pressure 175/52 H 159/55 H 164/57 H Pulse Oximetry 93 94 93 Oxygen Delivery Oxygen Flow Rate 03/11/24 06:00 03/11/24 08:00 03/11/24 08:00 Temperature Pulse Rate 88 100 100 Respiratory Rate 22 H Blood Pressure Pulse Oximetry 93 Oxygen Delivery Room Air Oxygen Flow Rate 03/11/24 08:00 Temperature 37.0 C Pulse Rate 100 Respiratory Rate 22 H Blood Pressure 155/54 H Pulse Oximetry 93 Oxygen Delivery Oxygen Flow Rate Intake/Output Intake/Output: Intake & Output 03/08/24 03/09/24 03/10/24 03/11/24 23:59 23:59 23:59 23:59 Intake Total 1576.7 408.4 Output Total 1200 1630 Balance 376.7 -1221.6 Meds/Results Medications: Active Medications Generic Name Dose Route Start Last Admin Trade Name Freq PRN Reason Stop Dose Admin Albuterol/Ipratropium 3 ml 03/10/24 15:14 Ipratropium 0.5 Mg/Albuterol Sulfate 2.5 Mg Ampul.Neb 3 Ml INHALATION Q6HRT PRN Wheezing Amlodipine Besylate 2.5 mg 03/11/24 09:00 Amlodipine Besylate 2.5 Mg Tablet PO QAM ON LICENSE OF [facility] Aspirin 81 mg 03/11/24 09:00 Aspirin 81 Mg Enteric Tablet PO QAM ON LICENSE OF [facility] Atorvastatin Calcium 40 mg 03/11/24 09:00 Atorvastatin 40 Mg Tablet PO DAILY ON LICENSE OF [facility] Calcium Acetate 667 mg 03/11/24 09:00 Calcium Acetate 667 Mg Tablet PO BID ON LICENSE OF [facility] Cyanocobalamin 500 mcg 03/11/24 09:00 Cyanocobalamin 500 Mcg Tablet PO DAILY ON LICENSE OF [facility] Cyanocobalamin 2,000 mcg 03/11/24 09:00 Cyanocobalamin 1,000 Mcg Tablet PO DAILY ON LICENSE OF [facility] Dextrose 12.5 gm 03/10/24 09:29 03/10/24 10:30 Dextrose 50% 25 Gm/50 Ml Syringe IV PUSH 12.5 gm PRN PRN Administration Hypoglycemia Protocol Doxazosin Mesylate 8 mg 03/11/24 09:00 Doxazosin Mesylate 4 Mg Tablet PO DAILY ON LICENSE OF [facility] Ferrous Sulfate 325 mg 03/11/24 09:00 Ferrous Sulfate [address] PO DAILY ON LICENSE OF [facility] Furosemide 80 mg 03/11/24 09:00 Furosemide Inj 40 Mg/4 Ml Vial IV PUSH DAILY ON LICENSE OF [facility] Glucagon 1 mg 03/10/24 09:29 Glucagon For Inj 1 Mg Vial IM PRN PRN Hypoglycemia Protocol Glucose 15 gm 03/10/24 09:29 03/10/24 12:14 Glucose Oral Gel 15 Gm Of Glucse In 37.5 Gm Tube PO 15 gm PRN PRN Administration Hypoglycemia Protocol Dextrose 1,000 mls @ 100 mls/hr 03/10/24 09:29 Dextrose 5% 1,000 Ml IVPB PRN PRN Hypoglycemia Protocol Azithromycin 500 mg in 250 mls @ 250 mls/hr 03/11/24 17:00 Zithromax IVPB Q24H ALEKSANDR Cefepime HCl 1 gm in 50 mls @ 100 mls/hr 03/10/24 17:00 03/10/24 19:13 Maxipime 1 Gm/Ns 50 Ml IVPB Infused Q24H ALEKSANDR Infusion Sodium Chloride 250 mls @ 30 mls/hr 03/11/24 06:05 Normal Saline Iv IV CONT 03/11/24 14:24 .Q8H20M STA Magnesium Sulfate 2 gm in 50 mls @ 25 mls/hr 03/11/24 07:45 Magnesium Sulf 2 Gm/Water 50ml IVPB 03/11/24 09:44 ONCE ONE Insulin Aspart 4 - 8 units 03/11/24 08:00 Insulin Aspart (*Bkc) 100 Units/Ml SUB-Q TIDWM ON LICENSE OF [facility] Protocol Insulin Aspart 2 - 4 units 03/11/24 21:00 Insulin Aspart (*Bkc) 100 Units/Ml SUB-Q HS ON LICENSE OF [facility] Protocol Insulin Glargine 20 units 03/11/24 09:00 Insulin Glargine (*Bkc) 100 Units/Ml SUB-Q QAM ON LICENSE OF [facility] Latanoprost 1 drop 03/10/24 21:05 03/10/24 21:30 Latanoprost 0.005% Op Soln 2.5 Ml Btl EACH EYE Not Given QPM ON LICENSE OF [facility] Pantoprazole Sodium 40 mg 03/11/24 09:00 Pantoprazole 40 Mg Tablet PO QAM ALEKSANDR Prednisone 60 mg 03/11/24 08:00 Prednisone 20 Mg Tablet PO DAILY@0800 ON LICENSE OF [facility] Prednisone 10 mg 03/11/24 08:00 Prednisone 10 Mg Tablet PO DAILY@0800 ON LICENSE OF [facility] Prednisone 5 mg 03/11/24 08:00 Prednisone 5 Mg Tablet PO DAILY@0800 ON LICENSE OF [facility] Fluticasone/Salmeterol 2 puff 03/10/24 20:00 03/11/24 08:37 Fluticasone/Salmeterol 115-21 Mcg Inhaler 1 Puff INHALATION 2 puff Q12HRT ON LICENSE OF [facility] Administration Sodium Bicarbonate 325 mg 03/11/24 09:00 Sodium Bicarbonate Tab 325 Mg Tablet PO QAM ON LICENSE OF [facility] Sodium Zirconium Cyclosilicate 10 gm 03/11/24 07:50 Sodium Zirconium Cyclosilicate 10 Gm Powd.Pack PO BID@1000,1800 ON LICENSE OF [facility] Timolol Maleate 1 drop 03/11/24 09:00 Timolol Maleate 0.5% Op Soln 5 Ml Bottle EACH EYE QAM ON LICENSE OF [facility] Radiology Results: ITS Impressions Head CT 03/10/24 11:24 IMPRESSION: No acute intracranial findings. Cervical Spine CT 03/10/24 11:48 IMPRESSION: No acute osseous abnormality cervical spine. Multilevel degenerative disc disease. Chest/Abdomen/Pelvis CT 03/10/24 13:56 IMPRESSION: 1. Moderate emphysema with patchy groundglass opacities in the bilateral lower lobes and right middle lobe which could represent mild pulmonary edema versus pneumonia which has improved since the prior study. 2. 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 2 mm stone previously seen in the right kidney is no longer visualized. 3. Minimal perihepatic, perisplenic and pericholecystic ascites. 4. Prostatomegaly. 5. Moderate-sized bilateral fat-containing inguinal hernias. Chest X-Ray 03/11/24 06:40 Impression: Stable right basilar consolidation and possible minimal haziness left lung base. Correlate for asymmetric pulmonary edema versus pneumonia. Labs Labs: Laboratory Results - last 24 hr 03/10/24 03/10/24 03/10/24 09:19 09:53 10:24 WBC 9.5 RBC 2.27 L Hgb 7.1 L Hct 22.3 L MCV 98.2 MCH 31.3 MCHC 31.8 L RDW 17.7 H Plt Count 100 L MPV 9.6 Immature Gran % (Auto) 1.4 H Neut % (Auto) 89.7 H Lymph % (Auto) 3.5 L Randall % (Auto) 5.4 Eos % (Auto) 0.0 Baso % (Auto) 0.0 L Lymph # (Auto) 0.33 L Randall # (Auto) 0.5 Eos # (Auto) 0.0 Baso # (Auto) 0.0 Abs Immat Gran (auto) 0.13 H Absolute Neuts (auto) 8.5 H Absolute Nucleated RBC 0.000 Nucleated RBC % 0.0 % Immature Plt Fraction 1.7 Sodium 138 Potassium 4.5 Chloride 108 H Carbon Dioxide 23 Anion Gap 7 BUN 89 H D Creatinine 5.10 H Estim Creat Clear Calc Not Reportable Estimated GFR 11 L Glucose 63 L POC Capillary Glucose 97 Calcium 7.3 L Phosphorus Magnesium Iron 43 L TIBC 190 L % Saturation 23 Ferritin 358.00 H Total Bilirubin AST ALT Alkaline Phosphatase Total Creatine Kinase NT-Pro-B Natriuret Pep Total Protein Albumin Vitamin B12 > 1000.0 H Folate > 20.0 H Procalcitonin TSH (Reflex) 0.312 L Free T4 0.69 L Random Cortisol Urine Color Yellow Urine Appearance Cloudy H Urine pH 5.5 Ur Specific [place] 1.014 Urine Protein 2+ H Urine Glucose (UA) Negative Urine Ketones Negative Ur Blood (Man) 3+ H Urine Nitrate Negative Urine Bilirubin Negative Urine Urobilinogen 0.2 Leukocyte Esterase Rfl 2+ H Urine RBC >100 H Urine WBC 51-100 H Ur Squamous Epith Cells Occasional Urine Bacteria None seen Urine Casts 0-2 Urine Eosinophils U Random Total Protein Ur Random Sodium Ur Random Urea Urine Creatinine Protein/Creat Ratio 2 Nasal MRSA (PCR) Hep Bs Antigen Hep Bs Antibody Influenza A (RT-PCR) Influenza B (RT-PCR) RSV (RT-PCR) SARS-CoV-2 RNA (RT-PCR) 03/10/24 03/10/24 03/10/24 10:31 10:55 11:03 WBC RBC Hgb Hct MCV MCH MCHC RDW Plt Count MPV Immature Gran % (Auto) Neut % (Auto) Lymph % (Auto) Randall % (Auto) Eos % (Auto) Baso % (Auto) Lymph # (Auto) Randall # (Auto) Eos # (Auto) Baso # (Auto) Abs Immat Gran (auto) Absolute Neuts (auto) Absolute Nucleated RBC Nucleated RBC % % Immature Plt Fraction Sodium Potassium Chloride Carbon Dioxide Anion Gap BUN Creatinine Estim Creat Clear Calc Estimated GFR Glucose POC Capillary Glucose 43 L* 111 H Calcium Phosphorus Magnesium Iron TIBC % Saturation Ferritin Total Bilirubin AST ALT Alkaline Phosphatase Total Creatine Kinase NT-Pro-B Natriuret Pep Total Protein Albumin Vitamin B12 Folate Procalcitonin TSH (Reflex) Free T4 Random Cortisol Urine Color Urine Appearance Urine pH Ur Specific [place] Urine Protein Urine Glucose (UA) Urine Ketones Ur Blood (Man) Urine Nitrate Urine Bilirubin Urine Urobilinogen Leukocyte Esterase Rfl Urine RBC Urine WBC Ur Squamous Epith Cells Urine Bacteria Urine Casts Urine Eosinophils U Random Total Protein Ur Random Sodium Ur Random Urea Urine Creatinine Protein/Creat Ratio 2 Nasal MRSA (PCR) Hep Bs Antigen Hep Bs Antibody Influenza A (RT-PCR) Negative Influenza B (RT-PCR) Negative RSV (RT-PCR) Negative SARS-CoV-2 RNA (RT-PCR) Negative 03/10/24 03/10/24 03/10/24 12:08 12:30 13:27 WBC RBC Hgb Hct MCV MCH MCHC RDW Plt Count MPV Immature Gran % (Auto) Neut % (Auto) Lymph % (Auto) Randall % (Auto) Eos % (Auto) Baso % (Auto) Lymph # (Auto) Randall # (Auto) Eos # (Auto) Baso # (Auto) Abs Immat Gran (auto) Absolute Neuts (auto) Absolute Nucleated RBC Nucleated RBC % % Immature Plt Fraction Sodium Potassium Chloride Carbon Dioxide Anion Gap BUN Creatinine Estim Creat Clear Calc Estimated GFR Glucose POC Capillary Glucose 55 L* 55 L* 145 H Calcium Phosphorus Magnesium Iron TIBC % Saturation Ferritin Total Bilirubin AST ALT Alkaline Phosphatase Total Creatine Kinase NT-Pro-B Natriuret Pep Total Protein Albumin Vitamin B12 Folate Procalcitonin TSH (Reflex) Free T4 Random Cortisol Urine Color Urine Appearance Urine pH Ur Specific [place] Urine Protein Urine Glucose (UA) Urine Ketones Ur Blood (Man) Urine Nitrate Urine Bilirubin Urine Urobilinogen Leukocyte Esterase Rfl Urine RBC Urine WBC Ur Squamous Epith Cells Urine Bacteria Urine Casts Urine Eosinophils U Random Total Protein Ur Random Sodium Ur Random Urea Urine Creatinine Protein/Creat Ratio 2 Nasal MRSA (PCR) Hep Bs Antigen Hep Bs Antibody Influenza A (RT-PCR) Influenza B (RT-PCR) RSV (RT-PCR) SARS-CoV-2 RNA (RT-PCR) 03/10/24 03/10/24 03/10/24 14:18 15:20 16:26 WBC RBC Hgb Hct MCV MCH MCHC RDW Plt Count MPV Immature Gran % (Auto) Neut % (Auto) Lymph % (Auto) Randall % (Auto) Eos % (Auto) Baso % (Auto) Lymph # (Auto) Randall # (Auto) Eos # (Auto) Baso # (Auto) Abs Immat Gran (auto) Absolute Neuts (auto) Absolute Nucleated RBC Nucleated RBC % % Immature Plt Fraction Sodium Potassium Chloride Carbon Dioxide Anion Gap BUN Creatinine Estim Creat Clear Calc Estimated GFR Glucose POC Capillary Glucose 131 H 126 H Calcium Phosphorus Magnesium Iron TIBC % Saturation Ferritin Total Bilirubin AST ALT Alkaline Phosphatase Total Creatine Kinase NT-Pro-B Natriuret Pep 4500 H Total Protein Albumin Vitamin B12 Folate Procalcitonin TSH (Reflex) Free T4 Random Cortisol Urine Color Urine Appearance Urine pH Ur Specific [place] Urine Protein Urine Glucose (UA) Urine Ketones Ur Blood (Man) Urine Nitrate Urine Bilirubin Urine Urobilinogen Leukocyte Esterase Rfl Urine RBC Urine WBC Ur Squamous Epith Cells Urine Bacteria Urine Casts Urine Eosinophils U Random Total Protein Ur Random Sodium Ur Random Urea Urine Creatinine Protein/Creat Ratio 2 Nasal MRSA (PCR) Hep Bs Antigen Hep Bs Antibody Influenza A (RT-PCR) Influenza B (RT-PCR) RSV (RT-PCR) SARS-CoV-2 RNA (RT-PCR) 03/10/24 03/10/24 03/10/24 16:27 16:29 16:49 WBC RBC Hgb Hct MCV MCH MCHC RDW Plt Count MPV Immature Gran % (Auto) Neut % (Auto) Lymph % (Auto) Randall % (Auto) Eos % (Auto) Baso % (Auto) Lymph # (Auto) Randall # (Auto) Eos # (Auto) Baso # (Auto) Abs Immat Gran (auto) Absolute Neuts (auto) Absolute Nucleated RBC Nucleated RBC % % Immature Plt Fraction Sodium Potassium Chloride Carbon Dioxide Anion Gap BUN Creatinine Estim Creat Clear Calc Estimated GFR Glucose POC Capillary Glucose 153 H Calcium Phosphorus Magnesium Iron TIBC % Saturation Ferritin Total Bilirubin AST ALT Alkaline Phosphatase Total Creatine Kinase NT-Pro-B Natriuret Pep Total Protein Albumin Vitamin B12 Folate Procalcitonin 0.2 TSH (Reflex) Free T4 Random Cortisol 15.20 Urine Color Urine Appearance Urine pH Ur Specific [place] Urine Protein Urine Glucose (UA) Urine Ketones Ur Blood (Man) Urine Nitrate Urine Bilirubin Urine Urobilinogen Leukocyte Esterase Rfl Urine RBC Urine WBC Ur Squamous Epith Cells Urine Bacteria Urine Casts Urine Eosinophils U Random Total Protein Ur Random Sodium Ur Random Urea Urine Creatinine Protein/Creat Ratio 2 Nasal MRSA (PCR) Hep Bs Antigen Hep Bs Antibody Influenza A (RT-PCR) Influenza B (RT-PCR) RSV (RT-PCR) SARS-CoV-2 RNA (RT-PCR) 03/10/24 03/10/24 03/10/24 18:03 19:04 20:18 WBC RBC Hgb Hct MCV MCH MCHC RDW Plt Count MPV Immature Gran % (Auto) Neut % (Auto) Lymph % (Auto) Randall % (Auto) Eos % (Auto) Baso % (Auto) Lymph # (Auto) Randall # (Auto) Eos # (Auto) Baso # (Auto) Abs Immat Gran (auto) Absolute Neuts (auto) Absolute Nucleated RBC Nucleated RBC % % Immature Plt Fraction Sodium Potassium Chloride Carbon Dioxide Anion Gap BUN Creatinine Estim Creat Clear Calc Estimated GFR Glucose POC Capillary Glucose 144 H 114 H 110 H Calcium Phosphorus Magnesium Iron TIBC % Saturation Ferritin Total Bilirubin AST ALT Alkaline Phosphatase Total Creatine Kinase NT-Pro-B Natriuret Pep Total Protein Albumin Vitamin B12 Folate Procalcitonin TSH (Reflex) Free T4 Random Cortisol Urine Color Urine Appearance Urine pH Ur Specific [place] Urine Protein Urine Glucose (UA) Urine Ketones Ur Blood (Man) Urine Nitrate Urine Bilirubin Urine Urobilinogen Leukocyte Esterase Rfl Urine RBC Urine WBC Ur Squamous Epith Cells Urine Bacteria Urine Casts Urine Eosinophils U Random Total Protein Ur Random Sodium Ur Random Urea Urine Creatinine Protein/Creat Ratio 2 Nasal MRSA (PCR) Hep Bs Antigen Hep Bs Antibody Influenza A (RT-PCR) Influenza B (RT-PCR) RSV (RT-PCR) SARS-CoV-2 RNA (RT-PCR) 03/10/24 03/10/24 03/10/24 21:11 21:21 22:08 WBC RBC Hgb Hct MCV MCH MCHC RDW Plt Count MPV Immature Gran % (Auto) Neut % (Auto) Lymph % (Auto) Randall % (Auto) Eos % (Auto) Baso % (Auto) Lymph # (Auto) Randall # (Auto) Eos # (Auto) Baso # (Auto) Abs Immat Gran (auto) Absolute Neuts (auto) Absolute Nucleated RBC Nucleated RBC % % Immature Plt Fraction Sodium Potassium Chloride Carbon Dioxide Anion Gap BUN Creatinine Estim Creat Clear Calc Estimated GFR Glucose POC Capillary Glucose 121 H 138 H Calcium Phosphorus Magnesium Iron TIBC % Saturation Ferritin Total Bilirubin AST ALT Alkaline Phosphatase Total Creatine Kinase NT-Pro-B Natriuret Pep Total Protein Albumin Vitamin B12 Folate Procalcitonin TSH (Reflex) Free T4 Random Cortisol Urine Color Urine Appearance Urine pH Ur Specific [place] Urine Protein Urine Glucose (UA) Urine Ketones Ur Blood (Man) Urine Nitrate Urine Bilirubin Urine Urobilinogen Leukocyte Esterase Rfl Urine RBC Urine WBC Ur Squamous Epith Cells Urine Bacteria Urine Casts Urine Eosinophils U Random Total Protein Ur Random Sodium Ur Random Urea Urine Creatinine Protein/Creat Ratio 2 Nasal MRSA (PCR) Not detected Hep Bs Antigen Hep Bs Antibody Influenza A (RT-PCR) Influenza B (RT-PCR) RSV (RT-PCR) SARS-CoV-2 RNA (RT-PCR) 03/11/24 03/11/24 03/11/24 00:19 00:28 00:28 WBC RBC Hgb Hct MCV MCH MCHC RDW Plt Count MPV Immature Gran % (Auto) Neut % (Auto) Lymph % (Auto) Randall % (Auto) Eos % (Auto) Baso % (Auto) Lymph # (Auto) Randall # (Auto) Eos # (Auto) Baso # (Auto) Abs Immat Gran (auto) Absolute Neuts (auto) Absolute Nucleated RBC Nucleated RBC % % Immature Plt Fraction Sodium Potassium Chloride Carbon Dioxide Anion Gap BUN Creatinine Estim Creat Clear Calc Estimated GFR Glucose POC Capillary Glucose 187 H Calcium Phosphorus Magnesium Iron TIBC % Saturation Ferritin Total Bilirubin AST ALT Alkaline Phosphatase Total Creatine Kinase NT-Pro-B Natriuret Pep Total Protein Albumin Vitamin B12 Folate Procalcitonin TSH (Reflex) Free T4 Random Cortisol Urine Color Urine Appearance Urine pH Ur Specific [place] Urine Protein Urine Glucose (UA) Urine Ketones Ur Blood (Man) Urine Nitrate Urine Bilirubin Urine Urobilinogen Leukocyte Esterase Rfl Urine RBC Urine WBC Ur Squamous Epith Cells Urine Bacteria Urine Casts Urine Eosinophils None seen U Random Total Protein 49 50 Ur Random Sodium 102 Ur Random Urea 329 Urine Creatinine 35.5 Protein/Creat Ratio 2 Nasal MRSA (PCR) Hep Bs Antigen Hep Bs Antibody Influenza A (RT-PCR) Influenza B (RT-PCR) RSV (RT-PCR) SARS-CoV-2 RNA (RT-PCR) 03/11/24 03/11/24 03/11/24 00:28 01:27 02:22 WBC RBC Hgb Hct MCV MCH MCHC RDW Plt Count MPV Immature Gran % (Auto) Neut % (Auto) Lymph % (Auto) Randall % (Auto) Eos % (Auto) Baso % (Auto) Lymph # (Auto) Randall # (Auto) Eos # (Auto) Baso # (Auto) Abs Immat Gran (auto) Absolute Neuts (auto) Absolute Nucleated RBC Nucleated RBC % % Immature Plt Fraction Sodium Potassium Chloride Carbon Dioxide Anion Gap BUN Creatinine Estim Creat Clear Calc Estimated GFR Glucose POC Capillary Glucose 223 H 225 H Calcium Phosphorus Magnesium Iron TIBC % Saturation Ferritin Total Bilirubin AST ALT Alkaline Phosphatase Total Creatine Kinase NT-Pro-B Natriuret Pep Total Protein Albumin Vitamin B12 Folate Procalcitonin TSH (Reflex) Free T4 Random Cortisol Urine Color Urine Appearance Urine pH Ur Specific [place] Urine Protein Urine Glucose (UA) Urine Ketones Ur Blood (Man) Urine Nitrate Urine Bilirubin Urine Urobilinogen Leukocyte Esterase Rfl Urine RBC Urine WBC Ur Squamous Epith Cells Urine Bacteria Urine Casts Urine Eosinophils U Random Total Protein Ur Random Sodium Ur Random Urea Urine Creatinine 35.3 Protein/Creat Ratio 2 1.38 H Nasal MRSA (PCR) Hep Bs Antigen Hep Bs Antibody Influenza A (RT-PCR) Influenza B (RT-PCR) RSV (RT-PCR) SARS-CoV-2 RNA (RT-PCR) 03/11/24 03/11/24 03/11/24 03:50 03:51 05:56 WBC 3.8 L RBC 2.08 L Hgb 6.6 L* Hct 20.0 L* MCV 96.2 MCH 31.7 MCHC 33.0 RDW 18.0 H Plt Count 87 L MPV 9.9 Immature Gran % (Auto) 1.6 H Neut % (Auto) 86.5 H Lymph % (Auto) 9.5 L Randall % (Auto) 2.4 L Eos % (Auto) 0.0 Baso % (Auto) 0.0 L Lymph # (Auto) 0.36 L Randall # (Auto) 0.1 Eos # (Auto) 0.0 Baso # (Auto) 0.0 Abs Immat Gran (auto) 0.06 H Absolute Neuts (auto) 3.3 Absolute Nucleated RBC 0.000 Nucleated RBC % 0.0 % Immature Plt Fraction 1.7 Sodium 135 L Potassium 5.4 H Chloride 106 Carbon Dioxide 23 Anion Gap 6 BUN 87 H Creatinine 5.20 H Estim Creat Clear Calc 10 Estimated GFR 11 L Glucose 235 H POC Capillary Glucose 230 H 243 H Calcium 7.2 L Phosphorus 5.1 H Magnesium 1.2 L Iron TIBC % Saturation Ferritin Total Bilirubin 0.7 AST 24 ALT 24 Alkaline Phosphatase 62 Total Creatine Kinase 28 L NT-Pro-B Natriuret Pep Total Protein 5.0 L Albumin 2.5 L Vitamin B12 Folate Procalcitonin TSH (Reflex) Free T4 Random Cortisol Urine Color Urine Appearance Urine pH Ur Specific [place] Urine Protein Urine Glucose (UA) Urine Ketones Ur Blood (Man) Urine Nitrate Urine Bilirubin Urine Urobilinogen Leukocyte Esterase Rfl Urine RBC Urine WBC Ur Squamous Epith Cells Urine Bacteria Urine Casts Urine Eosinophils U Random Total Protein Ur Random Sodium Ur Random Urea Urine Creatinine Protein/Creat Ratio 2 Nasal MRSA (PCR) Hep Bs Antigen Negative Hep Bs Antibody Negative Influenza A (RT-PCR) Influenza B (RT-PCR) RSV (RT-PCR) SARS-CoV-2 RNA (RT-PCR) Quality VTE Prophylaxis VTE prophylaxis: mechanical ordered
[2024-03-11] MEDS: MAGNESIUM SULF 2 GM/WATER 50ML 2 GM/50 ML BAG IVPB (09:16)
[2024-03-11] MEDS: SODIUM ZIRCONIUM CYCLOSILICATE 10 GM POWD.PACK PO ×2 (09:16→18:55)
[2024-03-11] MEDS: predniSONE 20 MG TABLET 60 MG PO (09:17)
[2024-03-11] MEDS: ASPIRIN 81 MG ENTERIC TABLET PO (09:18)
[2024-03-11] MEDS: ATORVASTATIN 40 MG TABLET PO (09:18)
[2024-03-11] MEDS: predniSONE 10 MG TABLET PO (09:18)
[2024-03-11] MEDS: amLODIPine BESYLATE 2.5 MG TABLET PO (09:18)
[2024-03-11] MEDS: predniSONE 5 MG TABLET PO (09:18)
[2024-03-11] MEDS: CALCIUM ACETATE 667 MG TABLET PO ×2 (09:19→18:11)
[2024-03-11] MEDS: CYANOCOBALAMIN 1,000 MCG TABLET 2000 MCG PO (09:19)
[2024-03-11] MEDS: FUROSEMIDE INJ 40 MG/4 ML VIAL 80 MG IV PUSH (09:19)
[2024-03-11] MEDS: TIMOLOL MALEATE 0.5% OP SOLN 5 ML BOTTLE 1 DROP EACH EYE (09:20)
[2024-03-11] MEDS: SODIUM BICARBONATE TAB 325 MG TABLET PO (09:20)
[2024-03-11] MEDS: FERROUS SULFATE 325 MG TABLET DR PO (09:20)
[2024-03-11] MEDS: PANTOPRAZOLE 40 MG TABLET PO (09:20)
[2024-03-11] MEDS: CYANOCOBALAMIN 500 MCG TABLET PO (09:27)
[2024-03-11] MEDS: DOXAZOSIN MESYLATE 4 MG TABLET 8 MG PO (09:27)
[2024-03-11 09:34] LABS: Glucose Point of Care 331 mg/dl (65-105)
[2024-03-11] MEDS: INSULIN GLARGINE (*BKC) 100 UNITS/ML 20 UNITS SUB-Q (09:34)
[2024-03-11 11:52] LABS: Glucose Point of Care 355 mg/dl (65-105)
--- NOTE | 2024-03-11 12:31 | P.CONNP_ITS ---
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 * there was a concern for infection but this was ruled out * presumed etiology of recent SANGITA/ARF * however, creatinine much worse from labs done earlier this month * s/p pulse dose steroids and IV rituximab x 2 doses * continue steroids for now (3) Chronic kidney disease, stage IV (severe): Code(s): N18.4 - Chronic kidney disease, stage 4 (severe) Status: Acute Assessment and Plan: * creatining running ~ 3.5mg/dl earlier this month and post discharge from [facility] * new baseline or will some recovery occur with interventions to date (immunosuppressive therapy, diuretics...etc) * underlying CKD also present due to HTN, DM, vascular disease, and age-related change * follow trend of repeat labs and UOP (4) Hypoglycemia: Code(s): E16.2 - Hypoglycemia, unspecified Status: Resolved Assessment and Plan: * due to combination of worsening renal function in the context of ongoing insulin use * s/p glucagon and multiple pushes of D50 in the ER * on D10 IVFs with ongoing weaning * follow trend of accucheks (5) Hypoxia: Code(s): R09.02 - Hypoxemia Status: Acute Assessment and Plan: * multifactorial etiology: * mild pulmonary edema * possible pneumonia (complicated by immunosuppression) * COPD exacerbation * relative anemia * noted to be 80% on room air in ER * improvement in oxygenation with supplemental oxygen (2L) * CT of chest results noted: * moderate emphysema with patchy groundglass opacities in the bilateral lower lobes and right middle lobe which could represent mild pulmonary edema versus pneumonia * on bronchodilators * already on steroids * IV diuresis * continue empiric antibiotics * follow respiratory status (6) Sepsis: Code(s): A41.9 - Sepsis, unspecified organism Status: Acute Assessment and Plan: * possibly due to UTI +/- pneumonia * complicated by immunosuppression (s/p rituximab and on steroids) * follow culture data * blood and urine culture negative to date * monitor hemodynamics * on antibiotics * supportive therapy (7) Anemia: Code(s): D64.9 - Anemia, unspecified Status: Acute Assessment and Plan: * due to SANGITA, CKD, vasculitis, and iron deficiency * PRBC transfusion per protocol * LEONEL while hospitalized * follow trend of H/H (8) Anasarca: Code(s): R60.1 - Generalized edema Status: Acute Assessment and Plan: * likely a manifestation of worsening renal dysfunction * as noted by bilateral pitting LE edema * imaging with ascites as well * known history of diastolic dysfunction + aortic stenosis as well * on IV diuretic thearapy * follow I/Os, daily weights, and overall volume status * at 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 for 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/dialysis (9) Essential (primary) hypertension: Code(s): I10 - Essential (primary) hypertension Status: Chronic Assessment and Plan: * off FREDY-I/ARB due to #1 * currently on amlodipine * follow trend of hemodynamics (10) Type 2 diabetes mellitus with other diabetic kidney complication: Code(s): E11.29 - Type 2 diabetes mellitus with other diabetic kidney complication Status: Chronic Assessment and Plan: * follow accu-cheks * glycemic control per panel flow machine operator/hospitalist Long extensive discussion greater than 20 minutes) with both the patient and his regarding his renal dysfunction and acute worsening as noted by presentation/admission. He has already received appropriate immunosuppressive medications (rituximab x 2) given his renal biopsy results that were done at [facility] last month and currently remains on oral steroids. Unfortunately, these medication interventions will take some time to stabilize his renal function; however, it was discussed with both of them that there is the possibility there may be some irreparable damage done to his kidneys and he remains at risk for renal replacement therapy/dialysis. They both appeared to voice understanding. I will continue to follow the patient with you while he remains hospitalized and make further recommendations as deemed necessary. Thank you for allowing me to participate in the care of this patient. History of Present Illness Reason for Consult Consult date: 03/11/24 Reason for consult: acute renal failure (on chronic kidney disease) Chief Complaint Chief complaint: PNA/UTI History of Present Illness Narrative: The patient is an 89-year-old male with an extensive past medical history as outlined below who presented to [facility] Emergency Room due to altered mental status. The patient's reports that she found him on the morning of admission unresponsive on the floor near the sofa. This was apparently around 7:30 a.m. his seems to think that he was on the sofa and fell off the sofa by the way he was position when she found him. She immediately called 911 and on arrival by EMS they found his blood sugar was 45. He was given an amp of D50 with improvement in his mental status. Per EMS notes, it is unclear if the patient ate anything last night or early this morning but he did take his insulin yesterday evening. He gave no history of fevers, chills, nausea, vomiting, diarrhea, abdominal pain, chest pain, shortness of breath or any other subjective symptoms. He was subsequently transferred to the emergency room for further assessment. Workup and evaluation emergency room demonstrated the patient be hemodynamically stable and in no acute distress. Routine blood test demonstrated a normal white blood cell count relative anemia with a hemoglobin of 7.1, and mild thrombocytopenia in conjunction with relatively stable electrolytes but a declin e in his kidney function with his creatinine up to 5.10 mg/dL. His urinalysis was concerning for possible UTI with 2+ protein 3+ blood 2+ leukocyte esterase greater than 100 white blood cells and greater than 100 white blood cells. Respiratory viral panel is negative for influenza, RSV, and COVID. His chest x- ray showed bibasilar pneumonia more so on the right side and a subsequent CT scan of the head and cervical spine did not show any acute findings other than multilevel degenerative disc disease. Given his recent hospitalization [facility], he had a CT scan of the chest abdomen pelvis which demonstrated moderate emphysema with patchy ground-glass opacities in the bilateral lower l obes and right middle lobe which could represent pulmonary edema versus pneumonia with mild hydronephrosis of the upper and lower poles of the left kidney with out's obstructing stone as well as prostatomegaly and moderate sized bilateral fat containing inguinal hernias. EKG did not demonstrate any acute ischemic changes. While the patient was in the ER, he continued to have issues with hypoglycemia requiring multiple amps of D50 and eventually initiation of D10 IV fluids to maintain his blood sugar. Given the concerns of possible sepsis, appropriate cultures were obtained and he was started on broad-spectrum antibiotics. Given the concerns of pulmonary edema, he received IV Lasix as wel l. He was subsequently admitted to the intensive care unit for closer monitoring of his blood sugars and ongoing evaluation and therapy. Since his admission to the ICU, his blood sugars appear to have stabilized in the he is being weaned off dextrose fluids. His respiratory status is better but not back to baseline but he has good urine output with IV diuretic therapy. His hemoglobin and hematocrit have remained relatively stable as well. Renal consultation was requested due to his acute kidney injury/acute renal failure on top of his baseline chronic kidney disease. The patient is well known to me as I take care of his outpatient needs with regard to his chronic kidney disease. The patient was recently hospitalized here at [facility] for severe anemia and acute kidney injury on top of his baseline chronic kidney disease with a concern that he may have some type of pulmonary renal syndrome / vasculitis. He was transfused with packed red blood cells at that time to optim ize his hemoglobin and was subsequent transferred to [facility] for further management of his anemia and renal dysfunction. From review his records at [facility], it was felt that his renal dysfunction was secondary to hydralazine/medication induced renal vasculitis as demonstrated by his renal biopsy. There was a concern for possible infection, namely infective endocarditis, but subsequent echocardiogram and evaluation ruled this concern out. He was treated with a combination of pulse dose steroids as well as oral prednisone and received a dose of rituximab prior to discharge from [facility]. He received his 2nd dose of rituximab that was scheduled for 2 weeks the day prior to admission. He remains on oral prednisone as well as prophylactic Bactrim as well as ergo calciferol for for preventive therapy with regard to infection and bone loss. I actually just saw the patient earlier this week and review this plan of care with him and his following the recent discharge from [facility]. Currently, at the time my evaluation, he appears to be in no acute distress with improvement in his breathing/respiratory status. Review of Systems Review of Systems: As per HPI. [facility] Past Medical History Medical History Acute on chronic anemia Anemia due to stage 3 chronic kidney disease Anemia, unspecified BMI 27.0-27.9,adult BMI 28.0-28.9,adult Essential (primary) hypertension Fatty liver Gastro-esophageal reflux disease without esophagitis Glaucoma Hearing loss Melena Mixed hyperlipidemia Pulmonary emphysema determined by X-ray 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 Surgical History Surgical History H/O eye surgery H/O eye surgery Hx of detached retina repair Family History Family History Mother Family history of heart disease in male family member before age 55 Heart disease Father , 96 y/o Diabetes mellitus Neuropathy Sibling Parkinson disease Social History Social History Smoking packs per day: 0.75 Smoking cigarettes per day: 15.0 Years smoked: 20 Smoking pack-years: 15.00 Smoking status: Former smoker Tobacco type: cigarettes Second hand tobacco smoke exposure: No Alcohol intake: never Substance use: never Substance use type: does not use Do You Feel Safe in your Home?: Yes Lack of Transportation: No Lack of Food: Never True Current Housing: I Have Housing Concerned About Future Housing: No Difficulty Paying Gas/Electric Bills: No Difficulty Paying for Meds: No Currently Unemployed: No Education: High School Diploma/GED Difficulty w/ Childcare or Family Care: No Living arrangements: with family 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 Gender identity (if verbalized by the patient): Male Spiritual care concerns: No Meds Home Medications and Allergies Home Medications Medication Instructions Recorded Confirmed Type latanoprost 0.005 % eye drops 1 drop ophthalmic (eye) QPM 12/07/19 03/10/24 History doxazosin 8 mg tablet 8 mg PO DAILY #100 tabs 08/29/23 03/10/24 Rx amlodipine 2.5 mg tablet 2.5 mg PO DAILY #90 tabs 12/02/23 03/10/24 Rx timolol maleate 0.5 % eye drops 1 drp EACH EYE QAM 12/02/23 03/10/24 History albuterol sulfate 90 mcg/actuation 2 inh inhalation Q4H PRN shortness 02/04/24 03/10/24 Rx aerosol inhaler of breath or wheezing #8.5 grams atorvastatin 40 mg tablet 40 mg PO DAILY 02/12/24 03/10/24 History insulin detemir U-100 100 unit/mL 70 unit subcut DAILY 02/12/24 03/10/24 History subcutaneous solution insulin detemir U-100 100 unit/mL 30 unit subcut HS 02/12/24 03/10/24 History subcutaneous solution (Levemir U-100 Insulin) aspirin 81 mg tablet,delayed 81 mg PO DAILY 02/26/24 03/10/24 History release (Adult Low Dose Aspirin) cyanocobalamin (vitamin B-12) 2,500 mcg PO DAILY 02/26/24 03/10/24 History 2,500 mcg tablet ergocalciferol (vitamin D2) 50,000 50,000 unit PO DAILY 02/26/24 03/10/24 History unit tablet ferrous sulfate 325 mg (65 mg 325 mg PO DAILY 02/26/24 03/10/24 History iron) tablet (Iron (ferrous sulfate)) pantoprazole 40 mg tablet,delayed 40 mg PO QAM #90 tabs 02/26/24 03/10/24 Rx release prednisone 50 mg tablet 75 mg PO DAILY #30 tabs 02/26/24 03/10/24 Rx sodium bicarbonate 325 mg tablet 325 mg PO DAILY 02/26/24 03/10/24 History blood sugar diagnostic (Accu-Chek 03/10/24 03/10/24 History Guide test strips) blood-glucose meter (Accu-Chek 03/10/24 03/10/24 History Guide Glucose Meter) fluticasone 250 mcg-salmeterol 50 1 inh inhalation DAILY 03/10/24 03/10/24 History mcg/dose blistr powdr for inhalation (Wixela Inhub) insulin syringe-needle U-100 1 mL 03/10/24 03/10/24 History 31 gauge x 5/16 ([facility]ocate Syringes) lancets (Accu-Chek Softclix 03/10/24 03/10/24 History Lancets) vitamins A,C,J-slqy-ispekg 2,148 1 tablet PO Q12H 03/12/24 03/12/24 History mcg-113 mg-45 mg-17.4 mg tablet (PreserVision AREDS) Allergies Allergy/AdvReac Type Severity Reaction Status Date / Time No Known Allergies Allergy Verified 03/08/24 13:37 Vital Signs Vital Signs Temp Pulse Resp BP Pulse Ox O2 Del Method O2 Flow Rate 03/11/24 12:00 97.9 F 97 28 H 146/44 H 03/11/24 12:00 97 28 H Room Air 03/11/24 10:00 91 27 H 139/45 L 03/11/24 10:00 91 03/11/24 08:00 98.6 F 100 22 H 155/54 H 93 03/11/24 08:00 100 03/11/24 08:00 100 22 H 93 Room Air 03/11/24 06:00 88 03/11/24 06:00 88 19 164/57 H 93 03/11/24 04:42 85 22 H 159/55 H 94 03/11/24 04:00 99.5 F 96 22 H 175/52 H 93 03/11/24 04:00 94 03/11/24 04:00 Room Air 03/11/24 02:00 85 03/11/24 02:00 85 18 153/52 H 94 03/11/24 00:00 82 03/11/24 00:00 Room Air 03/11/24 00:00 99.9 F H 86 15 158/56 H 94 03/10/24 22:00 82 03/10/24 22:00 82 21 H 158/57 H 92 03/10/24 20:00 92 03/10/24 20:00 99 Nasal Cannula 2 03/10/24 20:00 97.6 F 86 15 141/64 H 99 03/10/24 20:30 89 20 99 Nasal Cannula 1.5 03/10/24 20:27 89 20 03/10/24 18:00 88 03/10/24 18:00 89 23 H 166/62 H 99 Exam Narrative: GENERAL APPEARANCE: elderly but well developed well nourished male in no acute distress; [place] HEENT: normocephalic, atraumatic, normal conjunctiva and sclera, nares patient NECK: no lymphadenopathy, thyromegaly, or JVD MOUTH: normal lips, teeth, and gums CARDIOVASCULAR: RRR, normal S1 and S2, no rub RESPIRATORY: clear anteriorly but decreased at bases ABDOMEN: obese but soft, nontender, nondistended, positive bowel sounds present EXTREMITIES: no evidence of cyanosis, clubbing, 1 - 2+ edema NEUROLOGICAL: alert and oriented x 3; CN II - XII intact bilaterally; no focal deficits noted Results Lab Results 03/14/24 12:16 03/14/24 04:40 Lab results: Most recent lab results Calcium 7.1 mg/dL (8.4-10.2) L 03/11/24 12:57 Phosphorus 5.1 mg/dL (2.5-4.5) H 03/11/24 03:51 Magnesium 1.2 mg/dL (1.6-2.3) L 03/11/24 03:51 Urine Creatinine 35.3 mg/dL 03/11/24 00:28 Urine Creatinine 35.5 mg/dL 03/11/24 00:28
[2024-03-11 13:17] LABS: Anion Gap 7 mmol/L (4-12); Blood Urea Nitrogen 92 mg/dL (9-20); Calcium 7.1 mg/dL (8.4-10.2); Carbon Dioxide 22 mmol/L (22-30); Chloride 103 mmol/L (98-107); Estimated CRCL calculation 9 ml/min; Estimated Glomerular Filt Rate 11; Glucose 341 mg/dL (65-110); Sodium 132 mmol/L (137-145)
[2024-03-11] MEDS: SODIUM CHLORIDE 0.9% IV 250 ML 30 ML IV CONT (16:51)
[2024-03-11 16:53] LABS: Glucose Point of Care 254 mg/dl (65-105)
[2024-03-11 17:27] LABS: Vancomycin Random 11.4 ug/mL (10-20)
[2024-03-11] MEDS: CEFEPIME 1 GM/NS 50 ML 1 GM/50 ML BAG IVPB (18:54)
[2024-03-11] MEDS: LATANOPROST 0.005% OP SOLN 2.5 ML BTL 1 DROP EACH EYE (18:54)
[2024-03-11] MEDS: AZITHROMYCIN 500 MG/NS 250 ML 500 MG/250 ML BAG 250 MG IVPB (19:26)
[2024-03-11 20:54] LABS: Glucose Point of Care 273 mg/dl (65-105)
[2024-03-12] VITALS (18 sets, daily range): BP systolic 150–166; BP diastolic 52–69; PULSE 75–92; RESP 12–22; TEMP 36.4–37; O2SAT 90–98; BMI 28.9
[2024-03-12 04:37] LABS: Hepatitis B Core Ab Total NON-REACTIVE (NON-REACTIVE)
[2024-03-12 07:05] LABS: Glucose Point of Care 233 mg/dl (65-105)
[2024-03-12 07:33] LABS: Alanine Aminotransferase 29 U/L (6-50); Albumin Level 2.7 g/dL (3.5-5.1); Alkaline Phosphatase 60 U/L (38-126); Anion Gap 9 mmol/L (4-12); Aspartate Amino Transferase 24 U/L (17-59); Bilirubin,Total 1.1 mg/dL (0.2-1.3); Blood Urea Nitrogen 103 mg/dL (9-20); Calcium 7.6 mg/dL (8.4-10.2); Carbon Dioxide 22 mmol/L (22-30); Chloride 105 mmol/L (98-107); Estimated CRCL calculation 8 ml/min; Estimated Glomerular Filt Rate 10; Glucose 225 mg/dL (65-110); Magnesium 1.8 mg/dL (1.6-2.3); Phosphorus 5.9 mg/dL (2.5-4.5); Potassium 4.6 mmol/L (3.4-5.0); Sodium 136 mmol/L (137-145)
[2024-03-12] MEDS: ATORVASTATIN 40 MG TABLET PO (08:06)
[2024-03-12] MEDS: amLODIPine BESYLATE 2.5 MG TABLET PO (08:06)
[2024-03-12] MEDS: DOXAZOSIN MESYLATE 4 MG TABLET 8 MG PO (08:06)
[2024-03-12] MEDS: SODIUM BICARBONATE TAB 325 MG TABLET PO (08:06)
[2024-03-12] MEDS: predniSONE 10 MG TABLET PO (08:06)
[2024-03-12] MEDS: CYANOCOBALAMIN 1,000 MCG TABLET 2000 MCG PO (08:06)
[2024-03-12] MEDS: FUROSEMIDE INJ 40 MG/4 ML VIAL 80 MG IV PUSH (08:06)
[2024-03-12] MEDS: PANTOPRAZOLE 40 MG TABLET PO (08:06)
[2024-03-12] MEDS: FERROUS SULFATE 325 MG TABLET DR PO (08:06)
[2024-03-12] MEDS: INSULIN GLARGINE (*BKC) 100 UNITS/ML 20 UNITS SUB-Q (08:07)
[2024-03-12] MEDS: predniSONE 20 MG TABLET 60 MG PO (08:07)
[2024-03-12] MEDS: predniSONE 5 MG TABLET PO (08:07)
[2024-03-12] MEDS: ASPIRIN 81 MG ENTERIC TABLET PO (08:07)
[2024-03-12] MEDS: CALCIUM ACETATE 667 MG TABLET PO ×2 (08:07→17:22)
[2024-03-12] MEDS: INSULIN ASPART (*BKC) 100 UNITS/ML SUB-Q ×2 (08:08→11:15)
[2024-03-12] MEDS: CYANOCOBALAMIN 500 MCG TABLET PO (08:22)
[2024-03-12] MEDS: TIMOLOL MALEATE 0.5% OP SOLN 5 ML BOTTLE 1 DROP EACH EYE (08:22)
[2024-03-12] MEDS: FLUTICASONE/SALMETEROL 115-21 MCG INHALER 1 PUFF 2 PUFF INHALATION ×2 (08:56→20:25)
[2024-03-12 09:03] LABS: Hematocrit 22.2 % (42.0-52.0); Hemoglobin 7.3 g/dL (14.0-18.0); Immature Granulocyte Percent A 2.2 % (0-0.5); Immature Platelet Fraction Pct 2.2 % (0.9-11.2); Lymphocytes Absolute Auto 0.43 K/mm3 (0.9-3.2); Lymphocytes Percent Auto 9.4 % (18.3-44.2); Mean Corpuscular HGB Conc 32.9 g/dl (32-36); Mean Corpuscular Hemoglobin 29.2 pg (26-34); Mean Corpuscular Volume 88.8 fl (80-100); Mean Platelet Volume 10.2 fl (7.4-10.4); Monocytes Absolute Auto 0.2 K/mm3 (0.1-0.6); Monocytes Percent Auto 4.6 % (2.6-8.5); Neutrophils Absolute Auto 3.9 K/mm3 (1.3-6.7); Neutrophils Percent Auto 83.8 % (45.5-73.1); Platelet Count Result 89 k/mm3 (150-375); Red Cell Distribution Width 25.7 % (11.5-14.5); White Blood Count 4.6 K/mm3 (4.5-10.0)
[2024-03-12 09:27] LABS: Anisocytosis 1+; Platelet Estimate Decreased (Adequate); Schistocytes None Seen
[2024-03-12 09:29] LABS: Ovalocytes 1+
--- NOTE | 2024-03-12 11:02 | P.PNNP_ITS ---
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etc) * underlying CKD also present due to HTN, DM, vascular disease, and age-related change * follow trend of repeat labs and UOP (4) Hypoglycemia: Code(s): E16.2 - Hypoglycemia, unspecified Status: Resolved Assessment and Plan: * due to combination of worsening renal function in the context of ongoing insulin use * s/p glucagon and multiple pushes of D50 in the ER * was on D10 IVFs but has been weaned off (5) Hypoxia: Code(s): R09.02 - Hypoxemia Status: Acute Assessment and Plan: * multifactorial etiology: * mild pulmonary edema * possible pneumonia (complicated by immunosuppression) * COPD exacerbation * relative anemia * noted to be 80% on room air in ER * improvement in oxygenation with supplemental oxygen (2L) * CT of chest results noted: * moderate emphysema with patchy groundglass opacities in the bilateral lower lobes and right middle lobe which could represent mild pulmonary edema versus pneumonia * on bronchodilators' * already on steroids * IV diuresis * continue empiric antibiotics * follow respiratory status (6) Sepsis: Code(s): A41.9 - Sepsis, unspecified organism Status: Acute Assessment and Plan: * possibly due to UTI +/- pneumonia * complicated by immunosuppression (s/p rituximab and on steroids) * follow culture data * blood and urine culture negative to date * monitor hemodynamics * on antibiotics * supportive therapy (7) Anemia: Code(s): D64.9 - Anemia, unspecified Status: Acute Assessment and Plan: * due to SANGITA, CKD, vasculitis, and iron deficiency * PRBC transfusion per protocol * LEONEL while hospitalized * follow trend of H/H (8) Anasarca: Code(s): R60.1 - Generalized edema Status: Acute Assessment and Plan: * likely a manifestation of worsening renal dysfunction * as noted by bilateral pitting LE edema * imaging with ascites as well * known history of diastolic dysfunction + aortic stenosis as well * on IV diuretic thearapy * follow I/Os, daily weights, and overall volume status * at risk for [employer]/dialysis (9) Essential (primary) hypertension: Code(s): I10 - Essential (primary) hypertension Status: Chronic Assessment and Plan: * off FREDY-I/ARB due to # 1 * currently on amlodipine * follow trend of hemodynamics (10) Type 2 diabetes mellitus with other diabetic kidney complication: Code(s): E11.29 - Type 2 diabetes mellitus with other diabetic kidney complication Status: Chronic Assessment and Plan: * previous issues with hypoglycemia noted * follow accu-cheks * glycemic control per hospitalist Will continue to follow. Subjective Date/time seen: 03/12/24 11:02 Interval history: Follow-up for acute kidney injury/acute renal failure on chronic kidney disease (versus progression of CKD?). Appears to be in good spirits at the time of my visit; breathing/respiratory st atus remains stable; renal function/creatinine still elevated but no worse in the last 24 hours with reasonable urine output in response to IV diuretics; no apparent distress to report. Exam Narrative: General: elderly but WD/WN male in NAD Heart: normal S1 and S2; no rub Lungs: coarse and diminished at bases Abdomen: soft, nontender, nondistended, positive bowel sounds Extremities: no cyanosis or clubbing; trace edema Skin: warm and dry Objective Data Vital Signs Vital Signs: Vital Signs Temp Pulse Resp BP Pulse Ox O2 Del Method 03/12/24 09:00 94 Room Air 03/12/24 08:56 92 22 H 03/12/24 04:01 97.5 F L 75 12 163/67 H 94 03/12/24 06:00 77 03/12/24 04:00 77 03/12/24 02:00 76 03/12/24 04:00 Room Air 03/12/24 00:01 97.7 F 84 12 166/69 H 97 03/12/24 00:00 83 03/12/24 00:00 Room Air 03/11/24 22:00 75 03/11/24 20:00 89 03/11/24 20:00 Room Air 03/11/24 20:11 98.1 F 84 20 142/61 H 94 03/11/24 20:08 87 24 H 03/11/24 19:02 98.3 F 84 20 139/63 03/11/24 18:50 98.2 F 89 23 H 124/48 L 03/11/24 18:00 98.3 F 87 21 H 124/48 L 03/11/24 18:00 87 03/11/24 17:50 98.2 F 87 21 H 137/54 L 03/11/24 16:00 98.7 F 92 26 H 03/11/24 16:50 98.4 F 88 18 145/85 H 03/11/24 16:00 83 03/11/24 16:00 83 19 97 Room Air 03/11/24 16:31 98.3 F 83 19 145/85 H 03/11/24 14:00 92 23 H 128/90 97 03/11/24 14:00 92 Intake/Output Intake/Output: Intake & Output 03/09/24 03/10/24 03/11/24 03/12/24 23:59 23:59 23:59 23:59 Intake Total 1576.7 2128.4 100 Output Total 1200 2830 900 Balance 376.7 -701.6 -800 Meds/Results Medications: Active Medications Generic Name Dose Route Start Last Admin Trade Name Freq PRN Reason Stop Dose Admin Albuterol/Ipratropium 3 ml 03/10/24 15:14 Ipratropium 0.5 Mg/Albuterol Sulfate 2.5 Mg Ampul.Neb 3 Ml INHALATION Q6HRT PRN Wheezing Amlodipine Besylate 2.5 mg 03/11/24 09:00 03/12/24 08:06 Amlodipine Besylate 2.5 Mg Tablet PO 2.5 mg QAM ALEKSANDR Administration Aspirin 81 mg 03/11/24 09:00 03/12/24 08:07 Aspirin 81 Mg Enteric Tablet PO 81 mg QAM ALEKSANDR Administration Atorvastatin Calcium 40 mg 03/11/24 09:00 03/12/24 08:06 Atorvastatin 40 Mg Tablet PO 40 mg DAILY ALEKSANDR Administration Calcium Acetate 667 mg 03/11/24 09:00 03/12/24 08:07 Calcium Acetate 667 Mg Tablet PO 667 mg BID ALEKSANDR Administration Cyanocobalamin 500 mcg 03/11/24 09:00 03/12/24 08:22 Cyanocobalamin 500 Mcg Tablet PO 500 mcg DAILY ALEKSANDR Administration Cyanocobalamin 2,000 mcg 03/11/24 09:00 03/12/24 08:06 Cyanocobalamin 1,000 Mcg Tablet PO 2,000 mcg DAILY ALEKSANDR Administration Dextrose 12.5 gm 03/10/24 09:29 03/10/24 10:30 Dextrose 50% 25 Gm/50 Ml Syringe IV PUSH 12.5 gm PRN PRN Administration Hypoglycemia Protocol Doxazosin Mesylate 8 mg 03/11/24 09:00 03/12/24 08:06 Doxazosin Mesylate 4 Mg Tablet PO 8 mg DAILY ALEKSANDR Administration Ferrous Sulfate 325 mg 03/11/24 09:00 03/12/24 08:06 Ferrous Sulfate [address] PO 325 mg DAILY ALEKSANDR Administration Furosemide 80 mg 03/11/24 09:00 03/12/24 08:06 Furosemide Inj 40 Mg/4 Ml Vial IV PUSH 80 mg DAILY ALEKSANDR Administration Glucagon 1 mg 03/10/24 09:29 Glucagon For Inj 1 Mg Vial IM PRN PRN Hypoglycemia Protocol Glucose 15 gm 03/10/24 09:29 03/10/24 12:14 Glucose Oral Gel 15 Gm Of Glucse In 37.5 Gm Tube PO 15 gm PRN PRN Administration Hypoglycemia Protocol Dextrose 1,000 mls @ 100 mls/hr 03/10/24 09:29 Dextrose 5% 1,000 Ml IVPB PRN PRN Hypoglycemia Protocol Azithromycin 500 mg in 250 mls @ 250 mls/hr 03/11/24 17:00 03/11/24 20:26 Zithromax IVPB Infused Q24H ALEKSANDR Infusion Cefepime HCl 1 gm in 50 mls @ 100 mls/hr 03/10/24 17:00 03/11/24 19:24 Maxipime 1 Gm/Ns 50 Ml IVPB Infused Q24H ALEKSANDR Infusion Insulin Aspart 4 - 8 units 03/11/24 08:00 03/12/24 11:15 Insulin Aspart (*Bkc) 100 Units/Ml SUB-Q 4 units TIDWM ALEKSANDR Administration Protocol Insulin Aspart 2 - 4 units 03/11/24 21:00 03/11/24 19:53 Insulin Aspart (*Bkc) 100 Units/Ml SUB-Q 2 units HS ALEKSANDR Administration Protocol Insulin Glargine 20 units 03/11/24 09:00 03/12/24 08:07 Insulin Glargine (*Bkc) 100 Units/Ml SUB-Q 20 units QAM ALEKSANDR Administration Latanoprost 1 drop 03/10/24 21:05 03/11/24 18:54 Latanoprost 0.005% Op Soln 2.5 Ml Btl EACH EYE 1 drop QPM ALEKSANDR Administration Pantoprazole Sodium 40 mg 03/11/24 09:00 03/12/24 08:06 Pantoprazole 40 Mg Tablet PO 40 mg QAM ALEKSANDR Administration Prednisone 60 mg 03/11/24 08:00 03/12/24 08:07 Prednisone 20 Mg Tablet PO 60 mg DAILY@0800 ALEKSANDR Administration Prednisone 10 mg 03/11/24 08:00 03/12/24 08:06 Prednisone 10 Mg Tablet PO 10 mg DAILY@0800 ALEKSANDR Administration Prednisone 5 mg 03/11/24 08:00 03/12/24 08:07 Prednisone 5 Mg Tablet PO 5 mg DAILY@0800 ALEKSANDR Administration Fluticasone/Salmeterol 2 puff 03/10/24 20:00 03/12/24 08:56 Fluticasone/Salmeterol 115-21 Mcg Inhaler 1 Puff INHALATION 2 puff Q12HRT ALEKSANDR Administration Sodium Bicarbonate 325 mg 03/11/24 09:00 03/12/24 08:06 Sodium Bicarbonate Tab 325 Mg Tablet PO 325 mg QAM ALEKSANDR Administration Sodium Zirconium Cyclosilicate 10 gm 03/11/24 07:50 03/12/24 11:16 Sodium Zirconium Cyclosilicate 10 Gm Powd.Pack PO 10 gm BID@1000,1800 ALEKSANDR Administration Timolol Maleate 1 drop 03/11/24 09:00 03/12/24 08:22 Timolol Maleate 0.5% Op Soln 5 Ml Bottle EACH EYE 1 drop QAM ALEKSANDR Administration Radiology Results: ITS Impressions Head CT 03/10/24 11:24 IMPRESSION: No acute intracranial findings. Cervical Spine CT 03/10/24 11:48 IMPRESSION: No acute osseous abnormality cervical spine. Multilevel degenerative disc disease. Chest/Abdomen/Pelvis CT 03/10/24 13:56 IMPRESSION: 1. Moderate emphysema with patchy groundglass opacities in the bilateral lower lobes and right middle lobe which could represent mild pulmonary edema versus pneumonia which has improved since the prior study. 2. 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 2 mm stone previously seen in the right kidney is no longer visualized. 3. Minimal perihepatic, perisplenic and pericholecystic ascites. 4. Prostatomegaly. 5. Moderate-sized bilateral fat-containing inguinal hernias. Chest X-Ray 03/12/24 06:32 Impression: Significantly improved hazy right basilar airspace disease. Underlying COPD and/or chronic interstitial disease. Labs Labs: Laboratory Tests 03/12/24 08:53 03/12/24 07:06 Calcium 7.6 L Phosphorus 5.9 H Magnesium 1.8 Total Bilirubin 1.1 AST 24 ALT 29 Alkaline Phosphatase 60 Total Protein 5.0 L Albumin 2.7 L Microbiology 03/10/24 10:24 Urine Catheterized Urine Culture - Final 03/10/24 16:26 Blood Blood Culture - Preliminary 03/10/24 14:58 Blood Blood Culture - Preliminary
[2024-03-12] MEDS: SODIUM ZIRCONIUM CYCLOSILICATE 10 GM POWD.PACK PO ×2 (11:16→17:23)
[2024-03-12 11:27] LABS: Glucose Point of Care 204 mg/dl (65-105)
--- NOTE | 2024-03-12 12:35 | P.PNIM_ITS ---
Progress Note: A&P Assessment and Plan (1) Hypoglycemia: Code(s): E16.2 - Hypoglycemia, unspecified Status: Acute Assessment and Plan: Patient presented with hypoglycemia likely secondary to worsening renal function leading to decreased requirement of insulin that patient is on. Patient takes 70 units of Levemir in the morning and 45 units in the evening. His blood sugar chart shows gradual trend of decreasing blood sugar over last 3-4 days. He received glucagon and multiple the pushes of dextrose in the ER He was started on D10 at this time and titrate down to minimum rate required to maintain his blood sugar to avoid volume overload Hypoglycemia has resolved. Patient resumed on insulin at lower doses and he peers to be tolerating this well. (2) Hypoxia: Code(s): R09.02 - Hypoxemia Status: Acute Assessment and Plan: Patient was saturating in mid 80s on room air on arrival but saturating adequately on [address] chest showed moderate emphysema with patchy ground glass opacities in the bilateral lower lobes and right middle lobe: mild pulmonary edema vs PNA which has improved since the prior study. Although appears to be COPD with some volume overload. Concern of PNA and he has immuno suppressed Bronchodilators for COPD Continue steroid Antibiotics as below Lasix for pulmonary edema to be continued. Start PT/OT (3) Sepsis: Code(s): A41.9 - Sepsis, unspecified organism Status: Acute Assessment and Plan: Sepsis secondary to ? pneumonia. Patient is on immunosuppressive medications PCT 0.2. WBC normal. No fevers. Not a candidate for liberal IV fluids due to volume overloaded and also getting dextrose infusion for hypoglycemia Patient was started on vancomycin, cefepime and azithro. MRSA screen is negative so Vanco discontinued Continue cefepime and azithro UCx negative. BCx NGTD. Blood pressure is adequate. Complete 7 day course of cefepime and 5 days of azithro (4) Acute kidney injury superimposed on CKD: Code(s): N17.9 - Acute kidney failure, unspecified; N18.9 - Chronic kidney disease, unspecified Status: Acute Assessment and Plan: Patient has chronic kidney disease with creatinine around 3.5. He was recently diagnosed with vasculitis with kidney biopsy done. He presents with worsening of kidney function at 5.1. His electrolytes acceptable. He does have mild volume overload Started on IV Lasix Nephrology consulted and appreciate their input He may need SPACE OPERATIONS. UOP 1200->2830-> 900 today so far Continue p.o. bicarb and PhosLo P.o. Lokelma Monitor electrolytes urine output and creatinine (5) Anasarca: Code(s): R60.1 - Generalized edema Status: Acute Assessment and Plan: Patient had bilateral pitting edema and CT shows ascites. This is likely secondary to worsening renal function. He does have grade 1 diastolic dysfunction on his echo and mild aortic stenosis Accurate I&Os with Jones Lasix IV May need SPACE OPERATIONS but as of now he has good urine output (6) Type 2 diabetes mellitus with other diabetic kidney complication: Code(s): E11.29 - Type 2 diabetes mellitus with other diabetic kidney complication Status: Chronic Assessment and Plan: A1c 5.9% in January. The patient's blood glucose was reviewed on 03/12 Glucose remains poorly controlled. Continue AccuCheks covering with sliding scale. Hypoglycemia protocol available as needed. Continue Lantus. Ad Novolog at meals. Discussed with Diab Eduator (7) Gastro-esophageal reflux disease without esophagitis: Code(s): K21.9 - Gastro-esophageal reflux disease without esophagitis Status: Chronic Assessment and Plan: Continue Protonix (8) Essential (primary) hypertension: Code(s): I10 - Essential (primary) hypertension Status: Chronic Assessment and Plan: Patient's blood pressure was reviewed on Blood pressure elevated at times Will continue current medications. (9) COPD with emphysema: Code(s): J43.9 - Emphysema, unspecified Status: Acute Assessment and Plan: As above (10) Anemia: Code(s): D64.9 - Anemia, unspecified Status: Acute Assessment and Plan: Patient has anemia of chronic kidney disease and iron deficiency His hemoglobin dropped to 6.6 and 1 unit of PRBC transfused. No evidence of bleeding Hgb better at 7.3 Monitor HH and transfuse additional if needed (11) Pneumonia: Code(s): J18.9 - Pneumonia, unspecified organism Status: Acute Assessment and Plan: Patient CT scan of the chest was abnormal. Patient has baseline COPD changes and infiltrates suggestive mostly of pulmonary edema but pneumonia could not be ruled out. He does not have any symptoms suggestive of pneumonia. He has chronic cough which is dry. He is afebrile. WBC normal. Patient was started on empiric antibiotics. He has been weaned to room air. MRSA screen was negative Continue cefepime and azithro (12) Acute UTI: Code(s): N39.0 - Urinary tract infection, site not specified Status: Acute Assessment and Plan: UA suggestive of UTI but UCx negative. UTI ruled out (13) Vasculitis: Code(s): I77.6 - Arteritis, unspecified Status: Acute Assessment and Plan: Recently diagnosed with vasculitis at [facility]. He has completed his treatment with rituximab. He is currently on prednisone which will be continued. 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 Follow Plan Thrombocytopenia - plt 89K now but stable. No heparin or Lovenox. Probably related to Rituxan. Follow for chiki DVT prophylaxis -SCD as patient is anemic and thrombocytopenic Code Status - Full Code Subjective Date/time seen: 03/12/24 12:35 Interval history: 89yo male with DM, CKD, vasculitis and HTN here for hypoglycemia. Assuming care. Chart reviewed. Patient feels well. No CP or SOB. Not madiha out of bed yet. Eating normally. No odynophagia or dysphagia. Passing flatus but no bowel movements. Exam Narrative: AF 97.5 163/67 92 22 94% ra Gen - NARD sitting up in bed feeding himself lunch Chest -left greater than right bibasilar inspiratory crackles. Normal respiratory rate CV - RRR S1/S2. Telemetry showing PVCs. Abd -soft. Protuberant. Positive bowel sounds. -Jones catheter secured draining clear yellow urine Ext - No pedal edema. 2+ PT pulses bilateral Neuro - Alert and appropriate. Hard of hearing. Psych - Nml mood and affect Skin - Warm and dry Objective Data Vital Signs Vital Signs: Vital Signs - 24 hr 03/11/24 14:00 03/11/24 14:00 03/11/24 16:31 Temperature 98.3 F Pulse Rate 92 92 83 Respiratory Rate 23 H 19 Blood Pressure 128/90 145/85 H Pulse Oximetry 97 Oxygen Delivery 03/11/24 16:00 03/11/24 16:00 03/11/24 16:50 Temperature 98.4 F Pulse Rate 83 83 88 Respiratory Rate 19 18 Blood Pressure 145/85 H Pulse Oximetry 97 Oxygen Delivery Room Air 03/11/24 16:00 03/11/24 17:50 03/11/24 18:00 Temperature 98.7 F 98.2 F Pulse Rate 92 87 87 Respiratory Rate 26 H 21 H Blood Pressure 137/54 L Pulse Oximetry Oxygen Delivery 03/11/24 18:00 03/11/24 18:50 03/11/24 19:02 Temperature 98.3 F 98.2 F 98.3 F Pulse Rate 87 89 84 Respiratory Rate 21 H 23 H 20 Blood Pressure 124/48 L 124/48 L 139/63 Pulse Oximetry Oxygen Delivery 03/11/24 20:08 03/11/24 20:11 03/11/24 20:00 Temperature 98.1 F Pulse Rate 87 84 Respiratory Rate 24 H 20 Blood Pressure 142/61 H Pulse Oximetry 94 Oxygen Delivery Room Air 03/11/24 20:00 03/11/24 22:00 03/12/24 00:00 Temperature Pulse Rate 89 75 Respiratory Rate Blood Pressure Pulse Oximetry Oxygen Delivery Room Air 03/12/24 00:00 03/12/24 00:01 03/12/24 04:00 Temperature 97.7 F Pulse Rate 83 84 Respiratory Rate 12 Blood Pressure 166/69 H Pulse Oximetry 97 Oxygen Delivery Room Air 03/12/24 02:00 03/12/24 04:00 03/12/24 06:00 Temperature Pulse Rate 76 77 77 Respiratory Rate Blood Pressure Pulse Oximetry Oxygen Delivery 03/12/24 04:01 03/12/24 08:56 03/12/24 09:00 Temperature 97.5 F L Pulse Rate 75 92 Respiratory Rate 12 22 H Blood Pressure 163/67 H Pulse Oximetry 94 94 Oxygen Delivery Room Air Intake/Output Intake/Output: Intake & Output 03/09/24 03/10/24 03/11/24 03/12/24 23:59 23:59 23:59 23:59 Intake Total 1576.7 2128.4 100 Output Total 1200 2830 900 Balance 376.7 -701.6 -800 Meds/Results Medications: Active Medications Generic Name Dose Route Start Last Admin Trade Name Freq PRN Reason Stop Dose Admin Albuterol/Ipratropium 3 ml 03/10/24 15:14 Ipratropium 0.5 Mg/Albuterol Sulfate 2.5 Mg Ampul.Neb 3 Ml INHALATION Q6HRT PRN Wheezing Amlodipine Besylate 2.5 mg 03/11/24 09:00 03/12/24 08:06 Amlodipine Besylate 2.5 Mg Tablet PO 2.5 mg QAM ALEKSANDR Administration Aspirin 81 mg 03/11/24 09:00 03/12/24 08:07 Aspirin 81 Mg Enteric Tablet PO 81 mg QAM ALEKSANDR Administration Atorvastatin Calcium 40 mg 03/11/24 09:00 03/12/24 08:06 Atorvastatin 40 Mg Tablet PO 40 mg DAILY ALEKSANDR Administration Calcium Acetate 667 mg 03/11/24 09:00 03/12/24 08:07 Calcium Acetate 667 Mg Tablet PO 667 mg BID ALEKSANDR Administration Cyanocobalamin 500 mcg 03/11/24 09:00 03/12/24 08:22 Cyanocobalamin 500 Mcg Tablet PO 500 mcg DAILY ALEKSANDR Administration Cyanocobalamin 2,000 mcg 03/11/24 09:00 03/12/24 08:06 Cyanocobalamin 1,000 Mcg Tablet PO 2,000 mcg DAILY ALEKSANDR Administration Dextrose 12.5 gm 03/10/24 09:29 03/10/24 10:30 Dextrose 50% 25 Gm/50 Ml Syringe IV PUSH 12.5 gm PRN PRN Administration Hypoglycemia Protocol Doxazosin Mesylate 8 mg 03/11/24 09:00 03/12/24 08:06 Doxazosin Mesylate 4 Mg Tablet PO 8 mg DAILY ALEKSANDR Administration Ferrous Sulfate 325 mg 03/11/24 09:00 03/12/24 08:06 Ferrous Sulfate [address] PO 325 mg DAILY ALEKSANDR Administration Furosemide 80 mg 03/11/24 09:00 03/12/24 08:06 Furosemide Inj 40 Mg/4 Ml Vial IV PUSH 80 mg DAILY ALEKSANDR Administration Glucagon 1 mg 03/10/24 09:29 Glucagon For Inj 1 Mg Vial IM PRN PRN Hypoglycemia Protocol Glucose 15 gm 03/10/24 09:29 03/10/24 12:14 Glucose Oral Gel 15 Gm Of Glucse In 37.5 Gm Tube PO 15 gm PRN PRN Administration Hypoglycemia Protocol Dextrose 1,000 mls @ 100 mls/hr 03/10/24 09:29 Dextrose 5% 1,000 Ml IVPB PRN PRN Hypoglycemia Protocol Azithromycin 500 mg in 250 mls @ 250 mls/hr 03/11/24 17:00 03/11/24 20:26 Zithromax IVPB Infused Q24H ALEKSANDR Infusion Cefepime HCl 1 gm in 50 mls @ 100 mls/hr 03/10/24 17:00 03/11/24 19:24 Maxipime 1 Gm/Ns 50 Ml IVPB Infused Q24H ALEKSANDR Infusion Insulin Aspart 4 - 8 units 03/11/24 08:00 03/12/24 11:15 Insulin Aspart (*Bkc) 100 Units/Ml SUB-Q 4 units TIDWM ALEKSANDR Administration Protocol Insulin Aspart 2 - 4 units 03/11/24 21:00 03/11/24 19:53 Insulin Aspart (*Bkc) 100 Units/Ml SUB-Q 2 units HS ALEKSANDR Administration Protocol Insulin Glargine 20 units 03/11/24 09:00 03/12/24 08:07 Insulin Glargine (*Bkc) 100 Units/Ml SUB-Q 20 units QAM ALEKSANDR Administration Latanoprost 1 drop 03/10/24 21:05 03/11/24 18:54 Latanoprost 0.005% Op Soln 2.5 Ml Btl EACH EYE 1 drop QPM ALEKSANDR Administration Pantoprazole Sodium 40 mg 03/11/24 09:00 03/12/24 08:06 Pantoprazole 40 Mg Tablet PO 40 mg QAM ALEKSANDR Administration Prednisone 60 mg 03/11/24 08:00 03/12/24 08:07 Prednisone 20 Mg Tablet PO 60 mg DAILY@0800 ALEKSANDR Administration Prednisone 10 mg 03/11/24 08:00 03/12/24 08:06 Prednisone 10 Mg Tablet PO 10 mg DAILY@0800 ALEKSANDR Administration Fluticasone/Salmeterol 2 puff 03/10/24 20:00 03/12/24 08:56 Fluticasone/Salmeterol 115-21 Mcg Inhaler 1 Puff INHALATION 2 puff Q12HRT ALEKSANDR Administration Sodium Bicarbonate 325 mg 03/11/24 09:00 03/12/24 08:06 Sodium Bicarbonate Tab 325 Mg Tablet PO 325 mg QAM ALEKSANDR Administration Sodium Zirconium Cyclosilicate 10 gm 03/11/24 07:50 03/12/24 11:16 Sodium Zirconium Cyclosilicate 10 Gm Powd.Pack PO 10 gm BID@1000,1800 ALEKSANDR Administration Timolol Maleate 1 drop 03/11/24 09:00 03/12/24 08:22 Timolol Maleate 0.5% Op Soln 5 Ml Bottle EACH EYE 1 drop QAM ALEKSANDR Administration Radiology Results: ITS Impressions Head CT 03/10/24 11:24 IMPRESSION: No acute intracranial findings. Cervical Spine CT 03/10/24 11:48 IMPRESSION: No acute osseous abnormality cervical spine. Multilevel degenerative disc disease. Chest/Abdomen/Pelvis CT 03/10/24 13:56 IMPRESSION: 1. Moderate emphysema with patchy groundglass opacities in the bilateral lower lobes and right middle lobe which could represent mild pulmonary edema versus pneumonia which has improved since the prior study. 2. 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 2 mm stone previously seen in the right kidney is no longer visualized. 3. Minimal perihepatic, perisplenic and pericholecystic ascites. 4. Prostatomegaly. 5. Moderate-sized bilateral fat-containing inguinal hernias. Chest X-Ray 03/12/24 06:32 Impression: Significantly improved hazy right basilar airspace disease. Underlying COPD and/or chronic interstitial disease. Labs Labs: Laboratory Results - last 24 hr 03/11/24 03/11/24 03/11/24 03:51 10:21 12:57 WBC RBC Hgb Hct MCV MCH MCHC RDW Plt Count MPV Immature Gran % (Auto) Neut % (Auto) Lymph % (Auto) [place] % (Auto) Eos % (Auto) Baso % (Auto) Lymph # (Auto) [place] # (Auto) Eos # (Auto) Baso # (Auto) Abs Immat Gran (auto) Absolute Neuts (auto) Absolute Nucleated RBC Nucleated RBC % Platelet Estimate % Immature Plt Fraction Anisocytosis Ovalocytes Schistocytes Sodium 132 L Potassium 5.0 Chloride 103 Carbon Dioxide 22 Anion Gap 7 BUN 92 H Creatinine 5.20 H Estim Creat Clear Calc 9 Estimated GFR 11 L Glucose 341 H POC Capillary Glucose Calcium 7.1 L Phosphorus Magnesium Total Bilirubin AST ALT Alkaline Phosphatase Total Protein Albumin Random Vancomycin Hep B Core Total Ab Non-reactive Blood Type Cancelled Rho(D) Type Cancelled Antibody Screen Cancelled Crossmatch See Detail 03/11/24 03/11/24 03/11/24 16:11 16:47 19:52 WBC RBC Hgb Hct MCV MCH MCHC RDW Plt Count MPV Immature Gran % (Auto) Neut % (Auto) Lymph % (Auto) [place] % (Auto) Eos % (Auto) Baso % (Auto) Lymph # (Auto) [place] # (Auto) Eos # (Auto) Baso # (Auto) Abs Immat Gran (auto) Absolute Neuts (auto) Absolute Nucleated RBC Nucleated RBC % Platelet Estimate % Immature Plt Fraction Anisocytosis Ovalocytes Schistocytes Sodium Potassium Chloride Carbon Dioxide Anion Gap BUN Creatinine Estim Creat Clear Calc Estimated GFR Glucose POC Capillary Glucose 254 H 273 H Calcium Phosphorus Magnesium Total Bilirubin AST ALT Alkaline Phosphatase Total Protein Albumin Random Vancomycin 11.4 Hep B Core Total Ab Blood Type Rho(D) Type Antibody Screen Crossmatch 03/12/24 03/12/24 03/12/24 07:03 07:06 08:53 WBC 4.6 RBC 2.50 L Hgb 7.3 L Hct 22.2 L MCV 88.8 D MCH 29.2 D MCHC 32.9 RDW 25.7 H Plt Count 89 L MPV 10.2 Immature Gran % (Auto) 2.2 H Neut % (Auto) 83.8 H Lymph % (Auto) 9.4 L [place] % (Auto) 4.6 Eos % (Auto) 0.0 Baso % (Auto) 0.0 L Lymph # (Auto) 0.43 L [place] # (Auto) 0.2 Eos # (Auto) 0.0 Baso # (Auto) 0.0 Abs Immat Gran (auto) 0.10 H Absolute Neuts (auto) 3.9 Absolute Nucleated RBC 0.000 Nucleated RBC % 0.0 Platelet Estimate Decreased % Immature Plt Fraction 2.2 Anisocytosis 1+ Ovalocytes 1+ Schistocytes None seen Sodium 136 L Potassium 4.6 Chloride 105 Carbon Dioxide 22 Anion Gap 9 BUN 103 H D Creatinine 5.30 H Estim Creat Clear Calc 8 Estimated GFR 10 L Glucose 225 H POC Capillary Glucose 233 H Calcium 7.6 L Phosphorus 5.9 H Magnesium 1.8 Total Bilirubin 1.1 AST 24 ALT 29 Alkaline Phosphatase 60 Total Protein 5.0 L Albumin 2.7 L Random Vancomycin Hep B Core Total Ab Blood Type Rho(D) Type Antibody Screen Crossmatch 03/12/24 11:13 WBC RBC Hgb Hct MCV MCH MCHC RDW Plt Count MPV Immature Gran % (Auto) Neut % (Auto) Lymph % (Auto) [place] % (Auto) Eos % (Auto) Baso % (Auto) Lymph # (Auto) [place] # (Auto) Eos # (Auto) Baso # (Auto) Abs Immat Gran (auto) Absolute Neuts (auto) Absolute Nucleated RBC Nucleated RBC % Platelet Estimate % Immature Plt Fraction Anisocytosis Ovalocytes Schistocytes Sodium Potassium Chloride Carbon Dioxide Anion Gap BUN Creatinine Estim Creat Clear Calc Estimated GFR Glucose POC Capillary Glucose 204 H Calcium Phosphorus Magnesium Total Bilirubin AST ALT Alkaline Phosphatase Total Protein Albumin Random Vancomycin Hep B Core Total Ab Blood Type Rho(D) Type Antibody Screen Crossmatch
[2024-03-12] MEDS: OPTI-GEN TAB 1 TABLET PO (13:47)
[2024-03-12 16:45] LABS: Glucose Point of Care 81 mg/dl (65-105)
[2024-03-12] MEDS: AZITHROMYCIN 250 MG TABLET 500 MG PO (17:22)
[2024-03-12] MEDS: CEFEPIME 1 GM/NS 50 ML 1 GM/50 ML BAG IVPB (17:22)
[2024-03-12] MEDS: LATANOPROST 0.005% OP SOLN 2.5 ML BTL 1 DROP EACH EYE (17:23)
[2024-03-12 20:01] LABS: Glucose Point of Care 170 mg/dl (65-105)
[2024-03-13] VITALS (19 sets, daily range): BP systolic 141–179; BP diastolic 45–86; PULSE 76–98; RESP 12–28; TEMP 36.3–36.8; O2SAT 90–100
[2024-03-13 04:48] LABS: Hematocrit 21.5 % (42.0-52.0); Immature Granulocyte Absolute 0.13 K/mm3 (0.00-0.031); Immature Granulocyte Percent A 3.1 % (0-0.5); Immature Platelet Fraction Pct 2.3 % (0.9-11.2); Lymphocytes Absolute Auto 0.43 K/mm3 (0.9-3.2); Lymphocytes Percent Auto 10.4 % (18.3-44.2); Mean Corpuscular HGB Conc 32.6 g/dl (32-36); Mean Corpuscular Hemoglobin 28.9 pg (26-34); Mean Corpuscular Volume 88.8 fl (80-100); Mean Platelet Volume 9.7 fl (7.4-10.4); Monocytes Absolute Auto 0.3 K/mm3 (0.1-0.6); Monocytes Percent Auto 6.5 % (2.6-8.5); Neutrophils Absolute Auto 3.3 K/mm3 (1.3-6.7); Platelet Count Result 91 k/mm3 (150-375); Red Blood Count 2.42 M/mm3 (4.6-6.20); Red Cell Distribution Width 24.2 % (11.5-14.5); White Blood Count 4.1 K/mm3 (4.5-10.0)
[2024-03-13 05:00] LABS: Alanine Aminotransferase 29 U/L (6-50); Albumin Level 2.4 g/dL (3.5-5.1); Alkaline Phosphatase 50 U/L (38-126); Anion Gap 7 mmol/L (4-12); Aspartate Amino Transferase 25 U/L (17-59); Blood Urea Nitrogen 110 mg/dL (9-20); Calcium 7.3 mg/dL (8.4-10.2); Carbon Dioxide 25 mmol/L (22-30); Chloride 103 mmol/L (98-107); Estimated CRCL calculation 8 ml/min; Estimated Glomerular Filt Rate 10; Glucose 144 mg/dL (65-110); Magnesium 1.6 mg/dL (1.6-2.3); Phosphorus 6.5 mg/dL (2.5-4.5); Potassium 4.3 mmol/L (3.4-5.0); Sodium 135 mmol/L (137-145)
[2024-03-13 05:16] LABS: Anisocytosis 1+; Platelet Estimate Decreased (Adequate)
[2024-03-13 05:17] LABS: Poikilocytosis 1+
[2024-03-13 05:18] LABS: Tear Drop Cells 1+
[2024-03-13 05:19] LABS: Schistocytes Rare
[2024-03-13] MEDS: FLUTICASONE/SALMETEROL 115-21 MCG INHALER 1 PUFF 2 PUFF INHALATION ×2 (05:48→21:18)
[2024-03-13 07:33] LABS: Glucose Point of Care 136 mg/dl (65-105)
[2024-03-13] MEDS: predniSONE 20 MG TABLET 60 MG PO (08:13)
[2024-03-13] MEDS: INSULIN ASPART (*BKC) 100 UNITS/ML SUB-Q ×6 (08:13→20:45)
[2024-03-13] MEDS: predniSONE 10 MG TABLET PO (08:13)
[2024-03-13] MEDS: OPTI-GEN TAB 1 TABLET PO (09:42)
[2024-03-13] MEDS: BUMETANIDE PO 1 MG, BUMETANIDE PO 0.5 MG 1.5 MG PO (09:42)
[2024-03-13] MEDS: CYANOCOBALAMIN 1,000 MCG TABLET 2000 MCG PO (09:43)
[2024-03-13] MEDS: CYANOCOBALAMIN 500 MCG TABLET PO (09:43)
[2024-03-13] MEDS: BUMETANIDE 1 MG TABLET (09:43)
[2024-03-13] MEDS: DOXAZOSIN MESYLATE 4 MG TABLET 8 MG PO (09:44)
[2024-03-13] MEDS: SODIUM BICARBONATE TAB 325 MG TABLET PO (09:44)
[2024-03-13] MEDS: ASPIRIN 81 MG ENTERIC TABLET PO (09:44)
[2024-03-13] MEDS: CALCIUM ACETATE 667 MG TABLET PO ×2 (09:45→17:16)
[2024-03-13] MEDS: PANTOPRAZOLE 40 MG TABLET PO (09:45)
[2024-03-13] MEDS: amLODIPine BESYLATE 2.5 MG TABLET PO (09:45)
[2024-03-13] MEDS: FERROUS SULFATE 325 MG TABLET DR PO (09:45)
[2024-03-13] MEDS: ATORVASTATIN 40 MG TABLET PO (09:45)
[2024-03-13] MEDS: INSULIN GLARGINE (*BKC) 100 UNITS/ML 20 UNITS SUB-Q (09:58)
--- NOTE | 2024-03-13 10:00 | P.PNNP_ITS ---
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 * there was a concern for infection (endocarditics) but this was ruled out * presumed etiology of recent SANGITA/ARF * however, creatinine worse from labs done earlier this month * s/p pulse dose steroids and IV rituximab x 2 doses * continue steroids for now - wean slowly (3) Chronic kidney disease, stage IV (severe): Code(s): N18.4 - Chronic kidney disease, stage 4 (severe) Status: Acute Assessment and Plan: * creatining running ~ 3.5mg/dl earlier this month and post discharge from [facility] * new baseline or will some recovery occur with interventions to date (immunosuppressive therapy, diuretics...etc) * underlying CKD also present due to HTN, DM, vascular disease, and age-related change * follow trend of repeat labs and UOP (4) Hypoglycemia: Code(s): E16.2 - Hypoglycemia, unspecified Status: Resolved Assessment and Plan: * resolved * due to combination of worsening renal function in the context of ongoing insulin use * s/p glucagon and multiple pushes of D50 in the ER * was on D10 IVFs but has been weaned off * see #10 (5) Hypoxia: Code(s): R09.02 - Hypoxemia Status: Acute Assessment and Plan: * resolved/resolved * multifactorial etiology: * mild pulmonary edema * possible pneumonia (complicated by immunosuppression) * COPD exacerbation * relative anemia * noted to be 80% on room air in ER * improvement in oxygenation with supplemental oxygen (2L) * CT of chest results noted: * moderate emphysema with patchy groundglass opacities in the bilateral lower lobes and right middle lobe which could represent mild pulmonary edema versus pneumonia * on bronchodilators' * already on steroids * switch to oral diuretics today * continue empiric antibiotics * follow respiratory status (6) Sepsis: Code(s): A41.9 - Sepsis, unspecified organism Status: Acute Assessment and Plan: * possibly due to UTI +/- pneumonia * complicated by immunosuppression (s/p rituximab and on steroids) * follow culture data * blood and urine culture negative to date * monitor hemodynamics * on antibiotics * supportive therapy (7) Anemia: Code(s): D64.9 - Anemia, unspecified Status: Acute Assessment and Plan: * due to SANGITA, CKD, vasculitis, and iron deficiency * PRBC transfusion per protocol * LEONEL while hospitalized * follow trend of H/H (8) Anasarca: Code(s): R60.1 - Generalized edema Status: Acute Assessment and Plan: * likely a manifestation of worsening renal dysfunction * as noted by bilateral pitting LE edema * imaging with ascites as well * known history of diastolic dysfunction + aortic stenosis as well * transition to oral diuretics today * follow I/Os, daily weights, and overall volume status (9) Essential (primary) hypertension: Code(s): I10 - Essential (primary) hypertension Status: Chronic Assessment and Plan: * off FREDY-I/ARB due to # 1 * currently on amlodipine * follow trend of hemodynamics (10) Type 2 diabetes mellitus with other diabetic kidney complication: Code(s): E11.29 - Type 2 diabetes mellitus with other diabetic kidney complication Status: Chronic Assessment and Plan: * previous issues with hypoglycemia noted * follow accu-cheks * glycemic control per hospitalist Will continue to follow. Subjective Date/time seen: 03/13/24 10:00 Interval history: Follow-up for acute kidney injury/acute renal failure on chronic kidney disease (versus progression of CKD?). Transferred out ICU to IMU; no apparent distress noted at the time of my visit; breathing/respiratory status stable if not improving (weaned off supplemental oxygen); no apparent distress noted at this time; still reports no bowel movement as of yet (but passing flatus); sitting up in chair when seen; and grand-dauughter at bedside and we discussed the situation. Exam Narrative: General: elderly but WD/WN male in NAD Heart: normal S1 and S2; no rub Lungs: coarse and diminished at bases Abdomen: soft, nontender, nondistended, positive bowel sounds Extremities: no cyanosis or clubbing; trace edema Skin: warm and intact Objective Data Vital Signs Vital Signs: Vital Signs Temp Pulse Resp BP Pulse Ox O2 Del Method 03/13/24 09:49 98.2 F 85 20 147/48 H 95 03/13/24 08:40 97.7 F 93 20 179/56 H 99 03/13/24 05:50 78 18 03/13/24 05:56 79 03/13/24 04:00 77 03/13/24 04:00 98.0 F 78 12 169/66 H 90 03/13/24 04:00 Room Air 03/13/24 00:01 97.3 F L 81 28 H 141/45 H 92 03/13/24 02:00 76 03/13/24 00:00 79 03/13/24 00:00 Room Air 03/12/24 20:01 97.5 F L 82 16 156/58 H 90 03/12/24 22:00 80 03/12/24 20:00 80 03/12/24 20:00 Room Air 03/12/24 20:28 84 18 03/12/24 18:00 83 03/12/24 16:00 Room Air 03/12/24 16:00 98.4 F 80 19 162/59 H 96 03/12/24 16:00 80 03/12/24 14:00 83 Intake/Output Intake/Output: Intake & Output 03/10/24 03/11/24 03/12/24 03/13/24 23:59 23:59 23:59 23:59 Intake Total 1576.7 2128.4 1330 490 Output Total 1200 2830 2450 1200 Balance 376.7 -701.6 -1120 -710 Meds/Results Medications: Active Medications Generic Name Dose Route Start Last Admin Trade Name Freq PRN Reason Stop Dose Admin Albuterol/Ipratropium 3 ml 03/10/24 15:14 Ipratropium 0.5 Mg/Albuterol Sulfate 2.5 Mg Ampul.Neb 3 Ml INHALATION Q6HRT PRN Wheezing Amlodipine Besylate 2.5 mg 03/11/24 09:00 03/13/24 09:45 Amlodipine Besylate 2.5 Mg Tablet PO 2.5 mg QAM ALEKSANDR Administration Aspirin 81 mg 03/11/24 09:00 03/13/24 09:44 Aspirin 81 Mg Enteric Tablet PO 81 mg QAM ALEKSANDR Administration Atorvastatin Calcium 40 mg 03/11/24 09:00 03/13/24 09:45 Atorvastatin 40 Mg Tablet PO 40 mg DAILY ALEKSANDR Administration Azithromycin 500 mg 03/12/24 17:00 03/12/24 17:22 Azithromycin 250 Mg Tablet PO 03/14/24 17:01 500 mg DAILY@1700 ALEKSANDR Administration Bumetanide 1 mg/ Bumetanide 0. 1.5 mg 03/13/24 09:00 03/13/24 09:42 5 mg PO 1.5 mg DAILY ALEKSANDR Administration Calcium Acetate 667 mg 03/11/24 09:00 03/13/24 09:45 Calcium Acetate 667 Mg Tablet PO 667 mg BID ALEKSANDR Administration Cyanocobalamin 500 mcg 03/11/24 09:00 03/13/24 09:43 Cyanocobalamin 500 Mcg Tablet PO 500 mcg DAILY ALEKSANDR Administration Cyanocobalamin 2,000 mcg 03/11/24 09:00 03/13/24 09:43 Cyanocobalamin 1,000 Mcg Tablet PO 2,000 mcg DAILY ALEKSANDR Administration Dextrose 12.5 gm 03/10/24 09:29 03/10/24 10:30 Dextrose 50% 25 Gm/50 Ml Syringe IV PUSH 12.5 gm PRN PRN Administration Hypoglycemia Protocol Doxazosin Mesylate 8 mg 03/11/24 09:00 03/13/24 09:44 Doxazosin Mesylate 4 Mg Tablet PO 8 mg DAILY [facility] Administration Epoetin Jose Antonio-epbx 10,000 units 03/15/24 09:00 Epoetin Jose Antonio-Epbx 10,000 Units/Ml Vial SUB-Q MOWEFR@09 [facility] Ferrous Sulfate 325 mg 03/11/24 09:00 03/13/24 09:45 Ferrous Sulfate [address] PO 325 mg DAILY ALEKSANDR Administration Glucagon 1 mg 03/10/24 09:29 Glucagon For Inj 1 Mg Vial IM PRN PRN Hypoglycemia Protocol Glucose 15 gm 03/10/24 09:29 03/10/24 12:14 Glucose Oral Gel 15 Gm Of Glucse In 37.5 Gm Tube PO 15 gm PRN PRN Administration Hypoglycemia Protocol Dextrose 1,000 mls @ 100 mls/hr 03/10/24 09:29 Dextrose 5% 1,000 Ml IVPB PRN PRN Hypoglycemia Protocol Cefepime HCl 1 gm in 50 mls @ 100 mls/hr 03/10/24 17:00 03/12/24 17:22 Maxipime 1 Gm/Ns 50 Ml IVPB 100 mls/hr Q24H ALEKSANDR Administration Insulin Aspart 4 - 8 units 03/11/24 08:00 03/13/24 12:37 Insulin Aspart (*Bkc) 100 Units/Ml SUB-Q 5 units TIDWM ALEKSANDR Administration Protocol Insulin Aspart 2 - 4 units 03/11/24 21:00 03/12/24 22:00 Insulin Aspart (*Bkc) 100 Units/Ml SUB-Q Not Given HS ALEKSANDR Protocol Insulin Aspart 2 units 03/12/24 17:00 03/13/24 12:42 Insulin Aspart (*Bkc) 100 Units/Ml SUB-Q 2 units TIDWM ALEKSANDR Administration Insulin Glargine 20 units 03/11/24 09:00 03/13/24 09:58 Insulin Glargine (*Bkc) 100 Units/Ml SUB-Q 20 units QAM ALEKSANDR Administration Latanoprost 1 drop 03/10/24 21:05 03/12/24 17:23 Latanoprost 0.005% Op Soln 2.5 Ml Btl EACH EYE 1 drop QPM ALEKSANDR Administration Multivitamins/Minerals 1 tablet 03/12/24 12:40 03/13/24 09:42 Opti-Gen Tab PO 1 tablet QAM ALEKSANDR Administration Pantoprazole Sodium 40 mg 03/11/24 09:00 03/13/24 09:45 Pantoprazole 40 Mg Tablet PO 40 mg QAM ALEKSANDR Administration Prednisone 60 mg 03/11/24 08:00 03/13/24 08:13 Prednisone 20 Mg Tablet PO 60 mg DAILY@0800 ALEKSANDR Administration Prednisone 10 mg 03/11/24 08:00 03/13/24 08:13 Prednisone 10 Mg Tablet PO 10 mg DAILY@0800 ALEKSANDR Administration Fluticasone/Salmeterol 2 puff 03/10/24 20:00 03/13/24 05:48 Fluticasone/Salmeterol 115-21 Mcg Inhaler 1 Puff INHALATION 2 puff Q12HRT ALEKSANDR Administration Sodium Bicarbonate 325 mg 03/11/24 09:00 03/13/24 09:44 Sodium Bicarbonate Tab 325 Mg Tablet PO 325 mg QAM ALEKSANDR Administration Sodium Zirconium Cyclosilicate 10 gm 03/11/24 07:50 03/12/24 17:23 Sodium Zirconium Cyclosilicate 10 Gm Powd.Pack PO 10 gm BID@1000,1800 ALEKSANDR Administration Timolol Maleate 1 drop 03/11/24 09:00 03/13/24 12:37 Timolol Maleate 0.5% Op Soln 5 Ml Bottle EACH EYE 1 drop QAM ALEKSANDR Administration Radiology Results: ITS Impressions Head CT 03/10/24 11:24 IMPRESSION: No acute intracranial findings. Cervical Spine CT 03/10/24 11:48 IMPRESSION: No acute osseous abnormality cervical spine. Multilevel degenerative disc disease. Chest/Abdomen/Pelvis CT 03/10/24 13:56 IMPRESSION: 1. Moderate emphysema with patchy groundglass opacities in the bilateral lower lobes and right middle lobe which could represent mild pulmonary edema versus pneumonia which has improved since the prior study. 2. 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 2 mm stone previously seen in the right kidney is no longer visualized. 3. Minimal perihepatic, perisplenic and pericholecystic ascites. 4. Prostatomegaly. 5. Moderate-sized bilateral fat-containing inguinal hernias. Chest X-Ray 03/13/24 06:50 IMPRESSION: 1. Unchanged mild pulmonary edema Labs Labs: Laboratory Tests 03/13/24 04:41 03/13/24 04:41 Calcium 7.3 L Phosphorus 6.5 H Magnesium 1.6 Total Bilirubin 1.0 AST 25 ALT 29 Alkaline Phosphatase 50 Total Protein 5.0 L Albumin 2.4 L
[2024-03-13 12:21] LABS: Glucose Point of Care 288 mg/dl (65-105)
[2024-03-13] MEDS: EPOETIN ALFA-EPBX 20,000 UNITS/ML VIAL 20000 UNITS SUB-Q (12:37)
[2024-03-13] MEDS: TIMOLOL MALEATE 0.5% OP SOLN 5 ML BOTTLE 1 DROP EACH EYE (12:37)
--- NOTE | 2024-03-13 14:52 | P.PNIM_ITS ---
Progress Note: A&P Assessment and Plan (1) Hypoglycemia: Code(s): E16.2 - Hypoglycemia, unspecified Status: Resolved Assessment and Plan: Patient presented with hypoglycemia likely secondary to worsening renal function leading to decreased requirement of insulin. Patient takes 70 units of Levemir in the morning and 45 units in the evening. His blood sugar chart shows gradual trend of decreasing blood sugar over last 3-4 days prior to admission. He received glucagon and multiple the pushes of dextrose in the ER He was started on D10 and glucose stabilized. Able to titrate down to off Hypoglycemia has resolved. Patient resumed on insulin at lower doses and he appears to be tolerating this well. (2) Hypoxia: Code(s): R09.02 - Hypoxemia Status: Acute Assessment and Plan: Patient was saturating in mid 80s on room air on arrival but saturating annita quately on [address] chest showed moderate emphysema with patchy ground glass opacities in the bilateral lower lobes and right middle lobe: mild pulmonary edema vs PNA which has improved since the prior study. Appears to be COPD with some volume overload. Concern of PNA and he has immuno suppressed Weaned to room air now. Bronchodilators for COPD Continue steroids Antibiotics as below Lasix (changed to Bumex today) for pulmonary edema to be continued. Continue PT/OT (3) Sepsis: Code(s): A41.9 - Sepsis, unspecified organism Status: Acute Assessment and Plan: Sepsis secondary to ? pneumonia. Patient is on immunosuppressive medications PCT 0.2. WBC normal. No fevers. Not a candidate for liberal IV fluids due to volume overloaded and also getting dextrose infusion for hypoglycemia Patient was started on vancomycin, cefepime and azithro. MRSA screen is negative so Vanco discontinued Continue cefepime and azithro UCx negative. BCx NGTD. Blood pressure is adequate. Complete 7 day course of cefepime and 5 days of azithro (4) Acute kidney injury superimposed on CKD: Code(s): N17.9 - Acute kidney failure, unspecified; N18.9 - Chronic kidney disease, unspecified Status: Acute Assessment and Plan: Patient has chronic kidney disease with creatinine around 3.5. He was recently diagnosed with vasculitis with kidney biopsy done. He presents with worsening of kidney function at 5.1. His electrolytes acceptable. He does have mild volume overload Started on IV Lasix Nephrology consulted and appreciate their input Changed to oral Bumex now He may need ADMITTING OFFICE ESCORT. UOP 1200->2830-> 2450-> 2000mL today so far Continue p.o. bicarb and PhosLo Monitor electrolytes urine output and creatinine (5) Anasarca: Code(s): R60.1 - Generalized edema Status: Acute Assessment and Plan: Patient had bilateral pitting edema and CT shows ascites. This is likely secondary to worsening renal function. He does have grade 1 diastolic dysfuncti on on his echo and mild aortic stenosis Accurate I&Os with Jones Continue diuretic therapy May need ADMITTING OFFICE ESCORT but as of now he has good urine output (6) Type 2 diabetes mellitus with other diabetic kidney complication: Code(s): E11.29 - Type 2 diabetes mellitus with other diabetic kidney complication Status: Chronic Assessment and Plan: A1c 5.9% in January. The patient's blood glucose was reviewed on 03/13 Glucose better controlled. Continue AccuCheks covering with sliding scale. Hypoglycemia protocol available as needed. Continue Lantus and Novolog at meals. Discussed with Diab Eduator (7) Gastro-esophageal reflux disease without esophagitis: Code(s): K21.9 - Gastro-esophageal reflux disease without esophagitis Status: Chronic Assessment and Plan: Continue Protonix (8) Essential (primary) hypertension: Code(s): I10 - Essential (primary) hypertension Status: Chronic Assessment and Plan: Patient's blood pressure was reviewed on 03/13 Blood pressure elevated at times with SBP 140-160 range Will continue current medications. (9) COPD with emphysema: Code(s): J43.9 - Emphysema, unspecified Status: Acute Assessment and Plan: As above. Continue Advair (10) Anemia: Code(s): D64.9 - Anemia, unspecified Status: Acute Assessment and Plan: Patient has anemia of chronic kidney disease and iron deficiency His hemoglobin dropped to 6.6 and 1 unit of PRBC transfused. No evidence of bleeding Hgb up into the 7 range but slowly drifting down Monitor HH and transfuse additional if needed (11) Pneumonia: Code(s): J18.9 - Pneumonia, unspecified organism Status: Acute Assessment and Plan: Patient CT scan of the chest was abnormal. Patient has baseline COPD changes and infiltrates suggestive mostly of pulmonary edema but pneumonia could not be ruled out. He does not have any symptoms suggestive of pneumonia. He has chronic cough which is dry. He is afebrile. WBC normal. Patient was started on empiric antibiotics. He has been weaned to room air. MRSA screen was negative Continue cefepime and azithro (12) Vasculitis: Code(s): I77.6 - Arteritis, unspecified Status: Acute Assessment and Plan: Recently diagnosed with vasculitis at [facility]. He has completed his treatment with rituximab. He is currently on prednisone which will be continued. 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 Follow (14) Acute UTI: Code(s): N39.0 - Urinary tract infection, site not specified Status: Acute Assessment and Plan: UA suggestive of UTI but UCx negative. UTI ruled out Plan Thrombocytopenia - plt 89K now but stable. No heparin or Lovenox. Probably related to Rituxan. Follow for chiki DVT prophylaxis -SCD as patient is anemic and thrombocytopenic Code Status - Full Code Subjective Date/time seen: 03/13/24 14:52 Interval history: 89yo male with DM, CKD, vasculitis and HTN here for hypoglycemia. Slept well. Feels well today. Up to the chair. Able to lay flat in bed. No CP or SOB. No BMs Exam Narrative: AF 98.2 147/48 98 20 95% ra Gen - NARD laying almost flat in bed Chest - bibasilar inspiratory crackles. Normal respiratory rate CV - RRR S1/S2. Telemetry showing PACs/PVCs Abd -soft. Less protuberant. Positive bowel sounds. -Jones catheter secured with scan amount of yellow urine Ext - trace pedal edema Neuro - Alert and appropriate. Hard of hearing. Psych - Nml mood and affect Skin - Warm and dry Objective Data Vital Signs Vital Signs: Vital Signs - 24 hr 03/12/24 16:00 03/12/24 16:00 03/12/24 16:00 Temperature 98.4 F Pulse Rate 80 80 Respiratory Rate 19 Blood Pressure 162/59 H Pulse Oximetry 96 Oxygen Delivery Room Air 03/12/24 18:00 03/12/24 20:28 03/12/24 20:00 Temperature Pulse Rate 83 84 Respiratory Rate 18 Blood Pressure Pulse Oximetry Oxygen Delivery Room Air 03/12/24 20:00 03/12/24 22:00 03/12/24 20:01 Temperature 97.5 F L Pulse Rate 80 80 82 Respiratory Rate 16 Blood Pressure 156/58 H Pulse Oximetry 90 Oxygen Delivery 03/13/24 00:00 03/13/24 00:00 03/13/24 02:00 Temperature Pulse Rate 79 76 Respiratory Rate Blood Pressure Pulse Oximetry Oxygen Delivery Room Air 03/13/24 00:01 03/13/24 04:00 03/13/24 04:00 Temperature 97.3 F L 98.0 F Pulse Rate 81 78 Respiratory Rate 28 H 12 Blood Pressure 141/45 H 169/66 H Pulse Oximetry 92 90 Oxygen Delivery Room Air 03/13/24 04:00 03/13/24 05:56 03/13/24 05:50 Temperature Pulse Rate 77 79 78 Respiratory Rate 18 Blood Pressure Pulse Oximetry Oxygen Delivery 03/13/24 08:40 03/13/24 11:49 03/13/24 08:00 Temperature 97.7 F 98.2 F Pulse Rate 93 85 90 Respiratory Rate 20 20 Blood Pressure 179/56 H 147/48 H Pulse Oximetry 99 95 Oxygen Delivery 03/13/24 10:00 03/13/24 12:00 Temperature Pulse Rate 90 98 Respiratory Rate Blood Pressure Pulse Oximetry Oxygen Delivery Intake/Output Intake/Output: Intake & Output 03/10/24 03/11/24 03/12/24 03/13/24 23:59 23:59 23:59 23:59 Intake Total 1576.7 2128.4 1330 1090 Output Total 1200 2830 2450 1200 Balance 376.7 -701.6 -1120 -110 Meds/Results Medications: Active Medications Generic Name Dose Route Start Last Admin Trade Name Freq PRN Reason Stop Dose Admin Albuterol/Ipratropium 3 ml 03/10/24 15:14 Ipratropium 0.5 Mg/Albuterol Sulfate 2.5 Mg Ampul.Neb 3 Ml INHALATION Q6HRT PRN Wheezing Amlodipine Besylate 2.5 mg 03/11/24 09:00 03/13/24 09:45 Amlodipine Besylate 2.5 Mg Tablet PO 2.5 mg QAM ALEKSANDR Administration Aspirin 81 mg 03/11/24 09:00 03/13/24 09:44 Aspirin 81 Mg Enteric Tablet PO 81 mg QAM ALEKSANDR Administration Atorvastatin Calcium 40 mg 03/11/24 09:00 03/13/24 09:45 Atorvastatin 40 Mg Tablet PO 40 mg DAILY ALEKSANDR Administration Azithromycin 500 mg 03/12/24 17:00 03/12/24 17:22 Azithromycin 250 Mg Tablet PO 03/14/24 17:01 500 mg DAILY@1700 ALEKSANDR Administration Bumetanide 1 mg/ Bumetanide 0. 1.5 mg 03/13/24 09:00 03/13/24 09:42 5 mg PO 1.5 mg DAILY ALEKSANDR Administration Calcium Acetate 667 mg 03/11/24 09:00 03/13/24 09:45 Calcium Acetate 667 Mg Tablet PO 667 mg BID ALEKSANDR Administration Cyanocobalamin 500 mcg 03/11/24 09:00 03/13/24 09:43 Cyanocobalamin 500 Mcg Tablet PO 500 mcg DAILY ALEKSANDR Administration Cyanocobalamin 2,000 mcg 03/11/24 09:00 03/13/24 09:43 Cyanocobalamin 1,000 Mcg Tablet PO 2,000 mcg DAILY ALEKSANDR Administration Dextrose 12.5 gm 03/10/24 09:29 03/10/24 10:30 Dextrose 50% 25 Gm/50 Ml Syringe IV PUSH 12.5 gm PRN PRN Administration Hypoglycemia Protocol Doxazosin Mesylate 8 mg 03/11/24 09:00 03/13/24 09:44 Doxazosin Mesylate 4 Mg Tablet PO 8 mg DAILY ALEKSANDR Administration Epoetin Jose Antonio-epbx 10,000 units 03/15/24 09:00 Epoetin Jose Antonio-Epbx 10,000 Units/Ml Vial SUB-Q MOWEFR@09 [facility] Ferrous Sulfate 325 mg 03/11/24 09:00 03/13/24 09:45 Ferrous Sulfate [address] PO 325 mg DAILY ALEKSANDR Administration Glucagon 1 mg 03/10/24 09:29 Glucagon For Inj 1 Mg Vial IM PRN PRN Hypoglycemia Protocol Glucose 15 gm 03/10/24 09:29 03/10/24 12:14 Glucose Oral Gel 15 Gm Of Glucse In 37.5 Gm Tube PO 15 gm PRN PRN Administration Hypoglycemia Protocol Dextrose 1,000 mls @ 100 mls/hr 03/10/24 09:29 Dextrose 5% 1,000 Ml IVPB PRN PRN Hypoglycemia Protocol Cefepime HCl 1 gm in 50 mls @ 100 mls/hr 03/10/24 17:00 03/12/24 17:22 Maxipime 1 Gm/Ns 50 Ml IVPB 100 mls/hr Q24H ALEKSANDR Administration Insulin Aspart 4 - 8 units 03/11/24 08:00 03/13/24 12:37 Insulin Aspart (*Bkc) 100 Units/Ml SUB-Q 5 units TIDWM ALEKSANDR Administration Protocol Insulin Aspart 2 - 4 units 03/11/24 21:00 03/12/24 22:00 Insulin Aspart (*Bkc) 100 Units/Ml SUB-Q Not Given HS ALEKSANDR Protocol Insulin Aspart 2 units 03/12/24 17:00 03/13/24 12:42 Insulin Aspart (*Bkc) 100 Units/Ml SUB-Q 2 units TIDWM ALEKSANDR Administration Insulin Glargine 20 units 03/11/24 09:00 03/13/24 09:58 Insulin Glargine (*Bkc) 100 Units/Ml SUB-Q 20 units QAM ALEKSANDR Administration Latanoprost 1 drop 03/10/24 21:05 03/12/24 17:23 Latanoprost 0.005% Op Soln 2.5 Ml Btl EACH EYE 1 drop QPM ALEKSANDR Administration Multivitamins/Minerals 1 tablet 03/12/24 12:40 03/13/24 09:42 Opti-Gen Tab PO 1 tablet QAM ALEKSANDR Administration Pantoprazole Sodium 40 mg 03/11/24 09:00 03/13/24 09:45 Pantoprazole 40 Mg Tablet PO 40 mg QAM ALEKSANDR Administration Prednisone 60 mg 03/11/24 08:00 03/13/24 08:13 Prednisone 20 Mg Tablet PO 60 mg DAILY@0800 ALEKSANDR Administration Prednisone 10 mg 03/11/24 08:00 03/13/24 08:13 Prednisone 10 Mg Tablet PO 10 mg DAILY@0800 ALEKSANDR Administration Fluticasone/Salmeterol 2 puff 03/10/24 20:00 03/13/24 05:48 Fluticasone/Salmeterol 115-21 Mcg Inhaler 1 Puff INHALATION 2 puff Q12HRT ALEKSANDR Administration Sodium Bicarbonate 325 mg 03/11/24 09:00 03/13/24 09:44 Sodium Bicarbonate Tab 325 Mg Tablet PO 325 mg QAM ALEKSANDR Administration Sodium Zirconium Cyclosilicate 10 gm 03/11/24 07:50 03/12/24 17:23 Sodium Zirconium Cyclosilicate 10 Gm Powd.Pack PO 10 gm BID@1000,1800 ALEKSANDR Administration Timolol Maleate 1 drop 03/11/24 09:00 03/13/24 12:37 Timolol Maleate 0.5% Op Soln 5 Ml Bottle EACH EYE 1 drop QAM ALEKSANDR Administration Radiology Results: ITS Impressions Head CT 03/10/24 11:24 IMPRESSION: No acute intracranial findings. Cervical Spine CT 03/10/24 11:48 IMPRESSION: No acute osseous abnormality cervical spine. Multilevel degenerative disc disease. Chest/Abdomen/Pelvis CT 03/10/24 13:56 IMPRESSION: 1. Moderate emphysema with patchy groundglass opacities in the bilateral lower lobes and right middle lobe which could represent mild pulmonary edema versus pneumonia which has improved since the prior study. 2. 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 2 mm stone previously seen in the right kidney is no longer visualized. 3. Minimal perihepatic, perisplenic and pericholecystic ascites. 4. Prostatomegaly. 5. Moderate-sized bilateral fat-containing inguinal hernias. Chest X-Ray 03/13/24 06:50 IMPRESSION: 1. Unchanged mild pulmonary edema Labs Labs: Laboratory Results - last 24 hr 03/12/24 03/12/24 03/13/24 16:43 19:46 04:41 WBC 4.1 L RBC 2.42 L Hgb 7.0 L Hct 21.5 L MCV 88.8 MCH 28.9 MCHC 32.6 RDW 24.2 H Plt Count 91 L MPV 9.7 Immature Gran % (Auto) 3.1 H Neut % (Auto) 80.0 H Lymph % (Auto) 10.4 L [place] % (Auto) 6.5 Eos % (Auto) 0.0 Baso % (Auto) 0.0 L Lymph # (Auto) 0.43 L [place] # (Auto) 0.3 Eos # (Auto) 0.0 Baso # (Auto) 0.0 Abs Immat Gran (auto) 0.13 H Absolute Neuts (auto) 3.3 Absolute Nucleated RBC 0.000 Nucleated RBC % 0.0 Platelet Estimate Decreased % Immature Plt Fraction 2.3 Poikilocytosis 1+ Anisocytosis 1+ Tear Drop Cells 1+ Schistocytes Rare Sodium 135 L Potassium 4.3 Chloride 103 Carbon Dioxide 25 Anion Gap 7 BUN 110 H Creatinine 5.30 H Estim Creat Clear Calc 8 Estimated GFR 10 L Glucose 144 H POC Capillary Glucose 81 170 H Calcium 7.3 L Phosphorus 6.5 H Magnesium 1.6 Total Bilirubin 1.0 AST 25 ALT 29 Alkaline Phosphatase 50 Total Protein 5.0 L Albumin 2.4 L 03/13/24 03/13/24 07:31 11:54 WBC RBC Hgb Hct MCV MCH MCHC RDW Plt Count MPV Immature Gran % (Auto) Neut % (Auto) Lymph % (Auto) [place] % (Auto) Eos % (Auto) Baso % (Auto) Lymph # (Auto) [place] # (Auto) Eos # (Auto) Baso # (Auto) Abs Immat Gran (auto) Absolute Neuts (auto) Absolute Nucleated RBC Nucleated RBC % Platelet Estimate % Immature Plt Fraction Poikilocytosis Anisocytosis Tear Drop Cells Schistocytes Sodium Potassium Chloride Carbon Dioxide Anion Gap BUN Creatinine Estim Creat Clear Calc Estimated GFR Glucose POC Capillary Glucose 136 H 288 H Calcium Phosphorus Magnesium Total Bilirubin AST ALT Alkaline Phosphatase Total Protein Albumin
--- NOTE | 2024-03-13 15:11 | PCPTNOTE ---
attempted PT eval, pt refused and stated he is too tired and just got back to bed, will follow
[2024-03-13 16:20] LABS: Hematocrit 25.5 % (42.0-52.0); Hemoglobin 7.5 g/dL (14.0-18.0)
[2024-03-13 16:57] LABS: Glucose Point of Care 315 mg/dl (65-105)
[2024-03-13] MEDS: AZITHROMYCIN 250 MG TABLET 500 MG PO (17:15)
[2024-03-13] MEDS: CEFEPIME 1 GM/NS 50 ML 1 GM/50 ML BAG IVPB (17:17)
[2024-03-13] MEDS: DOCUSATE SODIUM 100 MG CAPSULE PO (20:45)
[2024-03-13 21:01] LABS: Glucose Point of Care 302 mg/dl (65-105)
[2024-03-14] VITALS (19 sets, daily range): BP systolic 157–172; BP diastolic 50–63; PULSE 73–95; RESP 14–20; TEMP 36.3–36.8; O2SAT 96–100
[2024-03-14 05:09] LABS: Hematocrit 21.3 % (42.0-52.0); Immature Granulocyte Percent A 4.9 % (0-0.5); Lymphocytes Absolute Auto 0.41 K/mm3 (0.9-3.2); Mean Corpuscular HGB Conc 32.9 g/dl (32-36); Mean Corpuscular Volume 88.4 fl (80-100); Mean Platelet Volume 10.4 fl (7.4-10.4); Monocytes Absolute Auto 0.3 K/mm3 (0.1-0.6); Monocytes Percent Auto 6.1 % (2.6-8.5); Neutrophils Absolute Auto 3.2 K/mm3 (1.3-6.7); Platelet Count Result 100 k/mm3 (150-375); Red Blood Count 2.41 M/mm3 (4.6-6.20); Red Cell Distribution Width 23.5 % (11.5-14.5); White Blood Count 4.1 K/mm3 (4.5-10.0)
[2024-03-14 05:28] LABS: Magnesium 1.6 mg/dL (1.6-2.3); Phosphorus 6.2 mg/dL (2.5-4.5)
[2024-03-14 05:32] LABS: Anisocytosis 1+; Hypochromasia 1+; Ovalocytes 1+; Platelet Estimate Decreased (Adequate); Poikilocytosis 1+; Schistocytes Rare
[2024-03-14 05:33] LABS: Alanine Aminotransferase 38 U/L (6-50); Albumin Level 2.4 g/dL (3.5-5.1); Alkaline Phosphatase 62 U/L (38-126); Anion Gap 9 mmol/L (4-12); Aspartate Amino Transferase 23 U/L (17-59); Bilirubin,Total 0.9 mg/dL (0.2-1.3); Blood Urea Nitrogen 109 mg/dL (9-20); Calcium 7.2 mg/dL (8.4-10.2); Carbon Dioxide 26 mmol/L (22-30); Chloride 101 mmol/L (98-107); Estimated CRCL calculation 8 ml/min; Estimated Glomerular Filt Rate 9; Glucose 197 mg/dL (65-110); Potassium 3.7 mmol/L (3.4-5.0); Sodium 136 mmol/L (137-145)
[2024-03-14 08:03] LABS: Glucose Point of Care 186 mg/dl (65-105)
[2024-03-14] MEDS: FLUTICASONE/SALMETEROL 115-21 MCG INHALER 1 PUFF 2 PUFF INHALATION ×2 (08:13→21:27)
[2024-03-14] MEDS: TIMOLOL MALEATE 0.5% OP SOLN 5 ML BOTTLE 1 DROP EACH EYE (09:37)
[2024-03-14] MEDS: amLODIPine BESYLATE 2.5 MG TABLET PO (09:38)
[2024-03-14] MEDS: predniSONE 20 MG TABLET 60 MG PO (09:39)
[2024-03-14] MEDS: CALCIUM ACETATE 667 MG TABLET PO ×2 (09:39→17:10)
[2024-03-14] MEDS: OPTI-GEN TAB 1 TABLET PO (09:39)
[2024-03-14] MEDS: ATORVASTATIN 40 MG TABLET PO (09:40)
[2024-03-14] MEDS: SODIUM BICARBONATE TAB 325 MG TABLET PO (09:40)
[2024-03-14] MEDS: ASPIRIN 81 MG ENTERIC TABLET PO (09:40)
[2024-03-14] MEDS: BUMETANIDE PO 1 MG, BUMETANIDE PO 0.5 MG 1.5 MG PO (09:40)
[2024-03-14] MEDS: DOCUSATE SODIUM 100 MG CAPSULE PO ×2 (09:40→22:00)
[2024-03-14] MEDS: PANTOPRAZOLE 40 MG TABLET PO (09:40)
[2024-03-14] MEDS: DOXAZOSIN MESYLATE 4 MG TABLET 8 MG PO (09:40)
[2024-03-14] MEDS: FERROUS SULFATE 325 MG TABLET DR PO (09:41)
[2024-03-14] MEDS: CYANOCOBALAMIN 500 MCG TABLET PO (09:41)
[2024-03-14] MEDS: INSULIN GLARGINE (*BKC) 100 UNITS/ML 20 UNITS SUB-Q (09:41)
[2024-03-14] MEDS: predniSONE 10 MG TABLET PO (09:41)
[2024-03-14] MEDS: CYANOCOBALAMIN 1,000 MCG TABLET 2000 MCG PO (09:41)
[2024-03-14] MEDS: polyethylene glycoL 3350 17 GM POWD.PACK PO (09:42)
[2024-03-14] MEDS: INSULIN ASPART (*BKC) 100 UNITS/ML SUB-Q ×6 (09:42→22:00)
--- NOTE | 2024-03-14 11:01 | P.PNNP_ITS ---
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 * there was a concern for infection (endocarditics) but this was ruled out * presumed etiology of recent SANGITA/ARF * however, creatinine worse from labs done earlier this month * s/p pulse dose steroids and IV rituximab x 2 doses * continue steroids for now - wean slowly (3) Chronic kidney disease, stage IV (severe): Code(s): N18.4 - Chronic kidney disease, stage 4 (severe) Status: Acute Assessment and Plan: * creatining running ~ 3.5mg/dl earlier this month and post discharge from [facility] * new baseline or will some recovery occur with interventions to date (immunosuppressive therapy, diuretics...etc) * underlying CKD also present due to HTN, DM, vascular disease, and age-related change * follow trend of repeat labs and UOP (4) Hypoglycemia: Code(s): E16.2 - Hypoglycemia, unspecified Status: Resolved Assessment and Plan: * resolved * due to combination of worsening renal function in the context of ongoing insulin use * s/p glucagon and multiple pushes of D50 in the ER * was on D10 IVFs but has been weaned off * see #10 (5) Hypoxia: Code(s): R09.02 - Hypoxemia Status: Acute Assessment and Plan: * resolving/resolved * multifactorial etiology: * mild pulmonary edema * possible pneumonia (complicated by immunosuppression) * COPD exacerbation * relative anemia * noted to be 80% on room air in ER * improvement in oxygenation with supplemental oxygen (2L) -- now weaned off * CT of chest results noted: * moderate emphysema with patchy groundglass opacities in the bilateral lower lobes and right middle lobe which could represent mild pulmonary edema versus pneumonia * on bronchodilators * already on steroids * on oral diuretics * continue empiric antibiotics * follow respiratory status (6) Sepsis: Code(s): A41.9 - Sepsis, unspecified organism Status: Acute Assessment and Plan: * possibly due to UTI +/- pneumonia * complicated by immunosuppression (s/p rituximab and on steroids) * follow culture data * blood and urine culture negative to date * monitor hemodynamics * on antibiotics * supportive therapy (7) Anemia: Code(s): D64.9 - Anemia, unspecified Status: Acute Assessment and Plan: * due to SANGITA, CKD, vasculitis, and iron deficiency * PRBC transfusion per protocol * LEONEL while hospitalized * follow trend of H/H (8) Anasarca: Code(s): R60.1 - Generalized edema Status: Acute Assessment and Plan: * likely a manifestation of worsening renal dysfunction * as noted by bilateral pitting LE edema * imaging with ascites as well * known history of diastolic dysfunction + aortic stenosis as well * on oral diuretics * follow I/Os, daily weights, and overall volume status (9) Essential (primary) hypertension: Code(s): I10 - Essential (primary) hypertension Status: Chronic Assessment and Plan: * off FREDY-I/ARB due to #1 * currently on amlodipine * avoid hydralazine (this drug was suspected as cause of drug-induced lupus findings on renal biopsy) * follow trend of hemodynamics (10) Type 2 diabetes mellitus with other diabetic kidney complication: Code(s): E11.29 - Type 2 diabetes mellitus with other diabetic kidney complication Status: Chronic Assessment and Plan: * previous issues with hypoglycemia noted * follow accu-cheks * glycemic control per hospitalist Not opposed to discharge from renal perspective if otherwise medically stable -- he can follow-up with me in the office for ongoing management of his CKD and recent renal vasculitis by renal biopsy; will need follow-up with Hem/Onc for Epogen/Aranesp/Procrit injections. Will continue to follow. Subjective Date/time seen: 03/14/24 11:01 Interval history: Follow-up for acute kidney injury/acute renal failure on chronic kidney disease (versus progression of CKD?). No apparent distress noted at the time of my visit; sitting up in bed in no distress; reports stability in breathing/respiratory status when seen; states he has been ambulating with therapy without any problems; good urine output with oral diuretic therapy; H/H remains relatively stable; no other issues/events overnight or earlier this morning; and granddaughter at bedside; patient and family asking me about possible discharge. Exam Narrative: General: elderly but WD/WN male in NAD Heart: normal S1 and S2; no rub Lungs: coarse and diminished at bases Abdomen: soft, nontender, nondistended, positive bowel sounds Extremities: no cyanosis or clubbing; trace edema Skin: no rash Objective Data Vital Signs Vital Signs: Vital Signs Temp Pulse Resp BP Pulse Ox O2 Del Method 03/14/24 11:00 98.2 F 82 14 170/52 H 98 03/14/24 08:17 Room Air 03/14/24 08:15 96 Room Air 03/14/24 07:54 98.1 F 80 20 164/61 H 97 03/14/24 06:00 82 03/14/24 04:00 74 03/14/24 04:00 Room Air 03/14/24 03:38 97.3 F L 77 18 172/61 H 100 03/14/24 02:00 80 03/14/24 00:00 85 03/14/24 00:00 97.9 F 81 18 171/63 H 97 03/14/24 00:00 Room Air 03/13/24 22:00 78 03/13/24 20:00 76 03/13/24 21:24 97.8 F 82 16 141/86 H 100 03/13/24 21:10 95 Room Air 03/13/24 20:00 Room Air 03/13/24 18:00 86 03/13/24 16:00 80 Intake/Output Intake/Output: Intake & Output 03/11/24 03/12/24 03/13/24 03/14/24 23:59 23:59 23:59 23:59 Intake Total 2128.4 1380 2340 1210 Output Total 2830 2450 2000 [facility]5 [id number] [id number] [phone] Meds/Results Medications: Active Medications Generic Name Dose Route Start Last Admin Trade Name Freq PRN Reason Stop Dose Admin Albuterol/Ipratropium 3 ml 03/10/24 15:14 Ipratropium 0.5 Mg/Albuterol Sulfate 2.5 Mg Ampul.Neb 3 Ml INHALATION Q6HRT PRN Wheezing Amlodipine Besylate 5 mg 03/15/24 09:00 Amlodipine Besylate 5 Mg Tablet PO QAM ALEKSANDR Aspirin 81 mg 03/11/24 09:00 03/14/24 09:40 Aspirin 81 Mg Enteric Tablet PO 81 mg QAM ALEKSANDR Administration Atorvastatin Calcium 40 mg 03/11/24 09:00 03/14/24 09:40 Atorvastatin 40 Mg Tablet PO 40 mg DAILY ALEKSANDR Administration Azithromycin 500 mg 03/12/24 17:00 03/13/24 17:15 Azithromycin 250 Mg Tablet PO 03/14/24 17:01 500 mg DAILY@1700 ALEKSANDR Administration Bumetanide 1 mg/ Bumetanide 0. 1.5 mg 03/13/24 09:00 03/14/24 09:40 5 mg PO 1.5 mg DAILY ALEKSANDR Administration Calcium Acetate 667 mg 03/11/24 09:00 03/14/24 09:39 Calcium Acetate 667 Mg Tablet PO 667 mg BID ALEKSANDR Administration Cyanocobalamin 500 mcg 03/11/24 09:00 03/14/24 09:41 Cyanocobalamin 500 Mcg Tablet PO 500 mcg DAILY ALEKSANDR Administration Cyanocobalamin 2,000 mcg 03/11/24 09:00 03/14/24 09:41 Cyanocobalamin 1,000 Mcg Tablet PO 2,000 mcg DAILY ALEKSANDR Administration Dextrose 12.5 gm 03/10/24 09:29 03/10/24 10:30 Dextrose 50% 25 Gm/50 Ml Syringe IV PUSH 12.5 gm PRN PRN Administration Hypoglycemia Protocol Docusate Sodium 100 mg 03/13/24 21:00 03/14/24 09:40 Docusate Sodium 100 Mg Capsule PO 100 mg Q12HR [facility] Administration Doxazosin Mesylate 8 mg 03/11/24 09:00 03/14/24 09:40 Doxazosin Mesylate 4 Mg Tablet PO 8 mg DAILY [facility] Administration Epoetin Jose Antonio-epbx 10,000 units 03/15/24 09:00 Epoetin Jose Antonio-Epbx 10,000 Units/Ml Vial SUB-Q MOWEFR@09 [facility] Ferrous Sulfate 325 mg 03/11/24 09:00 03/14/24 09:41 Ferrous Sulfate [address] PO 325 mg DAILY [facility] Administration Glucagon 1 mg 03/10/24 09:29 Glucagon For Inj 1 Mg Vial IM PRN PRN Hypoglycemia Protocol Glucose 15 gm 03/10/24 09:29 03/10/24 12:14 Glucose Oral Gel 15 Gm Of Glucse In 37.5 Gm Tube PO 15 gm PRN PRN Administration Hypoglycemia Protocol Dextrose 1,000 mls @ 100 mls/hr 03/10/24 09:29 Dextrose 5% 1,000 Ml IVPB PRN PRN Hypoglycemia Protocol Cefepime HCl 1 gm in 50 mls @ 100 mls/hr 03/10/24 17:00 03/13/24 17:17 Maxipime 1 Gm/Ns 50 Ml IVPB 100 mls/hr Q24H ALEKSANDR Administration Insulin Aspart 4 - 8 units 03/11/24 08:00 03/14/24 11:25 Insulin Aspart (*Bkc) 100 Units/Ml SUB-Q 6 units TIDWM ALEKSANDR Administration Protocol Insulin Aspart 2 - 4 units 03/11/24 21:00 03/13/24 20:45 Insulin Aspart (*Bkc) 100 Units/Ml SUB-Q 3 units HS ALEKSANDR Administration Protocol Insulin Aspart 4 units 03/14/24 17:00 Insulin Aspart (*Bkc) 100 Units/Ml SUB-Q TIDWM ALEKSANDR Insulin Glargine 20 units 03/11/24 09:00 03/14/24 09:41 Insulin Glargine (*Bkc) 100 Units/Ml SUB-Q 20 units QAM ALEKSANDR Administration Latanoprost 1 drop 03/10/24 21:05 03/13/24 21:22 Latanoprost 0.005% Op Soln 2.5 Ml Btl EACH EYE Not Given QPM [facility] Multivitamins/Minerals 1 tablet 03/12/24 12:40 03/14/24 09:39 Opti-Gen Tab PO 1 tablet QAM [facility] Administration Pantoprazole Sodium 40 mg 03/11/24 09:00 03/14/24 09:40 Pantoprazole 40 Mg Tablet PO 40 mg QAM ALEKSANDR Administration Polyethylene Glycol 17 gm 03/14/24 09:00 03/14/24 09:42 Polyethylene Glycol 3350 17 Gm Powd.Pack PO 17 gm QAM ALEKSANDR Administration Prednisone 60 mg 03/11/24 08:00 03/14/24 09:39 Prednisone 20 Mg Tablet PO 60 mg DAILY@0800 ALEKSANDR Administration Prednisone 10 mg 03/11/24 08:00 03/14/24 09:41 Prednisone 10 Mg Tablet PO 10 mg DAILY@0800 ALEKSANDR Administration Fluticasone/Salmeterol 2 puff 03/10/24 20:00 03/14/24 08:13 Fluticasone/Salmeterol 115-21 Mcg Inhaler 1 Puff INHALATION 2 puff Q12HRT ALEKSANDR Administration Sodium Bicarbonate 325 mg 03/11/24 09:00 03/14/24 09:40 Sodium Bicarbonate Tab 325 Mg Tablet PO 325 mg QAM ALEKSANDR Administration Sodium Zirconium Cyclosilicate 10 gm 03/11/24 07:50 03/12/24 17:23 Sodium Zirconium Cyclosilicate 10 Gm Powd.Pack PO 10 gm BID@1000,1800 A[facility]AN[facility] Administration Timolol Maleate 1 drop 03/11/24 09:00 03/14/24 09:37 Timolol Maleate 0.5% Op Soln 5 Ml Bottle EACH EYE 1 drop QAM ALEKSANDR Administration Radiology Results: ITS Impressions Head CT 03/10/24 11:24 IMPRESSION: No acute intracranial findings. Cervical Spine CT 03/10/24 11:48 IMPRESSION: No acute osseous abnormality cervical spine. Multilevel degenerative disc disease. Chest/Abdomen/Pelvis CT 03/10/24 13:56 IMPRESSION: 1. Moderate emphysema with patchy groundglass opacities in the bilateral lower lobes and right middle lobe which could represent mild pulmonary edema versus pneumonia which has improved since the prior study. 2. 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 2 mm stone previously seen in the right kidney is no longer visualized. 3. Minimal perihepatic, perisplenic and pericholecystic ascites. 4. Prostatomegaly. 5. Moderate-sized bilateral fat-containing inguinal hernias. Chest X-Ray 03/14/24 06:43 IMPRESSION: 1. Near complete resolution of prior pulmonary edema. 2. Streaky opacities at the right lower lung zone and favor atelectasis over pneumonia. Labs Labs: Laboratory Tests 03/14/24 04:40 03/14/24 04:40 WBC 4.1 L Hgb 7.0 L Hct 21.3 L Plt Count 100 L Calcium 7.2 L Phosphorus 6.2 H Magnesium 1.6 Total Bilirubin 0.9 AST 23 ALT 38 Alkaline Phosphatase 62 Total Protein 5.0 L Albumin 2.4 L
[2024-03-14 11:27] LABS: Glucose Point of Care 316 mg/dl (65-105)
[2024-03-14 12:20] LABS: Hematocrit 21.6 % (42.0-52.0); Hemoglobin 7.2 g/dL (14.0-18.0)
--- NOTE | 2024-03-14 15:21 | PM.IMPN ---
Progress Note: A&P Assessment and Plan (1) Hypoglycemia: Code(s): E16.2 - Hypoglycemia, unspecified Status: Resolved Assessment and Plan: Patient presented with hypoglycemia likely secondary to worsening renal function leading to decreased insulin clearance. Patient takes 70 units of Levemir in the morning and 45 units in the evening. His blood sugar chart shows gradual trend of decreasing blood sugar over last 3-4 days prior to admission. He received glucagon and multiple pushes of dextrose in the ER He was started on D10 and glucose stabilized. Able to titrate down and to off Hypoglycemia has resolved. Patient resumed on insulin at lower doses and he appears to be tolerating this well. (2) Hypoxia: Code(s): R09.02 - Hypoxemia Status: Acute Assessment and Plan: Patient was saturating in mid 80s on room air on arrival but saturating adequately on [address] chest showed moderate emphysema with patchy ground glass opacities in the bilateral lower lobes and right middle lobe: mild pulmonary edema vs PNA which has improved since the prior study. Appears to have COPD with some volume overload. Concern of PNA and is immuno suppressed Weaned to room air now. Bronchodilators for COPD Continue steroids Antibiotics as below Lasix IV (changed to Bumex oral) for pulmonary edema to be continued. Continue PT/OT (3) Sepsis: Code(s): A41.9 - Sepsis, unspecified organism Status: Acute Assessment and Plan: Sepsis secondary to ? pneumonia. Patient is on immunosuppressive agents PCT 0.2. WBC normal. No fevers. Not a candidate for liberal IV fluids due to volume overloaded and also getting dextrose infusion for hypoglycemia Patient was started on vancomycin, cefepime and azithro. MRSA screen is negative so Vanco discontinued Continue cefepime and azithro UCx negative. BCx NGTD. Blood pressure is adequate. Complete 7 day course of cefepime and 5 days of azithro (4) Acute kidney injury superimposed on CKD: Code(s): N17.9 - Acute kidney failure, unspecified; N18.9 - Chronic kidney disease, unspecified Status: Acute Assessment and Plan: Patient has chronic kidney disease with creatinine around 3.5. He was recently diagnosed with vasculitis with kidney biopsy done. He presents with worsening of kidney function at 5.1. His electrolytes acceptable. He does have mild volume overload. TRAIN STARTER was considered. Started on IV Lasix Nephrology consulted and appreciate their input UOP 2836-> 2450-> 2000-> 1250mL today so far Fluid status is better. Bicarb normal at 26, Potassium normal. Cr up to 5.7 with BUN 109 (some related to steroids). Changed to oral Bumex now Continue p.o. bicarb and PhosLo Monitor electrolytes urine output and creatinine Home soon? Stop bicarb? (5) Anasarca: Code(s): R60.1 - Generalized edema Status: Acute Assessment and Plan: Patient had bilateral pitting edema and CT shows ascites. This is likely secondary to worsening renal function. He does have grade 1 diastolic dysfunction on his echo and mild aortic stenosis Accurate I&Os with Jones Continue diuretic therapy May need TRAIN STARTER but as of now he has good urine output. Okay to remove Jones? (6) Type 2 diabetes mellitus with other diabetic kidney complication: Code(s): E11.29 - Type 2 diabetes mellitus with other diabetic kidney complication Status: Chronic Assessment and Plan: A1c 5.9% in January. The patient's blood glucose was reviewed on 03/14 Glucose higher today. Continue AccuCheks covering with sliding scale. Hypoglycemia protocol available as needed. Advance medications (7) Gastro-esophageal reflux disease without esophagitis: Code(s): K21.9 - Gastro-esophageal reflux disease without esophagitis Status: Chronic Assessment and Plan: Continue Protonix (8) Essential (primary) hypertension: Code(s): I10 - Essential (primary) hypertension Status: Chronic Assessment and Plan: Patient's blood pressure was reviewed on 03/14 Blood pressure elevated with SBP 140-170 range Will continue current medications. Increase Norvasc. Could add hydralazine if needed (9) Pneumonia: Code(s): J18.9 - Pneumonia, unspecified organism Status: Acute Assessment and Plan: Patient CT scan of the chest was abnormal. Patient has baseline COPD changes and infiltrates suggestive mostly of pulmonary edema but pneumonia could not be ruled out. He does not have any symptoms suggestive of pneumonia. He has chronic cough which is dry. He is afebrile. WBC normal. Patient was started on empiric antibiotics. He has been weaned to room air. MRSA screen was negative Continue cefepime and azithro (10) COPD with emphysema: Code(s): J43.9 - Emphysema, unspecified Status: Acute Assessment and Plan: As above. Continue Advair (11) Anemia: Code(s): D64.9 - Anemia, unspecified Status: Acute Assessment and Plan: Patient has anemia of chronic kidney disease and iron deficiency His hemoglobin dropped to 6.6 and 1 unit of PRBC transfused. No evidence of bleeding Hgb up into the 7 range and stable Monitor HH and transfuse additional if needed (12) Vasculitis: Code(s): I77.6 - Arteritis, unspecified Status: Acute Assessment and Plan: Recently diagnosed with vasculitis at [facility]. He has completed his treatment with rituximab. He is currently on prednisone which will be continued. 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 Follow (14) Acute UTI: Code(s): N39.0 - Urinary tract infection, site not specified Status: Acute Assessment and Plan: UA suggestive of UTI but UCx negative. UTI ruled out Plan Thrombocytopenia - plt dropped to 87K but now slowly improving. No heparin or Lovenox. Probably related to Rituxan. Probably reached his chiki and now recovering. Follow DVT prophylaxis -SCD as patient is anemic and thrombocytopenic Code Status - Full Code Subjective Date/time seen: 03/14/24 15:21 Interval history: 89yo male with DM, CKD, vasculitis and HTN here for hypoglycemia. Patient feels tired but he slept well last night. He has been up walking the halls. No chest pain or shortness of breath. No dyspnea on exertion. No bowel movements yet. Exam Narrative: AF 98.2 170/52 87 14 98% ra Gen - NARD Chest -few basilar crackles otherwise clear. CV - RRR S1/S2. Telemetry showing PVCs Abd -soft. Nontender. Nondistended. -Jones catheter secured with clear yellow urine. Ext -alessio ankle edema. Neuro - Alert and appropriate. Hard of hearing. Psych - Nml mood and affect Skin - Warm and dry Objective Data Vital Signs Vital Signs: Vital Signs - 24 hr 03/13/24 16:00 03/13/24 18:00 03/13/24 20:00 Temperature Pulse Rate 80 86 Respiratory Rate Blood Pressure Pulse Oximetry Oxygen Delivery Room Air 03/13/24 21:10 03/13/24 21:24 03/13/24 20:00 Temperature 97.8 F Pulse Rate 82 76 Respiratory Rate 16 Blood Pressure 141/86 H Pulse Oximetry 95 100 Oxygen Delivery Room Air 03/13/24 22:00 03/14/24 00:00 03/14/24 00:00 Temperature 97.9 F Pulse Rate 78 81 Respiratory Rate 18 Blood Pressure 171/63 H Pulse Oximetry 97 Oxygen Delivery Room Air 03/14/24 00:00 03/14/24 02:00 03/14/24 03:38 Temperature 97.3 F L Pulse Rate 85 80 77 Respiratory Rate 18 Blood Pressure 172/61 H Pulse Oximetry 100 Oxygen Delivery 03/14/24 04:00 03/14/24 04:00 03/14/24 06:00 Temperature Pulse Rate 74 82 Respiratory Rate Blood Pressure Pulse Oximetry Oxygen Delivery Room Air 03/14/24 07:54 03/14/24 08:15 03/14/24 08:17 Temperature 98.1 F Pulse Rate 80 Respiratory Rate 20 Blood Pressure 164/61 H Pulse Oximetry 97 96 Oxygen Delivery Room Air Room Air 03/14/24 12:00 03/14/24 08:00 03/14/24 10:00 Temperature 98.2 F Pulse Rate 82 95 85 Respiratory Rate 14 Blood Pressure 170/52 H Pulse Oximetry 98 Oxygen Delivery 03/14/24 12:00 Temperature Pulse Rate 87 Respiratory Rate Blood Pressure Pulse Oximetry Oxygen Delivery Intake/Output Intake/Output: Intake & Output 03/11/24 03/12/24 03/13/24 03/14/24 23:59 23:59 23:59 23:59 Intake Total 2128.4 1380 2340 1210 Output Total [address] [place], [place] [id number] [phone] Meds/Results Medications: Active Medications Generic Name Dose Route Start Last Admin Trade Name Freq PRN Reason Stop Dose Admin Albuterol/Ipratropium 3 ml 03/10/24 15:14 Ipratropium 0.5 Mg/Albuterol Sulfate 2.5 Mg Ampul.Neb 3 Ml INHALATION Q6HRT PRN Wheezing Amlodipine Besylate 2.5 mg 03/11/24 09:00 03/14/24 09:38 Amlodipine Besylate 2.5 Mg Tablet PO 2.5 mg QAM ALEKSANDR Administration Aspirin 81 mg 03/11/24 09:00 03/14/24 09:40 Aspirin 81 Mg Enteric Tablet PO 81 mg QAM [facility] Administration Atorvastatin Calcium 40 mg 03/11/24 09:00 03/14/24 09:40 Atorvastatin 40 Mg Tablet PO 40 mg DAILY [facility] Administration Azithromycin 500 mg 03/12/24 17:00 03/13/24 17:15 Azithromycin 250 Mg Tablet PO 03/14/24 17:01 500 mg DAILY@1700 ALEKSANDR Administration Bumetanide 1 mg/ Bumetanide 0. 1.5 mg 03/13/24 09:00 03/14/24 09:40 5 mg PO 1.5 mg DAILY [facility] Administration Calcium Acetate 667 mg 03/11/24 09:00 03/14/24 09:39 Calcium Acetate 667 Mg Tablet PO 667 mg BID [facility] Administration Cyanocobalamin 500 mcg 03/11/24 09:00 03/14/24 09:41 Cyanocobalamin 500 Mcg Tablet PO 500 mcg DAILY [facility] Administration Cyanocobalamin 2,000 mcg 03/11/24 09:00 03/14/24 09:41 Cyanocobalamin 1,000 Mcg Tablet PO 2,000 mcg DAILY [facility] Administration Dextrose 12.5 gm 03/10/24 09:29 03/10/24 10:30 Dextrose 50% 25 Gm/50 Ml Syringe IV PUSH 12.5 gm PRN PRN Administration Hypoglycemia Protocol Docusate Sodium 100 mg 03/13/24 21:00 03/14/24 09:40 Docusate Sodium 100 Mg Capsule PO 100 mg Q12HR [facility] Administration Doxazosin Mesylate 8 mg 03/11/24 09:00 03/14/24 09:40 Doxazosin Mesylate 4 Mg Tablet PO 8 mg DAILY [facility] Administration Epoetin Jose Antonio-epbx 10,000 units 03/15/24 09:00 Epoetin Jose Antonio-Epbx 10,000 Units/Ml Vial SUB-Q MOWEFR@09 [facility] Ferrous Sulfate 325 mg 03/11/24 09:00 03/14/24 09:41 Ferrous Sulfate [address] PO 325 mg DAILY [facility] Administration Glucagon 1 mg 03/10/24 09:29 Glucagon For Inj 1 Mg Vial IM PRN PRN Hypoglycemia Protocol Glucose 15 gm 03/10/24 09:29 03/10/24 12:14 Glucose Oral Gel 15 Gm Of Glucse In 37.5 Gm Tube PO 15 gm PRN PRN Administration Hypoglycemia Protocol Dextrose 1,000 mls @ 100 mls/hr 03/10/24 09:29 Dextrose 5% 1,000 Ml IVPB PRN PRN Hypoglycemia Protocol Cefepime HCl 1 gm in 50 mls @ 100 mls/hr 03/10/24 17:00 03/13/24 17:17 Maxipime 1 Gm/Ns 50 Ml IVPB 100 mls/hr Q24H ALEKSANDR Administration Insulin Aspart 4 - 8 units 03/11/24 08:00 03/14/24 11:25 Insulin Aspart (*Bkc) 100 Units/Ml SUB-Q 6 units TIDWM ALEKSANDR Administration Protocol Insulin Aspart 2 - 4 units 03/11/24 21:00 03/13/24 20:45 Insulin Aspart (*Bkc) 100 Units/Ml SUB-Q 3 units HS ALEKSANDR Administration Protocol Insulin Aspart 2 units 03/12/24 17:00 03/14/24 11:25 Insulin Aspart (*Bkc) 100 Units/Ml SUB-Q 2 units TIDWM ALEKSANDR Administration Insulin Glargine 20 units 03/11/24 09:00 03/14/24 09:41 Insulin Glargine (*Bkc) 100 Units/Ml SUB-Q 20 units QAM ALEKSANDR Administration Latanoprost 1 drop 03/10/24 21:05 03/13/24 21:22 Latanoprost 0.005% Op Soln 2.5 Ml Btl EACH EYE Not Given QPM [facility] Multivitamins/Minerals 1 tablet 03/12/24 12:40 03/14/24 09:39 Opti-Gen Tab PO 1 tablet QAM ALEKSANDR Administration Pantoprazole Sodium 40 mg 03/11/24 09:00 03/14/24 09:40 Pantoprazole 40 Mg Tablet PO 40 mg QAM ALEKSANDR Administration Polyethylene Glycol 17 gm 03/14/24 09:00 03/14/24 09:42 Polyethylene Glycol 3350 17 Gm Powd.Pack PO 17 gm QAM ALEKSANDR Administration Prednisone 60 mg 03/11/24 08:00 03/14/24 09:39 Prednisone 20 Mg Tablet PO 60 mg DAILY@0800 ALEKSANDR Administration Prednisone 10 mg 03/11/24 08:00 03/14/24 09:41 Prednisone 10 Mg Tablet PO 10 mg DAILY@0800 ALEKSANDR Administration Fluticasone/Salmeterol 2 puff 03/10/24 20:00 03/14/24 08:13 Fluticasone/Salmeterol 115-21 Mcg Inhaler 1 Puff INHALATION 2 puff Q12HRT ALEKSANDR Administration Sodium Bicarbonate 325 mg 03/11/24 09:00 03/14/24 09:40 Sodium Bicarbonate Tab 325 Mg Tablet PO 325 mg QAM ALEKSANDR Administration Sodium Zirconium Cyclosilicate 10 gm 03/11/24 07:50 03/12/24 17:23 Sodium Zirconium Cyclosilicate 10 Gm Powd.Pack PO 10 gm BID@1000,1800 ALEKSANDR Administration Timolol Maleate 1 drop 03/11/24 09:00 03/14/24 09:37 Timolol Maleate 0.5% Op Soln 5 Ml Bottle EACH EYE 1 drop QAM ALEKSANDR Administration Radiology Results: ITS Impressions Head CT 03/10/24 11:24 IMPRESSION: No acute intracranial findings. Cervical Spine CT 03/10/24 11:48 IMPRESSION: No acute osseous abnormality cervical spine. Multilevel degenerative disc disease. Chest/Abdomen/Pelvis CT 03/10/24 13:56 IMPRESSION: 1. Moderate emphysema with patchy groundglass opacities in the bilateral lower lobes and right middle lobe which could represent mild pulmonary edema versus pneumonia which has improved since the prior study. 2. 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 2 mm stone previously seen in the right kidney is no longer visualized. 3. Minimal perihepatic, perisplenic and pericholecystic ascites. 4. Prostatomegaly. 5. Moderate-sized bilateral fat-containing inguinal hernias. Chest X-Ray 03/14/24 06:43 IMPRESSION: 1. Near complete resolution of prior pulmonary edema. 2. Streaky opacities at the right lower lung zone and favor atelectasis over pneumonia. Labs Labs: Laboratory Results - last 24 hr 03/13/24 03/13/24 03/13/24 15:08 16:51 20:44 WBC RBC Hgb 7.5 L Hct 25.5 L MCV MCH MCHC RDW Plt Count MPV Immature Gran % (Auto) Neut % (Auto) Lymph % (Auto) [place] % (Auto) Eos % (Auto) Baso % (Auto) Lymph # (Auto) [place] # (Auto) Eos # (Auto) Baso # (Auto) Abs Immat Gran (auto) Absolute Neuts (auto) Absolute Nucleated RBC Nucleated RBC % Platelet Estimate Hypochromasia Poikilocytosis Anisocytosis Ovalocytes Schistocytes Sodium Potassium Chloride Carbon Dioxide Anion Gap BUN Creatinine Estim Creat Clear Calc Estimated GFR Glucose POC Capillary Glucose 315 H 302 H Calcium Phosphorus Magnesium Total Bilirubin AST ALT Alkaline Phosphatase Total Protein Albumin 03/14/24 03/14/24 03/14/24 04:40 07:25 11:23 WBC 4.1 L RBC 2.41 L Hgb 7.0 L Hct 21.3 L MCV 88.4 MCH 29.0 MCHC 32.9 RDW 23.5 H Plt Count 100 L MPV 10.4 Immature Gran % (Auto) 4.9 H Neut % (Auto) 79.0 H Lymph % (Auto) 10.0 L [place] % (Auto) 6.1 Eos % (Auto) 0.0 Baso % (Auto) 0.0 L Lymph # (Auto) 0.41 L [place] # (Auto) 0.3 Eos # (Auto) 0.0 Baso # (Auto) 0.0 Abs Immat Gran (auto) 0.20 H Absolute Neuts (auto) 3.2 Absolute Nucleated RBC 0.000 Nucleated RBC % 0.0 Platelet Estimate Decreased Hypochromasia 1+ Poikilocytosis 1+ Anisocytosis 1+ Ovalocytes 1+ Schistocytes Rare Sodium 136 L Potassium 3.7 Chloride 101 Carbon Dioxide 26 Anion Gap 9 BUN 109 H Creatinine 5.70 H Estim Creat Clear Calc 8 Estimated GFR 9 L Glucose 197 H POC Capillary Glucose 186 H 316 H Calcium 7.2 L Phosphorus 6.2 H Magnesium 1.6 Total Bilirubin 0.9 AST 23 ALT 38 Alkaline Phosphatase 62 Total Protein 5.0 L Albumin 2.4 L 03/14/24 12:16 WBC RBC Hgb 7.2 L Hct 21.6 L MCV MCH MCHC RDW Plt Count MPV Immature Gran % (Auto) Neut % (Auto) Lymph % (Auto) [place] % (Auto) Eos % (Auto) Baso % (Auto) Lymph # (Auto) [place] # (Auto) Eos # (Auto) Baso # (Auto) Abs Immat Gran (auto) Absolute Neuts (auto) Absolute Nucleated RBC Nucleated RBC % Platelet Estimate Hypochromasia Poikilocytosis Anisocytosis Ovalocytes Schistocytes Sodium Potassium Chloride Carbon Dioxide Anion Gap BUN Creatinine Estim Creat Clear Calc Estimated GFR Glucose POC Capillary Glucose Calcium Phosphorus Magnesium Total Bilirubin AST ALT Alkaline Phosphatase Total Protein Albumin
[2024-03-14 16:37] LABS: Glucose Point of Care 333 mg/dl (65-105)
[2024-03-14] MEDS: CEFEPIME 1 GM/NS 50 ML 1 GM/50 ML BAG IVPB (17:09)
[2024-03-14] MEDS: LATANOPROST 0.005% OP SOLN 2.5 ML BTL 1 DROP EACH EYE (17:09)
[2024-03-14] MEDS: AZITHROMYCIN 250 MG TABLET 500 MG PO (17:10)
[2024-03-14 20:52] LABS: Glucose Point of Care 321 mg/dl (65-105)
[2024-03-15] VITALS (15 sets, daily range): BP systolic 135–170; BP diastolic 51–93; PULSE 61–95; RESP 18–20; TEMP 36.6–36.9; O2SAT 97–99; BMI 28.1
[2024-03-15 05:04] LABS: Basophils Percent Auto 0.2 % (0.2-1.2); Hematocrit 22.8 % (42.0-52.0); Hemoglobin 7.4 g/dL (14.0-18.0); Immature Granulocyte Absolute 0.28 K/mm3 (0.00-0.031); Immature Granulocyte Percent A 6.2 % (0-0.5); Immature Platelet Fraction Pct 3.1 % (0.9-11.2); Lymphocytes Absolute Auto 0.58 K/mm3 (0.9-3.2); Lymphocytes Percent Auto 12.8 % (18.3-44.2); Mean Corpuscular HGB Conc 32.5 g/dl (32-36); Mean Corpuscular Hemoglobin 28.8 pg (26-34); Mean Corpuscular Volume 88.7 fl (80-100); Mean Platelet Volume 10.4 fl (7.4-10.4); Monocytes Absolute Auto 0.3 K/mm3 (0.1-0.6); Monocytes Percent Auto 7.3 % (2.6-8.5); Neutrophils Absolute Auto 3.3 K/mm3 (1.3-6.7); Neutrophils Percent Auto 73.5 % (45.5-73.1); Platelet Count Result 97 k/mm3 (150-375); Red Blood Count 2.57 M/mm3 (4.6-6.20); Red Cell Distribution Width 23.3 % (11.5-14.5); White Blood Count 4.5 K/mm3 (4.5-10.0)
[2024-03-15 05:29] LABS: Alanine Aminotransferase 42 U/L (6-50); Albumin Level 2.4 g/dL (3.5-5.1); Alkaline Phosphatase 64 U/L (38-126); Anion Gap 8 mmol/L (4-12); Aspartate Amino Transferase 23 U/L (17-59); Bilirubin,Total 0.8 mg/dL (0.2-1.3); Blood Urea Nitrogen 111 mg/dL (9-20); Carbon Dioxide 25 mmol/L (22-30); Chloride 101 mmol/L (98-107); Estimated CRCL calculation 9 ml/min; Estimated Glomerular Filt Rate 11; Glucose 203 mg/dL (65-110); Magnesium 1.5 mg/dL (1.6-2.3); Potassium 3.7 mmol/L (3.4-5.0); Sodium 134 mmol/L (137-145)
[2024-03-15 05:30] LABS: Platelet Estimate Decreased (Adequate)
[2024-03-15 05:31] LABS: Anisocytosis 1+; Ovalocytes 1+
[2024-03-15 05:32] LABS: Schistocytes Rare
[2024-03-15] MEDS: FLUTICASONE/SALMETEROL 115-21 MCG INHALER 1 PUFF 2 PUFF INHALATION ×2 (08:26→20:13)
[2024-03-15 08:42] LABS: Glucose Point of Care 192 mg/dl (65-105)
[2024-03-15] MEDS: MAGNESIUM SULF 2 GM/WATER 50ML 2 GM/50 ML BAG IVPB (08:54)
[2024-03-15] MEDS: INSULIN ASPART (*BKC) 100 UNITS/ML 6 UNITS SUB-Q ×3 (08:55→16:52)
[2024-03-15] MEDS: INSULIN GLARGINE (*BKC) 100 UNITS/ML 25 UNITS SUB-Q (08:56)
[2024-03-15] MEDS: TIMOLOL MALEATE 0.5% OP SOLN 5 ML BOTTLE 1 DROP EACH EYE (08:57)
[2024-03-15] MEDS: polyethylene glycoL 3350 17 GM POWD.PACK PO (08:58)
[2024-03-15] MEDS: DOXAZOSIN MESYLATE 4 MG TABLET 8 MG PO (09:00)
[2024-03-15] MEDS: DOCUSATE SODIUM 100 MG CAPSULE PO ×2 (09:01→20:34)
[2024-03-15] MEDS: amLODIPine BESYLATE 5 MG TABLET PO (09:01)
[2024-03-15] MEDS: predniSONE 20 MG TABLET 60 MG PO (09:01)
[2024-03-15] MEDS: SODIUM BICARBONATE TAB 325 MG TABLET PO (09:01)
[2024-03-15] MEDS: BUMETANIDE PO 1 MG, BUMETANIDE PO 0.5 MG 1.5 MG PO (09:01)
[2024-03-15] MEDS: FERROUS SULFATE 325 MG TABLET DR PO (09:01)
[2024-03-15] MEDS: CYANOCOBALAMIN 500 MCG TABLET PO (09:02)
[2024-03-15] MEDS: OPTI-GEN TAB 1 TABLET PO (09:02)
[2024-03-15] MEDS: CALCIUM ACETATE 667 MG TABLET PO ×2 (09:02→16:47)
[2024-03-15] MEDS: CYANOCOBALAMIN 1,000 MCG TABLET 2000 MCG PO (09:02)
[2024-03-15] MEDS: PANTOPRAZOLE 40 MG TABLET PO (09:02)
[2024-03-15] MEDS: ATORVASTATIN 40 MG TABLET PO (09:02)
[2024-03-15] MEDS: ASPIRIN 81 MG ENTERIC TABLET PO (09:02)
--- NOTE | 2024-03-15 10:16 | P.PNNP_ITS ---
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 * there was a concern for infection (endocarditics) but this was ruled out * presumed etiology of recent SANGITA/ARF * however, creatinine worse from labs done earlier this month * s/p pulse dose steroids and IV rituximab x 2 doses * continue steroids for now - wean slowly (3) Chronic kidney disease, stage IV (severe): Code(s): N18.4 - Chronic kidney disease, stage 4 (severe) Status: Acute Assessment and Plan: * creatining running ~ 3.5mg/dl earlier this month and post discharge from [facility] * new baseline or will some recovery occur with interventions to date (immunosuppressive therapy, diuretics...etc) * underlying CKD also present due to HTN, DM, vascular disease, and age-related change * follow trend of repeat labs and UOP (4) Hypoglycemia: Code(s): E16.2 - Hypoglycemia, unspecified Status: Resolved Assessment and Plan: * resolved * due to combination of worsening renal function in the context of ongoing insulin use * s/p glucagon and multiple pushes of D50 in the ER * was on D10 IVFs but has been weaned off * see #10 (5) Hypoxia: Code(s): R09.02 - Hypoxemia Status: Acute Assessment and Plan: * resolving/resolved * multifactorial etiology: * mild pulmonary edema * possible pneumonia (complicated by immunosuppression) * COPD exacerbation * relative anemia * noted to be 80% on room air in ER * improvement in oxygenation with supplemental oxygen (2L) -- now weaned off * CT of chest results noted: * moderate emphysema with patchy groundglass opacities in the bilateral lower lobes and right middle lobe which could represent mild pulmonary edema versus pneumonia * on bronchodilators * already on steroids * on oral diuretics * continue empiric antibiotics * follow respiratory status (6) Sepsis: Code(s): A41.9 - Sepsis, unspecified organism Status: Acute Assessment and Plan: * possibly due to UTI +/- pneumonia * complicated by immunosuppression (s/p rituximab and on steroids) * follow culture data * blood and urine culture negative to date * monitor hemodynamics * on antibiotics * supportive therapy (7) Anemia: Code(s): D64.9 - Anemia, unspecified Status: Acute Assessment and Plan: * due to SANGITA, CKD, vasculitis, and iron deficiency * PRBC transfusion per protocol * LEONEL while hospitalized * follow trend of H/H (8) Anasarca: Code(s): R60.1 - Generalized edema Status: Acute Assessment and Plan: * likely a manifestation of worsening renal dysfunction * as noted by bilateral pitting LE edema * imaging with ascites as well * known history of diastolic dysfunction + aortic stenosis as well * on oral diuretics * follow I/Os, daily weights, and overall volume status (9) Essential (primary) hypertension: Code(s): I10 - Essential (primary) hypertension Status: Chronic Assessment and Plan: * off FREDY-I/ARB due to #1 * currently on amlodipine * avoid hydralazine (this drug was suspected as cause of drug-induced lupus findings on renal biopsy) * follow trend of hemodynamics (10) Type 2 diabetes mellitus with other diabetic kidney complication: Code(s): E11.29 - Type 2 diabetes mellitus with other diabetic kidney complication Status: Chronic Assessment and Plan: * previous issues with hypoglycemia noted * follow accu-cheks * glycemic control per hospitalist Not opposed to discharge from renal perspective if otherwise medically stable -- he can follow-up with me in the office for ongoing management of his CKD and recent renal vasculitis by renal biopsy; will need follow-up with Hem/Onc for Epogen/Aranesp/Procrit injections. Will continue to follow. Subjective Date/time seen: 03/15/24 10:16 Interval history: Follow-up for acute kidney injury/acute renal failure on chronic kidney disease (versus progression of CKD?). Improvement noted in renal function/creatinine although BUN remains relatively elevated; making good urine output with oral diuretic therapy with ongoing stability in breathing/respiratory status; H/H appears relatively stable as well; no apparent distress voiced at the time of my visit. Exam Narrative: General: elderly but WD/WN male in NAD Heart: normal S1 and S2; no rub Lungs: clear anteriorly; decreased at bases Abdomen: soft, nontender, nondistended, positive bowel sounds Extremities: no cyanosis or clubbing; trace edema Skin: no nodules Objective Data Vital Signs Vital Signs: Vital Signs Temp Pulse Resp BP Pulse Ox O2 Del Method 03/15/24 10:00 98.1 F 87 18 144/54 H 98 03/15/24 08:27 75 18 03/15/24 06:00 75 03/15/24 04:00 74 03/15/24 04:15 Room Air 03/15/24 05:06 97.8 F 78 18 157/64 H 97 03/15/24 00:20 Room Air 03/14/24 22:00 Room Air 03/15/24 02:00 73 03/15/24 00:00 76 03/14/24 23:24 97.8 F 81 18 161/59 H 98 03/14/24 22:00 81 03/14/24 20:00 80 03/14/24 21:30 73 18 03/14/24 20:05 97.7 F 79 18 157/53 H 98 03/14/24 18:00 80 03/14/24 16:00 85 03/14/24 16:00 Room Air 03/14/24 15:59 98.0 F 83 18 171/50 H 97 Intake/Output Intake/Output: Intake & Output 03/12/24 03/13/24 03/14/24 03/15/24 23:59 23:59 23:59 23:59 Intake Total 1380 2340 2900 1250 Output Total 2450 2000 1425 700 Balance -5925 029 2465 550 Meds/Results Medications: Active Medications Generic Name Dose Route Start Last Admin Trade Name Freq PRN Reason Stop Dose Admin Albuterol/Ipratropium 3 ml 03/10/24 15:14 Ipratropium 0.5 Mg/Albuterol Sulfate 2.5 Mg Ampul.Neb 3 Ml INHALATION Q6HRT PRN Wheezing Amlodipine Besylate 5 mg 03/15/24 09:00 03/15/24 09:01 Amlodipine Besylate 5 Mg Tablet PO 5 mg QAM ALEKSANDR Administration Aspirin 81 mg 03/11/24 09:00 03/15/24 09:02 Aspirin 81 Mg Enteric Tablet PO 81 mg QAM ALEKSANDR Administration Atorvastatin Calcium 40 mg 03/11/24 09:00 03/15/24 09:02 Atorvastatin 40 Mg Tablet PO 40 mg DAILY ALEKSANDR Administration Bumetanide 1 mg/ Bumetanide 0. 1.5 mg 03/13/24 09:00 03/15/24 09:01 5 mg PO 1.5 mg DAILY ALEKSANDR Administration Calcium Acetate 667 mg 03/11/24 09:00 03/15/24 09:02 Calcium Acetate 667 Mg Tablet PO 667 mg BID ALEKSANDR Administration Cyanocobalamin 500 mcg 03/11/24 09:00 03/15/24 09:02 Cyanocobalamin 500 Mcg Tablet PO 500 mcg DAILY ALEKSANDR Administration Cyanocobalamin 2,000 mcg 03/11/24 09:00 03/15/24 09:02 Cyanocobalamin 1,000 Mcg Tablet PO 2,000 mcg DAILY ALEKSANDR Administration Dextrose 12.5 gm 03/10/24 09:29 03/10/24 10:30 Dextrose 50% 25 Gm/50 Ml Syringe IV PUSH 12.5 gm PRN PRN Administration Hypoglycemia Protocol Docusate Sodium 100 mg 03/13/24 21:00 03/15/24 09:01 Docusate Sodium 100 Mg Capsule PO 100 mg Q12HR ALEKSANDR Administration Doxazosin Mesylate 8 mg 03/11/24 09:00 03/15/24 09:00 Doxazosin Mesylate 4 Mg Tablet PO 8 mg DAILY ALEKSANDR Administration Epoetin Jose Antonio-epbx 10,000 units 03/15/24 09:00 Epoetin Jose Antonio-Epbx 10,000 Units/Ml Vial SUB-Q [id number] [facility] Ferrous Sulfate 325 mg 03/11/24 09:00 03/15/24 09:01 Ferrous Sulfate [address] PO 325 mg DAILY ALEKSANDR Administration Glucagon 1 mg 03/10/24 09:29 Glucagon For Inj 1 Mg Vial IM PRN PRN Hypoglycemia Protocol Glucose 15 gm 03/10/24 09:29 03/10/24 12:14 Glucose Oral Gel 15 Gm Of Glucse In 37.5 Gm Tube PO 15 gm PRN PRN Administration Hypoglycemia Protocol Dextrose 1,000 mls @ 100 mls/hr 03/10/24 09:29 Dextrose 5% 1,000 Ml IVPB PRN PRN Hypoglycemia Protocol Cefepime HCl 1 gm in 50 mls @ 100 mls/hr 03/10/24 17:00 03/14/24 17:09 Maxipime 1 Gm/Ns 50 Ml IVPB 100 mls/hr Q24H ALEKSANDR Administration Insulin Aspart 4 - 8 units 03/11/24 08:00 03/15/24 12:27 Insulin Aspart (*Bkc) 100 Units/Ml SUB-Q 6 units TIDWM ALEKSANDR Administration Protocol Insulin Aspart 2 - 4 units 03/11/24 21:00 03/14/24 22:00 Insulin Aspart (*Bkc) 100 Units/Ml SUB-Q 3 units HS ALEKSANDR Administration Protocol Insulin Aspart 6 units 03/15/24 08:00 03/15/24 12:27 Insulin Aspart (*Bkc) 100 Units/Ml SUB-Q 6 units TIDWM ALEKSANDR Administration Insulin Glargine 25 units 03/15/24 09:00 03/15/24 08:56 Insulin Glargine (*Bkc) 100 Units/Ml SUB-Q 25 units QAM ALEKSANDR Administration Latanoprost 1 drop 03/10/24 21:05 03/14/24 17:09 Latanoprost 0.005% Op Soln 2.5 Ml Btl EACH EYE 1 drop QPM ALEKSANDR Administration Multivitamins/Minerals 1 tablet 03/12/24 12:40 03/15/24 09:02 Opti-Gen Tab PO 1 tablet QAM ALEKSANDR Administration Pantoprazole Sodium 40 mg 03/11/24 09:00 03/15/24 09:02 Pantoprazole 40 Mg Tablet PO 40 mg QAM ALEKSANDR Administration Polyethylene Glycol 17 gm 03/14/24 09:00 03/15/24 08:58 Polyethylene Glycol 3350 17 Gm Powd.Pack PO 17 gm QAM ALEKSANDR Administration Prednisone 60 mg 03/11/24 08:00 03/15/24 09:01 Prednisone 20 Mg Tablet PO 60 mg DAILY@0800 ALEKSANDR Administration Fluticasone/Salmeterol 2 puff 03/10/24 20:00 03/15/24 08:26 Fluticasone/Salmeterol 115-21 Mcg Inhaler 1 Puff INHALATION 2 puff Q12HRT ALEKSANDR Administration Sodium Bicarbonate 325 mg 03/11/24 09:00 03/15/24 09:01 Sodium Bicarbonate Tab 325 Mg Tablet PO 325 mg QAM ALEKSANDR Administration Timolol Maleate 1 drop 03/11/24 09:00 03/15/24 08:57 Timolol Maleate 0.5% Op Soln 5 Ml Bottle EACH EYE 1 drop QAM ALEKSANDR Administration Radiology Results: ITS Impressions Head CT 03/10/24 11:24 IMPRESSION: No acute intracranial findings. Cervical Spine CT 03/10/24 11:48 IMPRESSION: No acute osseous abnormality cervical spine. Multilevel degenerative disc disease. Chest/Abdomen/Pelvis CT 03/10/24 13:56 IMPRESSION: 1. Moderate emphysema with patchy groundglass opacities in the bilateral lower lobes and right middle lobe which could represent mild pulmonary edema versus pneumonia which has improved since the prior study. 2. 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 2 mm stone previously seen in the right kidney is no longer visualized. 3. Minimal perihepatic, perisplenic and pericholecystic ascites. 4. Prostatomegaly. 5. Moderate-sized bilateral fat-containing inguinal hernias. Chest X-Ray 03/15/24 06:31 IMPRESSION: 1. Worsened airspace opacities at left lung base, consistent with atelectasis versus pneumonia. Labs Labs: Laboratory Tests 03/15/24 04:36 03/15/24 04:36 Calcium 7.0 L Magnesium 1.5 L Total Bilirubin 0.8 AST 23 ALT 42 Alkaline Phosphatase 64 Total Protein 5.0 L Albumin 2.4 L
[2024-03-15] MEDS: INSULIN ASPART (*BKC) 100 UNITS/ML SUB-Q (12:27)
[2024-03-15 14:12] LABS: Glucose Point of Care 309 mg/dl (65-105)
[2024-03-15 16:23] LABS: Glucose Point of Care 138 mg/dl (65-105)
[2024-03-15] MEDS: CEFEPIME 1 GM/NS 50 ML 1 GM/50 ML BAG IVPB (16:46)
[2024-03-15] MEDS: EPOETIN ALFA-EPBX 10,000 UNITS/ML VIAL 10000 UNITS SUB-Q (16:47)
--- NOTE | 2024-03-15 16:49 | PM.IMPN ---
Progress Note: A&P Assessment and Plan (1) Hypoglycemia: Code(s): E16.2 - Hypoglycemia, unspecified Status: Resolved Assessment and Plan: Patient presented with hypoglycemia likely secondary to worsening renal function leading to decreased insulin clearance. Patient takes 70 units of Levemir in the morning and 45 units in the evening. His blood sugar chart shows gradual trend of decreasing blood sugar over last 3-4 days prior to admission. He received glucagon and multiple pushes of dextrose in the ER He was started on D10 and glucose stabilized. Able to titrate down and to off Hypoglycemia has resolved. Patient resumed on insulin at lower doses and he appears to be tolerating this well. (2) Hypoxia: Code(s): R09.02 - Hypoxemia Status: Acute Assessment and Plan: Patient was saturating in mid 80s on room air on arrival but saturating adequately on [address] chest showed moderate emphysema with patchy ground glass opacities in the bilateral lower lobes and right middle lobe: mild pulmonary edema vs PNA which has improved since the prior study. Appears to have COPD with some volume overload. Concern of PNA and is immuno suppressed Weaned to room air now. Bronchodilators for COPD Continue steroids Antibiotics as below Lasix IV for pulmonary edema and now changed to Bumex oral. Continue PT/OT (3) Sepsis: Code(s): A41.9 - Sepsis, unspecified organism Status: Acute Assessment and Plan: Sepsis secondary to ? pneumonia. Patient is on immunosuppressive agents PCT 0.2. WBC normal. No fevers. Not a candidate for liberal IV fluids due to volume overloaded and also getting dextrose infusion for hypoglycemia Patient was started on vancomycin, cefepime and azithro. MRSA screen is negative so Vanco discontinued Completed Azithromycin. UCx negative. BCx NGTD. Blood pressure is adequate. Continue cefepime for one more day (4) Acute kidney injury superimposed on CKD: Code(s): N17.9 - Acute kidney failure, unspecified; N18.9 - Chronic kidney disease, unspecified Status: Acute Assessment and Plan: Patient has chronic kidney disease with creatinine around 3.5. He was recently diagnosed with vasculitis with kidney biopsy done. He presents with worsening of kidney function at 5.1. His electrolytes acceptable. He does have mild volume overload. CHIEF SERVICE DISPATCHER was considered. Started on IV Lasix but changed to oral Bumex Nephrology consulted and appreciate their input. Fluid status is better. Bicarb normal at 26, Potassium normal. Continues to have good UOP Cr was up to 5.7 with BUN 109 (some related to steroids) but kasia today at 4.9. BUN higher at 111. Continue oral Bumex now Continue p.o. bicarb and PhosLo Monitor electrolytes urine output and creatinine (5) Anasarca: Code(s): R60.1 - Generalized edema Status: Acute Assessment and Plan: Patient had bilateral pitting edema and CT shows ascites. This is likely secondary to worsening renal function. He does have grade 1 diastolic dysfunction on his echo and mild aortic stenosis Accurate I&Os with Jones Continue diuretic therapy May need CHIEF SERVICE DISPATCHER but as of now he has good urine output. Okay to remove Jones? (6) Type 2 diabetes mellitus with other diabetic kidney complication: Code(s): E11.29 - Type 2 diabetes mellitus with other diabetic kidney complication Status: Chronic Assessment and Plan: A1c 5.9% in January. The patient's blood glucose was reviewed on 03/15 Glucose higher still Continue AccuCheks covering with sliding scale. Hypoglycemia protocol available as needed. Advance medications again (7) Essential (primary) hypertension: Code(s): I10 - Essential (primary) hypertension Status: Chronic Assessment and Plan: Patient's blood pressure was reviewed on 03/15 Blood pressure elevated with SBP 130-170 range Will continue to monitor for today (8) Pneumonia: Code(s): J18.9 - Pneumonia, unspecified organism Status: Acute Assessment and Plan: Patient CT scan of the chest was abnormal. Patient has baseline COPD changes and infiltrates suggestive mostly of pulmonary edema but pneumonia could not be ruled out. He does not have any symptoms suggestive of pneumonia. He has chronic cough which is dry. He is afebrile. WBC normal. Patient was started on empiric antibiotics. He has been weaned to room air. MRSA screen was negative Continue cefepime to complete a course (9) COPD with emphysema: Code(s): J43.9 - Emphysema, unspecified Status: Acute Assessment and Plan: As above. Continue Advair (10) Anemia: Code(s): D64.9 - Anemia, unspecified Status: Acute Assessment and Plan: Patient has anemia of chronic kidney disease and iron deficiency His hemoglobin dropped to 6.6 and 1 unit of PRBC transfused. No evidence of bleeding Hgb up into the 7 range and stable Monitor HH and transfuse additional if needed (11) Vasculitis: Code(s): I77.6 - Arteritis, unspecified Status: Acute Assessment and Plan: Recently diagnosed with vasculitis at [facility]. He has completed his treatment with rituximab. He is currently on prednisone which will be continued. 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 Follow (13) Acute UTI: Code(s): N39.0 - Urinary tract infection, site not specified Status: Acute Assessment and Plan: UA suggestive of UTI but UCx negative. UTI ruled out (14) Gastro-esophageal reflux disease without esophagitis: Code(s): K21.9 - Gastro-esophageal reflux disease without esophagitis Status: Chronic Assessment and Plan: Continue Protonix Plan Thrombocytopenia - plt dropped to 87K but now slowly improving. No heparin or Lovenox. Probably related to Rituxan and/or vasulitis. Probably reached his chiki and now recovering. Follow DVT prophylaxis -SCD as patient is anemic and thrombocytopenic Code Status - Full Code Subjective Date/time seen: 03/15/24 16:49 Interval history: 89yo male with DM, CKD, vasculitis and HTN here for hypoglycemia. No problems overnight. No CP or SOB. Walking with therpay. +BMs Exam Narrative: AF 98.1 144/54 87 18 98% ra Gen - NARD Chest - rt base crackles otherwise clear. CV - RRR S1/S2. Telemetry showing PVCs Abd -soft. Nontender. Nondistended. -Jones catheter secured with clear yellow urine. Ext - trace alessio ankle edema. Neuro - Alert and appropriate. Hard of hearing. Psych - Nml mood and affect Skin - Warm and dry Objective Data Vital Signs Vital Signs: Vital Signs - 24 hr 03/14/24 18:00 03/14/24 20:05 03/14/24 21:30 Temperature 97.7 F Pulse Rate 80 79 73 Respiratory Rate 18 18 Blood Pressure 157/53 H Pulse Oximetry 98 Oxygen Delivery 03/14/24 20:00 03/14/24 22:00 03/14/24 23:24 Temperature 97.8 F Pulse Rate 80 81 81 Respiratory Rate 18 Blood Pressure 161/59 H Pulse Oximetry 98 Oxygen Delivery 03/15/24 00:00 03/15/24 02:00 03/14/24 22:00 Temperature Pulse Rate 76 73 Respiratory Rate Blood Pressure Pulse Oximetry Oxygen Delivery Room Air 03/15/24 00:20 03/15/24 05:06 03/15/24 04:15 Temperature 97.8 F Pulse Rate 78 Respiratory Rate 18 Blood Pressure 157/64 H Pulse Oximetry 97 Oxygen Delivery Room Air Room Air 03/15/24 04:00 03/15/24 06:00 03/15/24 08:27 Temperature Pulse Rate 74 75 75 Respiratory Rate 18 Blood Pressure Pulse Oximetry Oxygen Delivery 03/15/24 08:00 03/15/24 12:00 03/15/24 08:00 Temperature 98.1 F 98.1 F Pulse Rate 81 87 Respiratory Rate 20 18 Blood Pressure 170/61 H 144/54 H Pulse Oximetry 98 98 Oxygen Delivery Room Air 03/15/24 12:00 Temperature Pulse Rate Respiratory Rate Blood Pressure Pulse Oximetry Oxygen Delivery Room Air Intake/Output Intake/Output: Intake & Output 03/12/24 03/13/24 03/14/24 03/15/24 23:59 23:59 23:59 23:59 Intake Total 1380 2340 2900 1250 Output Total 2450 2000 1425 700 Balance -2949 620 6153 550 Meds/Results Medications: Active Medications Generic Name Dose Route Start Last Admin Trade Name Freq PRN Reason Stop Dose Admin Albuterol/Ipratropium 3 ml 03/10/24 15:14 Ipratropium 0.5 Mg/Albuterol Sulfate 2.5 Mg Ampul.Neb 3 Ml INHALATION Q6HRT PRN Wheezing Amlodipine Besylate 5 mg 03/15/24 09:00 03/15/24 09:01 Amlodipine Besylate 5 Mg Tablet PO 5 mg QAM ALEKSANDR Administration Aspirin 81 mg 03/11/24 09:00 03/15/24 09:02 Aspirin 81 Mg Enteric Tablet PO 81 mg QAM ALEKSANDR Administration Atorvastatin Calcium 40 mg 03/11/24 09:00 03/15/24 09:02 Atorvastatin 40 Mg Tablet PO 40 mg DAILY ALEKSANDR Administration Bumetanide 1 mg/ Bumetanide 0. 1.5 mg 03/13/24 09:00 03/15/24 09:01 5 mg PO 1.5 mg DAILY ALEKSANDR Administration Calcium Acetate 667 mg 03/11/24 09:00 03/15/24 09:02 Calcium Acetate 667 Mg Tablet PO 667 mg BID ALEKSANDR Administration Cyanocobalamin 500 mcg 03/11/24 09:00 03/15/24 09:02 Cyanocobalamin 500 Mcg Tablet PO 500 mcg DAILY ALEKSANDR Administration Cyanocobalamin 2,000 mcg 03/11/24 09:00 03/15/24 09:02 Cyanocobalamin 1,000 Mcg Tablet PO 2,000 mcg DAILY ALEKSANDR Administration Dextrose 12.5 gm 03/10/24 09:29 03/10/24 10:30 Dextrose 50% 25 Gm/50 Ml Syringe IV PUSH 12.5 gm PRN PRN Administration Hypoglycemia Protocol Docusate Sodium 100 mg 03/13/24 21:00 03/15/24 09:01 Docusate Sodium 100 Mg Capsule PO 100 mg Q12HR ALEKSANDR Administration Doxazosin Mesylate 8 mg 03/11/24 09:00 03/15/24 09:00 Doxazosin Mesylate 4 Mg Tablet PO 8 mg DAILY ALEKSANDR Administration Epoetin Jose Antonio-epbx 10,000 units 03/15/24 09:00 Epoetin Jose Antonio-Epbx 10,000 Units/Ml Vial SUB-Q MOWEFR@09 [facility] Ferrous Sulfate 325 mg 03/11/24 09:00 03/15/24 09:01 Ferrous Sulfate [address] PO 325 mg DAILY ALEKSANDR Administration Glucagon 1 mg 03/10/24 09:29 Glucagon For Inj 1 Mg Vial IM PRN PRN Hypoglycemia Protocol Glucose 15 gm 03/10/24 09:29 03/10/24 12:14 Glucose Oral Gel 15 Gm Of Glucse In 37.5 Gm Tube PO 15 gm PRN PRN Administration Hypoglycemia Protocol Dextrose 1,000 mls @ 100 mls/hr 03/10/24 09:29 Dextrose 5% 1,000 Ml IVPB PRN PRN Hypoglycemia Protocol Cefepime HCl 1 gm in 50 mls @ 100 mls/hr 03/10/24 17:00 03/14/24 17:09 Maxipime 1 Gm/Ns 50 Ml IVPB 100 mls/hr Q24H ALEKSANDR Administration Insulin Aspart 4 - 8 units 03/11/24 08:00 03/15/24 12:27 Insulin Aspart (*Bkc) 100 Units/Ml SUB-Q 6 units TIDWM ALEKSANDR Administration Protocol Insulin Aspart 2 - 4 units 03/11/24 21:00 03/14/24 22:00 Insulin Aspart (*Bkc) 100 Units/Ml SUB-Q 3 units HS ALEKSANDR Administration Protocol Insulin Aspart 6 units 03/15/24 08:00 03/15/24 12:27 Insulin Aspart (*Bkc) 100 Units/Ml SUB-Q 6 units TIDWM ALEKSANDR Administration Insulin Glargine 25 units 03/15/24 09:00 03/15/24 08:56 Insulin Glargine (*Bkc) 100 Units/Ml SUB-Q 25 units QAM ALEKSANDR Administration Latanoprost 1 drop 03/10/24 21:05 03/14/24 17:09 Latanoprost 0.005% Op Soln 2.5 Ml Btl EACH EYE 1 drop QPM ALEKSANDR Administration Multivitamins/Minerals 1 tablet 03/12/24 12:40 03/15/24 09:02 Opti-Gen Tab PO 1 tablet QAM ALEKSANDR Administration Pantoprazole Sodium 40 mg 03/11/24 09:00 03/15/24 09:02 Pantoprazole 40 Mg Tablet PO 40 mg QAM ALEKSANDR Administration Polyethylene Glycol 17 gm 03/14/24 09:00 03/15/24 08:58 Polyethylene Glycol 3350 17 Gm Powd.Pack PO 17 gm QAM ALEKSANDR Administration Prednisone 60 mg 03/11/24 08:00 03/15/24 09:01 Prednisone 20 Mg Tablet PO 60 mg DAILY@0800 ALEKSANDR Administration Fluticasone/Salmeterol 2 puff 03/10/24 20:00 03/15/24 08:26 Fluticasone/Salmeterol 115-21 Mcg Inhaler 1 Puff INHALATION 2 puff Q12HRT ALEKSANDR Administration Sodium Bicarbonate 325 mg 03/11/24 09:00 03/15/24 09:01 Sodium Bicarbonate Tab 325 Mg Tablet PO 325 mg QAM ALEKSANDR Administration Timolol Maleate 1 drop 03/11/24 09:00 03/15/24 08:57 Timolol Maleate 0.5% Op Soln 5 Ml Bottle EACH EYE 1 drop QAM ALEKSANDR Administration Radiology Results: ITS Impressions Head CT 03/10/24 11:24 IMPRESSION: No acute intracranial findings. Cervical Spine CT 03/10/24 11:48 IMPRESSION: No acute osseous abnormality cervical spine. Multilevel degenerative disc disease. Chest/Abdomen/Pelvis CT 03/10/24 13:56 IMPRESSION: 1. Moderate emphysema with patchy groundglass opacities in the bilateral lower lobes and right middle lobe which could represent mild pulmonary edema versus pneumonia which has improved since the prior study. 2. 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 2 mm stone previously seen in the right kidney is no longer visualized. 3. Minimal perihepatic, perisplenic and pericholecystic ascites. 4. Prostatomegaly. 5. Moderate-sized bilateral fat-containing inguinal hernias. Chest X-Ray 03/15/24 06:31 IMPRESSION: 1. Worsened airspace opacities at left lung base, consistent with atelectasis versus pneumonia. Labs Labs: Laboratory Results - last 24 hr 03/14/24 03/15/24 03/15/24 20:42 04:36 07:45 WBC 4.5 RBC 2.57 L Hgb 7.4 L Hct 22.8 L MCV 88.7 MCH 28.8 MCHC 32.5 RDW 23.3 H Plt Count 97 L MPV 10.4 Immature Gran % (Auto) 6.2 H Neut % (Auto) 73.5 H Lymph % (Auto) 12.8 L [place] % (Auto) 7.3 Eos % (Auto) 0.0 Baso % (Auto) 0.2 Lymph # (Auto) 0.58 L [place] # (Auto) 0.3 Eos # (Auto) 0.0 Baso # (Auto) 0.0 Abs Immat Gran (auto) 0.28 H Absolute Neuts (auto) 3.3 Absolute Nucleated RBC 0.000 Nucleated RBC % 0.0 Platelet Estimate Decreased % Immature Plt Fraction 3.1 Anisocytosis 1+ Ovalocytes 1+ Schistocytes Rare Sodium 134 L Potassium 3.7 Chloride 101 Carbon Dioxide 25 Anion Gap 8 BUN 111 H Creatinine 4.90 H Estim Creat Clear Calc 9 Estimated GFR 11 L Glucose 203 H POC Capillary Glucose 321 H 192 H Calcium 7.0 L Magnesium 1.5 L Total Bilirubin 0.8 AST 23 ALT 42 Alkaline Phosphatase 64 Total Protein 5.0 L Albumin 2.4 L 03/15/24 03/15/24 12:00 16:01 WBC RBC Hgb Hct MCV MCH MCHC RDW Plt Count MPV Immature Gran % (Auto) Neut % (Auto) Lymph % (Auto) [place] % (Auto) Eos % (Auto) Baso % (Auto) Lymph # (Auto) [place] # (Auto) Eos # (Auto) Baso # (Auto) Abs Immat Gran (auto) Absolute Neuts (auto) Absolute Nucleated RBC Nucleated RBC % Platelet Estimate % Immature Plt Fraction Anisocytosis Ovalocytes Schistocytes Sodium Potassium Chloride Carbon Dioxide Anion Gap BUN Creatinine Estim Creat Clear Calc Estimated GFR Glucose POC Capillary Glucose 309 H 138 H Calcium Magnesium Total Bilirubin AST ALT Alkaline Phosphatase Total Protein Albumin
[2024-03-15] MEDS: LATANOPROST 0.005% OP SOLN 2.5 ML BTL 1 DROP EACH EYE (16:50)
[2024-03-15 19:38] LABS: Pneumococcal Antigen Urine NOT DETECTED
[2024-03-15 20:22] LABS: Glucose Point of Care 155 mg/dl (65-105)
[2024-03-16] VITALS (12 sets, daily range): BP systolic 139–175; BP diastolic 48–69; PULSE 53–94; RESP 16–24; TEMP 36.5–37; O2SAT 93–100
[2024-03-16 05:44] LABS: Hematocrit 22.8 % (42.0-52.0); Hemoglobin 7.5 g/dL (14.0-18.0); Immature Granulocyte Absolute 0.19 K/mm3 (0.00-0.031); Immature Granulocyte Percent A 3.7 % (0-0.5); Immature Platelet Fraction Pct 2.7 % (0.9-11.2); Lymphocytes Absolute Auto 0.64 K/mm3 (0.9-3.2); Lymphocytes Percent Auto 12.6 % (18.3-44.2); Mean Corpuscular HGB Conc 32.9 g/dl (32-36); Mean Corpuscular Hemoglobin 29.8 pg (26-34); Mean Corpuscular Volume 90.5 fl (80-100); Mean Platelet Volume 10.8 fl (7.4-10.4); Monocytes Absolute Auto 0.3 K/mm3 (0.1-0.6); Monocytes Percent Auto 5.9 % (2.6-8.5); Neutrophils Percent Auto 77.8 % (45.5-73.1); Platelet Count Result 82 k/mm3 (150-375); Red Blood Count 2.52 M/mm3 (4.6-6.20); Red Cell Distribution Width 23.5 % (11.5-14.5); White Blood Count 5.1 K/mm3 (4.5-10.0)
[2024-03-16 06:00] LABS: Albumin Level 2.4 g/dL (3.5-5.1); Anion Gap 8 mmol/L (4-12); Blood Urea Nitrogen 112 mg/dL (9-20); Calcium 7.1 mg/dL (8.4-10.2); Carbon Dioxide 25 mmol/L (22-30); Chloride 100 mmol/L (98-107); Estimated CRCL calculation 9 ml/min; Estimated Glomerular Filt Rate 11; Glucose 137 mg/dL (65-110); Magnesium 1.8 mg/dL (1.6-2.3); Phosphorus 5.9 mg/dL (2.5-4.5); Potassium 3.6 mmol/L (3.4-5.0); Sodium 133 mmol/L (137-145)
[2024-03-16 06:10] LABS: Anisocytosis 1+; Burr Cells 1+; Ovalocytes 1+; Platelet Estimate Decreased (Adequate)
[2024-03-16 06:11] LABS: Schistocytes Rare
[2024-03-16 07:43] LABS: Glucose Point of Care 118 mg/dl (65-105)
[2024-03-16] MEDS: INSULIN ASPART (*BKC) 100 UNITS/ML 6 UNITS SUB-Q ×2 (09:32→11:55)
[2024-03-16] MEDS: CYANOCOBALAMIN 500 MCG TABLET PO (09:33)
[2024-03-16] MEDS: amLODIPine BESYLATE 5 MG TABLET PO (09:33)
[2024-03-16] MEDS: predniSONE 20 MG TABLET 60 MG PO (09:33)
[2024-03-16] MEDS: CYANOCOBALAMIN 1,000 MCG TABLET 2000 MCG PO (09:33)
[2024-03-16] MEDS: SODIUM BICARBONATE TAB 325 MG TABLET PO (09:33)
[2024-03-16] MEDS: OPTI-GEN TAB 1 TABLET PO (09:33)
[2024-03-16] MEDS: CALCIUM ACETATE 667 MG TABLET PO ×2 (09:33→16:35)
[2024-03-16] MEDS: ASPIRIN 81 MG ENTERIC TABLET PO (09:33)
[2024-03-16] MEDS: BUMETANIDE PO 1 MG, BUMETANIDE PO 0.5 MG 1.5 MG PO (09:34)
[2024-03-16] MEDS: DOXAZOSIN MESYLATE 4 MG TABLET 8 MG PO (09:34)
[2024-03-16] MEDS: DOCUSATE SODIUM 100 MG CAPSULE PO (09:34)
[2024-03-16] MEDS: FERROUS SULFATE 325 MG TABLET DR PO (09:34)
[2024-03-16] MEDS: ATORVASTATIN 40 MG TABLET PO (09:35)
[2024-03-16] MEDS: PANTOPRAZOLE 40 MG TABLET PO (09:35)
[2024-03-16] MEDS: polyethylene glycoL 3350 17 GM POWD.PACK PO (09:35)
[2024-03-16] MEDS: TIMOLOL MALEATE 0.5% OP SOLN 5 ML BOTTLE 1 DROP EACH EYE (09:36)
[2024-03-16] MEDS: INSULIN GLARGINE (*BKC) 100 UNITS/ML 25 UNITS SUB-Q (09:40)
[2024-03-16] MEDS: FLUTICASONE/SALMETEROL 115-21 MCG INHALER 1 PUFF 2 PUFF INHALATION (09:52)
[2024-03-16] MEDS: INSULIN ASPART (*BKC) 100 UNITS/ML SUB-Q (11:55)
[2024-03-16 12:01] LABS: Glucose Point of Care 250 mg/dl (65-105)
--- NOTE | 2024-03-16 12:02 | P.PNNP_ITS ---
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 * there was a concern for infection (endocarditics) but this was ruled out * presumed etiology of recent SANGITA/ARF * however, creatinine worse from labs done earlier this month * s/p pulse dose steroids and IV rituximab x 2 doses * continue steroids for now - wean slowly (3) Chronic kidney disease, stage IV (severe): Code(s): N18.4 - Chronic kidney disease, stage 4 (severe) Status: Acute Assessment and Plan: * creatining running ~ 3.5mg/dl earlier this month and post discharge from [facility] * new baseline or will some recovery occur with interventions to date (immunosuppressive therapy, diuretics...etc) * underlying CKD also present due to HTN, DM, vascular disease, and age-related change * follow trend of repeat labs and UOP (4) Hypoglycemia: Code(s): E16.2 - Hypoglycemia, unspecified Status: Resolved Assessment and Plan: * resolved * due to combination of worsening renal function in the context of ongoing insulin use * s/p glucagon and multiple pushes of D50 in the ER * was on D10 IVFs but has been weaned off * see #10 (5) Hypoxia: Code(s): R09.02 - Hypoxemia Status: Acute Assessment and Plan: * resolving/resolved * multifactorial etiology: * mild pulmonary edema * possible pneumonia (complicated by immunosuppression) * COPD exacerbation * relative anemia * noted to be 80% on room air in ER * improvement in oxygenation with supplemental oxygen (2L) -- now weaned off * CT of chest results noted: * moderate emphysema with patchy groundglass opacities in the bilateral lower lobes and right middle lobe which could represent mild pulmonary edema versus pneumonia * on bronchodilators * already on steroids * on oral diuretics * continue empiric antibiotics * follow respiratory status (6) Sepsis: Code(s): A41.9 - Sepsis, unspecified organism Status: Acute Assessment and Plan: * possibly due to UTI +/- pneumonia * complicated by immunosuppression (s/p rituximab and on steroids) * follow culture data * blood and urine culture negative to date * monitor hemodynamics * on antibiotics * supportive therapy (7) Anemia: Code(s): D64.9 - Anemia, unspecified Status: Acute Assessment and Plan: * due to SANGITA, CKD, vasculitis, and iron deficiency * PRBC transfusion per protocol * LEONEL while hospitalized * follow trend of H/H (8) Anasarca: Code(s): R60.1 - Generalized edema Status: Acute Assessment and Plan: * likely a manifestation of worsening renal dysfunction * as noted by bilateral pitting LE edema * imaging with ascites as well * known history of diastolic dysfunction + aortic stenosis as well * on oral diuretics * follow I/Os, daily weights, and overall volume status (9) Essential (primary) hypertension: Code(s): I10 - Essential (primary) hypertension Status: Chronic Assessment and Plan: * off FREYD-I/ARB due to #1 * currently on amlodipine * avoid hydralazine (this drug was suspected as cause of drug-induced lupus findings on renal biopsy) * follow trend of hemodynamics (10) Type 2 diabetes mellitus with other diabetic kidney complication: Code(s): E11.29 - Type 2 diabetes mellitus with other diabetic kidney complication Status: Chronic Assessment and Plan: * previous issues with hypoglycemia noted * follow accu-cheks * glycemic control per hospitalist Not opposed to discharge from renal perspective if otherwise medically stable -- he can follow-up with me in the office for ongoing management of his CKD and recent renal vasculitis by renal biopsy; will need follow-up with Hem/Onc for Epogen/Aranesp/Procrit injections. Will continue to follow. Subjective Date/time seen: 03/16/24 12:02 Interval history: Follow-up for acute kidney injury/acute renal failure on chronic kidney disease (versus progression of CKD?). Renal function relatively stable if not improving although BUN remains elevated; bales catheter discontinued and nursing monitoring to ensure he urinates; having bowel movement; no apparent distress noted at this time; feels reasonably well. Exam Narrative: General: elderly but WD/WN male in NAD Heart: normal S1 and S2; no rub Lungs: clear anteriorly; decreased at bases Abdomen: soft, nontender, nondistended, positive bowel sounds Extremities: no cyanosis or clubbing; trace edema Skin: warm and dry Objective Data Vital Signs Vital Signs: Vital Signs Temp Pulse Resp BP Pulse Ox O2 Del Method 03/16/24 12:00 98.6 F 84 20 160/56 H 100 03/16/24 10:00 94 03/16/24 08:00 93 03/16/24 09:52 93 Room Air 03/16/24 08:00 98.5 F 85 16 175/69 H 99 03/16/24 06:00 79 03/16/24 04:00 77 03/16/24 02:00 78 03/16/24 00:00 78 03/15/24 22:00 75 03/15/24 20:00 79 03/16/24 04:47 97.7 F 53 L 20 155/61 H 100 03/16/24 00:46 97.8 F 78 20 146/51 H 98 03/15/24 20:51 97.8 F 61 20 139/51 L 97 03/15/24 18:00 81 03/15/24 16:00 80 03/15/24 14:00 86 03/15/24 16:00 98.5 F 82 20 135/93 H 99 Intake/Output Intake/Output: Intake & Output 03/13/24 03/14/24 03/15/24 03/16/24 23:59 23:59 23:59 23:59 Intake Total 2340 2950 2140 Output Total 2000 1425 2500 1100 Balance 340 1525 360 -1100 Meds/Results Medications: Active Medications Generic Name Dose Route Start Last Admin Trade Name Freq PRN Reason Stop Dose Admin Albuterol/Ipratropium 3 ml 03/10/24 15:14 Ipratropium 0.5 Mg/Albuterol Sulfate 2.5 Mg Ampul.Neb 3 Ml INHALATION Q6HRT PRN Wheezing Amlodipine Besylate 5 mg 03/15/24 09:00 03/16/24 09:33 Amlodipine Besylate 5 Mg Tablet PO 5 mg QAM ALEKSANDR Administration Aspirin 81 mg 03/11/24 09:00 03/16/24 09:33 Aspirin 81 Mg Enteric Tablet PO 81 mg QAM ALEKSANDR Administration Atorvastatin Calcium 40 mg 03/11/24 09:00 03/16/24 09:35 Atorvastatin 40 Mg Tablet PO 40 mg DAILY ALEKSANDR Administration Bumetanide 1 mg/ Bumetanide 0. 1.5 mg 03/13/24 09:00 03/16/24 09:34 5 mg PO 1.5 mg DAILY ALEKSANDR Administration Calcium Acetate 667 mg 03/11/24 09:00 03/16/24 09:33 Calcium Acetate 667 Mg Tablet PO 667 mg BID ALEKSANDR Administration Cyanocobalamin 500 mcg 03/11/24 09:00 03/16/24 09:33 Cyanocobalamin 500 Mcg Tablet PO 500 mcg DAILY ALEKSANDR Administration Cyanocobalamin 2,000 mcg 03/11/24 09:00 03/16/24 09:33 Cyanocobalamin 1,000 Mcg Tablet PO 2,000 mcg DAILY ALEKSANDR Administration Dextrose 12.5 gm 03/10/24 09:29 03/10/24 10:30 Dextrose 50% 25 Gm/50 Ml Syringe IV PUSH 12.5 gm PRN PRN Administration Hypoglycemia Protocol Docusate Sodium 100 mg 03/13/24 21:00 03/16/24 09:34 Docusate Sodium 100 Mg Capsule PO 100 mg Q12HR ALEKSANDR Administration Doxazosin Mesylate 8 mg 03/11/24 09:00 03/16/24 09:34 Doxazosin Mesylate 4 Mg Tablet PO 8 mg DAILY ALEKSANDR Administration Epoetin Jose Antonio-epbx 10,000 units 03/15/24 09:00 03/15/24 16:47 Epoetin Jose Antonio-Epbx 10,000 Units/Ml Vial SUB-Q 10,000 units MOWEFR@09 ALEKSANDR Administration Ferrous Sulfate 325 mg 03/11/24 09:00 03/16/24 09:34 Ferrous Sulfate [address] PO 325 mg DAILY ALEKSANDR Administration Glucagon 1 mg 03/10/24 09:29 Glucagon For Inj 1 Mg Vial IM PRN PRN Hypoglycemia Protocol Glucose 15 gm 03/10/24 09:29 03/10/24 12:14 Glucose Oral Gel 15 Gm Of Glucse In 37.5 Gm Tube PO 15 gm PRN PRN Administration Hypoglycemia Protocol Dextrose 1,000 mls @ 100 mls/hr 03/10/24 09:29 Dextrose 5% 1,000 Ml IVPB PRN PRN Hypoglycemia Protocol Insulin Aspart 4 - 8 units 03/11/24 08:00 03/16/24 11:55 Insulin Aspart (*Bkc) 100 Units/Ml SUB-Q 4 units TIDWM ALEKSANDR Administration Protocol Insulin Aspart 2 - 4 units 03/11/24 21:00 03/15/24 20:32 Insulin Aspart (*Bkc) 100 Units/Ml SUB-Q Not Given HS [facility] Protocol Insulin Aspart 6 units 03/15/24 08:00 03/16/24 11:55 Insulin Aspart (*Bkc) 100 Units/Ml SUB-Q 6 units TIDWM ALEKSANDR Administration Insulin Glargine 25 units 03/15/24 09:00 03/16/24 09:40 Insulin Glargine (*Bkc) 100 Units/Ml SUB-Q 25 units QAM ALEKSANDR Administration Latanoprost 1 drop 03/10/24 21:05 03/15/24 16:50 Latanoprost 0.005% Op Soln 2.5 Ml Btl EACH EYE 1 drop QPM ALEKSANDR Administration Multivitamins/Minerals 1 tablet 03/12/24 12:40 03/16/24 09:33 Opti-Gen Tab PO 1 tablet QAM ALEKSANDR Administration Pantoprazole Sodium 40 mg 03/11/24 09:00 03/16/24 09:35 Pantoprazole 40 Mg Tablet PO 40 mg QAM ALEKSANDR Administration Polyethylene Glycol 17 gm 03/14/24 09:00 03/16/24 09:35 Polyethylene Glycol 3350 17 Gm Powd.Pack PO 17 gm QAM ALEKSANDR Administration Prednisone 60 mg 03/11/24 08:00 03/16/24 09:33 Prednisone 20 Mg Tablet PO 60 mg DAILY@0800 ALEKSANDR Administration Fluticasone/Salmeterol 2 puff 03/10/24 20:00 03/16/24 09:52 Fluticasone/Salmeterol 115-21 Mcg Inhaler 1 Puff INHALATION 2 puff Q12HRT ALEKSANDR Administration Sodium Bicarbonate 325 mg 03/11/24 09:00 03/16/24 09:33 Sodium Bicarbonate Tab 325 Mg Tablet PO 325 mg QAM ALEKSANDR Administration Timolol Maleate 1 drop 03/11/24 09:00 03/16/24 09:36 Timolol Maleate 0.5% Op Soln 5 Ml Bottle EACH EYE 1 drop QAM ALEKSANDR Administration Radiology Results: ITS Impressions Head CT 03/10/24 11:24 IMPRESSION: No acute intracranial findings. Cervical Spine CT 03/10/24 11:48 IMPRESSION: No acute osseous abnormality cervical spine. Multilevel degenerative disc disease. Chest/Abdomen/Pelvis CT 03/10/24 13:56 IMPRESSION: 1. Moderate emphysema with patchy groundglass opacities in the bilateral lower lobes and right middle lobe which could represent mild pulmonary edema versus pneumonia which has improved since the prior study. 2. 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 2 mm stone previously seen in the right kidney is no longer visualized. 3. Minimal perihepatic, perisplenic and pericholecystic ascites. 4. Prostatomegaly. 5. Moderate-sized bilateral fat-containing inguinal hernias. Chest X-Ray 03/15/24 06:31 IMPRESSION: 1. Worsened airspace opacities at left lung base, consistent with atelectasis versus pneumonia. Labs Labs: Laboratory Tests 03/16/24 05:24 03/16/24 05:24 Calcium 7.1 L Phosphorus 5.9 H Magnesium 1.8 Albumin 2.4 L Microbiology 03/10/24 14:58 Blood Blood Culture - Final 03/10/24 16:26 Blood Blood Culture - Final
[2024-03-16] MEDS: CEFEPIME 1 GM/NS 50 ML 1 GM/50 ML BAG IVPB (13:00)
[2024-03-16] MEDS: DOCOSANOL 10% CREAM 2 GM 1 APPLIC TOPICAL (15:30)
[2024-03-16] MEDS: CHLORHEXIDINE GLUCONATE 0.12% ORAL RINSE 473 ML BTL (*BKC) 15 ML SWISH/SPIT (15:32)
--- NOTE | 2024-03-16 15:33 | PM.DS ---
DS: Admitting Diagnosis Discharge Date 03/16/24 Admitting Diagnosis Hypoglycemia DS: Discharge Diagnosis Discharge Diagnosis (1) Hypoglycemia: Code(s): E16.2 - Hypoglycemia, unspecified Status: Resolved (2) Hypoxia: Code(s): R09.02 - Hypoxemia Status: Acute (3) Sepsis: Code(s): A41.9 - Sepsis, unspecified organism Status: Acute (4) Acute kidney injury superimposed on CKD: Code(s): N17.9 - Acute kidney failure, unspecified; N18.9 - Chronic kidney disease, unspecified Status: Acute (5) Anasarca: Code(s): R60.1 - Generalized edema Status: Acute (6) Type 2 diabetes mellitus with other diabetic kidney complication: Code(s): E11.29 - Type 2 diabetes mellitus with other diabetic kidney complication Status: Chronic (7) Essential (primary) hypertension: Code(s): I10 - Essential (primary) hypertension Status: Chronic (8) Pneumonia: Code(s): J18.9 - Pneumonia, unspecified organism Status: Acute (9) COPD with emphysema: Code(s): J43.9 - Emphysema, unspecified Status: Acute (10) Anemia: Code(s): D64.9 - Anemia, unspecified Status: Acute (11) Vasculitis: Code(s): I77.6 - Arteritis, unspecified Status: Acute (12) Immunocompromised: Code(s): D84.9 - Immunodeficiency, unspecified Status: Acute (13) Acute UTI: Code(s): N39.0 - Urinary tract infection, site not specified Status: Acute (14) Gastro-esophageal reflux disease without esophagitis: Code(s): K21.9 - Gastro-esophageal reflux disease without esophagitis Status: Chronic DS: Summary Hospital Course Reason for hospitalization: 89yo male with DM, CKD, vasculitis and HTN here for hypoglycemia. Please see H&P for details. Hospital Course: The following issues were evaluated: (1) Hypoglycemia: Patient presented with hypoglycemia likely secondary to worsening renal function leading to decreased insulin clearance. Patient takes 70 units of Levemir in the morning and 45 units in the evening. His blood sugar chart shows gradual trend of decreasing blood sugar over last 3-4 days prior to admission. He received glucagon and multiple pushes of dextrose in the ER. He was started on D10 and glucose stabilized. Able to titrate down and to off. Hypoglycemia has resolved. Patient resumed on insulin at lower doses and he appears to be tolerating this well. (2) Hypoxia: Patient was saturating in mid 80s on room air on arrival but saturating adequately on [address] chest showed moderate emphysema with patchy ground glass opacities in the bilateral lower lobes and right middle lobe: mild pulmonary edema vs PNA which has improved since the prior study. Appears to have COPD with some volume overload. Concern of PNA and is immuno suppressed. Weaned to room air now. Treated with Bronchodilators for COPD, steroids and antibiotics. Lasix IV for pulmonary edema and now changed to Bumex oral. (3) Sepsis: Sepsis secondary to ? pneumonia. Patient is on immunosuppressive agents. PCT 0.2. WBC normal. No fevers. He was not a candidate for liberal IV fluids due to volume overloaded and also getting dextrose infusion for hypoglycemia. Patient was started on vancomycin, cefepime and azithro. MRSA screen is negative so Vanco discontinued. UCx and BCx negative. He completed a course of Azithromycin and cefepime. Blood pressure was adequate. (4) Acute kidney injury superimposed on CKD: Patient has chronic kidney disease with creatinine around 3.5. He was recently diagnosed with vasculitis by kidney biopsy. He presents with worsening of kidney function with Cr at 5.1. His electrolytes acceptable. He does have mild volume overload. MONORAIL CRANE OPERATOR was considered. Started on IV Lasix but changed to oral Bumex. Nephrology consulted and appreciate their input. Fluid status is better. Bicarb normal at 26, Potassium normal. Continues to have good UOP. Cr was up to 5.7 with BUN 109 (some related to steroids) but better today at 5. BUN higher at 112. Continue oral Bumex, bicarb and PhosLo. (5) Anasarca: Patient had bilateral pitting edema and CT shows ascites. This is likely secondary to worsening renal function. He does have grade 1 diastolic dysfunction on his echo and mild aortic stenosis. Treated with diuretic therapy. (6) Type 2 diabetes mellitus with other diabetic kidney complication: A1c 5.9% in January. The patient's blood glucose was monitored with AccuCheks covering with sliding scale. Hypoglycemia protocol was available as needed. He was started on Lantus and Novolog and doses advanced daily to control glucose. Semiconductor Manufacturing Technician was aware to watch glucose values as the patient's steroids are weaned. (7) Essential (primary) hypertension: Patient's blood pressure was monitored closely and ran SBP 130-170 range. Norvasc was advanced. (8) Pneumonia: Patient's CT scan of the chest was abnormal. Patient has baseline COPD changes and infiltrates suggestive mostly of pulmonary edema but pneumonia could not be ruled out. He does not have any symptoms suggestive of pneumonia. He has chronic cough which is dry. He is afebrile. WBC normal. Patient was started on empiric antibiotics as above. He has been weaned to room air. MRSA screen was negative. He completed a course of antibiotics (9) COPD with emphysema: As above. We continued Advair (10) Anemia: Patient has anemia of chronic kidney disease and iron deficiency. His hemoglobin dropped to 6.6 and 1 unit of PRBC transfused. No evidence of bleeding. Hgb up into the 7 range and stable. (11) Vasculitis: Recently diagnosed with vasculitis at [facility]. He has completed his treatment with rituximab. He is currently on prednisone which was continued. (12) Immunocompromised: Patient received rituximab and is now on prednisone. (13) Thrombocytopenia: Platelet count dropped to 82K. Not on heparin or Lovenox. Probably related to Rituxan and/or vasculitis. He has been up walking in the [place]. He was able to void after Jones removed. He overall did well and was able to be discharged home on 03/16/24. Status at Discharge Cognitive/behavioral status at discharge: stable Time Spent with Patient Time attestation: Total time spent providing and/or coordinating discharge services: 35 mintues Time spent: Greater than 30 minutes Exam Narrative: AF 98.6 160/56 79 20 100% ra Gen - NARD Chest - fe basilar rhonchi o/w clear. CV - RRR S1/S2. Telemetry showing PVCs Abd -soft. Nontender. Nondistended. -Jones catheter secured with clear yellow urine. Ext - trace alessio ankle edema. Psych - Nml mood and affect Skin - Warm and dry DS: Data Data Completed and Pending Labs on day of discharge: Labs from last 24 hours 03/16/24 03/16/24 03/16/24 11:46 07:36 05:24 WBC 5.1 RBC 2.52 L Hgb 7.5 L Hct 22.8 L MCV 90.5 MCH 29.8 MCHC 32.9 RDW 23.5 H Plt Count 82 L MPV 10.8 H Immature Gran % (Auto) 3.7 H Neut % (Auto) 77.8 H Lymph % (Auto) 12.6 L [place] % (Auto) 5.9 Eos % (Auto) 0.0 Baso % (Auto) 0.0 L Lymph # (Auto) 0.64 L [place] # (Auto) 0.3 Eos # (Auto) 0.0 Baso # (Auto) 0.0 Abs Immat Gran (auto) 0.19 H Absolute Neuts (auto) 4.0 Absolute Nucleated RBC 0.000 Nucleated RBC % 0.0 Platelet Estimate Decreased % Immature Plt Fraction 2.7 Anisocytosis 1+ Ovalocytes 1+ Gena Cells 1+ Schistocytes Rare Sodium 133 L Potassium 3.6 Chloride 100 Carbon Dioxide 25 Anion Gap 8 BUN 112 H Creatinine 5.00 H Estim Creat Clear Calc 9 Estimated GFR 11 L Glucose 137 H POC Capillary Glucose 250 H 118 H Calcium 7.1 L Phosphorus 5.9 H Magnesium 1.8 Albumin 2.4 L Urine Pneumococcal Ag 03/15/24 03/15/24 03/10/24 20:12 16:01 10:24 WBC RBC Hgb Hct MCV MCH MCHC RDW Plt Count MPV Immature Gran % (Auto) Neut % (Auto) Lymph % (Auto) [place] % (Auto) Eos % (Auto) Baso % (Auto) Lymph # (Auto) [place] # (Auto) Eos # (Auto) Baso # (Auto) Abs Immat Gran (auto) Absolute Neuts (auto) Absolute Nucleated RBC Nucleated RBC % Platelet Estimate % Immature Plt Fraction Anisocytosis Ovalocytes Gena Cells Schistocytes Sodium Potassium Chloride Carbon Dioxide Anion Gap BUN Creatinine Estim Creat Clear Calc Estimated GFR Glucose POC Capillary Glucose 155 H 138 H Calcium Phosphorus Magnesium Albumin Urine Pneumococcal Ag Not detected Discharge Plan Discharge Attending physician on discharge: Beny Saez Consulting providers: Caity Washington Adarsh Discharging Clinician: Beny Saez Anticipated Discharge Date/Time: 03/16/24 15:46 Patient Disposition: Home, Self-Care Activity: as tolerated Diet: diabetic Discharge Instructions: Please check glucose before meals and before bed. Record and bring into your doctor for review. Call your doctor if glucose greater than 300 or less than 70. Check blood pressure 1 to 2 times a day. Record and bring into your doctor for review. Call your doctor if your blood pressure is greater than 180/110. Take precautions to avoid falls. Rise slowly from a lying or sitting position. Pause before standing or walking. Check daily morning weights after voiding. Call your doctor if you gain more than 3 lb in 2 days or 5 lb in 1 week. Contact your doctor or call 911 and come to the Emergency Room if you have lightheadedness with standing or other worrisome symptoms. Avoid NSAIDs (ibuprofen, naproxen, Aleve). Tylenol is safe to take. Follow-up with your primary care provider in 1-2 weeks. Please call for appointment. Follow-up with Semiconductor Manufacturing Technician in 1-2 weeks. Please call for an appointment. Thank you for using [facility] for your health care needs. Patient Instructions: Antibiotic Form Stand Alone Forms: General Discharge Information Follow-up/Referrals: Caity Washington MD [Physician] - Call for Appointment Miguelito Ontiveros DO [Primary Care Provider] - Call for Appointment Discharge Medications: New (DME) pen needle, diabetic [BD Ultra-Fine Rita Pen Needle] 32 gauge x 5/32 needle Qty: 1 0RF Rx Instructions: May substitute to meet patient needs. Use As Directed dextrose [Glutose-15] 40 % Gel 15 g PO PRN PRN (Reason: Hypoglycemia) Qty: 112.5 0RF insulin aspart U-100 100 unit/mL (3 mL) insulin pen 6 unit subcut TID Qty: 15 1RF insulin glargine 100 unit/mL (3 mL) insulin pen 25 unit subcut QAM Qty: 15 1RF prednisone 20 mg Tablet 60 mg PO DAILY@0800 Qty: 90 0RF calcium acetate(phosphat bind) 667 mg Tablet 667 mg PO BID Qty: 60 1RF bumetanide 0.5 mg Tablet 1.5 mg PO DAILY Qty: 90 1RF amlodipine [Norvasc] 5 mg Tablet 5 mg PO QAM Qty: 30 1RF chlorhexidine gluconate 0.12 % Mouthwash 15 ml SWISHSPIT BID Qty: 15 0RF docosanol [Abreva] 10 % Cream 1 applic topical 5 TIMES DAILY Qty: 2 0RF Continued latanoprost 0.005 % drops 1 drop EACH EYE QPM timolol maleate 0.5 % drops 1 drp EACH EYE QAM albuterol sulfate 90 mcg/actuation HFA aerosol inhaler 2 inh inhalation Q4H PRN (Reason: shortness of breath or wheezing) Qty: 8.5 2RF sodium bicarbonate 325 mg tablet 325 mg PO DAILY aspirin [Adult Low Dose Aspirin] 81 mg tablet,delayed release (DR/EC) 81 mg PO DAILY cyanocobalamin (vitamin B-12) 2,500 mcg tablet 2,500 mcg PO DAILY ergocalciferol (vitamin D2) 50,000 unit tablet 50,000 unit PO DAILY ferrous sulfate [Iron (ferrous sulfate)] 325 mg (65 mg iron) tablet 325 mg PO DAILY pantoprazole 40 mg tablet,delayed release (DR/EC) 40 mg PO QAM Qty: 90 0RF fluticasone propion-salmeterol [Wixela Inhub] 250-50 mcg/dose blister with device 1 inh inhalation DAILY (DME) blood-glucose meter [Accu-Chek Guide Glucose Meter] Misc MISCELLANEOUS (DME) Accu-Chek Guide test strips Strip MISCELLANEOUS (DME) lancets [Accu-Chek Softclix Lancets] [facility] MISCELLANEOUS PreserVision AREDS 2,148 mcg-113 mg-45 mg-17.4mg Tablet 1 tablet PO Q12H atorvastatin 40 mg tablet 40 mg PO DAILY doxazosin 8 mg tablet 8 mg PO DAILY Qty: 100 1RF Discontinued amlodipine 2.5 mg tablet 2.5 mg PO DAILY Qty: 90 0RF prednisone 50 mg tablet 75 mg PO DAILY Qty: 30 0RF (DME) insulin syringe-needle U-100 [Advocate Syringes] 1 mL 31 gauge x 5/16 syringe MISCELLANEOUS Levemir U-100 Insulin 100 unit/mL solution 30 unit SUBCUT HS insulin detemir U-100 100 unit/mL solution 70 unit subcut DAILY Other Ambulatory Orders: Diabetes Education Referral (Routine) Timeframe: 1 Day Location: Determined by Patient Ordered By: Beny Saez Date of admission: 03/10/24 14:42 Primary Care Provider: Miguelito Ontiveros Admitting Provider: Beny Saez Attending physician on admission: Beny Saez Condition: Stable Hospitalist MIPS Heart Failure (Exclusion) Patient has history of Heart Transplant or Left Ventricular Assistive Device?: No IF YES, STOP HERE Heart Failure (Qualifier) Patient has current or prior documentation of LVEF less than or equal to 40%, or mod/servere depressed LVSF?: No IF NO, STOP HERE
[2024-03-16 17:28] LABS: Glucose Point of Care 69 mg/dl (65-105)
[2024-03-16 18:54] LABS: Source NOT GIVEN
--- NOTE | 2024-03-17 09:04 | PC.NURSE ---
Urine Mycoplasm not detected. Urine pneumococcal Ag not detected. Dr. Se lauren.
[2024-03-20 21:54] LABS: Legionella pneumophila Ag Ur NOT DETECTED
--- NOTE | 2024-03-22 08:31 | PC.NURSE ---
Urine legionella Ag is not detected. Dr. Se lauren.
--- NOTE | 2024-03-22 13:43 | PCCDE ---
03/22/24 Spoke with during courtesy follow up call. PCP appt tomorrow. States doing fine with discharge insulin regimen including SMBG TID verbalizing concerns with food options/portions. To talk with PCP re: MNT referral. Pt appreciates his granddaughters assistance (medical technician) They have OP pamphlet. SUHAIL
== END 2024-03-16 17:12 | disposition home or self-care (01) | DRG 194 ==
LOC: ANHED 14:46 → ANHICU 15:17 → ANHIMU 03-13 08:43
PROVIDERS: Internal Medicine; Internal Medicine Nephrology; Nurse Practitioner Acute Care; Admitting Provider Internal Medicine; Emergency Provider Emergency Medicine; PCP Internal Medicine; Visit Provider Internal Medicine
DX: J18.9 Pneumonia, unspecified organism (principal); D84.9 Immunodeficiency, unspecified; N17.9 Acute kidney failure, unspecified; J44.0 Chronic obstructive pulmonary disease with (acute) lower respiratory infection; J69.0 Pneumonitis due to inhalation of food and vomit; E11.649 Type 2 diabetes mellitus with hypoglycemia without coma; I77.89 Other specified disorders of arteries and arterioles; R09.02 Hypoxemia; E11.22 Type 2 diabetes mellitus with diabetic chronic kidney disease; N18.9 Chronic kidney disease, unspecified; J44.9 Chronic obstructive pulmonary disease, unspecified; I35.0 Nonrheumatic aortic (valve) stenosis; K21.9 Gastro-esophageal reflux disease without esophagitis; D63.1 Anemia in chronic kidney disease; D50.9 Iron deficiency anemia, unspecified; D69.6 Thrombocytopenia, unspecified; K76.0 Fatty (change of) liver, not elsewhere classified; D75.838 Other thrombocytosis; T45.1X5A Adverse effect of antineoplastic and immunosuppressive drugs, initial encounter; H40.9 Unspecified glaucoma; E78.2 Mixed hyperlipidemia; E78.5 Hyperlipidemia, unspecified; Z20.822 Contact with and (suspected) exposure to COVID-19; Z87.891 Personal history of nicotine dependence
CPT/HCPCS: 36415; 36430; 70450; 71045; 71046; 71250; 72125; 74176; 80048; 80053; 80069; 80202; 81001; 81050; 82533; 82550; 82570; 82607; 82728; 82746; 82948; 83540; 83550; 83735; 83880; 84100; 84145; 84156; 84300; 84439; 84443; 84540; 85014; 85018; 85025; 85055; 85999; 86704; 86706; 86850; 86900; 86901; 86923; 87040; 87086; 87088; 87340; 87449; 87581; 87637; 87641; 87899; 93005; 94640; 96361; 96374; 96376; 97110; 97161; 97165; 97530; 97535; 99285; A9248; A9270; J0456; J0692; J1815; J1940; J2919; J3370; J3475; J7030; J7050; J7512; P9016; Q5105

== ENCOUNTER 2024-03-22 08:46 | Outpatient (CLI) | payer MEDICARE, SELFPAY ==
[2024-03-22 09:35] LABS: Basophils Percent Auto 0.2 % (0.2-1.2); Hematocrit 26.1 % (42.0-52.0); Hemoglobin 8.1 g/dL (14.0-18.0); Immature Granulocyte Percent A 1.6 % (0-0.5); Immature Platelet Fraction Pct 3.1 % (0.9-11.2); Lymphocytes Absolute Auto 0.52 K/mm3 (0.9-3.2); Lymphocytes Percent Auto 8.4 % (18.3-44.2); Mean Corpuscular Hemoglobin 29.2 pg (26-34); Mean Corpuscular Volume 94.2 fl (80-100); Mean Platelet Volume 10.3 fl (7.4-10.4); Monocytes Absolute Auto 0.3 K/mm3 (0.1-0.6); Monocytes Percent Auto 4.8 % (2.6-8.5); Neutrophils Absolute Auto 5.3 K/mm3 (1.3-6.7); Platelet Count Result 91 k/mm3 (150-375); Red Blood Count 2.77 M/mm3 (4.6-6.20); Red Cell Distribution Width 25.2 % (11.5-14.5); White Blood Count 6.2 K/mm3 (4.5-10.0)
[2024-03-22 09:49] LABS: Albumin Level 2.6 g/dL (3.5-5.1); Anion Gap 6 mmol/L (4-12); Blood Urea Nitrogen 113 mg/dL (9-20); Calcium 7.4 mg/dL (8.4-10.2); Carbon Dioxide 29 mmol/L (22-30); Chloride 101 mmol/L (98-107); Estimated Glomerular Filt Rate 9; Glucose 227 mg/dL (65-110); Phosphorus 4.2 mg/dL (2.5-4.5); Potassium 4.1 mmol/L (3.4-5.0); Sodium 136 mmol/L (137-145)
[2024-03-22 09:56] LABS: Acanthocytes 1+; Anisocytosis 2+; Burr Cells 1+; Platelet Estimate Decreased (Adequate); Schistocytes None Seen
== END 2024-03-22 08:47 | disposition home or self-care (01) ==
PROVIDERS: PCP Internal Medicine; Visit Provider Internal Medicine
DX: N17.9 Acute kidney failure, unspecified (principal); N18.9 Chronic kidney disease, unspecified
CPT/HCPCS: 36415; 80069; 85025; 85055

== ENCOUNTER 2024-05-03 08:05 | Outpatient (CLI) | payer MEDICARE, SELFPAY ==
[2024-05-03 08:30] VITALS: PULSE 96; O2SAT 92
[2024-05-03 08:33] VITALS: PULSE 118; O2SAT 86
[2024-05-03 08:34] VITALS: O2SAT 87
[2024-05-03 08:35] VITALS: PULSE 103; O2SAT 92
[2024-05-03 08:45] VITALS: PULSE 90; O2SAT 93
--- NOTE | 2024-05-03 10:47 | PCRCNOTE ---
Home O2 eval faxed to office staff.
== END 2024-05-03 08:06 | disposition home or self-care (01) ==
LOC: ANHPFT 08:07
PROVIDERS: PCP Internal Medicine; Visit Provider Internal Medicine Pulmonary Disease
DX: J43.9 Emphysema, unspecified (principal)
CPT/HCPCS: 94060; 94618; 94726; 94729